=== PATIENT | male | born 1960 | race Hispanic/Latino ===

== ENCOUNTER → 2016-07-25 21:11 | Emergency (ER) | payer MEDICAID ==
[2016-07-25 21:11] VITALS: BMI 32.5
== END | disposition left against medical advice (07) ==
LOC: C.ER 21:11
DX: Z04.8 Encounter for examination and observation for other specified reasons (principal); Z02.9 Encounter for administrative examinations, unspecified

== ENCOUNTER 2016-07-26 15:28 | Inpatient (IN) | payer MEDICAID ==
[2016-07-26 15:48] VITALS: BMI 28.7
[2016-07-26 17:28] LABS: BASO % 0.9 % (0.0-2.0); EOS % 0.5 % (0.0-4.0); HEMATOCRIT 43.7 % (35.0-51.0); LYMPH # 1.5 K/uL (1.0-4.3); LYMPH % 27.9 % (20.0-40.0); MEAN CELL VOLUME 95.6 fL (80.0-94.0); MEAN CORPUSCULAR HGB CONC 33.4 g/dL (33.0-37.0); MONO # 0.9 K/uL (0.0-0.8); MONO % 15.7 % (0.0-10.0); NRBC % 0.1 % (0.0-2.0); WHITE BLOOD COUNT 5.5 K/uL (4.8-10.8)
[2016-07-26 17:37] LABS: CHLORIDE 90 mmol/L (98-107); POTASSIUM 3.3 mmol/L (3.6-5.2); SODIUM 142 mmol/L (132-148)
[2016-07-26 17:39] LABS: BILIRUBIN,TOTAL 1.4 mg/dL (0.2-1.3); GFR AFRICAN-AMERICAN > 60
[2016-07-26 17:40] LABS: ALB/GLOB RATIO 1.3 (1.0-2.1); ALKALINE PHOSPHATASE 149 U/L (38-126); ALT/SGPT 105 U/L (21-72); AST/SGOT 231 U/L (17-59); BLOOD UREA NITROGEN 12 mg/dL (9-20); CALCIUM 8.2 mg/dl (8.6-10.4); CARBON DIOXIDE 30 mmol/L (22-30); GLUCOSE,RANDOM 93 mg/dL (75-110); TOTAL PROTEIN 7.9 g/dL (6.3-8.3)
[2016-07-26 18:00] LABS: ALCOHOL SERUM 356 mg/dl (0-10)
--- NOTE | 2016-07-26 18:03 | C.PDOC ---
History Of Present Illness 56 y/o male presents to the ED requesting alcohol detox. Pt admits to drinking 2 pints per day sometimes more. Pt currently intoxicated requesting help. Denies nausea, vomiting, diarrhea, fever, chills or any other complaints. Time Seen by Provider: 07/26/16 16:20 Chief Complaint (Nursing): Substance Abuse History Per: Patient History/Exam Limitations: no limitations Current Symptoms Are (Timing): Still Present Suicide/Self Injury Attempted (Context): None Modifying Factor(s): Alcohol Severity: Mild Involuntary Hold By: None Recent travel outside of the [place]: No Past Medical History Reviewed: Historical Data, Nursing Documentation, Vital Signs Vital Signs: Last Vital Signs Temp 98.5 F 07/26/16 15:48 Pulse 83 07/26/16 18:02 Resp 18 07/26/16 18:02 BP 118/89 07/26/16 15:48 Pulse Ox 95 07/26/16 18:31 - Medical History PMH: COPD, Diabetes, Fractures, HTN, Schizophrenia, Seizures - [facility] Procedures ALCOHOL DETOXIFICATION (02/24/13) INJECT/INFUSE ELECTROLYT (02/20/13) INJECT/INFUSE NEC (05/02/13) Family History: States: Unknown Family Hx - Social History Hx Tobacco Use: Yes Hx Alcohol Use: Yes Hx Substance Use: Yes - Immunization History Hx Tetanus Toxoid Vaccination: Yes Hx Influenza Vaccination: Yes Hx Pneumococcal Vaccination: No Review Of Systems Except As Marked, All Systems Reviewed And Found Negative. Constitutional: Negative for: Fever, Chills Cardiovascular: Negative for: Chest Pain Respiratory: Negative for: Shortness of Breath Gastrointestinal: Negative for: Nausea, Vomiting, Diarrhea Physical Exam - Physical Exam Appears: Non-toxic, No Acute Distress, Other (intoxicated) Skin: Warm, Dry, No Rash Head: Atraumatic, Normacephalic Neck: Normal ROM, Supple Chest: Symmetrical Cardiovascular: Rhythm Regular, No Murmur Respiratory: Normal Breath Sounds, No Rales, No Rhonchi, No Wheezing Gastrointestinal/Abdominal: Normal Exam, Soft, No Tenderness Extremity: Normal ROM Extremity: Bilateral: Atraumatic Neurological/Psych: Oriented x3 ED Course And Treatment - Laboratory Results Result Diagrams: 07/26/16 17:15 07/26/16 17:15 O2 Sat by Pulse Oximetry: 95 (room air) Pulse Ox Interpretation: Normal Medical Decision Making Medical Decision Making: Plan: labs, UA, CRISIS evaluation Disposition - Disposition Disposition Time: 18:48 Condition: GUARDED - Clinical Impression Clinical Impression: Alcohol abuse - Scribe Statement The provider has reviewed the documentation as recorded by the Scribe Sven Steven Provider Attestation: All medical record entries made by the Scribe were at my direction and personally dictated by me. I have reviewed the chart and agree that the record accurately reflects my personal performance of the history, physical exam, medical decision making, and the department course for this patient. I have also personally directed, reviewed, and agree with the discharge instructions and disposition. Physician Patient Turnover Patient Signed Over To: Nisha Katz Handoff Comments: pending crisis and dispo
[2016-07-26 18:24] LABS: URINE BILIRUBIN NEGATIVE (NEGATIVE); URINE BLOOD NEGATIVE (NEGATIVE); URINE COLOR Yellow (YELLOW); URINE GLUCOSE (UA) NORMAL (Normal); URINE KETONE TRACE mg/dL (NEGATIVE); URINE LEUKOCYTE ESTERASE NEG Leu/uL (Negative); URINE PROTEIN NEGATIVE (NEGATIVE); URINE UROBILINOGEN NORMAL mg/dL (0.2-1.0)
--- NOTE | 2016-07-27 07:09 | CT ---
EXAM: CT Head Without Intravenous Contrast CLINICAL HISTORY: 56 years old, male; Pain; Headache and other: Bump at the back of the head; Additional info: Trauma to head resulting in visible hematoma TECHNIQUE: Axial computed tomography images of the head/brain without intravenous contrast. This CT exam was performed using one or more of the following dose reduction techniques: automated exposure control, adjustment of the mA and/or kV according to patient size, and/or use of iterative reconstruction technique. EXAM DATE/TIME: 07/27/2016 5:38 AM COMPARISON: No relevant prior studies available. FINDINGS: Brain: Small right parieto-occipital and frontal subdural hematomas, maximum thickness about 5 mm. Additional right parafalcine component, maximal thickness 4.5 mm. Partial right hemispheric sulcal effacement. No midline shift. No sign of herniation. Mild cerebellar and cerebral atrophy. Ventricles: Unremarkable. No ventriculomegaly. Bones/joints: Unremarkable. No acute fracture. Soft tissues: Right parietal convexity scalp hematoma of approximately 1.2 x 2.3 cm. Sinuses: Unremarkable as visualized. No acute sinusitis. Mastoid air cells: Unremarkable as visualized. No mastoid effusion. IMPRESSION: Small right parieto-occipital, frontal and parafalcine subdural hematomas.
--- NOTE | 2016-07-27 08:01 | PCM.PSYCH ---
Initial Psychiatric Evaluation - Initial Psychiatric Evaluation Type of Admission: Voluntary Legal Status: Capacity Chief Complaint (in patient's own words): I came in to get help History of Present Illness and Precipitating Events: Patient is a 56 years old CM, who lives alone, and currently unemployed, came to the ED for detox from alcohol. Patient reports a long history of schizophrenia paranoid type continuous, alcohol abuse and opioid abuse. Currently, he reports of abusing more than 2 pints of vodka on a daily basis. Yesterday he abused almost 2 pints of vodka and started developing withdrawal symptoms, so he came to the hospital to get help in detox. He reports withdrawal symptoms including anxiety, headaches, sweating, shakes and cramps. He also reports irritable mood and anxiety, but denies any depressive or manic symptoms. He denies auditory or visual hallucinations or any delusions. He also denies any suicidal ideation or homicidal ideation. He reports of abusing heroin in the past, last abuse more than 4 years ago. Past psychiatric history Patient reports history of multiple inpatient psychiatric hospitalizations for psychosis, [place] [facility]. He also reports follow up with an unknown psychiatrist, last one was last month. Patient reports history of auditory and visual hallucinations in the past. Addendum: Pt was found to have a bump on his head on physical examination. Medicine was consulted and on CT Scan subdural hematoma was diagnosed. Pt will be transferred to the medical floor for the appropriate treatment. Current Medications: Active Medications Generic Name Dose Route Start Last Admin Trade Name Freq PRN Reason Stop Dose Admin Multivitamins/Vitamin C 10 ml/ 1,011.2 mls @ 75 mls/hr 07/27/16 07:47 Thiamine HCl 100 mg/ Folic IV 07/27/16 21:15 Acid 1 mg/ Sodium Chloride .[id number] ONE Lorazepam 2 mg 07/27/16 08:00 Ativan PO 08/01/16 07:59 Q4 RAHEEM Taper Lorazepam 1 mg 07/27/16 07:47 Ativan IVP Q4H PRN Seizure activity Past Psychiatric History - Past Psychiatric History Previous Treatment History: Inpatient Pertinent Medical Hx (Current Medical&Sleep Prob, Allergies): Allergies Allergy/AdvReac Type Severity Reaction Status Date / Time No Known Allergies Allergy Verified 07/26/16 15:47 Methadone 30 mg PO DAILY 04/25/14 Review of Systems - Review of Systems All systems: reviewed and no additional remarkable complaints except - Psychiatric Psychiatric: Anxiety, Irritability Mental Status Examination - Personal Presentation Personal Presentation: Looks stated age - Affect Affect: Constricted - Motor Activity Motor Activity: Calm - Reliability in Providing Information Reliability in Providing Information: Good - Speech Speech: Organized - Mood Mood: Anxious - Formal Thought Process Formal Thought Process: No Impairment - Obsessions/Compulsions Obsessions: No Compulsions: No - Cognitive Functions Orientation: Person, Place, Situation, Time Sensorium: Alert Attention/Concentration: Attentive Abstract Thinking: [place] Estimate of Intelligence: Below average Judgement: Imparied, as evidence by: Poor judgement, Intact, as evidence by: Insight regarding need for hospitalization - Risk Risk: Withdrawal, Diminished functioning - Strength & Assets Inventory Strength & Assets Inventory: Cooperative DSM 5 DX - DSM 5 DSM 5 Diagnosis: Alcohol use disorder severe Alcohol withdrawal uncomplicated Schizophrenia paranoid type continuous - Recommended/Plan of Treatment Treatment Recommendations and Plan of Treatment: Alcohol use disorder severe CBT Psychoeducation Supportive therapy, individual therapy Use LA for abstinence Alcohol withdrawal uncomplicated CBT Psychoeducation Supportive therapy, individual therapy Ativan when necessary Ativan taper Folic acid/thiamine/multivitamin Schizophrenia paranoid type continuous CBT Psychoeducation Supportive therapy, individual therapy Haldol 5 mg by mouth twice a day Trazodone 50 mg PO Q HS - Smoking Cessation Smoking Cessation Initiated: No
[2016-07-27] MEDS ORDERED: Albuterol-Ipratrop 3 mg / 0.5 (3 ml) UD INH PRN (08:29)
[2016-07-27] MEDS ORDERED: Multivitamin (MVI) 10 ML, Thiamine 100 MG, Folic Acid 1 MG in Sodium Chloride 0.9% 1,00... IV ONE (08:30)
--- NOTE | 2016-07-27 08:39 | CP.PCM.CON ---
<Ruth Boston - Last Filed: 07/27/16 08:30> History of Present Illness - History of Present Illness History of Present Illness: CC: headache HPI: Patient is a 56 year old male with PMHx of COPD, alcohol abuse and heroin abuse in the detox unit for alcohol withdrawal. Patient was found to have inflammation and hematoma on the back of his head. Head CT was ordered which showed small right parieto-occipital, frontal and parafalcine subdural hematomas. Patient does not remember falling but says he must have fallen yesterday while drunk. However, patient says he drinks every day and does not remember most of his days. Patient reports diffuse headache. Patient also reports vomiting over night but says he feels better now. Patient denies vision changes, decreased strength, slurred speech, hearing problems, SOB, chest pain, fever, chills, abdominal pain, diarrhea, dysuria. Patient drinks 2 pints of vodka daily for the past "few years." Patient could not quantify how long he has been drinking for. Patient says he quit heroin 1.5 years ago. He now takes methadone 30mg PO daily. Patient also reports quitting smoking cigarettes 1.5 years ago. Patient is continually asking for a sandwich and soda. PMD: [facility] PMHx: mary daily PSHx: right hip surgery x 2 for fractures Social Hx: quit smoking 1.5 years ago before which he smoked 1.5ppd for 40 years ; quit [place] and off heroin use 1.5 years ago; drinks 2 pints of vodka daily for a few years Family Hx: no history of CA, AL, strokes, bleeding issues Review of Systems - Constitutional Constitutional: Headache. absent: Chills, Fever - EENT Eyes: absent: Blurred Vision Ears: absent: Dizziness Nose/Mouth/Throat: absent: Sore Throat - Cardiovascular Cardiovascular: absent: Chest Pain - Respiratory Respiratory: absent: Cough, Dyspnea - Gastrointestinal Gastrointestinal: Vomiting. absent: Abdominal Pain, Constipation, Diarrhea, Nausea - Genitourinary Genitourinary: absent: Dysuria - Musculoskeletal Musculoskeletal: absent: Back Pain - Integumentary Integumentary: absent: Rash - Neurological Neurological: Headaches, Memory Loss. absent: Dizziness, Sensory Deficit, Weakness - Psychiatric Psychiatric: absent: Anxiety - Hematologic/Lymphatic Hematologic: absent: Easy Bleeding, Easy Bruising Past Patient History - Infectious Disease Hx of Infectious Diseases: None - Tetanus Immunizations Tetanus Immunization: Unknown - Past Medical History & Family History Past Medical History?: Yes Past Family History: Reviewed and not pertinent Pertinent Family History: no history of CA, AL, strokes, bleeding issues - Past Social History Smoking Status: Former Smoker Alcohol: > 2 Drinks/Day Drugs: Prescription medications - CARDIAC Hx Cardiac Disorders: No Hx Hypertension: Yes - PULMONARY Hx Tuberculosis: No - NEUROLOGICAL HX Cerebrovascular Accident: No Hx Seizures: Yes - HEENT Hx HEENT Problems: No - RENAL Hx Chronic Kidney Disease: No - ENDOCRINE/METABOLIC Hx Endocrine Disorders: No - HEMATOLOGICAL/ONCOLOGICAL Hx Cancer: No Hx Human Immunodeficiency Virus (HIV): No - INTEGUMENTARY Hx Dermatological Problems: No - MUSCULOSKELETAL/RHEUMATOLOGICAL Hx Falls: Yes Hx Fractures: Yes - GASTROINTESTINAL Hx Gastrointestinal Disorders: No - GENITOURINARY/GYNECOLOGICAL Hx Sexually Transmitted Disorders: No - PSYCHIATRIC Hx Schizophrenia: Yes Hx Substance Use: Yes - SURGICAL HISTORY Hx Surgeries: Yes Hx Orthopedic Surgery: Yes - ANESTHESIA Hx Anesthesia: Yes Hx Anesthesia Reactions: No Meds Allergies/Adverse Reactions: Allergies Allergy/AdvReac Type Severity Reaction Status Date / Time No Known Allergies Allergy Verified 07/26/16 15:47 - Medications Medications: Current Medications Albuterol/Ipratropium (Duoneb 3 Mg/0.5 Mg (3 Ml) Ud) 3 ml INH RQ2 PRN PRN Reason: Shortness of Breath Chlordiazepoxide (Librium) 25 mg PO BID RAHEEM Clonidine HCl (Catapres) 0.1 mg PO Q4H PRN PRN Reason: Symptoms of alcohol withdrawl Folic Acid (Folic Acid) 1 mg PO DAILY RAHEEM Multivitamins/Vitamin C 10 ml/Thiamine HCl 100 mg/ Folic Acid 1 mg/ Sodium Chloride 1,011.2 mls @ 75 mls/hr IV .[id number] ONE Stop: 07/27/16 21:58 Levetiracetam 500 mg/ Dextrose 105 mls @ 420 mls/hr IVPB Q12H RAHEEM Lorazepam (Ativan) 1 mg IVP Q4H PRN PRN Reason: Seizure activity Lorazepam (Ativan) 2 mg PO Q4 RAHEEM PRN Reason: Taper Stop: 08/01/16 07:59 Methadone HCl (Methadone) 30 mg PO DAILY RAHEEM Multivitamins (Hexavitamin) 1 tab PO DAILY RAHEEM Thiamine HCl (Vitamin B1 Tab) 100 mg PO DAILY RAHEEM Trazodone HCl (Desyrel) 50 mg PO HS PRN PRN Reason: Insomnia Physical Exam - Constitutional Appears: Non-toxic, No Acute Distress - Head Exam Additional comments: hematoma on occipital area, abrasion on right temporal area - Eye Exam Eye Exam: EOMI, PERRL. absent: Scleral icterus - ENT Exam ENT Exam: Mucous Membranes Moist - Respiratory Exam Respiratory Exam: Clear to Auscultation Bilateral, NORMAL BREATHING PATTERN. absent: Rales, Rhonchi, Wheezes - Cardiovascular Exam Cardiovascular Exam: REGULAR RHYTHM, +S1, +S2. absent: Gallop, Rubs, Systolic Murmur - GI/Abdominal Exam GI & Abdominal Exam: Normal Bowel Sounds, Soft. absent: Distended, Firm, Tenderness - Extremities Exam Extremities exam: Negative for: pedal edema - Neurological Exam Neurological exam: Alert, CN II-XII Intact, Oriented x3 Additional comments: 5/5 muscle strength b/l sensation intact - Psychiatric Exam Psychiatric exam: Flat Affect, Normal Mood - Skin Skin Exam: Normal Color, Warm Results - Vital Signs Recent Vital Signs: Last Vital Signs Temp 97.4 F L 07/27/16 04:38 Pulse 93 H 07/27/16 04:38 Resp 20 07/27/16 04:38 BP 134/87 07/27/16 04:38 Pulse Ox 95 07/27/16 04:38 - Labs Result Diagrams: 07/26/16 17:15 07/26/16 17:15 Assessment & Plan - Assessment and Plan (Free Text) Assessment: Subdural Hematomas Head CT 07/27/16 - small right parieto-occipital, frontal and parafalcine subdural hematomas (please see full report) Transfer to telemetry Neurology consult - Dr. Edgardo Gilmore - help appreciated Neurosurgery consult - Dr. Deleon - help appreciated No surgery at this time. Patient can eat. F/U Head CT in AM No anticoagulation No Keppra needed per Dr. Edgardo Gilmore BP control with clonidine 0.1mg PO Q8H PRN SBP>150 Nursing communication to page me if SBP>140 Neuro checks Q4 Alcohol withdrawal Librium 25mg PO BID Ativan 1mg IVP Q4H PRN seizure Ativan taper Trazodone 50mg PO HS Banana bag at 75cc/hr Seziure precautions Fall precautions Aspiration precautions Psych consult - Dr. Sameer Cardenas f/u recs History of heroin abuse Methone 30mg PO daily Psych consult - Dr. Sameer mei/u recs COPD Duonebs Q2H PRN Takes spiriva at home (lost inhaler though)-- ordered here Prophylaxis Protonix 40mg IVP daily SCDs No chemical anticoagulation secondary to brain bleed <Emeterio Stone H - Last Filed: 07/27/16 17:22> Meds - Medications Medications: Current Medications Acetaminophen (Tylenol 325mg Tab) 650 mg PO Q6 PRN PRN Reason: Headache Last Admin: 07/27/16 12:13 Dose: 650 mg Albuterol/Ipratropium (Duoneb 3 Mg/0.5 Mg (3 Ml) Ud) 3 ml INH RQ2 PRN PRN Reason: Shortness of Breath Clonidine HCl (Catapres) 0.1 mg PO Q8 PRN PRN Reason: SBP>150 Folic Acid (Folic Acid) 1 mg PO DAILY [facility] Multivitamins/Vitamin C 10 ml/Thiamine HCl 100 mg/ Folic Acid 1 mg/ Sodium Chloride 1,011.2 mls @ 75 mls/hr IV .[id number] ONE Stop: 07/27/16 21:58 Last Admin: 07/27/16 11:32 Dose: 75 mls/hr Lorazepam (Ativan) 1 mg IVP Q4H PRN PRN Reason: Seizure activity Lorazepam (Ativan) 2 mg PO Q4 RAHEEM PRN Reason: Taper Stop: 08/01/16 07:59 Last Admin: 07/27/16 15:44 Dose: 2 mg Methadone HCl (Methadone) 30 mg PO DAILY [facility] Last Admin: 07/27/16 14:55 Dose: Not Given Multivitamins (Hexavitamin) 1 tab PO DAILY [facility] Ondansetron HCl (Zofran Inj) 4 mg IVP Q6 PRN PRN Reason: Nausea/Vomiting Last Admin: 07/27/16 11:53 Dose: 4 mg Pantoprazole Sodium (Protonix Inj) 40 mg IVP DAILY [facility] Last Admin: 07/27/16 11:31 Dose: 40 mg Thiamine HCl (Vitamin B1 Tab) 100 mg PO DAILY [facility] Tiotropium [place] (Spiriva) 18 mcg INH RQ24 RAHEEM Trazodone HCl (Desyrel) 50 mg PO HS PRN PRN Reason: Insomnia Results - Vital Signs Recent Vital Signs: Last Vital Signs Temp 98.0 F 07/27/16 16:47 Pulse 102 H 07/27/16 16:47 Resp 20 07/27/16 16:47 BP 133/83 07/27/16 16:47 Pulse Ox 96 07/27/16 16:47 - Labs Result Diagrams: 07/26/16 17:15 07/27/16 11:08 Labs: Laboratory Results - last 24 hr 07/27/16 11:08 Sodium 137 Potassium 3.0 L Chloride 89 L Carbon Dioxide 28 Anion Gap 23 H BUN 12 Creatinine 0.7 L Est GFR ( Amer) > 60 Est GFR (Non-Af Amer) > 60 Random Glucose 81 Calcium 8.4 L Total Bilirubin 1.9 H AST 225 H ALT 105 H Alkaline Phosphatase 147 H Total Protein 7.4 Albumin 4.2 Globulin 3.2 Albumin/Globulin Ratio 1.3 Attending/Attestation - Attestation I have personally seen and examined this patient.: Yes I have fully participated in the care of the patient.: Yes I have reviewed all pertinent clinical information: Yes Notes (Text): 07/27/16 17:18 Medical Attending: Patient was seen and examined by me as well. We saw the patient early in the morning - we were notified by staff on 7D that the patient had a head CT overnight and that there is an area of bleeding - a subdural hematoma on the right parietal side with what seems like a counter injury as well. When we saw the patient - he appeared to be very very well. He asked for food and methadone - we had to emphasize to the patient the findings of the CT scan and that he needed further monitoring on the medical floors. He is an extensive alcohol user as well as methadone and we need to give medication to prevent withdrawl from causing excessive HTN which could worsen the subdural-hematoma thank you Emeterio Stone
--- NOTE | 2016-07-27 08:52 | CP.PCM.PN ---
Subjective - Date & Time of Evaluation Date of Evaluation: 07/27/16 Time of Evaluation: 08:51 - Subjective Subjective: saw pt with Dr Donaldson present Small R frontal SDH non-operative suggest obs x 24 hrs unlikly will need intervention Objective - Vital Signs/Intake and Output Vital Signs (last 24 hours): Temp Pulse Resp BP Pulse Ox 97.4 F L 93 H 20 134/87 95 07/27/16 04:38 07/27/16 04:38 07/27/16 04:38 07/27/16 04:38 07/27/16 04:38 - Medications Medications: Current Medications Albuterol/Ipratropium (Duoneb 3 Mg/0.5 Mg (3 Ml) Ud) 3 ml INH RQ2 PRN PRN Reason: Shortness of Breath Chlordiazepoxide (Librium) 25 mg PO BID RAHEEM Clonidine HCl (Catapres) 0.1 mg PO Q8 PRN PRN Reason: SBP>150 Folic Acid (Folic Acid) 1 mg PO DAILY RAHE[facility] Multivitamins/Vitamin C 10 ml/Thiamine HCl 100 mg/ Folic Acid 1 mg/ Sodium Chloride 1,011.2 mls @ 75 mls/hr IV .[id number] ONE Stop: 07/27/16 21:58 Lorazepam (Ativan) 1 mg IVP Q4H PRN PRN Reason: Seizure activity Lorazepam (Ativan) 2 mg PO Q4 RAHEEM PRN Reason: Taper Stop: 08/01/16 07:59 Methadone HCl (Methadone) 30 mg PO DAILY [facility] Last Admin: 07/27/16 08:37 Dose: 30 mg Multivitamins (Hexavitamin) 1 tab PO DAILY [facility] Ondansetron HCl (Zofran Inj) 4 mg IVP Q6 PRN PRN Reason: Nausea/Vomiting Pantoprazole Sodium (Protonix Inj) 40 mg IVP DAILY [facility] Thiamine HCl (Vitamin B1 Tab) 100 mg PO DAILY RAHEEM Tiotropium [place] (Spiriva) 18 mcg INH RQ24 RAHEEM Tiotropium [place] (Spiriva Inhalation Handihaler Device) 1 inhaler INH ONCE ONE Stop: 07/27/16 08:49 Trazodone HCl (Desyrel) 50 mg PO HS PRN PRN Reason: Insomnia
--- NOTE | 2016-07-27 09:21 | CON ---
DATE: 07/27/2016 REASON FOR CONSULTATION: Subdural hematoma. HISTORY OF PRESENT ILLNESS: The patient is a 56-year-old male who came to the Emergency Room request ing alcohol detoxification. The patient was noticed to have bump on his parietooccipital region and that is why CT scan of the head was done. It showed subdural hematoma, that is why neurology consult ation is called. The patient does not remember a fall or hitting his head. He has a mild headache. Denies to have any focal weakness in arms or legs. REVIEW OF SYSTEMS: Denies any chest pain, shortness of breath, abdominal pain, constipation, diarrhe a, dysuria, pyuria, cough, sputum production. No hallucinations or skin rash. Positive for tremulou sness in his hands. PAST MEDICAL HISTORY: None. MEDICATIONS AT HOME: Includes methadone. ALLERGIES: No known drug allergies. SOCIAL HISTORY: Denies smoking. Does drink alcohol. Denies use of any illicit drugs. FAMILY HISTORY: Noncontributory to the case. PHYSICAL EXAMINATION: GENERAL: The patient is a middle-aged male lying on the bed, in no acute distress. VITAL SIGNS: His blood pressure is 134/87, heart rate is 93 per minute, breathing at a rate of 16 pe r minute, temperature is 97.4 degrees Fahrenheit. HEENT: Normocephalic, atraumatic. NECK: Supple. There are no carotid bruits. LUNGS: Clear. CARDIOVASCULAR: S1, S2 audible. No murmurs. ABDOMEN: Soft, nontender. Bowel sounds present. NEUROLOGIC EXAMINATION: MENTAL STATUS: The patient is awake, alert, and oriented to time, place, person. Speech is fluent. Memory and cognition appears intact. CRANIAL NERVES: Pupils are 3 mm bilaterally reactive to light. Visual funez are full. Extraocular movements are intact. There is no facial asymmetry. Palate is upgoing bilaterally and tongue is mi dline. MOTOR: Tone is normal. Power is 5/5 bilaterally in all extremities. There is decreased movement in the right lower extremity secondary to his hip replacement. Still the power is 4/5. Reflexes +2 an d symmetrical. Plantars downgoing bilaterally. CEREBELLAR: [id number] shows no dysmetria. GAIT: Deferred at the moment. MISCELLANEOUS: Positive tremulousness in hands are noted. LABORATORY DATA: Labs reviewed, shows WBC of 5.5, hemoglobin 14.6, hematocrit 43.7 and platelets of 195. Sodium is 142, potassium 3.3, chloride 90, carbon dioxide content 30, BUN of 12, creatinine 0.7 , and glucose of 93. His urine toxicology is positive for methadone. He had a CT scan of the head d one which showed small right occipital, frontal and parafalcine subdural hematoma. IMPRESSION: 1. Small subdural hematoma. 2. Alcohol withdrawal. RECOMMENDATIONS: 1. The patient to have repeat CT scan of the head done tomorrow morning. 2. The patient to have frequent neuro checks. 3. The patient does not have any focal neurologic deficits. 4. The patient was also evaluated by neurosurgery and no surgical intervention to be done at present , to which I agree. 5. The patient to be on benzodiazepines for his alcohol withdrawal symptoms. 6. The patient to be continued on thiamine as well as multivitamin. 7. No further neurologic recommendations; however, if there is increase in the size of the subdural, consider recalling neurosurgery or if there is any other acute neurological issues, please call as n mario. Thank you for the opportunity to participate in the care of this patient. Johnathan Gilmore MD cc: [id number] TT: 07/27/2016 09:21:09 Confirmation # [id number] Dictation # [id number] taylor
[2016-07-27] MEDS ORDERED: Multiple Vitamins Tab PO SCH (10:00)
[2016-07-27] MEDS ORDERED: levETIRAcetam 500 MG in Sodium Chloride 0.9% 100 ML IVPB SCH (10:00)
[2016-07-27 11:34] LABS: CHLORIDE 89 mmol/L (98-107); SODIUM 137 mmol/L (132-148)
[2016-07-27 11:37] LABS: ALB/GLOB RATIO 1.3 (1.0-2.1); ALKALINE PHOSPHATASE 147 U/L (38-126); ALT/SGPT 105 U/L (21-72); AST/SGOT 225 U/L (17-59); BILIRUBIN,TOTAL 1.9 mg/dL (0.2-1.3); BLOOD UREA NITROGEN 12 mg/dL (9-20); CARBON DIOXIDE 28 mmol/L (22-30); GFR AFRICAN-AMERICAN > 60; GLUCOSE,RANDOM 81 mg/dL (75-110); TOTAL PROTEIN 7.4 g/dL (6.3-8.3)
[2016-07-27 11:38] LABS: CALCIUM 8.4 mg/dl (8.6-10.4)
[2016-07-27] MEDS ORDERED: Potassium Chloride 20 mEq ER Tab PO STA (14:37)
[2016-07-27] MEDS: Potassium Chloride 20 mEq ER Tab PO STA ×2 (14:47→14:56)
[2016-07-28] MEDS ORDERED: Tiotropium 18 mcg Cap For Inhalation INH SCH ×2 (08:00→17:00)
--- NOTE | 2016-07-28 08:34 | CP.PCM.PN ---
Subjective - Date & Time of Evaluation Date of Evaluation: 07/28/16 Time of Evaluation: 08:00 - Subjective Subjective: Patient was seen and examined by me. He had a repeat head CT this morning. He was not in any acute distress. He denied chest pain, denied shortness of breath, denied palpitations. He denied blurry vision, denied weakness, denied headache. Denied weakness. He has chronic right leg weakness for a long time he says On exam, EOMI, 2-12 intact, he still has the hematoma on parietal occipatl area , no bleeding. He has some fine tremors on exam, the blood pressure is in the 120 systolic range overnight and this morning. No tacycardic Objective - Vital Signs/Intake and Output Vital Signs (last 24 hours): Temp Pulse Resp BP Pulse Ox 97.8 F 71 20 128/81 95 07/28/16 07:00 07/28/16 07:00 07/28/16 07:00 07/28/16 07:00 07/28/16 07:00 Intake and Output: 07/28/16 07/28/16 06:59 18:59 Output Total 100 Balance -100 - Medications Medications: Current Medications Acetaminophen (Tylenol 325mg Tab) 650 mg PO Q6 PRN PRN Reason: Headache Last Admin: 07/27/16 23:22 Dose: 650 mg Albuterol/Ipratropium (Duoneb 3 Mg/0.5 Mg (3 Ml) Ud) 3 ml INH RQ2 PRN PRN Reason: Shortness of Breath Clonidine HCl (Catapres) 0.1 mg PO Q8 PRN PRN Reason: SBP>150 Folic Acid (Folic Acid) 1 mg PO DAILY [facility] Lorazepam (Ativan) 1 mg IVP Q4H PRN PRN Reason: Seizure activity Lorazepam (Ativan) 1 mg PO Q6 RAHEEM PRN Reason: Taper Stop: 08/01/16 07:59 Last Admin: 07/28/16 04:12 Dose: 2 mg Methadone HCl (Methadone) 30 mg PO DAILY [facility] Last Admin: 07/27/16 14:55 Dose: Not Given Multivitamins (Hexavitamin) 1 tab PO DAILY [facility] Ondansetron HCl (Zofran Inj) 4 mg IVP Q6 PRN PRN Reason: Nausea/Vomiting Last Admin: 07/27/16 11:53 Dose: 4 mg Pantoprazole Sodium (Protonix Inj) 40 mg IVP DAILY [facility] Last Admin: 07/27/16 11:31 Dose: 40 mg Thiamine HCl (Vitamin B1 Tab) 100 mg PO DAILY [facility] Tiotropium [place] (Spiriva) 18 mcg INH RQ24 [facility] Trazodone HCl (Desyrel) 50 mg PO HS PRN PRN Reason: Insomnia Last Admin: 07/28/16 00:44 Dose: 50 mg - Labs Labs: 07/27/16 11:08 - Constitutional Appears: No Acute Distress, Chronically Ill - Head Exam Head Exam: absent: ATRAUMATIC, NORMAL INSPECTION, NORMOCEPHALIC Additional comments: As mentioned before, he has hematoma parietal occipatal area. Not changed much from yesterday - Eye Exam Eye Exam: EOMI, Normal appearance, PERRL - ENT Exam ENT Exam: Mucous Membranes Moist - Respiratory Exam Respiratory Exam: Clear to Ausculation Bilateral, NORMAL BREATHING PATTERN - Cardiovascular Exam Cardiovascular Exam: REGULAR RHYTHM - GI/Abdominal Exam GI & Abdominal Exam: Distended, Soft, Normal Bowel Sounds. absent: Guarding, Rigid, Tenderness - Neurological Exam Neurological Exam: Alert, Awake, CN II-XII Intact, Oriented x3 Neuro motor strength exam: Left Upper Extremity: 5, Right Upper Extremity: 5, Left Lower Extremity: 5, Right Lower Extremity: 5 - Skin Skin Exam: Pallor, Pallor Assessment and Plan - Assessment and Plan (Free Text) Assessment: Subdural Hematomas 07/28: We are pending reapeat head CT results at this time. Blood pressure is controlled. Head CT 07/27/16 - small right parieto-occipital, frontal and parafalcine subdural hematomas (please see full report) Patient transffered to Transfer to telemetry Neurology consult - Dr. Edgardo Gilmore - help appreciated Neurosurgery consult - Dr. Deleon - help appreciated No surgery at this time. Patient can eat. F/U Head CT in AM No anticoagulation No Keppra needed per Dr. Edgardo Gilmore BP control with clonidine 0.1mg PO Q8H PRN SBP>150 Nursing communication to page me if SBP>140 Neuro checks Q4 Alcohol withdrawal 07/28: Minimal fine tremors, otherwise doing well. Probably can decrease librium tommorow and continue the ativan protocol. Librium 25mg PO BID Ativan 1mg IVP Q4H PRN seizure Ativan taper Trazodone 50mg PO HS Banana bag at 75cc/hr Seziure precautions Fall precautions Aspiration precautions Psych consult - Dr. Sameer Cardenas f/u recs History of heroin abuse Methone 30mg PO daily Psych consult - Dr. Sameer Cardenas f/u recs COPD Duonebs Q2H PRN Takes spiriva at home (lost inhaler though)-- ordered here Prophylaxis Protonix 40mg IVP daily SCDs No chemical anticoagulation secondary to brain bleed
[2016-07-28 08:44] LABS: HEMATOCRIT 40.6 % (35.0-51.0); MEAN CELL VOLUME 95.2 fL (80.0-94.0); MEAN CORPUSCULAR HEMOGLOBIN 32.4 pg (27.0-31.0); MEAN PLATELET VOLUME 8.5 fL (7.2-11.7); RED CELL DISTRIBUTION WIDTH 13.6 % (11.5-14.5); WHITE BLOOD COUNT 3.7 K/uL (4.8-10.8)
--- NOTE | 2016-07-28 09:57 | CT ---
PROCEDURE: CT HEAD WITHOUT CONTRAST. HISTORY: f/u subdural hematomas COMPARISON: July 27, 2016. TECHNIQUE: Axial computed tomography images were obtained through the head/brain without intravenous contrast. Radiation dose: Total exam DLP = 879.60 mGy-cm. This CT exam was performed using one or more of the following dose reduction techniques: Automated exposure control, adjustment of the mA and/or kV according to patient size, and/or use of iterative reconstruction technique. FINDINGS: HEMORRHAGE: 8 stable extra-axial fluid collections/subdural hematomas right frontal region, falcine midline component. Stable, modest effacement of cortical sulci in the right hemisphere. BRAIN: No evidence of acute cortical or cerebellar infarction. VENTRICLES: Unremarkable. No hydrocephalus. CALVARIUM: Unremarkable. PARANASAL SINUSES: Unremarkable as visualized. No significant inflammatory changes. MASTOID AIR CELLS: Unremarkable as visualized. No inflammatory changes. OTHER FINDINGS: Extracranial hematoma right posterior parietal region unchanged. IMPRESSION: Stable right parietal frontal and falcine subdural hematomas. There is a smaller occipital component unchanged. Stable is effacement of cortical sulci in the right hemisphere.
--- NOTE | 2016-07-28 11:18 | US ---
HISTORY: transaminitis and elevated bilirubin COMPARISON: None. TECHNIQUE: Sonographic evaluation of the abdomen. FINDINGS: LIVER: Measures 20.9 cm. Hepatopedal blood flow. Fatty infiltration manifest ultrasonographically as increased echogenicity of the liver parenchyma. No mass. No intrahepatic bile duct dilatation. GALLBLADDER: Unremarkable. No gallstones. COMMON BILE DUCT: Measures 6.2 mm. No stones. No dilatation. PANCREAS: Obscured by overlying bowel gas. Non diagnostic assessment of the pancreas RIGHT KIDNEY: Measures 5.7 x 12.3cm. Normal echogenicity. No calculus, mass, or hydronephrosis. LEFT KIDNEY: Measures 5.6 x 212.1cm. Normal echogenicity. No calculus, mass, or hydronephrosis. SPLEEN: Normal in size and contour. No mass. AORTA: Obscured by overlying bowel gas. IVC: Obscured by overlying bowel gas. OTHER FINDINGS: None. IMPRESSION: Hepatomegaly, hepatic steatosis. Otherwise unremarkable study. Limitations of the current examination: Nonvisualization of retroperitoneal structures including aorta, IVC and pancreas.
[2016-07-28] MEDS ORDERED: Potassium Chloride 20 mEq/15 ml LIQ UD PO ONE (12:00)
[2016-07-28 12:04] LABS: CHLORIDE 92 mmol/L (98-107)
[2016-07-28 12:05] LABS: POTASSIUM 3.2 mmol/L (3.6-5.2); SODIUM 136 mmol/L (132-148)
[2016-07-28 12:07] LABS: ALB/GLOB RATIO 1.2 (1.0-2.1); ALKALINE PHOSPHATASE 113 U/L (38-126); ALT/SGPT 66 U/L (21-72); AST/SGOT 103 U/L (17-59); BILIRUBIN,TOTAL 1.5 mg/dL (0.2-1.3); BLOOD UREA NITROGEN 12 mg/dL (9-20); CARBON DIOXIDE 30 mmol/L (22-30); GFR AFRICAN-AMERICAN > 60; GLUCOSE,RANDOM 130 mg/dL (75-110); TOTAL PROTEIN 6.7 g/dL (6.3-8.3)
[2016-07-28 12:08] LABS: CALCIUM 8.2 mg/dl (8.6-10.4)
[2016-07-28 13:04] LABS: MAGNESIUM 1.7 mg/dL (1.6-2.3)
[2016-07-28] MEDS ORDERED: Magnesium Sulfate 1 gm in D5W 1 GM/100 ML BAG IVPB ONE ×2 (13:51→17:00)
--- NOTE | 2016-07-28 15:49 | PCM.PYCHPN ---
Psychiatric Progress Note - Psychiatric Progress Note Patient seen today, length of contact: 15 min Patient Chief Complaint: I came in to get help Problems Identified/Issues Discussed: Patient seen and evaluated, chart reviewed and discussed with the nurse. The patient reports improvement in his/her mood but still reports withdrawal symptoms including shakes, anxiety, headaches and sweating. As per the nurse patient is improving but still reports of anxiety. Patient has something anxiety and denies any suicidal ideation or homicidal ideation. Patient is taking medications and denies any side effects. Supportive therapy and psychoeducation were given. Medication Change: Yes (Ativan taper) Medical Record Reviewed: Yes Mental Status Examination - Cognitive Function Orientation: Person, Place, Situation, Time Memory: Intact Attention: WNL Concentration: Poor Association: WNL Fund of Knowledge: Poor - Mood Mood: Anxious - Affect Affect: Constricted - Speech Speech: Soft - Formal Thought Process Formal Thought Process: No Impairment - Suicidal Ideation Suicidal Ideation: No - Homicidal Ideation Homicidal Ideation: No Goal/Treatment Plan - Goal/Treatment Plan Need for Continued Stay: Discharge may exacerbated symptoms, Severe functional impairment Progress Toward Problem(s) and Goals/Treatment Plan: Alcohol use disorder severe CBT Psychoeducation Supportive therapy, individual therapy Use [place] for abstinence Alcohol withdrawal uncomplicated CBT Psychoeducation Supportive therapy, individual therapy Ativan when necessary Ativan taper Folic acid/thiamine/multivitamin Schizophrenia paranoid type continuous CBT Psychoeducation Supportive therapy, individual therapy Haldol 5 mg by mouth twice a day Trazodone 50 mg PO Q HS - Smoking Cessation Smoking Cessation Initiated: No
[2016-07-28] MEDS ORDERED: Potassium Chloride 20 mEq ER Tab PO ONE (16:00)
[2016-07-28] MEDS: Tiotropium 18 mcg Cap For Inhalation INH SCH (17:52)
[2016-07-29 07:34] LABS: CHLORIDE 95 mmol/L (98-107); SODIUM 136 mmol/L (132-148)
[2016-07-29 07:36] LABS: ALB/GLOB RATIO 1.3 (1.0-2.1); ALKALINE PHOSPHATASE 112 U/L (38-126); AST/SGOT 109 U/L (17-59); BILIRUBIN,TOTAL 1.2 mg/dL (0.2-1.3); BLOOD UREA NITROGEN 11 mg/dL (9-20); CARBON DIOXIDE 30 mmol/L (22-30); GFR AFRICAN-AMERICAN > 60; GLUCOSE,RANDOM 104 mg/dL (75-110); TOTAL PROTEIN 6.9 g/dL (6.3-8.3)
[2016-07-29 07:37] LABS: ALT/SGPT 70 U/L (21-72); CALCIUM 8.8 mg/dl (8.6-10.4)
[2016-07-29] MEDS: Tiotropium 18 mcg Cap For Inhalation INH SCH (08:08)
[2016-07-29 08:19] LABS: BASO # 0.1 K/uL (0.0-0.2); BASO % 1.2 % (0.0-2.0); EOS # 0.1 K/uL (0.0-0.7); EOS % 1.6 % (0.0-4.0); LYMPH # 1.2 K/uL (1.0-4.3); LYMPH % 25.9 % (20.0-40.0); MEAN CELL VOLUME 95.9 fL (80.0-94.0); MEAN CORPUSCULAR HEMOGLOBIN 32.4 pg (27.0-31.0); MEAN CORPUSCULAR HGB CONC 33.7 g/dL (33.0-37.0); MONO # 0.5 K/uL (0.0-0.8); MONO % 11.2 % (0.0-10.0); NRBC % 0.1 % (0.0-2.0); RED CELL DISTRIBUTION WIDTH 13.5 % (11.5-14.5); WHITE BLOOD COUNT 4.5 K/uL (4.8-10.8)
[2016-07-29] MEDS ORDERED: Azithromycin 500 MG in Sodium Chloride 0.9% 250 ML IVPB SCH (11:00)
[2016-07-29] MEDS: guaiFENesin 600 mg ER Tab PO SCH ×2 (11:33→22:15)
[2016-07-29] MEDS: Piperacill/Tazo 3.375gm in Dex 3.375 GM/50 ML BAG IVPB SCH ×3 (13:49→22:16)
--- NOTE | 2016-07-29 16:48 | RAD ---
HISTORY: COPD COMPARISON: No prior. TECHNIQUE: Chest PA and lateral FINDINGS: LUNGS: No active pulmonary disease. PLEURA: No significant pleural effusion identified. No pneumothorax apparent. CARDIOVASCULAR: Normal. OSSEOUS STRUCTURES: No significant abnormalities. VISUALIZED UPPER ABDOMEN: Normal. OTHER FINDINGS: None. IMPRESSION: No active disease.
--- NOTE | 2016-07-29 17:47 | CP.PCM.PN ---
<Brennan Tobar - Last Filed: 07/29/16 17:43> Subjective - Date & Time of Evaluation Date of Evaluation: 07/29/16 Time of Evaluation: 08:45 - Subjective Subjective: Dr. Tobar PGY 1 Hospitalist Note Patient seen and evaluated at bedside. He was sitting up and eating breakfast. He reports he had a headache over night and some mild nausea but denies any fever, chills, vision changes, numbness, or tingling. He is concerned about his methadone as he has been taking it for years. He also notes he drinks a lot of vodka. He denies any shakes or withdrawal symptoms at this time. He notes a non- productive cough. Objective - Vital Signs/Intake and Output Vital Signs (last 24 hours): Temp Pulse Resp BP Pulse Ox 97.8 F 69 20 162/98 H 95 07/29/16 15:45 07/29/16 15:45 07/29/16 15:45 07/29/16 15:45 07/29/16 07:40 Intake and Output: 07/29/16 07/29/16 06:59 18:59 Intake Total 500 Output Total 700 Balance -200 - Medications Medications: Current Medications Acetaminophen (Tylenol 325mg Tab) 650 mg PO Q6 PRN PRN Reason: Headache Last Admin: 07/29/16 09:12 Dose: 650 mg Albuterol/Ipratropium (Duoneb 3 Mg/0.5 Mg (3 Ml) Ud) 3 ml INH RQ2 PRN PRN Reason: Shortness of Breath Benzonatate (Tessalon Perles) 100 mg PO TID [facility] Last Admin: 07/29/16 15:09 Dose: 100 mg Benztropine Mesylate (Cogentin) 1 mg PO BID [facility] Last Admin: 07/29/16 09:13 Dose: 1 mg Clonidine HCl (Catapres) 0.1 mg PO Q8 PRN PRN Reason: SBP>150 Folic Acid (Folic Acid) 1 mg PO DAILY [facility] Guaifenesin (Mucinex [place]) 600 mg PO Q12 [facility] Last Admin: 07/29/16 11:33 Dose: 600 mg Haloperidol (Haldol) 5 mg PO BID [facility] Last Admin: 07/29/16 09:13 Dose: 5 mg Azithromycin 500 mg/ Sodium (Chloride) 250 mls @ 166.667 mls/hr IVPB Q24H [facility] Last Admin: 07/29/16 11:34 Dose: 166.667 mls/hr Piperacillin Sod/Tazobactam Sod (Zosyn 3.375 Gm Iv Premix) 3.375 gm in 50 mls @ 100 mls/hr IVPB Q6H [facility] Last Admin: 07/29/16 13:49 Dose: 100 mls/hr Lorazepam (Ativan) 1 mg IVP Q4H PRN PRN Reason: Seizure activity Last Admin: 07/29/16 13:21 Dose: 1 mg Lorazepam (Ativan) 1 mg PO Q6 [facility] PRN Reason: Taper Stop: 08/01/16 07:59 Last Admin: 07/29/16 11:33 Dose: 1 mg Methadone HCl (Methadone) 30 mg PO DAILY [facility] Last Admin: 07/28/16 10:50 Dose: 30 mg Multivitamins (Hexavitamin) 1 tab PO DAILY [facility] Ondansetron HCl (Zofran Inj) 4 mg IVP Q6 PRN PRN Reason: Nausea/Vomiting Last Admin: 07/29/16 11:34 Dose: 4 mg Pantoprazole Sodium (Protonix Inj) 40 mg IVP DAILY [facility] Last Admin: 07/29/16 09:12 Dose: 40 mg Thiamine HCl (Vitamin B1 Tab) 100 mg PO DAILY [facility] Tiotropium [place] (Spiriva) 18 mcg INH RQD [facility] Last Admin: 07/29/16 08:08 Dose: 18 mcg Trazodone HCl (Desyrel) 50 mg PO HS PRN PRN Reason: Insomnia Last Admin: 07/29/16 00:02 Dose: 50 mg - Labs Labs: 07/29/16 08:07 07/29/16 07:12 - Constitutional Appears: Non-toxic, No Acute Distress - Head Exam Head Exam: absent: ATRAUMATIC (hematoma right posterior of head), NORMAL INSPECTION - Eye Exam Eye Exam: EOMI, Normal appearance, PERRL Pupil Exam: NORMAL ACCOMODATION, PERRL - ENT Exam ENT Exam: Mucous Membranes Moist - Neck Exam Neck Exam: Normal Inspection - Respiratory Exam Respiratory Exam: Clear to Ausculation Bilateral, NORMAL BREATHING PATTERN. absent: Rales, Rhonchi, Wheezes - Cardiovascular Exam Cardiovascular Exam: REGULAR RHYTHM, +S1, +S2. absent: Gallop, Rubs, Murmur - GI/Abdominal Exam GI & Abdominal Exam: Soft, Normal Bowel Sounds. absent: Tenderness - Extremities Exam Extremities Exam: Normal Capillary Refill, Normal Inspection. absent: Pedal Edema, Tenderness - Back Exam Back Exam: NORMAL INSPECTION. absent: rash noted, tenderness - Neurological Exam Neurological Exam: Alert, Awake, CN II-XII Intact, Oriented x3 Neuro motor strength exam: Left Upper Extremity: 5, Right Upper Extremity: 5, Left Lower Extremity: 5, Right Lower Extremity: 5 Additional comments: mild asterixis - Psychiatric Exam Psychiatric exam: Normal Affect, Normal Mood - Skin Skin Exam: Dry, Intact, Normal Color, Warm Assessment and Plan - Assessment and Plan (Free Text) Assessment: Subdural Hematomas 07/29: Stable at this time Blood pressure is controlled. Head CT 07/27/16 - small right parieto-occipital, frontal and parafalcine subdural hematomas (please see full report) Head CT 07/29/16 showed 8 stable subdural hemorrhages. Platelets stable at 150. On telemetry Neurology consult - Dr. Edgardo Gilmore - help appreciated Neurosurgery consult - Dr. Deleon - help appreciated No surgery at this time. Patient can eat. No anticoagulation No Keppra needed per Dr. Edgardo Gilmore BP control with clonidine 0.1mg PO Q8H PRN SBP>150 Nursing communication to page if SBP>140 Neuro checks Q4 Alcohol withdrawal 07/29: Minimal fine tremor. Continue the ativan protocol. D/C Librium Ativan 1mg IVP Q4 PRN seizure Ativan taper Trazodone 50mg PO HS Banana bag at 75cc/hr Seziure precautions Fall precautions Aspiration precautions Psych consult - Dr. Estrella - f/u recs History of heroin abuse Methone 20 mg today, will taper as per psychiatry Psych consult - Dr. Sameer Cardenas f/u recs COPD Chest x-ray this AM showed no active disease Duonebs Q2H PRN Takes spiriva at home (lost inhaler though)-- ordered here Started on IV Zosyn and Azitrhomycin Tessolon perls, Prophylaxis Protonix 40mg IVP daily SCDs Miralax No chemical anticoagulation secondary to brain bleed Assessment and plan discussed with attending physician. <Mabel Perea V - Last Filed: 07/30/16 09:20> Objective - Vital Signs/Intake and Output Vital Signs (last 24 hours): Temp Pulse Resp BP Pulse Ox 98.5 F 56 L 20 151/88 H 93 L 07/30/16 00:15 07/30/16 03:30 07/30/16 00:15 07/30/16 00:15 07/30/16 00:15 Intake and Output: 07/30/16 07/30/16 06:59 18:59 Intake Total 1000 Balance 1000 - Medications Medications: Current Medications Acetaminophen (Tylenol 325mg Tab) 650 mg PO Q6 PRN PRN Reason: Headache Last Admin: 07/29/16 19:24 Dose: 650 mg Albuterol/Ipratropium (Duoneb 3 Mg/0.5 Mg (3 Ml) Ud) 3 ml INH RQ2 PRN PRN Reason: Shortness of Breath Benzonatate (Tessalon Perles) 100 mg PO TID [facility] Last Admin: 07/29/16 18:42 Dose: 100 mg Benztropine Mesylate (Cogentin) 1 mg PO BID [facility] Last Admin: 07/29/16 18:41 Dose: 1 mg Clonidine HCl (Catapres) 0.1 mg PO Q8 PRN PRN Reason: SBP>150 Folic Acid (Folic Acid) 1 mg PO DAILY [facility] Guaifenesin (Mucinex [place]) 600 mg PO Q12 [facility] Last Admin: 07/29/16 22:15 Dose: 600 mg Haloperidol (Haldol) 5 mg PO BID [facility] Last Admin: 07/29/16 18:42 Dose: 5 mg Azithromycin 500 mg/ Sodium (Chloride) 250 mls @ 166.667 mls/hr IVPB Q24H [facility] Last Admin: 07/29/16 11:34 Dose: 166.667 mls/hr Piperacillin Sod/Tazobactam Sod (Zosyn 3.375 Gm Iv Premix) 3.375 gm in 50 mls @ 100 mls/hr IVPB Q6H [facility] Last Admin: 07/30/16 05:31 Dose: 100 mls/hr Lorazepam (Ativan) 1 mg IVP Q4H PRN PRN Reason: Seizure activity Last Admin: 07/29/16 13:21 Dose: 1 mg Lorazepam (Ativan) 1 mg PO Q8 [facility] PRN Reason: Taper Stop: 08/01/16 07:59 Last Admin: 07/30/16 05:31 Dose: 1 mg Methadone HCl (Methadone) 15 mg PO ONCE ONE Stop: 07/30/16 10:01 Multivitamins (Hexavitamin) 1 tab PO DAILY [facility] Ondansetron HCl (Zofran Inj) 4 mg IVP Q6 PRN PRN Reason: Nausea/Vomiting Last Admin: 07/29/16 11:34 Dose: 4 mg Pantoprazole Sodium (Protonix Inj) 40 mg IVP DAILY [facility] Last Admin: 07/29/16 09:12 Dose: 40 mg Quetiapine Fumarate (Seroquel) 100 mg PO HS [facility] Last Admin: 07/29/16 22:15 Dose: 100 mg Thiamine HCl (Vitamin B1 Tab) 100 mg PO DAILY [facility] Tiotropium [place] (Spiriva) 18 mcg INH RQD [facility] Last Admin: 07/29/16 08:08 Dose: 18 mcg Trazodone HCl (Desyrel) 100 mg PO HS PRN PRN Reason: Insomnia - Labs Labs: 07/30/16 07:13 07/30/16 07:13 Attending/Attestation - Attestation I have personally seen and examined this patient.: Yes I have fully participated in the care of the patient.: Yes I have reviewed all pertinent clinical information, including history, physical exam and plan: Yes Notes (Text): This is a late computer entry for 07/29/16. Patient seen, examined and case discussed with day-time resident. Patient seen during morning rounds about 10:00AM this morning. Patient seen on exam, has minimal tremors, reports cough, productive, non-bloody , 2 week duration. Patient reports mild headache, no focal neuro deficits. Patient ordered for chest xray, started on supportive care for cough, and empiric IV antibiotics to cover for pneumonia. Confirmed with patient's outpatient maintenance clinic regarding Methadone dose. Assessment/Plan 1) Subdural Hematoma * Head CT 07/27/16 - small right parieto-occipital, frontal and parafalcine subdural hematomas (please see full report) * Head CT 07/28/16: stable right parietal frontal and falcine subdural hematomas. Smaller occipital component unchanged. Stable is effacement of cortical sulci in right hemisphere * Neurology consult - Dr. Edgardo Gilmore - help appreciated * Neurosurgery consult - Dr. Deleon - help appreciated * Observation for 24 hours per neurosurgery, unlikely intervention * BP control with clonidine 0.1mg PO Q8H PRN SBP>150 * No anticoagulation 2) Alcohol withdrawal * Ativan 1 mg IV Q 4hour PRN seizure acitiy * Ativan taper (Day 3) 3) History of heroin abuse * Methadone taper * Metadone 20mg PO for today * Psych (Dr. Estrella) on board-->help appreciated * Discussed with Dr. Decker covering today 4) History of COPD * Duonebs Q2H PRN * Spiriva 18mcg Inhaled daily 5) Cough * Ordered for chest xray today * IV antibiotics to cover for pnuemonia * Tessalon pear[place] 100mg PO tid * Guaifensin 600mg PO Q 12hours 6) Transaminitis * secondary to alcohol use * Downtrending * Patient is on Ativan taper for withdrawal * Abdominal US (07/28/16): hepatomegaly, hepatic steatosis * Tylenol PRN monitor given elevated LFTs 7) Prophylaxis * Protonix 40mg IVP daily for GI ppx * SCDs * No chemical anticoagulation secondary to brain bleed * Change to inpatient given alcohol taper for alcohol withdrawal * Disposition: if patient is clinically unchanged, will transfer back to detox tomorrow
--- NOTE | 2016-07-29 20:22 | PCM.PYCHPN ---
Psychiatric Progress Note - Psychiatric Progress Note Patient seen today, length of contact: 16 min Patient Chief Complaint: The pt is seen, chart reviewed, case discussed with staff. The pt is compliant with medications and reports no side-effects. Symptoms are improving but needs more time to stabilize. He is not sure about coming up to detox when medically cleared. After care discussed, needs rehab; support and psychoeducation given. MD and CBT used briefly. Medication Change: Yes (Ativan taper) Medical Record Reviewed: Yes Mental Status Examination - Cognitive Function Orientation: Person, Place, Situation, Time Memory: Intact Attention: WNL Concentration: Poor Association: WNL Fund of Knowledge: Poor - Mood Mood: Anxious - Affect Affect: Constricted - Speech Speech: Soft - Formal Thought Process Formal Thought Process: No Impairment - Suicidal Ideation Suicidal Ideation: No - Homicidal Ideation Homicidal Ideation: No Goal/Treatment Plan - Goal/Treatment Plan Need for Continued Stay: Discharge may exacerbated symptoms, Severe functional impairment Progress Toward Problem(s) and Goals/Treatment Plan: Continue medications Support and psychoeducation daily Attend groups and activities daily After care planning Transfer to 7 Detox when medically stable
[2016-07-30] MEDS: Piperacill/Tazo 3.375gm in Dex 3.375 GM/50 ML BAG IVPB SCH (05:31)
[2016-07-30 07:25] LABS: HEMATOCRIT 43.5 % (35.0-51.0); MEAN CELL VOLUME 96.2 fL (80.0-94.0); MEAN CORPUSCULAR HEMOGLOBIN 32.3 pg (27.0-31.0); MEAN CORPUSCULAR HGB CONC 33.6 g/dL (33.0-37.0); MEAN PLATELET VOLUME 8.5 fL (7.2-11.7); RED CELL DISTRIBUTION WIDTH 13.8 % (11.5-14.5); WHITE BLOOD COUNT 5.7 K/uL (4.8-10.8)
[2016-07-30 08:47] LABS: CHLORIDE 94 mmol/L (98-107)
[2016-07-30 08:48] LABS: POTASSIUM 3.6 mmol/L (3.6-5.2); SODIUM 135 mmol/L (132-148)
[2016-07-30 08:50] LABS: CARBON DIOXIDE 29 mmol/L (22-30); GFR AFRICAN-AMERICAN > 60
[2016-07-30 08:51] LABS: ALB/GLOB RATIO 1.3 (1.0-2.1); ALKALINE PHOSPHATASE 101 U/L (38-126); ALT/SGPT 95 U/L (21-72); AST/SGOT 146 U/L (17-59); BILIRUBIN,TOTAL 1.2 mg/dL (0.2-1.3); BLOOD UREA NITROGEN 14 mg/dL (9-20); CALCIUM 8.9 mg/dl (8.6-10.4); GLUCOSE,RANDOM 109 mg/dL (75-110); PHOSPHOROUS 4.2 mg/dL (2.5-4.5); TOTAL PROTEIN 7.4 g/dL (6.3-8.3)
[2016-07-30 08:52] LABS: MAGNESIUM 1.9 mg/dL (1.6-2.3)
[2016-07-30] MEDS: guaiFENesin 600 mg ER Tab PO SCH ×2 (09:47→22:01)
--- NOTE | 2016-07-30 14:57 | CT ---
PROCEDURE: CT HEAD WITHOUT CONTRAST. HISTORY: reassess hemorrhage COMPARISON: 07/28/2016 and 07/27/2016 TECHNIQUE: Axial computed tomography images were obtained through the head/brain without intravenous contrast. Radiation dose: Total exam DLP = 1052.82 mGy-cm. This CT exam was performed using one or more of the following dose reduction techniques: Automated exposure control, adjustment of the mA and/or kV according to patient size, and/or use of iterative reconstruction technique. FINDINGS: HEMORRHAGE: Slight decrease in size of small right frontal subdural hemorrhage compared to prior examinations. Slight decrease in size of right parafalcine subdural hemorrhage. There is probable mild subdural hemorrhage over the tentorium cerebelli. Right parieto-occipital subdural hematoma previously reported is not evident on this examination. There is persistent mild sulcal effacement over the occipital parietal convexity. . There is no new intra or extra-axial hemorrhage identified. BRAIN: No intracranial mass. Mild diffuse atrophy consistent with age. Minimal periventricular white matter lucency consistent with chronic microvascular ischemic change. VENTRICLES: Unremarkable. No hydrocephalus. CALVARIUM: No calvarial fracture. PARANASAL SINUSES: Unremarkable as visualized. No significant inflammatory changes. MASTOID AIR CELLS: Unremarkable as visualized. No inflammatory changes. OTHER FINDINGS: Right parietal scalp hematoma. IMPRESSION: Slight decrease in size of right parafalcine and right frontal subdural hematomas. Small amount of subdural hemorrhage over tentorium cerebella I, unchanged from prior examinations. Mild right occipital parietal convexity sulcal effacement. Right parietal scalp hematoma. No new intra or extra-axial hemorrhage identified.
--- NOTE | 2016-07-30 15:38 | CP.PCM.PN ---
<Brennan Tobar - Last Filed: 07/30/16 15:34> Subjective - Date & Time of Evaluation Date of Evaluation: 07/30/16 Time of Evaluation: 07:15 - Subjective Subjective: Dr. Tobar PGy 1 Hospitalist Note Patient seen and evaluated at bedside. He reports some headache and would like his Methadone returned to 30mg daily because that is his maintanence dose. He denies any cough, chest pain, SOB, nausea, vomiting, diarrhea, or dysuria. He continues to have a mild tremor which he states he always has. Over night, no adverse events reported per nursing. Objective - Vital Signs/Intake and Output Vital Signs (last 24 hours): Temp Pulse Resp BP Pulse Ox 98.5 F 70 20 151/88 H 93 L 07/30/16 00:15 07/30/16 08:00 07/30/16 00:15 07/30/16 00:15 07/30/16 00:15 Intake and Output: 07/30/16 07/30/16 06:59 18:59 Intake Total 1000 Balance 1000 - Medications Medications: Current Medications Acetaminophen (Tylenol 325mg Tab) 650 mg PO Q6 PRN PRN Reason: Headache Last Admin: 07/29/16 19:24 Dose: 650 mg Albuterol/Ipratropium (Duoneb 3 Mg/0.5 Mg (3 Ml) Ud) 3 ml INH RQ2 PRN PRN Reason: Shortness of Breath Benzonatate (Tessalon Perles) 100 mg PO TID [facility] Last Admin: 07/30/16 13:38 Dose: 100 mg Benztropine Mesylate (Cogentin) 1 mg PO BID [facility] Last Admin: 07/30/16 09:47 Dose: 1 mg Clonidine HCl (Catapres) 0.1 mg PO Q8 PRN PRN Reason: SBP>150 Folic Acid (Folic Acid) 1 mg PO DAILY [facility] Guaifenesin (Mucinex La) 600 mg PO Q12 [facility] Last Admin: 07/30/16 09:47 Dose: 600 mg Haloperidol (Haldol) 5 mg PO BID [facility] Last Admin: 07/30/16 09:48 Dose: 5 mg Lorazepam (Ativan) 1 mg IVP Q4H PRN PRN Reason: Seizure activity Last Admin: 07/29/16 13:21 Dose: 1 mg Lorazepam (Ativan) 1 mg PO Q8 [facility] PRN Reason: Taper Stop: 08/01/16 07:59 Last Admin: 07/30/16 13:38 Dose: 1 mg Multivitamins (Hexavitamin) 1 tab PO DAILY [facility] Ondansetron HCl (Zofran Inj) 4 mg IVP Q6 PRN PRN Reason: Nausea/Vomiting Last Admin: 07/29/16 11:34 Dose: 4 mg Pantoprazole Sodium (Protonix Inj) 40 mg IVP DAILY [facility] Last Admin: 07/30/16 09:47 Dose: 40 mg Quetiapine Fumarate (Seroquel) 100 mg PO HS [facility] Last Admin: 07/29/16 22:15 Dose: 100 mg Thiamine HCl (Vitamin B1 Tab) 100 mg PO DAILY [facility] Tiotropium [place] (Spiriva) 18 mcg INH RQD [facility] Last Admin: 07/29/16 08:08 Dose: 18 mcg Trazodone HCl (Desyrel) 100 mg PO HS PRN PRN Reason: Insomnia - Labs Labs: 07/30/16 07:13 07/30/16 07:13 - Constitutional Appears: Non-toxic, No Acute Distress - Head Exam Head Exam: absent: ATRAUMATIC (hematoma on back of head) - Eye Exam Eye Exam: EOMI, Normal appearance, PERRL Pupil Exam: NORMAL ACCOMODATION, PERRL - ENT Exam ENT Exam: Mucous Membranes Moist. absent: Normal Oropharynx (poor dentition) - Neck Exam Neck Exam: Normal Inspection - Respiratory Exam Respiratory Exam: Clear to Ausculation Bilateral, NORMAL BREATHING PATTERN. absent: Rales, Rhonchi, Wheezes - Cardiovascular Exam Cardiovascular Exam: REGULAR RHYTHM, +S1, +S2. absent: Gallop, Rubs, Murmur - GI/Abdominal Exam GI & Abdominal Exam: Soft, Normal Bowel Sounds. absent: Distended, Tenderness - Extremities Exam Extremities Exam: Normal Capillary Refill. absent: Normal Inspection (mild tremor), Pedal Edema, Tenderness - Back Exam Back Exam: NORMAL INSPECTION. absent: rash noted, tenderness - Neurological Exam Neurological Exam: Alert, Awake, CN II-XII Intact, Oriented x3 - Psychiatric Exam Psychiatric exam: Normal Affect, Normal Mood - Skin Skin Exam: Dry, Intact, Normal Color, Warm Assessment and Plan - Assessment and Plan (Free Text) Plan: Subdural Hematomas 07/30: Repeat head CT ordered, headache controlled with tylenol Head CT 07/27/16 - small right parieto-occipital, frontal and parafalcine subdural hematomas (please see full report) Head CT 07/29/16 showed 8 stable subdural hemorrhages. Platelets stable at 150. On telemetry Neurology consult - Dr. Edgardo Gilmore - help appreciated Neurosurgery consult - Dr. Deleon - help appreciated No surgery at this time. Patient can eat. No anticoagulation No Keppra needed per Dr. Edgardo Gilmore BP control with clonidine 0.1mg PO Q8H PRN SBP>150 Nursing communication to page if SBP>140 Neuro checks Q4 Alcohol withdrawal 07/30:Continues to have mild tremor. Continue the ativan protocol. Librium DC'd yesterday Ativan 1mg IVP Q4 PRN seizure Ativan taper currently 1mg PO Q8H Trazodone 50mg PO HS Seziure precautions Fall precautions Aspiration precautions Psych consult - Dr. Sameer Cardenas f/u recs transfer to psych when available History of heroin abuse Methone 20 mg today, will taper as per psychiatry Psych consult - Dr. Sameer mei/dawna recs COPD Chest x-ray this AM showed no active disease Duonebs Q2H PRN Takes spiriva at home (lost inhaler though)-- ordered here afebrile without leukocytosis so DC abx Tessolon perls, Prophylaxis Protonix 40mg IVP daily SCDs Miralax No chemical anticoagulation secondary to brain bleed Assessment and plan discussed with attending physician. <Mabel Perea V - Last Filed: 07/30/16 18:50> Objective - Vital Signs/Intake and Output Vital Signs (last 24 hours): Temp Pulse Resp BP Pulse Ox 97.5 F L 67 20 136/89 96 07/30/16 15:44 07/30/16 15:44 07/30/16 15:44 07/30/16 15:44 07/30/16 15:44 Intake and Output: 07/30/16 07/30/16 06:59 18:59 Intake Total 1000 Balance 1000 - Medications Medications: Current Medications Acetaminophen (Tylenol 325mg Tab) 650 mg PO Q6 PRN PRN Reason: Headache Last Admin: 07/29/16 19:24 Dose: 650 mg Albuterol/Ipratropium (Duoneb 3 Mg/0.5 Mg (3 Ml) Ud) 3 ml INH RQ2 PRN PRN Reason: Shortness of Breath Benzonatate (Tessalon Perles) 100 mg PO TID [facility] Last Admin: 07/30/16 13:38 Dose: 100 mg Benztropine Mesylate (Cogentin) 1 mg PO BID [facility] Last Admin: 07/30/16 09:47 Dose: 1 mg Clonidine HCl (Catapres) 0.1 mg PO Q8 PRN PRN Reason: SBP>150 Folic Acid (Folic Acid) 1 mg PO DAILY [facility] Guaifenesin (Mucinex La) 600 mg PO Q12 [facility] Last Admin: 07/30/16 09:47 Dose: 600 mg Haloperidol (Haldol) 5 mg PO BID [facility] Last Admin: 07/30/16 09:48 Dose: 5 mg Lorazepam (Ativan) 1 mg IVP Q4H PRN PRN Reason: Seizure activity Last Admin: 07/29/16 13:21 Dose: 1 mg Lorazepam (Ativan) 1 mg PO Q8 [facility] PRN Reason: Taper Stop: 08/01/16 07:59 Last Admin: 07/30/16 13:38 Dose: 1 mg Multivitamins (Hexavitamin) 1 tab PO DAILY [facility] Ondansetron HCl (Zofran Inj) 4 mg IVP Q6 PRN PRN Reason: Nausea/Vomiting Last Admin: 07/29/16 11:34 Dose: 4 mg Pantoprazole Sodium (Protonix Inj) 40 mg IVP DAILY [facility] Last Admin: 07/30/16 09:47 Dose: 40 mg Quetiapine Fumarate (Seroquel) 100 mg PO HS [facility] Last Admin: 07/29/16 22:15 Dose: 100 mg Thiamine HCl (Vitamin B1 Tab) 100 mg PO DAILY [facility] Tiotropium [place] (Spiriva) 18 mcg INH RQD [facility] Last Admin: 07/29/16 08:08 Dose: 18 mcg Trazodone HCl (Desyrel) 100 mg PO HS PRN PRN Reason: Insomnia - Labs Labs: 07/30/16 07:13 07/30/16 07:13 Attending/Attestation - Attestation I have personally seen and examined this patient.: Yes I have fully participated in the care of the patient.: Yes I have reviewed all pertinent clinical information, including history, physical exam and plan: Yes Notes (Text): Patient seen, examined and case discussed with day-time resident. Patient seen during morning rounds. Patient seen on exam, reported mild headache, cough improved, and reports he is not getting his dose of Methadone 30mg PO his maintenance dose. Chest xray shows no active disease. Discontinue IV abx. Supportive care regarding cough. Ordered for CT head give complaint of mild headache but patient was also upset about not getting his Methadone. No acute changes from to CT Head 07/28/16 patient is on Ativan taper (Day 4) Patient stable to be transferred back to detox when bed is available. Discussed with psych, Dr Decker who is aware. Assessment/Plan 1) Subdural Hematoma * Head CT 07/27/16 - small right parieto-occipital, frontal and parafalcine subdural hematomas (please see full report) * Head CT 07/28/16- stable right parietal frontal and falcine subdural hematomas. Smaller occipital component unchanged. Stable is effacement of cortical sulci in right hemisphere * Head CT 07/29/16- slight decrease in size of right parafalcine and right frontal subdural hematomas. Small amount of subdural hemorrhage over tentorium cerebella, unchanged. Mild right occipital parietal convexity * Neurology consult - Dr. Edgardo Gilmore - help appreciated * Neurosurgery consult - Dr. Deleon - help appreciated * Observation for 24 hours per neurosurgery, unlikely intervention * BP control with clonidine 0.1mg PO Q8H PRN SBP>150 * No anticoagulation * No change from prior CT * Transfer patient back to detox to complete detox 2) Alcohol withdrawal * Ativan 1 mg IV Q 4hour PRN seizure acitiy * Ativan taper (Day 4) 3) History of heroin abuse * Methadone maintenace (not taper) * Metadone 30mg PO for today * Psych (Dr. Estrella) on board-->help appreciated * Discussed with Dr. Decker-->restart methadone maintenance dose 4) History of COPD * Duonebs Q2H PRN * Spiriva 18mcg Inhaled daily 5) Cough * Chest xray (07/29/16): no active disease * Tessalon pearles 100mg PO tid * Guaifensin 600mg PO Q 12hours * d/c antibiotics * likely bronchitis 6) Transaminitis * secondary to alcohol use * Downtrending * Patient is on Ativan taper for withdrawal * Abdominal US (07/28/16): hepatomegaly, hepatic steatosis * Tylenol PRN monitor given elevated LFTs 7) Prophylaxis * Protonix 40mg IVP daily for GI ppx * SCDs * No chemical anticoagulation secondary to brain bleed * Change to inpatient given alcohol taper for alcohol withdrawal * Disposition: transfer to patient to detox today when bed is available; discussed with psych.
[2016-07-30 20:30] VITALS: RESP 18
--- NOTE | 2016-07-30 22:17 | PCM.PYCHPN ---
Psychiatric Progress Note - Psychiatric Progress Note Patient seen today, length of contact: 17 min Patient Chief Complaint: The pt is seen, chart reviewed, case discussed with Dr. Perea. The pt is compliant with medications and reports no side-effects again. Symptoms are improving but needs more time to stabilize. Detox is continuing. He agreed to come up to detox. Support and psychoeducation given. [place] used Medication Change: Yes (Ativan taper) Medical Record Reviewed: Yes Mental Status Examination - Cognitive Function Orientation: Person, Place, Situation, Time Memory: Intact Attention: WNL Concentration: Poor Association: WNL Fund of Knowledge: Poor - Mood Mood: Anxious - Affect Affect: Constricted - Speech Speech: Soft - Formal Thought Process Formal Thought Process: No Impairment - Suicidal Ideation Suicidal Ideation: No - Homicidal Ideation Homicidal Ideation: No Goal/Treatment Plan - Goal/Treatment Plan Need for Continued Stay: Discharge may exacerbated symptoms, Severe functional impairment Progress Toward Problem(s) and Goals/Treatment Plan: Continue medications Support and psychoeducation daily Attend groups and activities daily After care planning by counselors. Estimated Date of D/C: 08/01/16
[2016-07-31] MEDS: Tiotropium 18 mcg Cap For Inhalation INH SCH ×2 (09:32→11:24)
--- NOTE | 2016-07-31 09:56 | PCM.PYCHPN ---
Psychiatric Progress Note - Psychiatric Progress Note Patient seen today, length of contact: 17 min Patient Chief Complaint: "Not so well" Problems Identified/Issues Discussed: The pt is seen, chart reviewed, case discussed. The pt is improving with medications and no breakthrough sxs reported or noted. No SEs from meds Support and psychoed given AR and CBt used After care discussed He is not happy to be here in detox, compared to medicine but ghoyt used to it and compliant. Medication Change: Yes (Ativan taper) Medical Record Reviewed: Yes Mental Status Examination - Cognitive Function Orientation: Person, Place, Situation, Time Memory: Intact Attention: WNL Concentration: Poor Association: WNL Fund of Knowledge: Poor - Mood Mood: Anxious - Affect Affect: Constricted - Speech Speech: Soft - Formal Thought Process Formal Thought Process: No Impairment - Suicidal Ideation Suicidal Ideation: No - Homicidal Ideation Homicidal Ideation: No Goal/Treatment Plan - Goal/Treatment Plan Need for Continued Stay: Discharge may exacerbated symptoms, Severe functional impairment Progress Toward Problem(s) and Goals/Treatment Plan: Continue medications Support and psychoeducation daily Attend groups and activities daily After care planning by counselors. Estimated Date of D/C: 08/01/16
[2016-07-31] MEDS: Pantoprazole 40 mg EC Tab PO SCH (10:33)
[2016-07-31] MEDS: Multiple Vitamins Tab PO SCH (10:34)
[2016-07-31] MEDS: guaiFENesin 600 mg ER Tab PO SCH ×2 (11:12→22:14)
[2016-07-31 11:51] LABS: HEMATOCRIT 47.8 % (35.0-51.0); MEAN CELL VOLUME 97.8 fL (80.0-94.0); MEAN CORPUSCULAR HEMOGLOBIN 32.1 pg (27.0-31.0); MEAN CORPUSCULAR HGB CONC 32.8 g/dL (33.0-37.0); RED CELL DISTRIBUTION WIDTH 13.7 % (11.5-14.5); WHITE BLOOD COUNT 6.8 K/uL (4.8-10.8)
[2016-07-31 12:19] LABS: CHLORIDE 94 mmol/L (98-107); POTASSIUM 3.8 mmol/L (3.6-5.2); SODIUM 135 mmol/L (132-148)
[2016-07-31 12:21] LABS: ALB/GLOB RATIO 1.4 (1.0-2.1); AST/SGOT 189 U/L (17-59); CARBON DIOXIDE 28 mmol/L (22-30); GFR AFRICAN-AMERICAN > 60; TOTAL PROTEIN 7.9 g/dL (6.3-8.3)
[2016-07-31 12:22] LABS: ALKALINE PHOSPHATASE 113 U/L (38-126); ALT/SGPT 153 U/L (21-72); BLOOD UREA NITROGEN 17 mg/dL (9-20); CALCIUM 8.9 mg/dl (8.6-10.4); GLUCOSE,RANDOM 103 mg/dL (75-110)
--- NOTE | 2016-07-31 13:20 | CP.PCM.PN ---
<Brennan Tobar - Last Filed: 07/31/16 18:36> Subjective - Date & Time of Evaluation Date of Evaluation: 07/31/16 Time of Evaluation: 07:00 - Subjective Subjective: Dr. Tobar PGY 1 Hospitalist Note Patient seen and evaluated at bedside in detox. He states he did not sleep well over night; however, his headache has been improving. He says his scalp is less tender to touch. He denies any nausea, vomiting, chest pain, SOB, diarrhea, constipation, or dysuria. No adverse events over night per nursing. Objective - Vital Signs/Intake and Output Vital Signs (last 24 hours): Temp Pulse Resp BP Pulse Ox 98.1 F 89 18 123/83 98 07/31/16 09:57 07/31/16 09:57 07/31/16 09:57 07/31/16 09:57 07/31/16 09:57 - Medications Medications: Current Medications Acetaminophen (Tylenol 325mg Tab) 650 mg PO Q6 PRN PRN Reason: Headache Last Admin: 07/29/16 19:24 Dose: 650 mg Albuterol/Ipratropium (Duoneb 3 Mg/0.5 Mg (3 Ml) Ud) 3 ml INH RQ2 PRN PRN Reason: Shortness of Breath Benzonatate (Tessalon Perles) 100 mg PO TID [facility] Last Admin: 07/31/16 10:35 Dose: 100 mg Benztropine Mesylate (Cogentin) 1 mg PO BID [facility] Last Admin: 07/31/16 10:33 Dose: 1 mg Clonidine HCl (Catapres) 0.1 mg PO Q8 PRN PRN Reason: SBP>150 Folic Acid (Folic Acid) 1 mg PO DAILY [facility] Guaifenesin (Mucinex La) 600 mg PO Q12 [facility] Last Admin: 07/31/16 11:12 Dose: 600 mg Haloperidol (Haldol) 5 mg PO BID [facility] Last Admin: 07/31/16 10:34 Dose: 5 mg Lorazepam (Ativan) 1 mg PO Q4H PRN PRN Reason: Symptoms of alcohol withdrawl Lorazepam (Ativan) 1 mg PO BID [facility] Methadone HCl (Methadone) 30 mg PO DAILY [facility] Last Admin: 07/31/16 10:35 Dose: 30 mg Multivitamins (Hexavitamin) 1 tab PO DAILY [facility] Last Admin: 07/31/16 10:34 Dose: 1 tab Pantoprazole Sodium (Protonix Ec Tab) 40 mg PO DAILY [facility] Last Admin: 07/31/16 10:33 Dose: 40 mg Quetiapine Fumarate (Seroquel) 100 mg PO HS [facility] Last Admin: 07/30/16 21:20 Dose: 100 mg Thiamine HCl (Vitamin B1 Tab) 100 mg PO DAILY [facility] Last Admin: 07/31/16 10:33 Dose: 100 mg Tiotropium Echo (Spiriva) 18 mcg INH RQD [facility] Last Admin: 07/31/16 11:24 Dose: Not Given Trazodone HCl (Desyrel) 100 mg PO HS PRN PRN Reason: Insomnia - Labs Labs: 07/31/16 11:43 07/31/16 11:43 - Head Exam Head Exam: absent: ATRAUMATIC (hematoma right posterior), NORMAL INSPECTION - Eye Exam Eye Exam: EOMI, Normal appearance, PERRL Pupil Exam: NORMAL ACCOMODATION, PERRL - ENT Exam ENT Exam: Mucous Membranes Moist. absent: Normal Oropharynx (poor dentition) - Neck Exam Neck Exam: Normal Inspection. absent: Tenderness - Respiratory Exam Respiratory Exam: Clear to Ausculation Bilateral, NORMAL BREATHING PATTERN. absent: Rales, Rhonchi, Wheezes - Cardiovascular Exam Cardiovascular Exam: REGULAR RHYTHM, +S1, +S2. absent: Gallop, Rubs, Murmur - GI/Abdominal Exam GI & Abdominal Exam: Soft, Normal Bowel Sounds. absent: Tenderness - Extremities Exam Extremities Exam: Normal Inspection. absent: Pedal Edema, Tenderness - Back Exam Back Exam: NORMAL INSPECTION. absent: rash noted, tenderness - Neurological Exam Neurological Exam: Alert, Awake, CN II-XII Intact, Oriented x3 - Psychiatric Exam Psychiatric exam: Normal Affect, Normal Mood - Skin Skin Exam: Dry, Intact, Normal Color, Warm Assessment and Plan - Assessment and Plan (Free Text) Plan: Assessment/Plan 1) Subdural Hematoma * Head CT 07/27/16 - small right parieto-occipital, frontal and parafalcine subdural hematomas (please see full report) * Head CT 07/28/16- stable right parietal frontal and falcine subdural hematomas. Smaller occipital component unchanged. Stable is effacement of cortical sulci in right hemisphere * Head CT 07/29/16- slight decrease in size of right parafalcine and right frontal subdural hematomas. Small amount of subdural hemorrhage over tentorium cerebella, unchanged. Mild right occipital parietal convexity * Neurology consult - Dr. Edgardo Gilmore - help appreciated * Neurosurgery consult - Dr. Deleon - help appreciated * Observation for 24 hours per neurosurgery, unlikely intervention * BP control with clonidine 0.1mg PO Q8H PRN SBP>150 * No anticoagulation * No change from prior CT 2) Alcohol withdrawal * Ativan 1 mg IV Q 4hour PRN seizure acitiy * Ativan taper (Day 5) 3) History of heroin abuse * Methadone maintenace (not taper) * Metadone 30mg PO for today * Psych (Dr. Estrella) on board-->help appreciated * Discussed with Dr. Decker-->restart methadone maintenance dose 4) History of COPD * Duonebs Q2H PRN * Spiriva 18mcg Inhaled daily 5) Cough * Chest xray (07/29/16): no active disease * Tessalon pearles 100mg PO tid * Guaifensin 600mg PO Q 12hours * d/c antibiotics * likely bronchitis 6) Transaminitis * secondary to alcohol use * Elevated today * Patient is on Ativan taper for withdrawal * Abdominal US (07/28/16): hepatomegaly, hepatic steatosis * DC tylenol 7) Prophylaxis * Protonix 40mg PO daily for GI ppx * patient ambulatory * No chemical anticoagulation secondary to brain bleed Assessment and plan discussed with attending physician. <Mabel Perea V - Last Filed: 08/01/16 09:04> Objective - Vital Signs/Intake and Output Vital Signs (last 24 hours): Temp Pulse Resp BP Pulse Ox 97 F L 90 18 136/83 96 08/01/16 05:53 08/01/16 05:53 08/01/16 05:53 08/01/16 05:53 08/01/16 05:53 - Medications Medications: Current Medications Albuterol/Ipratropium (Duoneb 3 Mg/0.5 Mg (3 Ml) Ud) 3 ml INH RQ2 PRN PRN Reason: Shortness of Breath Benzonatate (Tessalon Perles) 100 mg PO TID [facility] Last Admin: 07/31/16 18:47 Dose: 100 mg Benztropine Mesylate (Cogentin) 1 mg PO BID [facility] Last Admin: 07/31/16 18:47 Dose: 1 mg Clonidine HCl (Catapres) 0.1 mg PO Q8 PRN PRN Reason: SBP>150 Folic Acid (Folic Acid) 1 mg PO DAILY [facility] Guaifenesin (Mucinex La) 600 mg PO Q12 [facility] Last Admin: 07/31/16 22:14 Dose: 600 mg Haloperidol (Haldol) 5 mg PO BID [facility] Last Admin: 07/31/16 18:47 Dose: 5 mg Lorazepam (Ativan) 1 mg PO Q4H PRN PRN Reason: Symptoms of alcohol withdrawl Lorazepam (Ativan) 1 mg PO BID [facility] Last Admin: 07/31/16 18:47 Dose: 1 mg Methadone HCl (Methadone) 30 mg PO DAILY [facility] Last Admin: 07/31/16 10:35 Dose: 30 mg Multivitamins (Hexavitamin) 1 tab PO DAILY [facility] Last Admin: 07/31/16 10:34 Dose: 1 tab Pantoprazole Sodium (Protonix Ec Tab) 40 mg PO DAILY [facility] Last Admin: 07/31/16 10:33 Dose: 40 mg Quetiapine Fumarate (Seroquel) 100 mg PO HS [facility] Last Admin: 07/31/16 22:14 Dose: 100 mg Thiamine HCl (Vitamin B1 Tab) 100 mg PO DAILY [facility] Last Admin: 07/31/16 10:33 Dose: 100 mg Tiotropium Echo (Spiriva) 18 mcg INH RQD [facility] Last Admin: 07/31/16 11:24 Dose: Not Given Trazodone HCl (Desyrel) 100 mg PO HS PRN PRN Reason: Insomnia Last Admin: 07/31/16 22:14 Dose: 100 mg - Labs Labs: 07/31/16 11:43 07/31/16 11:43 Attending/Attestation - Attestation I have personally seen and examined this patient.: Yes I have fully participated in the care of the patient.: Yes I have reviewed all pertinent clinical information, including history, physical exam and plan: Yes Notes (Text): This is a late computer entry for 07/31/16 Patient seen, examined and case discussed with day-time resident. Patient seen rounds while in detox in the afternoon. Patient seen on exam, headache resolved, reports localized pain unchanged over the parietal area where his hematoma is located and cough has improved. Patient is undergoing Ativan taper and currently on his Methadone maintenance dosage. Per psych, patient is set to be discharged tomorrow. Patient educated at bedside-->patient is aware he should not use Aspirin or NSAIDs at this time. Patient is also aware that if he falls or if he continues to drink alcohol and cannot recall events if he falls is instructed to go the emergency room immediately. Patient reports his PMD is the [facility] and instructed to followup accordingly. Assessment/Plan 1) Subdural Hematoma * Head CT 07/27/16 - small right parieto-occipital, frontal and parafalcine subdural hematomas (please see full report) * Head CT 07/28/16- stable right parietal frontal and falcine subdural hematomas. Smaller occipital component unchanged. Stable is effacement of cortical sulci in right hemisphere * Head CT 07/29/16- slight decrease in size of right parafalcine and right frontal subdural hematomas. Small amount of subdural hemorrhage over tentorium cerebella, unchanged. Mild right occipital parietal convexity * Neurology consult - Dr. Edgardo Gilmore - help appreciated * Neurosurgery consult - Dr. Deleon - help appreciated * Observation for 24 hours per neurosurgery, unlikely intervention * BP control with clonidine 0.1mg PO Q8H PRN SBP>150 * No anticoagulation * No change from prior CT * Transfer patient back to detox to complete detox 2) Alcohol withdrawal * Ativan 1 mg IV Q 4hour PRN seizure acitiy * Ativan taper (Day 5) 3) History of heroin abuse * Methadone maintenance (not taper) * Metadone 30mg PO for today * Psych (Dr. Estrella) on board-->help appreciated * Discussed with Dr. Decker-->restart methadone maintenance dose 4) History of COPD * Duonebs Q2H PRN * Spiriva 18mcg Inhaled daily 5) Cough * Chest xray (07/29/16): no active disease * Tessalon pearles 100mg PO tid * Guaifensin 600mg PO Q 12hours * d/c antibiotics * likely bronchitis 6) Transaminitis * secondary to alcohol use * Patient is on Ativan taper for withdrawal * Abdominal US (07/28/16): hepatomegaly, hepatic steatosis * d/c Tylenol PRN monitor given elevated LFTs 7) Prophylaxis * Protonix 40mg IVP daily for GI ppx * SCDs * No chemical anticoagulation secondary to brain bleed * Change to inpatient given alcohol taper for alcohol withdrawal * Disposition:per detox for discharge, patient is medically stable at this time.
[2016-07-31 20:50] VITALS: O2SAT 96
[2016-08-01 05:55] VITALS: BP 136/83; PULSE 90; TEMP 97
--- NOTE | 2016-08-01 09:02 | PCM.PYCHDC ---
Mental Status Examination - Mental Status Examination Orientation: Person, Place, Situation, Time Memory: Intact Mood: Anxious Affect: Constricted Speech: Slurred Attention: Poor Concentration: Poor Association: WNL Fund of Knowledge: Poor Formal Thought Process: No Impairment Suicidal Ideation: No Current Homicidal Ideation?: No Discharge Summary - Discharge Note Reason for Hospitalization: Alcohol detox Laboratory Data: Abnormal Lab Results 07/31/16 07/31/16 11:43 11:43 WBC 6.8 RBC 4.89 Hgb 15.7 Hct 47.8 MCV 97.8 H MCH 32.1 H MCHC 32.8 L RDW 13.7 Plt Count 191 MPV 9.0 Sodium 135 Potassium 3.8 Chloride 94 L Carbon Dioxide 28 Anion Gap 17 BUN 17 Creatinine 0.8 Est GFR ( Amer) > 60 Est GFR (Non-Af Amer) > 60 Random Glucose 103 Calcium 8.9 Total Bilirubin 1.0 AST 189 H D ALT 153 H D Alkaline Phosphatase 113 Total Protein 7.9 Albumin 4.6 Globulin 3.3 Albumin/Globulin Ratio 1.4 Consultations:: List each consultation separately and include: 1. Reason for request. 2. Findings. 3. Follow-up Summary of Hospital Course include:: 1. Description of specific treatment plan utilized for patients during their course of treatmen. 2. Summarize the time- course for resolution of acute symptoms and/or regressed behaviors. 3. Describe issues identified and worked on during hospitalization. 4. Describe medication utilized. 5. Describe medical problems identified and treated. 6. Reassessment of suicide risk Summary of Hospital Course: The pt was admitted and started on treatment with psychotherapy, support, psychoeducation and medications. He is transferred to and back from medicine as he had cardiac issues. ID and CBT used on the floor but he was somewhat motivated. He was more interested in securing a housing or rehab as he was homeless. [facility] agreed to take him back despite his 30-day ban (from drinking) The pt attended groups and activities, as well as milieu therapy. All the risks and benefits of medications are discussed and the patient understood and agreed. After care discussed with the patient. He was referred to [facility] and back to [facility] where he already attends. His psych issues did not interfere. - Final Diagnosis (DSM 5) Condition upon Discharge: IMPROVED DSM 5: Alcohol withdrawal Alcohol use d/o - severe Opioid use d/o - severe, on maintenance tx Psychosis - unspecified Disposition: HOME/ ROUTINE Follow-up Treatment Plan: Continue below medications after discharge. Follow after care plan as discussed. [facility] See your PCP regularly Use relapse prevention skills Return to ER or call 911 if suicidal, homicidal or symptoms relapse. Stay away from stress, alcohol and drugs. Prescriptions/Medication Reconciliation: Benzonatate [Tessalon Perles] 100 mg PO TID #30 sgl Benztropine [Cogentin] 1 mg PO BID #60 tab Folic Acid 1 mg PO DAILY #30 tab Haloperidol [Haldol] 5 mg PO BID #60 tab Multivitamins [Hexavitamin] 1 tab PO DAILY #30 tab Pantoprazole [Protonix EC Tab] 40 mg PO DAILY #30 ect QUEtiapine [Seroquel] 100 mg PO HS #30 tab Thiamine [Vitamin B1 Tab] 100 mg PO DAILY #30 tab Tiotropium [Spiriva] 18 mcg INH RQD #1 cap traZODone [Desyrel] 100 mg PO HS PRN #30 tab PRN Reason: Insomnia
[2016-08-01] MEDS: Tiotropium 18 mcg Cap For Inhalation INH SCH ×2 (10:12→10:13)
[2016-08-01] MEDS: Pantoprazole 40 mg EC Tab PO SCH (10:14)
[2016-08-01] MEDS: Multiple Vitamins Tab PO SCH (10:14)
--- NOTE | 2016-08-01 15:00 | CP.PCM.PN ---
<Brennan Tobar - Last Filed: 08/01/16 14:57> Subjective - Date & Time of Evaluation Date of Evaluation: 08/01/16 Time of Evaluation: 07:00 - Subjective Subjective: Dr. Tobar PGY1 Hospitalist Note Patient seen and evaluated at bedside. He reports he slept better last night and that he does not have any headache today. He has been resting comfortably and tolerating his diet well. He denies any unsteadiness, vision changes, numbness, tingling, weakness, chest pain, SOB, fever, or chills. He says he will refrain from alcohol or drug use. No adverse events reported as per nursing. Objective - Vital Signs/Intake and Output Vital Signs (last 24 hours): Temp Pulse Resp BP Pulse Ox 97 F L 90 18 136/83 96 08/01/16 05:53 08/01/16 05:53 08/01/16 05:53 08/01/16 05:53 08/01/16 05:53 - Labs Labs: 07/31/16 11:43 07/31/16 11:43 - Constitutional Appears: Non-toxic, No Acute Distress - Head Exam Head Exam: NORMOCEPHALIC. absent: ATRAUMATIC (healing hematoma right posterior ) - Eye Exam Eye Exam: EOMI, Normal appearance Pupil Exam: NORMAL ACCOMODATION, PERRL - ENT Exam ENT Exam: Mucous Membranes Moist. absent: Normal Oropharynx (poor dentition) - Neck Exam Neck Exam: Normal Inspection - Respiratory Exam Respiratory Exam: Clear to Ausculation Bilateral, NORMAL BREATHING PATTERN. absent: Rales, Rhonchi, Wheezes - Cardiovascular Exam Cardiovascular Exam: REGULAR RHYTHM, +S1, +S2 - GI/Abdominal Exam GI & Abdominal Exam: Soft, Normal Bowel Sounds. absent: Tenderness - Extremities Exam Extremities Exam: Full ROM, Normal Capillary Refill, Normal Inspection. absent : Pedal Edema, Tenderness - Back Exam Back Exam: NORMAL INSPECTION. absent: rash noted, tenderness - Neurological Exam Neurological Exam: Alert, Awake, CN II-XII Intact, Oriented x3 - Psychiatric Exam Psychiatric exam: Normal Affect, Normal Mood - Skin Skin Exam: Dry, Intact, Normal Color, Warm Assessment and Plan - Assessment and Plan (Free Text) Plan: Assessment/Plan 1) Subdural Hematoma * Head CT 07/27/16 - small right parieto-occipital, frontal and parafalcine subdural hematomas (please see full report) * Head CT 07/28/16- stable right parietal frontal and falcine subdural hematomas. Smaller occipital component unchanged. Stable is effacement of cortical sulci in right hemisphere * Head CT 07/29/16- slight decrease in size of right parafalcine and right frontal subdural hematomas. Small amount of subdural hemorrhage over tentorium cerebella, unchanged. Mild right occipital parietal convexity * Neurology consult - Dr. Edgardo Gilmore - help appreciated * Neurosurgery consult - Dr. Deleon - help appreciated * Observation for 24 hours per neurosurgery, unlikely intervention * BP control with clonidine 0.1mg PO Q8H PRN SBP>150 * No anticoagulation * No change from prior CT 2) Alcohol withdrawal * Ativan 1 mg IV Q 4hour PRN seizure acitiy * Ativan taper (Day 6) Complete 3) History of heroin abuse * Methadone maintenace (not taper) * Metadone 30mg PO for today * Psych (Dr. Estrella) on board-->help appreciated * Discussed with Dr. Decker-->restart methadone maintenance dose 4) History of COPD * Duonebs Q2H PRN * Spiriva 18mcg Inhaled daily 5) Cough * Chest xray (07/29/16): no active disease * Tessalon pearles 100mg PO tid * Guaifensin 600mg PO Q 12hours * d/c antibiotics * likely bronchitis 6) Transaminitis * secondary to alcohol use * advised to get follow up labwork as outpatient * Patient is on Ativan taper for withdrawal * Abdominal US (07/28/16): hepatomegaly, hepatic steatosis * advised avoidance of tylenol and alcohol 7) Prophylaxis * Protonix 40mg PO daily for GI ppx * patient ambulatory * No chemical anticoagulation secondary to brain bleed Assessment and plan discussed with attending physician. <Mabel Perea V - Last Filed: 10/31/16 00:53> Objective - Vital Signs/Intake and Output Vital Signs (last 24 hours): Temp Pulse Resp BP Pulse Ox 97 F L 90 18 136/83 96 08/01/16 05:53 08/01/16 05:53 08/01/16 05:53 08/01/16 05:53 08/01/16 05:53 - Labs Labs: 07/31/16 11:43 07/31/16 11:43 Attending/Attestation - Attestation I have personally seen and examined this patient.: Yes I have fully participated in the care of the patient.: Yes I have reviewed all pertinent clinical information, including history, physical exam and plan: Yes
== END 2016-08-01 10:55 | disposition home or self-care (01) | DRG 750 ==
LOC: C.ER 15:28 → C.9OBSV 19:10 → OBSVTOIN 07-27 02:45 → C.7D 07-27 03:25 → C.6T 07-27 09:15 → C.7D 07-30 20:14
PROVIDERS: ADMIT Psychiatry & Neurology Psychiatry; ATTEND Psychiatry & Neurology Psychiatry
PROC: HZ2ZZZZ Detoxification Services for Substance Abuse Treatment (ICD-10-PCS; principal; 2016-07-27)
PROC: HZ81ZZZ Medication Management for Substance Abuse Treatment, Methadone Maintenance (ICD-10-PCS; 2016-07-27)
DX: F10.230 Alcohol dependence with withdrawal, uncomplicated (principal); S06.5X9A Traumatic subdural hemorrhage with loss of consciousness of unspecified duration, initial encounter; R56.9 Unspecified convulsions; F11.99 Opioid use, unspecified with unspecified opioid-induced disorder; F20.0 Paranoid schizophrenia; J44.9 Chronic obstructive pulmonary disease, unspecified; I10 Essential (primary) hypertension; Z87.891 Personal history of nicotine dependence; W19.XXXA Unspecified fall, initial encounter; R74.0 Nonspecific elevation of levels of transaminase and lactic acid dehydrogenase [LDH]; E11.9 Type 2 diabetes mellitus without complications

== ENCOUNTER 2016-09-17 23:17 | Inpatient (IN) | payer MEDICAID ==
[2016-09-17 23:17] VITALS: BMI 28.7
--- NOTE | 2016-09-17 23:45 | C.PDOC ---
History Of Present Illness Patient presents to the ED with complaints of feeling depressed and suicidal. Patient states he is homeless and lost his place in the retirement he frequents. Patient wanted to cut his wrists but did not do so. Patient notes his last drink was this morning and denies any physical complaints at this time. Time Seen by Provider: 09/17/16 23:45 Chief Complaint (Nursing): Psychiatric Evaluation History Per: Patient History/Exam Limitations: no limitations Onset/Duration Of Symptoms: Unknown Current Symptoms Are (Timing): Still Present Suicide/Self Injury Attempted (Context): None Severity: None Pain Scale Rating Of: 0 Associated Symptoms: Depression, Suicidal Thoughts, Suicidal Plan Involuntary Hold By: None Recent travel outside of the [place]: No Past Medical History Reviewed: Historical Data, Nursing Documentation, Vital Signs Vital Signs: Last Vital Signs Temp 98.1 F 09/17/16 23:19 Pulse 64 09/18/16 01:50 Resp 20 09/18/16 01:50 BP 148/92 H 09/18/16 01:50 Pulse Ox 97 09/18/16 01:50 - Medical History PMH: Anxiety, COPD, Depression, Diabetes, Fractures, HTN, Schizophrenia, Seizures - [facility] Procedures ALCOHOL DETOXIFICATION (02/24/13) DETOXIFICATION SERVICES FOR SUBSTANCE ABUSE TREATMENT (07/27/16) INJECT/INFUSE ELECTROLYT (02/20/13) INJECT/INFUSE NEC (05/02/13) MEDS MGMT FOR SUBSTANCE ABUSE TREATMENT, METHADONE MAINT (07/27/16) Family History: States: Unknown Family Hx - Social History Hx Tobacco Use: Yes Hx Alcohol Use: Yes (vodka) Hx Substance Use: No - Immunization History Hx Tetanus Toxoid Vaccination: No Hx Influenza Vaccination: No Hx Pneumococcal Vaccination: No Review Of Systems Constitutional: Negative for: Fever, Chills Eyes: Negative for: Vision Change Cardiovascular: Negative for: Chest Pain, Palpitations Respiratory: Negative for: Cough, Shortness of Breath Gastrointestinal: Negative for: Nausea, Vomiting, Abdominal Pain, Diarrhea Genitourinary: Negative for: Dysuria Musculoskeletal: Negative for: Back Pain Skin: Negative for: Rash Neurological: Negative for: Weakness, Altered Mental Status Psych: Positive for: Depression, Suicidal ideation Physical Exam - Physical Exam Appears: Non-toxic, No Acute Distress, Other (Patient is tremulous ) Skin: Warm, Dry Head: Normacephalic Eye(s): bilateral: Normal Inspection Oral Mucosa: Moist Neck: Supple Chest: Symmetrical, No Deformity Cardiovascular: Rhythm Regular Respiratory: No Rales, No Rhonchi, No Wheezing Gastrointestinal/Abdominal: Soft, No Tenderness, No Distention, No Guarding, No Rebound Extremity: Normal ROM, No Tenderness Extremity: Bilateral: Atraumatic Neurological/Psych: Oriented x3, Normal Speech, Normal Cognition Gait: Steady ED Course And Treatment - Laboratory Results Result Diagrams: 09/18/16 00:34 09/17/16 23:58 O2 Sat by Pulse Oximetry: 99 (room air ) Disposition Discussed With Dr.: Tyrel Decker Comment: accepted the pt on his service and took over the care at 4:45 AM Doctor Will See Patient In The: Hospital Counseled Patient/Family Regarding: Studies Performed, Diagnosis - Disposition Disposition: HOSPITALIZED Disposition Time: 23:45 Condition: FAIR - POA Present On Arrival: Poor Glycemic Control - Clinical Impression Clinical Impression: Alcohol abuse, Depression - Scribe Statement The provider has reviewed the documentation as recorded by the Scribmanolo Farzier All medical record entries made by the Kaiseribmanolo were at my direction and personally dictated by me. I have reviewed the chart and agree that the record accurately reflects my personal performance of the history, physical exam, medical decision making, and the department course for this patient. I have also personally directed, reviewed, and agree with the discharge instructions and disposition. Decision To Admit - Pt Status Changed To: Hospital Disposition Of: Inpatient - Admit Certification Admit to Inpatient:: After my assessment, the patient will require hospitalization for at least two midnights. This is because of the severity of symptoms shown, intensity of services needed, and/or the medical risk in this patient being treated as an outpatient. - InPatient: Physician Admission Certification: I certify that this patient requires 2 or more midnights of care for the following reason:: After my assessment, the patient will require hospitalization for at least two midnights. This is because of the severity of symptoms shown, intensity of services needed, and/or the medical risk in this patient being treated as an outpatient. - . Bed Request Type: Psychiatry Admitting Physician: Tyrel Decker Patient Diagnosis: Alcohol abuse, Depression
[2016-09-18 00:09] LABS: CHLORIDE 99 mmol/L (98-107)
[2016-09-18 00:10] LABS: POTASSIUM 3.2 mmol/L (3.6-5.2); SODIUM 138 mmol/L (132-148)
[2016-09-18 00:13] LABS: ALB/GLOB RATIO 1.2 (1.0-2.1); ALKALINE PHOSPHATASE 136 U/L (38-126); ALT/SGPT 108 U/L (21-72); AST/SGOT 165 U/L (17-59); BILIRUBIN,TOTAL 1.2 mg/dL (0.2-1.3); BLOOD UREA NITROGEN 8 mg/dL (9-20); CARBON DIOXIDE 21 mmol/L (22-30); GFR AFRICAN-AMERICAN > 60; GLUCOSE,RANDOM 120 mg/dL (75-110); TOTAL PROTEIN 7.5 g/dL (6.3-8.3)
[2016-09-18 00:14] LABS: ALCOHOL SERUM 25 mg/dl (0-10)
[2016-09-18 00:39] LABS: BASO # 0.1 K/uL (0.0-0.2); BASO % 1.1 % (0.0-2.0); EOS # 0.1 K/uL (0.0-0.7); EOS % 1.1 % (0.0-4.0); HEMATOCRIT 42.5 % (35.0-51.0); LYMPH # 1.6 K/uL (1.0-4.3); LYMPH % 23.6 % (20.0-40.0); MEAN CELL VOLUME 94.8 fL (80.0-94.0); MEAN CORPUSCULAR HEMOGLOBIN 31.9 pg (27.0-31.0); MEAN CORPUSCULAR HGB CONC 33.6 g/dL (33.0-37.0); MEAN PLATELET VOLUME 8.9 fL (7.2-11.7); MONO # 0.8 K/uL (0.0-0.8); MONO % 11.7 % (0.0-10.0); RED CELL DISTRIBUTION WIDTH 14.4 % (11.5-14.5); WHITE BLOOD COUNT 6.6 K/uL (4.8-10.8)
[2016-09-18] MEDS ORDERED: Aluminum Hydroxide/Magnesium Hydroxide Susp (30 mL) ONE (01:36)
[2016-09-18 04:53] LABS: RBC URINE < 1 /hpf (0-3); URINE BILIRUBIN NEGATIVE (NEGATIVE); URINE BLOOD NEGATIVE (NEGATIVE); URINE COLOR Yellow (YELLOW); URINE GLUCOSE (UA) NORMAL (Normal); URINE KETONE NEGATIVE (NEGATIVE); URINE LEUKOCYTE ESTERASE NEG Leu/uL (Negative); URINE PROTEIN NEGATIVE (NEGATIVE); WBC URINE < 1 /hpf (0-5)
[2016-09-18 05:03] VITALS: O2SAT 100
[2016-09-18] MEDS ORDERED: Albuterol HFA 90 mcg/actuation (8 g) IH PRN (08:48)
[2016-09-18] MEDS ORDERED: Albuterol HFA 90 mcg/actuation (8 g) INH PRN (08:56)
[2016-09-18] MEDS: Multiple Vitamins Tab PO SCH (09:56)
[2016-09-18] MEDS ORDERED: Potassium Chloride 20 mEq ER Tab PO ONE (10:00)
[2016-09-18] MEDS: Tiotropium 18 mcg Cap For Inhalation IH SCH (10:38)
--- NOTE | 2016-09-18 14:45 | PCM.PSYCH ---
Initial Psychiatric Evaluation - Initial Psychiatric Evaluation Type of Admission: Voluntary Legal Status: Capacity Chief Complaint (in patient's own words): I am hearing voices.' History of Present Illness and Precipitating Events: Pt is a 56 years old CM, who is currently homeless, came to the ED with depressed mood and suicidal ideation. Patient reports a long history of bipolar disorder. Pt had been living in [facility], but was evicted from same one month ago secondary to having a bottle of vodka in his possession. Pt was also terminated from [facility]. Soon after the discharge, he relapsed on drinking soon after the discharge and started drinking 1-2 pints on a daily basis. Yesterday he consumed more than 2 pints of vodka and started hearing voices, became depressed and developed suicidal ideation. Pt reports the following: "I lost my apartment;" I've been living under [place] [facility] for about a month;" Now, I can 't take it anymore;" Pt has had thoughts of suicide for the past "couple of days " with idx to "slit" his wrist; Pt stated: "It's hard living out in the street; " I don't want to live anymore.' Pt reports a prior hx of "slitting" his left wrist on two separate occasions. He reports depressed mood and feelings of hopelessness and helplessness. He reports auditory hallucinations, non command type, whispers and visual hallucination, seeing shadows. Patient also reports persecutory delusions that someone is following him. He also reports withdrawal symptoms including nausea, shakes, anxiety, heart burn and headaches. He denies any drugs or any substance abuse. Current Medications: Active Medications Generic Name Dose Route Start Last Admin Trade Name Freq PRN Reason Stop Dose Admin Albuterol 1 puff 09/18/16 08:56 Ventolin Hfa 90 Mcg/Actuation (8 G) INH RQ4 PRN SOB Benztropine Mesylate 1 mg 09/18/16 10:00 09/18/16 09:56 Cogentin PO 1 mg BID RAHEEM Administration Clonidine HCl 0.1 mg 09/18/16 08:59 Catapres PO Q4H PRN BP>150/100 or P>100 Folic Acid 1 mg 09/18/16 10:00 09/18/16 09:56 Folic Acid PO 1 mg DAILY RAHEEM Administration Gabapentin 100 mg 09/18/16 10:00 09/18/16 09:56 Neurontin PO 100 mg TID RAHEEM Administration Haloperidol 5 mg 09/18/16 10:00 09/18/16 09:56 Haldol PO 5 mg BID RAHEEM Administration Lorazepam 1 mg 09/18/16 08:54 Ativan PO Q4H PRN Symptoms of alcohol withdrawl Lorazepam 2 mg 09/18/16 09:00 09/18/16 09:55 Ativan PO 09/22/16 08:59 2 mg Q6H RAHEEM Administration Taper Multivitamins 1 tab 09/18/16 10:00 09/18/16 09:56 Hexavitamin PO 1 tab DAILY RAHEEM Administration Quetiapine Fumarate 100 mg 09/18/16 22:00 Seroquel PO HS RAHEEM Thiamine HCl 100 mg 09/18/16 10:00 09/18/16 09:56 Vitamin B1 Tab PO 100 mg DAILY RAHEEM Administration Tiotropium [place] 18 mcg 09/18/16 09:00 09/18/16 10:38 Spiriva IH 18 mcg RQD RAHEEM Administration Trazodone HCl 50 mg 09/18/16 08:49 Desyrel PO HS PRN Insomnia Past Psychiatric History - Past Psychiatric History Previous Treatment History: Inpatient Pertinent Medical Hx (Current Medical&Sleep Prob, Allergies): Allergies Allergy/AdvReac Type Severity Reaction Status Date / Time No Known Allergies Allergy Verified 09/17/16 23:23 Albuterol HFA [Ventolin HFA 90 mcg/actuation (8 g)] 0.09 mg IH Q4H PRN 09/04/16 LORazepam [Ativan] 2 mg PO BID PRN 09/04/16 QUEtiapine [SEROquel] 100 mg PO HS 09/04/16 Tiotropium [Spiriva] 18 mcg IH DAILY 09/04/16 Review of Systems - Review of Systems All systems: reviewed and no additional remarkable complaints except - Psychiatric Psychiatric: Anxiety, Auditory Hallucinations, Homicidal Ideation, Paranoia, Suicidal Ideation, Visual Hallucinations Mental Status Examination - Personal Presentation Personal Presentation: Looks stated age - Affect Affect: Constricted, Depressed - Motor Activity Motor Activity: Calm - Reliability in Providing Information Reliability in Providing Information: Poor, due to alteration in thoughts, Poor , due to altered mood - Speech Speech: Disorganized - Mood Mood: Depressed, Anxious - Formal Thought Process Formal Thought Process: Hallucinations, Delusions, Paranoia - Hallucinations/Delusions Hallucinations: Visual, Auditory Delusions: Persecution - Obsessions/Compulsions Obsessions: No Compulsions: No - Cognitive Functions Orientation: Person, Place, Situation, Time Sensorium: Alert Attention/Concentration: Attentive Abstract Thinking: [place] Estimate of Intelligence: Below average Judgement: Imparied, as evidence by: Poor judgement, Imparied, as evidence by: Lack of insight into illness - Risk Risk: Suicidal, Withdrawal, Diminished functioning - Limitations Limitations: Living alone DSM 5 DX - DSM 5 DSM 5 Diagnosis: Schizophrenia paranoid type continuous Alcohol use disorder severe Alcohol withdrawal uncomplicated - Recommended/Plan of Treatment Treatment Recommendations and Plan of Treatment: Schizophrenia paranoid type continuous CBT Psychoeducation Supportive therapy, group therapy, individual therapy Haldol 5 mg mouth twice a day Neurontin 300 mg by mouth 3 times a day Trazodone 50 mg by mouth daily at bedtime Seroquel 50 mg by mouth daily at bedtime Alcohol use disorder severe CBT Psychoeducation Supportive therapy, individual therapy Use [place] for abstinence Alcohol withdrawal uncomplicated CBT Psychoeducation Supportive therapy, individual therapy Ativan when necessary Ativan taper Start folic acid/thiamine/multivitamin - Smoking Cessation Smoking Cessation Initiated: No
[2016-09-19] MEDS: Multiple Vitamins Tab PO SCH (10:31)
[2016-09-19] MEDS: Tiotropium 18 mcg Cap For Inhalation IH SCH (10:32)
--- NOTE | 2016-09-19 18:40 | PCM.PYCHPN ---
Psychiatric Progress Note - Psychiatric Progress Note Patient seen today, length of contact: 15 min Patient Chief Complaint: I am hearing voices.' Problems Identified/Issues Discussed: Patient seen and evaluated, chart reviewed and discussed with the nurse. Patient remained disorganized and internally preoccupied. Patient remained isolated, confined and withdrawn. He still reports of hearing voices. Patient still appears paranoid and delusional. He reports depressed mood and feelings of hopelessness and helplessness. He reports withdrawal symptoms including cramps, sweating, headaches anxiety. He is taking medication and denies any side effects. Supportive therapy and psychoeducation were given.a Medication Change: Yes (Ativan taper) Medical Record Reviewed: Yes Mental Status Examination - Cognitive Function Orientation: Person, Place, Situation, Time Memory: Intact Attention: WNL Concentration: Poor Association: Loose Fund of Knowledge: Poor - Mood Mood: Depressed, Anxious - Affect Affect: Constricted, Depressed - Speech Speech: Soft - Formal Thought Process Formal Thought Process: Hallucinations, Delusions, Paranoia - Suicidal Ideation Suicidal Ideation: No - Homicidal Ideation Homicidal Ideation: No Goal/Treatment Plan - Goal/Treatment Plan Need for Continued Stay: Discharge may exacerbated symptoms, Severe functional impairment Progress Toward Problem(s) and Goals/Treatment Plan: Schizophrenia paranoid type continuous CBT Psychoeducation Supportive therapy, group therapy, individual therapy Haldol 5 mg mouth twice a day Neurontin 300 mg by mouth 3 times a day Trazodone 50 mg by mouth daily at bedtime Seroquel 100 mg by mouth daily at bedtime Alcohol use disorder severe CBT Psychoeducation Supportive therapy, individual therapy Use [place] for abstinence Alcohol withdrawal uncomplicated CBT Psychoeducation Supportive therapy, individual therapy Ativan when necessary Ativan taper Folic acid/thiamine/multivitamin - Smoking Cessation Smoking Cessation Initiated: No
[2016-09-20] MEDS: Multiple Vitamins Tab PO SCH (10:26)
--- NOTE | 2016-09-20 12:30 | PCM.PYCHPN ---
Psychiatric Progress Note - Psychiatric Progress Note Patient seen today, length of contact: 15 min Patient Chief Complaint: I am hearing voices.' Problems Identified/Issues Discussed: Patient seen and evaluated, chart reviewed and discussed with the nurse. Patient appeared more organized and less internally preoccupied than before. Patient remained isolated, confined and withdrawn. He still reports of hearing voices. Patient still appears paranoid and delusional. He reports depressed mood and reports withdrawal symptoms including cramps, sweating, headaches anxiety. He is taking medication and denies any side effects. Supportive therapy and psychoeducation were given.a Medication Change: Yes (Ativan taper) Medical Record Reviewed: Yes Mental Status Examination - Cognitive Function Orientation: Person, Place, Situation, Time Memory: Intact Attention: WNL Concentration: Poor Association: Loose Fund of Knowledge: Poor - Mood Mood: Depressed, Anxious - Affect Affect: Constricted, Depressed - Speech Speech: Soft - Formal Thought Process Formal Thought Process: Hallucinations, Delusions, Paranoia - Suicidal Ideation Suicidal Ideation: No - Homicidal Ideation Homicidal Ideation: No Goal/Treatment Plan - Goal/Treatment Plan Need for Continued Stay: Discharge may exacerbated symptoms, Severe functional impairment Progress Toward Problem(s) and Goals/Treatment Plan: Schizophrenia paranoid type continuous CBT Psychoeducation Supportive therapy, group therapy, individual therapy Haldol 5 mg mouth twice a day Neurontin 300 mg by mouth 3 times a day Trazodone 50 mg by mouth daily at bedtime Seroquel 100 mg by mouth daily at bedtime Alcohol use disorder severe CBT Psychoeducation Supportive therapy, individual therapy Use [place] for abstinence Alcohol withdrawal uncomplicated CBT Psychoeducation Supportive therapy, individual therapy Ativan when necessary Ativan taper Folic acid/thiamine/multivitamin
[2016-09-21] MEDS: Multiple Vitamins Tab PO SCH (09:39)
[2016-09-21] MEDS: Tiotropium 18 mcg Cap For Inhalation IH SCH (10:07)
[2016-09-22] MEDS: Multiple Vitamins Tab PO SCH (09:45)
[2016-09-22] MEDS: Tiotropium 18 mcg Cap For Inhalation IH SCH (09:49)
--- NOTE | 2016-09-22 12:46 | PCM.PYCHPN ---
Psychiatric Progress Note - Psychiatric Progress Note Patient seen today, length of contact: 15 min Patient Chief Complaint: I am hearing voices.' Problems Identified/Issues Discussed: Patient seen and evaluated, chart reviewed and discussed with the nurse. The patient reports improvement in his mood and withdrawal symptoms. . The pt is compliant with medications and reports no side-effects. Symptoms are improving but needs more time to stabilize. After care discussed, support and psychoeducation given. Medication Change: Yes (Ativan taper) Medical Record Reviewed: Yes Mental Status Examination - Cognitive Function Orientation: Person, Place, Situation, Time Memory: Intact Attention: WNL Concentration: WNL Association: WNL Fund of Knowledge: Poor - Mood Mood: Depressed, Anxious - Affect Affect: Constricted, Depressed - Speech Speech: Soft - Formal Thought Process Formal Thought Process: No Impairment - Suicidal Ideation Suicidal Ideation: No - Homicidal Ideation Homicidal Ideation: No Goal/Treatment Plan - Goal/Treatment Plan Need for Continued Stay: Discharge may exacerbated symptoms, Severe functional impairment Progress Toward Problem(s) and Goals/Treatment Plan: Schizophrenia paranoid type continuous CBT Psychoeducation Supportive therapy, group therapy, individual therapy Haldol 5 mg mouth twice a day Neurontin 300 mg by mouth 3 times a day Trazodone 50 mg by mouth daily at bedtime Seroquel 100 mg by mouth daily at bedtime Alcohol use disorder severe CBT Psychoeducation Supportive therapy, individual therapy Use [place] for abstinence Alcohol withdrawal uncomplicated CBT Psychoeducation Supportive therapy, individual therapy Ativan when necessary Ativan taper Folic acid/thiamine/multivitamin - Smoking Cessation Smoking Cessation Initiated: No
[2016-09-23 07:59] VITALS: BP 138/80; PULSE 87; RESP 19; TEMP 97.8
[2016-09-23] MEDS: Tiotropium 18 mcg Cap For Inhalation IH SCH (08:51)
[2016-09-23] MEDS: Multiple Vitamins Tab PO SCH (09:28)
--- NOTE | 2016-09-23 09:36 | PCM.PYCHDC ---
Mental Status Examination - Mental Status Examination Orientation: Person, Place, Situation, Time Memory: Intact Mood: Neutral Affect: Constricted Speech: Soft Attention: WNL Concentration: WNL Association: WNL Fund of Knowledge: WNL Formal Thought Process: No Impairment Description of patient's judgement and insight: good, fair Psychotic Thoughts and Behaviors: Denies any AVH Suicidal Ideation: No Current Homicidal Ideation?: No Discharge Summary - Discharge Note Reason for Hospitalization: Pt is a 56 years old CM, who is currently homeless, came to the ED with depressed mood and suicidal ideation. Patient reports a long history of bipolar disorder. Pt had been living in [facility], but was evicted from same one month ago secondary to having a bottle of vodka in his possession. Pt was also terminated from [facility]. Soon after the discharge, he relapsed on drinking soon after the discharge and started drinking 1-2 pints on a daily basis. Yesterday he consumed more than 2 pints of vodka and started hearing voices, became depressed and developed suicidal ideation. Pt reports the following: "I lost my apartment;" I've been living under [facility] for about a month;" Now, I can 't take it anymore;" Pt has had thoughts of suicide for the past "couple of days " with idx to "slit" his wrist; Pt stated: "It's hard living out in the street; " I don't want to live anymore.' Pt reports a prior hx of "slitting" his left wrist on two separate occasions. He reports depressed mood and feelings of hopelessness and helplessness. He reports auditory hallucinations, non command type, whispers and visual hallucination, seeing shadows. Patient also reports persecutory delusions that someone is following him. He also reports withdrawal symptoms including nausea, shakes, anxiety, heart burn and headaches. He denies any drugs or any substance abuse. Laboratory Data: Abnormal Lab Results 09/22/16 17:02 POC Glucose (mg/dL) 129 H Consultations:: List each consultation separately and include: 1. Reason for request. 2. Findings. 3. Follow-up Summary of Hospital Course include:: 1. Description of specific treatment plan utilized for patients during their course of treatmen. 2. Summarize the time- course for resolution of acute symptoms and/or regressed behaviors. 3. Describe issues identified and worked on during hospitalization. 4. Describe medication utilized. 5. Describe medical problems identified and treated. 6. Reassessment of suicide risk Summary of Hospital Course: During the course of his stay, patient (pt) started progressively improving and he no longer remained irritable, depressed, suicidal and paranoid. His mood and paranoia were improved and he started attending groups and meetings and started socializing. Patient denied any feelings of hopelessness, helplessness, and worthlessness, denied any problem with the sleep or appetite, denied suicidal ideation or homicidal ideation. Pt denied any auditory or visual hallucinations. Some changes were made in his current medications and patient was discharged on following medications. He tolerated these medications very well and denied any side effects. He was discharged with a plan to follow up with - Final Diagnosis (DSM 5) Condition upon Discharge: FAIR DSM 5: Schizophrenia paranoid type continuous Alcohol use disorder severe Alcohol withdrawal uncomplicated Disposition: HOME/ ROUTINE Follow-up Treatment Plan: Education: Pt was educated and counseled about the risks and benefits of taking and not taking medications. Pt was educated and counseled about the risks of drinking and abusing drugs. Pt was educated and counseled to go to the ER or call 911 if pt develop suicidal ideation or homicidal ideation, worsening of symptoms or severe side effects of the meds. Prescriptions/Medication Reconciliation: Benztropine [Cogentin] 1 mg PO HS #30 tab Gabapentin [Neurontin] 300 mg PO TID #90 cap Haloperidol [Haldol] 10 mg PO HS #30 tab QUEtiapine [Seroquel] 200 mg PO HS #30 tab - Smoking Cessation Smoking Cessation Medication prescribed: No - Antipsychotic Medications Pt discharged on 2 or more routine antipsychotic medications: No
--- NOTE | 2016-10-10 01:57 | PCM.PYCHPN ---
Psychiatric Progress Note - Psychiatric Progress Note Patient seen today, length of contact: 15 min Patient Chief Complaint: I am feeling better.' Problems Identified/Issues Discussed: Patient seen and evaluated, chart reviewed and discussed with the nurse. The patient reports improvement in his mood and reports somewhat improvement in his symptoms, but he remained isolated and continued to pace back and forth in the hallways. The pt is compliant with medications and reports no side-effects. Symptoms are improving but needs more time to stabilize. After care discussed, support and psychoeducation given. Medication Change: Yes (Ativan taper) Medical Record Reviewed: Yes Mental Status Examination - Cognitive Function Orientation: Person, Place, Situation, Time Memory: Intact Attention: WNL Concentration: Poor Association: Loose Fund of Knowledge: Poor - Mood Mood: Depressed, Anxious - Affect Affect: Constricted, Depressed - Speech Speech: Soft - Formal Thought Process Formal Thought Process: Hallucinations, Delusions, Paranoia - Suicidal Ideation Suicidal Ideation: No - Homicidal Ideation Homicidal Ideation: No Goal/Treatment Plan - Goal/Treatment Plan Need for Continued Stay: Discharge may exacerbated symptoms, Severe functional impairment Progress Toward Problem(s) and Goals/Treatment Plan: Schizophrenia paranoid type continuous CBT Psychoeducation Supportive therapy, group therapy, individual therapy Haldol 5 mg mouth twice a day Neurontin 300 mg by mouth 3 times a day Trazodone 50 mg by mouth daily at bedtime Seroquel 100 mg by mouth daily at bedtime Alcohol use disorder severe CBT Psychoeducation Supportive therapy, individual therapy Use [place] for abstinence Alcohol withdrawal uncomplicated CBT Psychoeducation Supportive therapy, individual therapy Ativan when necessary Ativan taper Folic acid/thiamine/multivitamin
== END 2016-09-23 14:03 | disposition home or self-care (01) | DRG 430 ==
LOC: C.ER 23:17 → C.5E 09-18 04:42
PROVIDERS: ADMIT Psychiatry & Neurology Psychiatry; ATTEND Psychiatry & Neurology Psychiatry
PROC: GZ3ZZZZ Medication Management (ICD-10-PCS; principal; 2016-09-18)
PROC: HZ89ZZZ Medication Management for Substance Abuse Treatment, Other Replacement Medication (ICD-10-PCS; 2016-09-18)
PROC: GZHZZZZ Group Psychotherapy (ICD-10-PCS; 2016-09-18)
PROC: HZ46ZZZ Group Counseling for Substance Abuse Treatment, Psychoeducation (ICD-10-PCS; 2016-09-18)
PROC: GZ56ZZZ Individual Psychotherapy, Supportive (ICD-10-PCS; 2016-09-18)
PROC: HZ59ZZZ Individual Psychotherapy for Substance Abuse Treatment, Supportive (ICD-10-PCS; 2016-09-18)
DX: F20.0 Paranoid schizophrenia (principal); R45.851 Suicidal ideations; F10.239 Alcohol dependence with withdrawal, unspecified; F31.9 Bipolar disorder, unspecified; Z59.0 Homelessness

== ENCOUNTER 2017-06-28 16:20 | Inpatient (IN) | payer MEDICAID ==
[2017-06-28 16:21] VITALS: BMI 28.7
[2017-06-28] MEDS ORDERED: Multivitamin (MVI) 10 ML, Thiamine 100 MG, Folic Acid 1 MG in Sodium Chloride 0.9% 1,00... IV ONE (17:05)
--- NOTE | 2017-06-28 17:08 | C.PDOC ---
History Of Present Illness <EmiJack Nell - Last Filed: 06/28/17 18:52> <Polo Alexander - Last Filed: 06/28/17 22:30> 57 y/o M c PMHx alcoholism, HTN, COPD (15 pack year smoking history)p/w chest pain x 6 days. Describes pain as L sided, sharp, worse with palpation or coughing, nonradiating, severe. Patient reports associated cough, productive of bloody sputum. Patient also reports 30 pound weight loss recently. He denies fever, chills, dyspnea, nausea, vomiting, diaphoresis, night sweats, leg swelling. Last alcoholic drink was today. (EmiJack Camejo) <Jack Middleton - Last Filed: 06/28/17 18:52> <Polo Alexander - Last Filed: 06/28/17 22:30> Time Seen by Provider: 06/28/17 16:43 Chief Complaint (Nursing): Chest Pain Past Medical History - Medical History PMH: Anxiety, COPD, Depression, Diabetes, Fractures, HTN, Schizophrenia, Seizures Family History: States: Unknown Family Hx - Social History Hx Tobacco Use: Yes Hx Alcohol Use: Yes Hx Substance Use: No - Immunization History Hx Tetanus Toxoid Vaccination: No Hx Influenza Vaccination: No Hx Pneumococcal Vaccination: No <EmiJack - Last Filed: 06/28/17 18:52> Vital Signs: Last Vital Signs Temp 97.3 F L 06/28/17 16:27 Pulse 90 06/28/17 19:27 Resp 22 06/28/17 16:51 BP 134/96 H 06/28/17 19:27 Pulse Ox 96 06/28/17 19:27 - [facility] Procedures ALCOHOL DETOXIFICATION (02/24/13) DETOXIFICATION SERVICES FOR SUBSTANCE ABUSE TREATMENT (07/27/16) GROUP HOUSEKEEPING [employer]PER[employer]OR [employer]OTEL FOR SUBSTANCE ABUSE TREATMENT, PSYCHOEDUCATION (09/18/16) GROUP PSYCHOTHERAPY (10/07/16) INDIV PSYCHOTHERAPY FOR SUBSTANCE ABUSE TREATMENT, SUPPORT (09/18/16) INDIVIDUAL PSYCHOTHERAPY, SUPPORTIVE (10/07/16) INJECT/INFUSE ELECTROLYT (02/20/13) INJECT/INFUSE NEC (05/02/13) MEDICATION MANAGEMENT (10/07/16) MEDS MGMT FOR SUBSTANCE ABUSE TREATMENT, METHADONE MAINT (07/27/16) MEDS MGMT FOR SUBSTANCE ABUSE TREATMENT, OTH REPL MED (09/18/16) Review Of Systems Except As Marked, All Systems Reviewed And Found Negative. Constitutional: Negative for: Fever Respiratory: Negative for: Shortness of Breath <EmiJack Camejo - Last Filed: 06/28/17 18:52> Physical Exam <EmiJack Camejo - Last Filed: 06/28/17 18:52> - Physical Exam Appears: No Acute Distress, Other (intoxicated ) Skin: Normal Color, Warm, Dry Head: Atraumatic, Normacephalic Eye(s): bilateral: Normal Inspection Oral Mucosa: Moist, Other (alcohol on breath ) Chest: Symmetrical, No Deformity, Tenderness (digitally reproducible to left chest wall ) Cardiovascular: Rhythm Regular, No Murmur Respiratory: Normal Breath Sounds, No Rales, No Rhonchi, No Wheezing Extremity: Normal ROM, Capillary Refill (less than 2 seconds ) Neurological/Psych: Oriented x3, Normal Speech, Normal Cognition <Polo Alexander - Last Filed: 06/28/17 22:30> - Physical Exam Additional Physical Exam Comments: Gen: NAD Head: NC/AT Eyes: PERRL ENT: MMM. +Tongue fasciculations Neck: No rigidity Chest: Reproducible L sided tenderness CV: Regular rate Lungs: CTA b/l Abd: Soft, NT Back: No midline tenderness Skin: No rash Extremities: No tenderness or swelling. +Tremor with hands extended Neuro: Alert, no focal deficit (Jack Middleton) ED Course And Treatment - Laboratory Results Result Diagrams: 06/28/17 17:22 06/28/17 17:22 O2 Sat by Pulse Oximetry: 96 <EmiJack Camejo - Last Filed: 06/28/17 18:52> - Laboratory Results Result Diagrams: 06/28/17 17:22 06/28/17 17:22 Lab Interpretation: Abnormal (d-dimer 737 H,) ECG: Interpreted By Oh ECG Rhythm: Sinus Tachycardia ECG Interpretation: Abnormal Rate From EC Pulse Ox Interpretation: Normal - Radiology CXR: Interpreted by Oh CXR Interpretation: Yes: No Acute Disease - CT Scan/US CT Chest Other Rad Studies (CT/US): Radiology Report Reviewed CTA Chest Other Rad Studies (CT/US): Read By Radiologist, Radiology Report Reviewed CT/US Interpretation: IMPRESSION: Question filling defect/possible pulmonary embolism involving segmental/subsegmental branch in. the right lower lobe, axial images 125, 126 versus artifact. Old rib fractures involving the right fifth through eighth ribs. Old rib fractures of the left fifth and sixth. ribs. Indeterminate age of the left anterior third and fourth rib fractures. Correlate clinically. Thank you for allowing us to participate in the care of your patient. Dictated and Authenticated by: Myranda Nation MD. 06/28/2017 9: 54 PM Eastern Time ([place] & [place]) Progress Note: ETOH rechecked as pt drinking pt of vodka in ED. lovenox ordered for +PE Reevaluation Time: 22:07 Reassessment Condition: Improved (resting comfortably) - Physician Consult Information Outcome Of Conversation: 2199: d/w Dr. Maday Partida, Medicine Hand [facility]- ok to admit. <Polo Alexander - Last Filed: 06/28/17 22:30> Medical Decision Making <Jack Middleton - Last Filed: 06/28/17 18:52> <Polo Alexander - Last Filed: 06/28/17 22:30> Medical Decision Making: Ativan and Banana bag for alcoholism with signs of mild withdrawal. CXR to exclude pneumonia. Chest pain appears to be muskuloskeletal in nature. EKG Sinus rhythm, 103 bpm, no ST/T wave changes. CXR shows no consolidation or infiltrate. Enzymes negative. Dimer positive. Pending CTA to rule out PE. Signed out to ED night team. (Jack Middleton) 1900: Patient was signed over to me at 1900. Labwork reviewed. Patient found to have elevated D-Dimer. CT results are pending. I performed a physical examination at bedside. Patient's digitally reproducible left-sided chest pain is consistent with costochondritis. Patient appears intoxicated, more so than blood alcohol level of 269 noted at 1600 labs. Patient found to carry two bottles of Vokda, one full and one empty, which he drank during his stay in the ER. Alcohol bottles were confiscated by security. Patient grew increasingly agitated and became argumentative with the ED staff. Patient demanded to leave the ED right away. I explained the risks and benefits of leaving to the patient. Patient verbalizes understanding and elects to leave the ED. The patient has been advised that he should return to the ED immediately if he changes his mind at any time, or if his condition begins to change or worsen in any way. 1929: pt decided to stay for his CTA 2199: CTA + PE, lovenox given. no s/s of withdrawal now, repeat ETOH level ordered. (Polo Alexander) Disposition <Jack Middleton - Last Filed: 06/28/17 18:52> Doctor Will See Patient In The: Hospital Counseled Patient/Family Regarding: Studies Performed, Diagnosis - Disposition Disposition Time: 22:11 <Polo Alexander - Last Filed: 06/28/17 22:30> - Disposition Disposition: HOSPITALIZED Condition: FAIR - Clinical Impression Clinical Impression: Alcohol intoxication, Alcohol abuse, Pulmonary embolism, Rib fractures
[2017-06-28 17:25] LABS: BASO # 0.1 K/uL (0.0-0.2); BASO % 1.9 % (0.0-2.0); EOS # 0.1 K/uL (0.0-0.7); EOS % 1.2 % (0.0-4.0); HEMOGLOBIN 14.5 g/dL (12.0-18.0); LYMPH # 1.2 K/uL (1.0-4.3); LYMPH % 23.1 % (20.0-40.0); MEAN CELL VOLUME 97.2 fL (80.0-94.0); MEAN CORPUSCULAR HEMOGLOBIN 32.9 pg (27.0-31.0); MEAN CORPUSCULAR HGB CONC 33.8 g/dL (33.0-37.0); MEAN PLATELET VOLUME 8.1 fL (7.2-11.7); MONO # 0.7 K/uL (0.0-0.8); MONO % 14.5 % (0.0-10.0); NEUT % 59.3 % (50.0-75.0); RBC 4.41 Mil/uL (4.40-5.90)
[2017-06-28] MEDS ORDERED: Sodium Chloride 0.9% 1,000 ML ONE (17:28)
[2017-06-28] MEDS ORDERED: Sodium Chloride 0.9% 1,000 ML IV ONE (17:30)
[2017-06-28 17:38] LABS: ALB/GLOB RATIO 1.1 (1.0-2.1); ALBUMIN 4.3 g/dL (3.5-5.0); ALT/SGPT 139 U/L (21-72); AST/SGOT 268 U/L (17-59); BLOOD UREA NITROGEN 11 mg/dL (9-20); CALCIUM 8.7 mg/dl (8.6-10.4); GFR AFRICAN-AMERICAN > 60; GFR NON-AFRICAN AMERICAN > 60
[2017-06-28 17:49] LABS: CK-MB 1.27 ng/mL (0.0-3.38)
[2017-06-28] MEDS ORDERED: Iodixanol 320 MG/ML 100 ML BOTTLE IV ONE (18:33)
[2017-06-28] MEDS ORDERED: Enoxaparin 40 mg Syringe SC STA (22:03)
[2017-06-28] MEDS ORDERED: Enoxaparin 80 mg Syringe ONE (22:10)
--- NOTE | 2017-06-29 02:52 | CT ---
EXAM: CT Angiography Chest With Intravenous Contrast CLINICAL HISTORY: 57 years old, male; Pain; Chest pain; Type not specified; Additional info: R/O pe hemotysis, cp, tachy TECHNIQUE: Axial computed tomographic angiography images of the chest with intravenous contrast using pulmonary embolism protocol. All CT scans at this facility use one or more dose reduction techniques, viz.: automated exposure control; ma/kV adjustment per patient size (including targeted exams where dose is matched to indication; i.e. head); or iterative reconstruction technique. MIP reconstructed images were created and reviewed. Coronal and sagittal reformatted images were created and reviewed. CONTRAST: 100 mL of [id number] administered intravenously. COMPARISON: No relevant prior studies available. FINDINGS: Pulmonary arteries: Question filling defect/possible pulmonary embolism involving segmental/subsegmental branch in the right lower lobe, axial images 125, 126 versus artifact. Aorta: No acute findings. No thoracic aortic aneurysm. Lungs: Atelectasis/hypoventilatory change. No mass. No consolidation. Pleural space: No significant effusion. No pneumothorax. Heart: No cardiomegaly. No significant pericardial effusion. No evidence of RV dysfunction. Bones/joints: Old rib fractures involving the right fifth through eighth ribs. Old rib fractures of the left fifth and sixth ribs. Indeterminate age of the left anterior third and fourth rib fractures. Lymph nodes: Shotty nodes. IMPRESSION: Question filling defect/possible pulmonary embolism involving segmental/subsegmental branch in the right lower lobe, axial images 125, 126 versus artifact. Old rib fractures involving the right fifth through eighth ribs. Old rib fractures of the left fifth and sixth ribs. Indeterminate age of the left anterior third and fourth rib fractures. Correlate clinically.
[2017-06-29 04:13] VITALS: RESP 20
--- NOTE | 2017-06-29 08:15 | RAD ---
Chest x-ray two views History: Cough. Chest pain. Comparison: None available. Findings: Nodularity at the left lung base laterally which may represent productive change possibly from rib deformities although additional etiologies not excluded. Correlation with chest CT may be helpful if clinically indicated. Biapical pleural thickening. Small nodular density at the right lung base laterally may represent confluence of shadows with ribs and vessels. Tortuous aorta. Mild calcification at the aortic knob. Degenerative changes in the spine and shoulders. Impression: Nodularity at the left lung base laterally which may represent productive change possibly from rib deformities although additional etiologies not excluded. Correlation with chest CT may be helpful if clinically indicated. Biapical pleural thickening. Small nodular density at the right lung base laterally may represent confluence of shadows with ribs and vessels. Tortuous aorta. Mild calcification at the aortic knob. Degenerative changes in the spine and shoulders.
[2017-06-29] MEDS ORDERED: Multivitamin (MVI) 10 ML, Folic Acid 1 MG in Sodium Chloride 0.9% 1,000 ML IV ONE ×2 (09:00→11:24)
[2017-06-29] MEDS ORDERED: Potassium Chloride 10 mEq ER Tab PO ONE (09:53)
[2017-06-29] MEDS ORDERED: Enoxaparin 30 mg Syringe SC SCH (10:00)
[2017-06-29] MEDS: Enoxaparin 80 mg Syringe SC SCH ×2 (10:48→22:51)
[2017-06-29] MEDS: Pantoprazole 40 mg EC Tab PO SCH (10:48)
--- NOTE | 2017-06-29 11:15 | CP.PCM.CON ---
History of Present Illness - History of Present Illness History of Present Illness: reason for consultation: pulmonary embolism 57-year-old male with history of EtOH abuse, last drink yesterday, COPD presented with left lateral chest pain for the past associated with cough. Pain is sharp and worse on coughing. CAT scan of the chest consistent with pulmonary embolism. Review of Systems - Review of Systems All systems: reviewed and no additional remarkable complaints except (chest pain and cough) Past Patient History - Infectious Disease Hx of Infectious Diseases: None - Tetanus Immunizations Tetanus Immunization: Unknown - Past Medical History & Family History Past Medical History?: Yes - Past Social History Smoking Status: Former Smoker - CARDIAC Hx Cardiac Disorders: Yes Hx Hypertension: Yes - PULMONARY Hx Respiratory Disorders: Yes Hx Chronic Obstructive Pulmonary Disease (COPD): Yes - NEUROLOGICAL Hx Neurological Disorder: Yes Hx Seizures: Yes - HEENT Hx HEENT Problems: No - RENAL Hx Chronic Kidney Disease: No - ENDOCRINE/METABOLIC Hx Endocrine Disorders: Yes Hx Diabetes Mellitus Type 2: Yes - HEMATOLOGICAL/ONCOLOGICAL Hx Blood Disorders: No Hx Cancer: No - INTEGUMENTARY Hx Dermatological Problems: No - MUSCULOSKELETAL/RHEUMATOLOGICAL Hx Musculoskeletal Disorders: Yes Hx Falls: Yes Hx Fractures: Yes - GASTROINTESTINAL Hx Gastrointestinal Disorders: No - GENITOURINARY/GYNECOLOGICAL Hx Genitourinary Disorders: No - PSYCHIATRIC Hx Psychophysiologic Disorder: Yes Hx Anxiety: Yes Hx Depression: Yes Hx Schizophrenia: Yes Hx Substance Use: Yes ("long time ago") - SURGICAL HISTORY Hx Surgeries: Yes Hx Orthopedic Surgery: Yes (HIP / BILATERAL) - ANESTHESIA Hx Anesthesia: Yes Hx Anesthesia Reactions: No Meds Allergies/Adverse Reactions: Allergies Allergy/AdvReac Type Severity Reaction Status Date / Time No Known Allergies Allergy Verified 06/28/17 16:27 - Medications Medications: Current Medications Aspirin (Aspirin) 325 mg PO DAILY [facility] Last Admin: 06/29/17 10:47 Dose: 325 mg Chlordiazepoxide (Librium) 25 mg PO BID PRN PRN Reason: alcohol withdrawal Enoxaparin Sodium (Lovenox) 80 mg SC Q12 [facility] Last Admin: 06/29/17 10:48 Dose: 80 mg Multivitamins/Vitamin C 10 ml/Folic Acid 1 mg/ Sodium Chloride 1,010.2 mls @ 60 mls/hr IV .[id number] ONE Stop: 06/30/17 01:50 Last Admin: 04/08/18 09:27 Dose: 60 mls/hr Pantoprazole Sodium (Protonix Ec Tab) 40 mg PO DAILY [facility] Last Admin: 06/29/17 10:48 Dose: 40 mg Thiamine HCl (Vitamin B1 Tab) 100 mg PO DAILY [facility] Last Admin: 06/29/17 10:47 Dose: 100 mg Physical Exam - Head Exam Head Exam: ATRAUMATIC, NORMOCEPHALIC - ENT Exam ENT Exam: Mucous Membranes Moist - Neck Exam Neck exam: Positive for: Normal Inspection - Respiratory Exam Respiratory Exam: Clear to Auscultation Bilateral - Cardiovascular Exam Cardiovascular Exam: Tachycardia, REGULAR RHYTHM - GI/Abdominal Exam GI & Abdominal Exam: Normal Bowel Sounds, Soft - Extremities Exam Extremities exam: Positive for: normal inspection Results - Vital Signs Recent Vital Signs: Last Vital Signs Temp 98.2 F 06/29/17 09:12 Pulse 88 06/29/17 09:12 Resp 20 06/29/17 09:12 BP 138/59 L 06/29/17 09:12 Pulse Ox 96 06/29/17 09:12 - Labs Result Diagrams: 06/28/17 17:22 06/28/17 17:22 Labs: Laboratory Results - last 24 hr 06/28/17 06/28/17 06/28/17 17:22 17:22 17:53 WBC 5.0 RBC 4.41 Hgb 14.5 Hct 42.9 MCV 97.2 H MCH 32.9 H MCHC 33.8 RDW 14.0 Plt Count 275 MPV 8.1 Neut % (Auto) 59.3 Lymph % (Auto) 23.1 [place] % (Auto) 14.5 H Eos % (Auto) 1.2 Baso % (Auto) 1.9 Neut # (Auto) 3.0 Lymph # (Auto) 1.2 [place] # (Auto) 0.7 Eos # (Auto) 0.1 Baso # (Auto) 0.1 D-Dimer, Quantitative 737 H Sodium 145 Potassium 3.1 L Chloride 99 Carbon Dioxide 27 Anion Gap 23 H BUN 11 Creatinine 0.6 L Est GFR ( Amer) > 60 Est GFR (Non-Af Amer) > 60 Random Glucose 124 H Calcium 8.7 Total Bilirubin 1.2 AST 268 H ALT 139 H D Alkaline Phosphatase 168 H Total Creatine Kinase 381 H CK-MB (Mass) 1.27 Troponin I < 0.0120 Total Protein 8.1 Albumin 4.3 Globulin 3.8 Albumin/Globulin Ratio 1.1 Alcohol, Quantitative 269 H 06/28/17 22:15 WBC RBC Hgb Hct MCV MCH MCHC RDW Plt Count MPV Neut % (Auto) Lymph % (Auto) [place] % (Auto) Eos % (Auto) Baso % (Auto) Neut # (Auto) Lymph # (Auto) [place] # (Auto) Eos # (Auto) Baso # (Auto) D-Dimer, Quantitative Sodium Potassium Chloride Carbon Dioxide Anion Gap BUN Creatinine Est GFR ( Amer) Est GFR (Non-Af Amer) Random Glucose Calcium Total Bilirubin AST ALT Alkaline Phosphatase Total Creatine Kinase CK-MB (Mass) Troponin I Total Protein Albumin Globulin Albumin/Globulin Ratio Alcohol, Quantitative 231 H Assessment & Plan (1) Pulmonary embolism Status: Acute Comment: cont lovenox. venous Doppler of lower ext. Follow-up ABG. Pain medication (2) Alcohol abuse Status: Acute Comment: ativan and librium. iv fluids. follow-up electrolyte. Monitor for DTs (3) Rib fractures Status: Acute
[2017-06-29 11:25] LABS: ALB/GLOB RATIO 1.1 (1.0-2.1); ALBUMIN 3.7 g/dL (3.5-5.0); ALT/SGPT 115 U/L (21-72); AST/SGOT 191 U/L (17-59); BLOOD UREA NITROGEN 8 mg/dL (9-20); CALCIUM 8.4 mg/dl (8.6-10.4); GFR AFRICAN-AMERICAN > 60; GFR NON-AFRICAN AMERICAN > 60
[2017-06-29 11:26] LABS: CK-MB 0.49 ng/mL (0.0-3.38)
[2017-06-29] MEDS: HYDROmorphone 0.5 mg/0.5 ml ISec IVP PRN ×2 (13:54→20:18)
[2017-06-29] MEDS: Magnesium Sulfate 1 gm in D5W 1 GM/100 ML BAG IVPB SCH ×2 (13:55→14:29)
[2017-06-29] MEDS: Potassium Chloride 10 mEq ER Tab PO SCH (14:30)
--- NOTE | 2017-06-29 15:33 | CP.PCM.HP ---
Past Patient History - Infectious Disease Hx of Infectious Diseases: None - Tetanus Immunizations Tetanus Immunization: Unknown - Past Medical History & Family History Past Medical History?: Yes - Past Social History Smoking Status: Former Smoker - CARDIAC Hx Cardiac Disorders: Yes Hx Hypertension: Yes - PULMONARY Hx Respiratory Disorders: Yes Hx Chronic Obstructive Pulmonary Disease (COPD): Yes - NEUROLOGICAL Hx Neurological Disorder: Yes Hx Seizures: Yes - HEENT Hx HEENT Problems: No - RENAL Hx Chronic Kidney Disease: No - ENDOCRINE/METABOLIC Hx Endocrine Disorders: Yes Hx Diabetes Mellitus Type 2: Yes - HEMATOLOGICAL/ONCOLOGICAL Hx Blood Disorders: No Hx Cancer: No - INTEGUMENTARY Hx Dermatological Problems: No - MUSCULOSKELETAL/RHEUMATOLOGICAL Hx Musculoskeletal Disorders: Yes Hx Falls: Yes Hx Fractures: Yes - GASTROINTESTINAL Hx Gastrointestinal Disorders: No - GENITOURINARY/GYNECOLOGICAL Hx Genitourinary Disorders: No - PSYCHIATRIC Hx Psychophysiologic Disorder: Yes Hx Anxiety: Yes Hx Depression: Yes Hx Schizophrenia: Yes Hx Substance Use: Yes ("long time ago") - SURGICAL HISTORY Hx Surgeries: Yes Hx Orthopedic Surgery: Yes (HIP / BILATERAL) - ANESTHESIA Hx Anesthesia: Yes Hx Anesthesia Reactions: No Meds Allergies/Adverse Reactions: Allergies Allergy/AdvReac Type Severity Reaction Status Date / Time No Known Allergies Allergy Verified 06/28/17 16:27 Physical Exam - Constitutional Appears: Well - Head Exam Head Exam: ATRAUMATIC, NORMAL INSPECTION, NORMOCEPHALIC - Eye Exam Eye Exam: EOMI, Normal appearance, PERRL Pupil Exam: NORMAL ACCOMODATION, PERRL - ENT Exam ENT Exam: Mucous Membranes Moist, Normal Exam - Neck Exam Neck exam: Positive for: Normal Inspection - Respiratory Exam Respiratory Exam: Decreased Breath Sounds - Cardiovascular Exam Cardiovascular Exam: REGULAR RHYTHM, +S1, +S2 - GI/Abdominal Exam GI & Abdominal Exam: Diminished Bowel Sounds, Soft - Rectal Exam Rectal Exam: Deferred Results - Vital Signs Recent Vital Signs: Last Vital Signs Temp 98.3 F 06/29/17 12:29 Pulse 103 H 06/29/17 13:54 Resp 20 06/29/17 12:29 BP 153/91 H 06/29/17 13:54 Pulse Ox 95 06/29/17 12:29 - Labs Result Diagrams: 06/28/17 17:22 06/29/17 10:55 Labs: Laboratory Results - last 24 hr 06/28/17 06/28/17 06/28/17 17:22 17:22 17:53 WBC 5.0 RBC 4.41 Hgb 14.5 Hct 42.9 MCV 97.2 H MCH 32.9 H MCHC 33.8 RDW 14.0 Plt Count 275 MPV 8.1 Neut % (Auto) 59.3 Lymph % (Auto) 23.1 [place] % (Auto) 14.5 H Eos % (Auto) 1.2 Baso % (Auto) 1.9 Neut # (Auto) 3.0 Lymph # (Auto) 1.2 [place] # (Auto) 0.7 Eos # (Auto) 0.1 Baso # (Auto) 0.1 D-Dimer, Quantitative 737 H Sodium 145 Potassium 3.1 L Chloride 99 Carbon Dioxide 27 Anion Gap 23 H BUN 11 Creatinine 0.6 L Est GFR ( Amer) > 60 Est GFR (Non-Af Amer) > 60 Random Glucose 124 H Calcium 8.7 Phosphorus Magnesium Total Bilirubin 1.2 AST 268 H ALT 139 H D Alkaline Phosphatase 168 H Total Creatine Kinase 381 H CK-MB (Mass) 1.27 Troponin I < 0.0120 Total Protein 8.1 Albumin 4.3 Globulin 3.8 Albumin/Globulin Ratio 1.1 Alcohol, Quantitative 269 H 06/28/17 06/29/17 22:15 10:55 WBC RBC Hgb Hct MCV MCH MCHC RDW Plt Count MPV Neut % (Auto) Lymph % (Auto) [place] % (Auto) Eos % (Auto) Baso % (Auto) Neut # (Auto) Lymph # (Auto) [place] # (Auto) Eos # (Auto) Baso # (Auto) D-Dimer, Quantitative Sodium 138 Potassium 3.4 L Chloride 99 Carbon Dioxide 28 Anion Gap 15 BUN 8 L Creatinine 0.7 L Est GFR ( Amer) > 60 Est GFR (Non-Af Amer) > 60 Random Glucose 122 H Calcium 8.4 L Phosphorus 2.9 Magnesium 1.3 L Total Bilirubin 1.7 H AST 191 H D ALT 115 H Alkaline Phosphatase 152 H Total Creatine Kinase 232 H CK-MB (Mass) 0.49 Troponin I < 0.0120 Total Protein 7.0 Albumin 3.7 Globulin 3.4 Albumin/Globulin Ratio 1.1 Alcohol, Quantitative 231 H
[2017-06-29] MEDS ORDERED: Dextrose 5%/0.9% NS 1,000 ML IV ONE (19:00)
[2017-06-29 20:17] LABS: BARBITURATES, UR NEGATIVE (NEGATIVE); PHENCYCLIDINE, UR NEGATIVE (NEGATIVE)
[2017-06-29 20:18] LABS: BENZODIAZEPINES, UR POSITIVE (NEGATIVE); OPIATES, UR POSITIVE (NEGATIVE)
[2017-06-29 21:13] LABS: CK-MB 0.31 ng/mL (0.0-3.38)
--- NOTE | 2017-06-30 00:50 | CON ---
DATE: REASON FOR CONSULTATION: Chest pain. HISTORY OF PRESENT ILLNESS: The patient is a 57-year-old male who presents because of chest pain and alcohol intoxication. The patient describes the chest pain as sharp, left-sided, and was tenderness to touch. The patient is unaware of any prior cardiac history. SOCIAL HISTORY: The patient is a smoker, who states he quit 2 years ago. He is a heavy EtOH abuser. He is on SSRI. PAST MEDICAL HISTORY: History of right rib fracture twice, last year in [place], which was attributed to a fall from bed. The patient denies seizure disorder. MEDICATIONS: Aspirin 325 mg once a day, Ativan 1 mg subcutaneously every 4 hours, Librium 25 mg once a day, Lovenox 60 mg subcutaneously twice a day, IV magnesium sulfate infusion, thiamine 100 mg p.o. once a day, Protonix 20 mg p.o. once a day. PHYSICAL EXAMINATION: GENERAL: The patient is a middle-aged male who does not appear to be in acute distress. VITAL SIGNS: Blood pressure 148/90, heart rate 102, temperature 98.3, respirations 20. HEENT: Normocephalic. CHEST: Clear. HEART: S1, S2 regular. EXTREMITIES: No edema. LABORATORY DATA: Alcohol level on admission was 269. SMA-7 today, sodium 138, potassium 3.4, chloride 99, CO2 28, glucose 122, BUN 8, creatinine 0.7. Liver enzymes are elevated. Two sets of troponins are negative. D-dimer is 737. CT angio of the chest revealed questionable filling defect, possible pulmonary embolism involving the segmental and subsegmental branch in the right lower lobe. Old rib fracture involving the right fifth through the eighth rib. Old rib fracture of the left fifth and sixth ribs. EKG revealed sinus tachycardia to be 103. ASSESSMENT: 1. Chest pain, myocardial infarction was ruled out. 2. Bilateral old rib fracture. 3. Questionable right lower lobe segmental and subsegmental pulmonary embolus. 4. Alcohol intoxication. 5. Hypomagnesemia and hypokalemia. RECOMMENDATIONS: Continue current aspirin, Librium therapy, subcutaneous Lovenox, IV magnesium sulfate replacement. K-Dur 40 mg orally was given today. Obtain an echocardiogram as well as venous Doppler of the lower extremities. Luan Naranjo MD [facility] # [id number]
[2017-06-30] MEDS: HYDROmorphone 0.5 mg/0.5 ml ISec IVP PRN ×5 (01:30→22:59)
[2017-06-30] MEDS ORDERED: DiphenhydrAMINE 50 mg/ml Inj IVP ONE (02:18)
[2017-06-30] MEDS: Potassium Chloride 10 mEq ER Tab PO SCH (08:02)
[2017-06-30] MEDS: Pantoprazole 40 mg EC Tab PO SCH (10:14)
[2017-06-30] MEDS: Enoxaparin 80 mg Syringe SC SCH (10:15)
[2017-06-30 11:43] LABS: BASO % 0.7 % (0.0-2.0); EOS # 0.2 K/uL (0.0-0.7); EOS % 5.7 % (0.0-4.0); HEMOGLOBIN 12.9 g/dL (12.0-18.0); LYMPH # 0.8 K/uL (1.0-4.3); LYMPH % 20.9 % (20.0-40.0); MEAN CELL VOLUME 98.7 fL (80.0-94.0); MEAN CORPUSCULAR HEMOGLOBIN 33.4 pg (27.0-31.0); MEAN CORPUSCULAR HGB CONC 33.8 g/dL (33.0-37.0); MONO # 0.4 K/uL (0.0-0.8); NEUT # 2.4 K/uL (1.8-7.0); NEUT % 62.7 % (50.0-75.0); RBC 3.87 Mil/uL (4.40-5.90); RED CELL DISTRIBUTION WIDTH 13.7 % (11.5-14.5); WHITE BLOOD COUNT 3.9 K/uL (4.8-10.8)
[2017-06-30 11:51] LABS: PROTHROMBIN TIME 11.8 SECONDS (9.7-12.2)
[2017-06-30 12:03] LABS: ALB/GLOB RATIO 1.1 (1.0-2.1); ALBUMIN 3.6 g/dL (3.5-5.0); ALT/SGPT 78 U/L (21-72); AST/SGOT 96 U/L (17-59); BLOOD UREA NITROGEN 9 mg/dL (9-20); CALCIUM 8.2 mg/dl (8.6-10.4); GFR AFRICAN-AMERICAN > 60; GFR NON-AFRICAN AMERICAN > 60
--- NOTE | 2017-06-30 12:26 | CP.PCM.PN ---
Subjective - Date & Time of Evaluation Date of Evaluation: 06/30/17 Time of Evaluation: 12:23 - Subjective Subjective: PGY2 progress note for Dr. Partida 57 year old male with past medical history of HTN, COPD, alcohol abuse, DM, seizure d/o, schizophrenia is admitted to hospital for CP. Patient states that CP has been ongoing for about 1 week located substernally. On admission, pt had elevated d dimer. Ct of chest revealed a PE in the RLL and multiple old rib fractures. patient states that he does have history of recurrent falls. patient also drinks daily about 2 pints/day with last drink on day of admission. Pt is seen and examined at bedside. Currently pt states that he is feeling anxious and has tremors. patient is also c/o continued chest pain located in center of chest. patient denies having any SOB, abd pain, N/V/D/C, F /C. Objective - Vital Signs/Intake and Output Vital Signs (last 24 hours): Temp Pulse Resp BP Pulse Ox 97.5 F L 76 20 143/84 95 06/30/17 08:03 06/30/17 10:00 06/30/17 08:03 06/30/17 10:00 06/30/17 08:03 Intake and Output: 06/30/17 06/30/17 06:59 18:59 Intake Total 1475 Output Total 2000 Balance -525 - Medications Medications: Current Medications Aspirin (Aspirin) 325 mg PO DAILY [facility] Last Admin: 06/30/17 10:14 Dose: 325 mg Chlordiazepoxide (Librium) 25 mg PO BID [facility] Enoxaparin Sodium (Lovenox) 80 mg SC Q12 [facility] Last Admin: 06/30/17 10:15 Dose: 80 mg Hydromorphone HCl (Dilaudid) 1 mg IVP Q4H PRN PRN Reason: Pain, severe (8-10) Last Admin: 06/30/17 10:15 Dose: 1 mg Dextrose/Sodium Chloride (Dextrose 5%/0.9% Ns 1000 Ml) 1,000 mls @ 100 mls/hr IV .Q10H [facility] Lorazepam (Ativan) 1 mg IVP Q4H PRN PRN Reason: Agitation Last Admin: 06/30/17 11:53 Dose: 1 mg Multivitamins/Vitamin C (Multi-Delyn Liquid) 5 ml PO DAILY [facility] Pantoprazole Sodium (Protonix Ec Tab) 40 mg PO DAILY [facility] Last Admin: 06/30/17 10:14 Dose: 40 mg Potassium Chloride (Klor-Con 10) 10 meq PO BRK [facility] Last Admin: 06/30/17 08:02 Dose: 10 meq Thiamine HCl (Vitamin B1 Tab) 100 mg PO DAILY [facility] Last Admin: 06/30/17 10:19 Dose: 100 mg - Labs Labs: 06/30/17 11:38 06/30/17 11:38 PT 11.8 SECONDS (9.7-12.2) 06/30/17 11:38 INR 1.0 06/30/17 11:38 APTT 33 SECONDS (21-34) 06/30/17 11:38 - Constitutional Appears: Non-toxic, No Acute Distress - Head Exam Head Exam: ATRAUMATIC - ENT Exam ENT Exam: Mucous Membranes Moist - Respiratory Exam Respiratory Exam: Chest Wall Tenderness, Clear to Ausculation Bilateral. absent : Rales, Rhonchi, Wheezes - Cardiovascular Exam Cardiovascular Exam: REGULAR RHYTHM, +S1, +S2. absent: Gallop, Rubs, Murmur - GI/Abdominal Exam GI & Abdominal Exam: Soft, Normal Bowel Sounds. absent: Distended, Firm, Guarding, Rigid, Tenderness, Organomegaly - Extremities Exam Extremities Exam: absent: Pedal Edema, Tenderness - Neurological Exam Neurological Exam: Alert, Awake, Oriented x3 Additional comments: Pt noted to have hand tremors - Psychiatric Exam Psychiatric exam: Normal Affect, Normal Mood - Skin Skin Exam: Dry, Intact, Normal Color, Warm Assessment and Plan - Assessment and Plan (Free Text) Assessment: 57 year old male with past medical history of HTN, COPD, alcohol abuse, Seizure d/o, schizophrenia is admitted for CP likely due to PE and rib fractures PE Ct of chest showed filling defect likely from PE in the RLL and multiple fractures Will transition from Lovenox to eliquis 5 mg PO BID today Will check LE US Pulm, Dr. Riggs is consulted Alcohol abuse Blood ETOH level on admission was 269 Pt is currently on Librium 25 mg po q8 bee and Ativan 1 mg IVP q4 prn Continue CIWA protocol Pt received banana bag on addmisison. Currently on PO multivitamin, folic acid and thiamine Chronic rib fractures Continue pain management with dilaudid 1 mg IVP q4 prn Transaminitis Likely due to ETOH abuse. Trending down Will check Hepatitis panel Will continue D5/NS at 100 cc Schizophrenia Pt is seen by Dr. Decker outpt. [facility], Dr. Decker is consulted. pending recs. will restart gabapentin 300 mg po bid Prophylaxis Lovenox d/lashaun today. will start eliquis Protonix Case will be discussed with attending, Dr. Partida. All managements and orders per Dr. Partida.
[2017-06-30] MEDS: Multiple Vitamins Oral Solution PO SCH (12:51)
[2017-06-30] MEDS: Dextrose 5%/0.9% NS 1,000 ML IV SCH ×2 (12:54→22:58)
--- NOTE | 2017-06-30 13:05 | VASCLAB ---
PROCEDURE: Lower Extremity Venous Duplex Exam. HISTORY: Leg swelling PRIORS: None. TECHNIQUE: Bilateral common femoral, femoral, popliteal and posterior tibial, peroneal and great saphenous veins were evaluated. Flow was assessed with color Doppler, compressibility, assessment of phasic flow and augmentation response. Report prepared by MARLEN Andrea, RVT FINDINGS: RIGHT: 1. Common Femoral Vein: 1.1. Compressibility - Fully compressible: Thrombus - None : Flow - Phasic: Augmentation -Normal: Reflux - None. 2. Femoral Vein: 2.1. Compressibility - Fully compressible: Thrombus - None : Flow - Phasic: Augmentation -Normal: Reflux - None. 3. Popliteal Vein: 3.1. Compressibility - Fully compressible: Thrombus - None : Flow - Phasic: Augmentation -Normal: Reflux - None. 4. Posterior Tibial Vein: 4.1. Compressibility - Fully compressible: Thrombus - None: Flow - Phasic: Augmentation -Normal: Reflux - None. 5. Peroneal Vein: 5.1. Compressibility - Fully compressible: Thrombus - None: Flow - Phasic: Augmentation -Normal: Reflux - None. 6. Great Saphenous Vein: 6.1. Compressibility - Fully compressible: Thrombus - None: Flow - Phasic: Augmentation - Normal: Reflux - None. LEFT: 1. Common Femoral Vein: 1.1. Compressibility - Fully compressible: Thrombus - None: Flow - Phasic: Augmentation -Normal: Reflux - None. 2. Femoral Vein: 2.1. Compressibility - Fully compressible: Thrombus - None: Flow - Phasic: Augmentation -Normal: Reflux - None. 3. Popliteal Vein: 3.1. Compressibility - Fully compressible: Thrombus - None : Flow - Phasic: Augmentation -Normal: Reflux - None. 4. Posterior Tibial Vein: 4.1. Compressibility - Fully compressible: Thrombus - None: Flow - Phasic: Augmentation -Normal: Reflux - None. 5. Peroneal Vein: 5.1. Compressibility - Fully compressible: Thrombus - None: Flow - Phasic: Augmentation -Normal: Reflux - None. 6. Great Saphenous Vein: 6.1. Compressibility - Fully compressible: Thrombus - None: Flow - Phasic: Augmentation - Normal: Reflux - None. OTHER FINDINGS: Right: None significant. Left: None significant. IMPRESSION: Right: No evidence of deep or superficial vein thrombosis of the right lower extremity. Normal valve function noted of the right side. Left: No evidence of deep or superficial vein thrombosis of the left lower extremity. Normal valve function noted of the left side.
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
--- NOTE | 2017-06-30 17:56 | CP.PCM.PN ---
Subjective - Date & Time of Evaluation Date of Evaluation: 06/30/17 Time of Evaluation: 09:00 - Subjective Subjective: Patient seen and examined at bedside. Afebrile. Patient still reports sharp left -sided chest pain. Patient complained of itching overnight and received benadryl. Patient again reports some itching this AM. Assessment and Plan: 1. Pulmonary embolism - CTA Chest 06/28: possible pulmonary embolism involving segmental/subsegmental branch in the RLL - D-dimer 06/28: 737 - Saturating 95% on RA - Doppler LE 06/29: official read pending - Echo 06/29: official read pending - F/U ABG - lovenox Objective - Vital Signs/Intake and Output Vital Signs (last 24 hours): Temp Pulse Resp BP Pulse Ox 97.9 F 70 20 148/94 H 96 06/30/17 15:55 06/30/17 15:55 06/30/17 15:55 06/30/17 15:55 06/30/17 15:55 Intake and Output: 06/30/17 06/30/17 06:59 18:59 Intake Total 1475 1060 Output Total 2000 Balance -525 1060 - Medications Medications: Current Medications Apixaban (Eliquis) 5 mg PO BID [facility] Last Admin: 06/30/17 17:30 Dose: 5 mg Aspirin (Aspirin) 325 mg PO DAILY [facility] Last Admin: 06/30/17 10:14 Dose: 325 mg Chlordiazepoxide (Librium) 25 mg PO Q8 [facility] Last Admin: 06/30/17 14:35 Dose: 25 mg Folic Acid (Folic Acid) 1 mg PO DAILY [facility] Last Admin: 06/30/17 12:51 Dose: 1 mg Gabapentin (Neurontin) 300 mg PO BID [facility] Last Admin: 06/30/17 17:30 Dose: 300 mg Hydromorphone HCl (Dilaudid) 1 mg IVP Q4H PRN PRN Reason: Pain, severe (8-10) Last Admin: 06/30/17 17:30 Dose: 1 mg Dextrose/Sodium Chloride (Dextrose 5%/0.9% Ns 1000 Ml) 1,000 mls @ 100 mls/hr IV .Q10H [facility] Last Admin: 06/30/17 12:54 Dose: 100 mls/hr Lorazepam (Ativan) 1 mg IVP Q4H PRN PRN Reason: Agitation Last Admin: 06/30/17 11:53 Dose: 1 mg Multivitamins/Vitamin C (Multi-Delyn Liquid) 5 ml PO DAILY [facility] Last Admin: 06/30/17 12:51 Dose: 5 ml Pantoprazole Sodium (Protonix Ec Tab) 40 mg PO DAILY [facility] Last Admin: 06/30/17 10:14 Dose: 40 mg Potassium Chloride (Klor-Con 10) 10 meq PO BRK [facility] Last Admin: 06/30/17 08:02 Dose: 10 meq Thiamine HCl (Vitamin B1 Tab) 100 mg PO DAILY [facility] Last Admin: 06/30/17 10:19 Dose: 100 mg - Labs Labs: 06/30/17 11:38 06/30/17 11:38 PT 11.8 SECONDS (9.7-12.2) 06/30/17 11:38 INR 1.0 06/30/17 11:38 APTT 33 SECONDS (21-34) 06/30/17 11:38 Assessment and Plan (1) Pulmonary embolism Status: Acute (2) Alcohol abuse Status: Acute (3) Rib fractures Status: Acute
--- NOTE | 2017-06-30 18:42 | CP.PCM.PN ---
Subjective - Date & Time of Evaluation Date of Evaluation: 06/30/17 Time of Evaluation: 13:00 - Subjective Subjective: clinically same Objective - Vital Signs/Intake and Output Vital Signs (last 24 hours): Temp Pulse Resp BP Pulse Ox 97.9 F 70 20 148/94 H 96 06/30/17 15:55 06/30/17 15:55 06/30/17 15:55 06/30/17 15:55 06/30/17 15:55 Intake and Output: 06/30/17 06/30/17 06:59 18:59 Intake Total 1475 1060 Output Total 1999 Balance -525 1060 - Medications Medications: Current Medications Apixaban (Eliquis) 5 mg PO BID [facility] Last Admin: 06/30/17 17:30 Dose: 5 mg Aspirin (Aspirin) 325 mg PO DAILY [facility] Last Admin: 06/30/17 10:14 Dose: 325 mg Chlordiazepoxide (Librium) 25 mg PO Q8 [facility] Last Admin: 06/30/17 14:35 Dose: 25 mg Folic Acid (Folic Acid) 1 mg PO DAILY [facility] Last Admin: 06/30/17 12:51 Dose: 1 mg Gabapentin (Neurontin) 300 mg PO BID [facility] Last Admin: 06/30/17 17:30 Dose: 300 mg Hydromorphone HCl (Dilaudid) 1 mg IVP Q4H PRN PRN Reason: Pain, severe (8-10) Last Admin: 06/30/17 17:30 Dose: 1 mg Dextrose/Sodium Chloride (Dextrose 5%/0.9% Ns 1000 Ml) 1,000 mls @ 100 mls/hr IV .Q10H [facility] Last Admin: 06/30/17 12:54 Dose: 100 mls/hr Lorazepam (Ativan) 1 mg IVP Q4H PRN PRN Reason: Agitation Last Admin: 06/30/17 11:53 Dose: 1 mg Multivitamins/Vitamin C (Multi-Delyn Liquid) 5 ml PO DAILY [facility] Last Admin: 06/30/17 12:51 Dose: 5 ml Pantoprazole Sodium (Protonix Ec Tab) 40 mg PO DAILY [facility] Last Admin: 06/30/17 10:14 Dose: 40 mg Potassium Chloride (Klor-Con 10) 10 meq PO BRK [facility] Last Admin: 06/30/17 08:02 Dose: 10 meq Thiamine HCl (Vitamin B1 Tab) 100 mg PO DAILY [facility] Last Admin: 06/30/17 10:19 Dose: 100 mg - Labs Labs: 06/30/17 11:38 06/30/17 11:38 PT 11.8 SECONDS (9.7-12.2) 06/30/17 11:38 INR 1.0 06/30/17 11:38 APTT 33 SECONDS (21-34) 06/30/17 11:38 - Constitutional Appears: Well - Head Exam Head Exam: ATRAUMATIC, NORMAL INSPECTION, NORMOCEPHALIC - Eye Exam Eye Exam: EOMI, Normal appearance, PERRL Pupil Exam: NORMAL ACCOMODATION, PERRL - ENT Exam ENT Exam: Mucous Membranes Moist, Normal Exam - Neck Exam Neck Exam: Full ROM, Normal Inspection. absent: Lymphadenopathy - Respiratory Exam Respiratory Exam: Decreased Breath Sounds - Cardiovascular Exam Cardiovascular Exam: REGULAR RHYTHM, +S1, +S2 - GI/Abdominal Exam GI & Abdominal Exam: Soft, Diminished Bowel Sounds - Rectal Exam Rectal Exam: Deferred
--- NOTE | 2017-06-30 21:36 | PN ---
DATE: SUBJECTIVE: The patient denies any chest pain at this time. PHYSICAL EXAMINATION: VITAL SIGNS: Blood pressure 148/94, heart rate 70, temperature 97.9, respirations 20. HEENT: Normocephalic. CHEST: Clear. HEART: Heart sounds are regular. EXTREMITIES: No edema. LABORATORIES: Today, SMA-7 is within normal limits, except for creatinine of 0.7. Liver enzymes are still elevated but have improved compared to yesterday and total bilirubin had normalized today at 1.3. Today's hemoglobin and hematocrit are within normal limits. White count 3.9, platelet count 203,000. Venous Doppler of the lower extremity, no evidence of deep or superficial thrombosis of either lower extremities. ASSESSMENT: 1. Status post alcohol intoxication. 2. Chest pain with questionable right lower lobe segmental and subsegmental pulmonary emboli. 3. Old bilateral rib fractures. 4. Improved hypokalemia. 5. Hypomagnesemia. RECOMMENDATIONS: Continue current aspirin, Librium, folic acid, thiamine, and Eliquis. I will follow up echocardiograph study performed today. Luan Naranjo MD
[2017-07-01] MEDS ORDERED: Dextrose 5%/0.9% NS 1,000 ML IV ONE (00:09)
[2017-07-01 07:55] LABS: BASO % 0.7 % (0.0-2.0); EOS # 0.2 K/uL (0.0-0.7); LYMPH # 0.9 K/uL (1.0-4.3); LYMPH % 18.1 % (20.0-40.0); MEAN CELL VOLUME 98.4 fL (80.0-94.0); MEAN CORPUSCULAR HEMOGLOBIN 33.6 pg (27.0-31.0); MEAN CORPUSCULAR HGB CONC 34.2 g/dL (33.0-37.0); MEAN PLATELET VOLUME 8.9 fL (7.2-11.7); MONO # 0.4 K/uL (0.0-0.8); MONO % 8.3 % (0.0-10.0); NEUT # 3.3 K/uL (1.8-7.0); NEUT % 67.9 % (50.0-75.0); RBC 3.87 Mil/uL (4.40-5.90); RED CELL DISTRIBUTION WIDTH 13.7 % (11.5-14.5); WHITE BLOOD COUNT 4.9 K/uL (4.8-10.8)
[2017-07-01] MEDS: HYDROmorphone 0.5 mg/0.5 ml ISec IVP PRN (07:55)
[2017-07-01] MEDS: Potassium Chloride 10 mEq ER Tab PO SCH (08:00)
[2017-07-01 08:04] LABS: ALB/GLOB RATIO 1.1 (1.0-2.1); ALBUMIN 3.5 g/dL (3.5-5.0); ALT/SGPT 72 U/L (21-72); AST/SGOT 89 U/L (17-59); BLOOD UREA NITROGEN 10 mg/dL (9-20); CALCIUM 8.5 mg/dl (8.6-10.4); GFR AFRICAN-AMERICAN > 60; GFR NON-AFRICAN AMERICAN > 60
[2017-07-01 08:08] LABS: INR 1.1; PROTHROMBIN TIME 12.5 SECONDS (9.7-12.2)
[2017-07-01] MEDS: Pantoprazole 40 mg EC Tab PO SCH (11:00)
[2017-07-01] MEDS: Multiple Vitamins Oral Solution PO SCH (11:00)
--- NOTE | 2017-07-01 16:15 | CP.PCM.PN ---
Subjective - Date & Time of Evaluation Date of Evaluation: 07/01/17 Time of Evaluation: 13:00 - Subjective Subjective: Patient seen and examined at bedside. Afebrile. Patient still reports sharp left -sided chest pain. Assessment and Plan: 1. Pulmonary embolism - CTA Chest 06/28: possible pulmonary embolism involving segmental/subsegmental branch in the RLL - D-dimer 06/28: 737 - Saturating 95% on RA - Doppler LE 06/29: official read pending - Echo 06/29: official read pending - F/U ABG - eliquus Objective - Vital Signs/Intake and Output Vital Signs (last 24 hours): Temp Pulse Resp BP Pulse Ox 97.8 F 68 20 147/90 97 07/01/17 08:33 07/01/17 08:33 07/01/17 08:33 07/01/17 08:33 07/01/17 08:33 Intake and Output: 07/01/17 07/01/17 06:59 18:59 Intake Total 1100 600 Output Total 1100 Balance 0 600 - Medications Medications: Current Medications Amlodipine Besylate (Norvasc) 10 mg PO DAILY [facility] Last Admin: 07/01/17 11:00 Dose: 10 mg Apixaban (Eliquis) 5 mg PO BID [facility] Last Admin: 07/01/17 11:00 Dose: 5 mg Aspirin (Aspirin) 325 mg PO DAILY [facility] Last Admin: 07/01/17 11:00 Dose: 325 mg Folic Acid (Folic Acid) 1 mg PO DAILY [facility] Last Admin: 07/01/17 11:00 Dose: 1 mg Gabapentin (Neurontin) 300 mg PO BID [facility] Last Admin: 07/01/17 11:00 Dose: 300 mg Hydromorphone HCl (Dilaudid) 1 mg IVP Q4H PRN PRN Reason: Pain, severe (8-10) Dextrose/Sodium Chloride (Dextrose 5%/0.9% Ns 1000 Ml) 1,000 mls @ 25 mls/hr IV .Q24H ONE Stop: 07/02/17 00:08 Last Admin: 07/01/17 00:20 Dose: 25 mls/hr Lorazepam (Ativan) 1 mg IVP Q4H PRN PRN Reason: Agitation Last Admin: 07/01/17 11:23 Dose: 1 mg Multivitamins/Vitamin C (Multi-Delyn Liquid) 5 ml PO DAILY [facility] Last Admin: 07/01/17 11:00 Dose: 5 ml Pantoprazole Sodium (Protonix Ec Tab) 40 mg PO DAILY [facility] Last Admin: 07/01/17 11:00 Dose: 40 mg Potassium Chloride (Klor-Con 10) 10 meq PO BRK [facility] Last Admin: 07/01/17 08:00 Dose: 10 meq Thiamine HCl (Vitamin B1 Tab) 100 mg PO DAILY [facility] Last Admin: 07/01/17 10:00 Dose: 100 mg - Labs Labs: 07/01/17 07:34 07/01/17 07:34 PT 12.5 SECONDS (9.7-12.2) H 07/01/17 07:34 INR 1.1 07/01/17 07:34 APTT 32 SECONDS (21-34) 07/01/17 07:34 Assessment and Plan (1) Pulmonary embolism Status: Acute (2) Alcohol abuse Status: Acute (3) Rib fractures Status: Acute
[2017-07-01] MEDS: HYDROmorphone 1 mg/ml ISec IVP PRN ×2 (17:12→21:32)
--- NOTE | 2017-07-01 18:03 | PN ---
DATE: SUBJECTIVE: The patient complains of sharp chest pain. PHYSICAL EXAMINATION VITAL SIGNS: Blood pressure 147/90, heart rate 68, temperature 97.8, respirations 20. HEENT: Normocephalic. CHEST: Clear. HEART: S1 and S2 regular. EXTREMITIES: No edema. LABORATORY DATA: SM-7 is within normal limits except for creatinine of 0.7. Today's hemoglobin. hematocrit, white count, and platelet count are within normal limits. ASSESSMENT: 1. Ethanol intoxication. 2. Questionable pulmonary embolism involving the segmental and subsegmental branches of the right lower lobe. 3. Bilateral rib fractures, old. RECOMMENDATIONS: Continue current aspirin, Eliquis, folic acid, K-Dur, Neurontin, Norvasc, and thiamine. Obtain bilateral rib series. Luan Naranjo MD
--- NOTE | 2017-07-01 18:18 | CP.PCM.PN ---
Subjective - Date & Time of Evaluation Date of Evaluation: 07/01/17 Time of Evaluation: 09:40 - Subjective Subjective: clinically same Objective - Vital Signs/Intake and Output Vital Signs (last 24 hours): Temp Pulse Resp BP Pulse Ox 98.8 F 79 20 120/82 96 07/01/17 14:00 07/01/17 14:00 07/01/17 14:00 07/01/17 14:00 07/01/17 14:00 Intake and Output: 07/01/17 07/01/17 06:59 18:59 Intake Total 1100 600 Output Total 1100 Balance 0 600 - Medications Medications: Current Medications Amlodipine Besylate (Norvasc) 10 mg PO DAILY [facility] Last Admin: 07/01/17 11:00 Dose: 10 mg Apixaban (Eliquis) 5 mg PO BID [facility] Last Admin: 07/01/17 17:13 Dose: 5 mg Aspirin (Aspirin) 325 mg PO DAILY [facility] Last Admin: 07/01/17 11:00 Dose: 325 mg Folic Acid (Folic Acid) 1 mg PO DAILY [facility] Last Admin: 07/01/17 11:00 Dose: 1 mg Gabapentin (Neurontin) 300 mg PO BID [facility] Last Admin: 07/01/17 17:13 Dose: 300 mg Hydromorphone HCl (Dilaudid) 1 mg IVP Q4H PRN PRN Reason: Pain, severe (8-10) Last Admin: 07/01/17 17:12 Dose: 1 mg Dextrose/Sodium Chloride (Dextrose 5%/0.9% Ns 1000 Ml) 1,000 mls @ 25 mls/hr IV .Q24H ONE Stop: 07/02/17 00:08 Last Admin: 07/01/17 00:20 Dose: 25 mls/hr Lorazepam (Ativan) 1 mg IVP Q4H PRN PRN Reason: Agitation Last Admin: 07/01/17 18:16 Dose: 1 mg Multivitamins/Vitamin C (Multi-Delyn Liquid) 5 ml PO DAILY [facility] Last Admin: 07/01/17 11:00 Dose: 5 ml Pantoprazole Sodium (Protonix Ec Tab) 40 mg PO DAILY [facility] Last Admin: 07/01/17 11:00 Dose: 40 mg Potassium Chloride (Klor-Con 10) 10 meq PO BRK [facility] Last Admin: 07/01/17 08:00 Dose: 10 meq Thiamine HCl (Vitamin B1 Tab) 100 mg PO DAILY [facility] Last Admin: 07/01/17 10:00 Dose: 100 mg - Labs Labs: 07/01/17 07:34 07/01/17 07:34 PT 12.5 SECONDS (9.7-12.2) H 07/01/17 07:34 INR 1.1 07/01/17 07:34 APTT 32 SECONDS (21-34) 07/01/17 07:34 - Constitutional Appears: Well - Head Exam Head Exam: ATRAUMATIC, NORMAL INSPECTION, NORMOCEPHALIC - Eye Exam Eye Exam: EOMI, Normal appearance, PERRL Pupil Exam: NORMAL ACCOMODATION, PERRL - ENT Exam ENT Exam: Mucous Membranes Moist, Normal Exam - Neck Exam Neck Exam: Full ROM, Normal Inspection. absent: Lymphadenopathy - Respiratory Exam Respiratory Exam: Decreased Breath Sounds - Cardiovascular Exam Cardiovascular Exam: REGULAR RHYTHM, +S1 - GI/Abdominal Exam GI & Abdominal Exam: Soft, Diminished Bowel Sounds - Rectal Exam Rectal Exam: Deferred
--- NOTE | 2017-07-01 19:57 | CARD ---
APPROVED REPORT EXAM: Two-dimensional and M-mode echocardiogram with Doppler and color Doppler. Other Information Quality : GoodRhythm : INDICATION Chest Pain RISK FACTORS Hypertension Diabetes 2D DIMENSIONS IVSd1.0 (0.7-1.1cm)LVDd4.0 (3.9-5.9cm) PWd0.9 (0.7-1.1cm)LVDs2.8 (2.5-4.0cm) FS (%) 30.6 %LVEF (%)58.7 (>50%) M-Mode DIMENSIONS Left Atrium (MM)3.09 (2.5-4.0cm)Aortic Root3.49 (2.2-3.7cm) Aortic Cusp Exc.2.39 (1.5-2.0cm) Mitral Valve MV E Rtccmjex48.4cm/sMV A Cuqryyxm73.5cm/sE/A ratio0.7 TDI E/Lateral E'0.0E/Medial E'0.0 Tricuspid Valve TR Peak Vqyvrkgm267yn/sTR Peak Gr.18mmHg LEFT VENTRICLE The left ventricle is normal size. There is normal left ventricular wall thickness. Left ventricle systolic function is normal. The Ejection Fraction is 55-60%. There is normal LV segmental wall motion. The left ventricular diastolic function is abnormal- Grade I-abnormal relaxation pattern. No left ventricle thrombus noted on this study. RIGHT VENTRICLE The right ventricle is normal size. The right ventricular systolic function is normal. ATRIA The left atrium size is normal. The right atrium size is normal. AORTIC VALVE The aortic valve is mildly sclerotic. The aortic valve is trileaflet. No aortic regurgitation is present. There is no aortic valvular stenosis. There is no aortic valvular vegetation. MITRAL VALVE Mitral annular calcification is mild. There is no evidence of mitral valve prolapse. There is no mitral valve stenosis. There is no mitral valve regurgitation noted. TRICUSPID VALVE The tricuspid valve is normal in structure. There is trace tricuspid regurgitation. Right ventricular systolic pressure is estimated at less than 30 mmHg. There is no pulmonary hypertension. There is no tricuspid valve prolapse or vegetation. There is no tricuspid valve stenosis. PULMONIC VALVE The pulmonic valve is not well visualized. There is no pulmonic valvular regurgitation. There is no pulmonic valvular stenosis. GREAT VESSELS The IVC is normal in size and collapses >50% with inspiration. PERICARDIAL EFFUSION There is no pericardial effusion. There is no pleural effusion. <Conclusion> The left ventricle is normal size. Left ventricle systolic function is normal. The Ejection Fraction is 55-60%. The left ventricular diastolic function is abnormal- Grade I-abnormal relaxation pattern. The right ventricle is normal size. The right ventricular systolic function is normal. The left atrium size is normal. The right atrium size is normal. There is trace tricuspid regurgitation.
[2017-07-02] MEDS: HYDROmorphone 1 mg/ml ISec IVP PRN ×4 (03:13→20:10)
[2017-07-02] MEDS: Potassium Chloride 10 mEq ER Tab PO SCH (07:30)
[2017-07-02 07:44] LABS: BASO % 0.7 % (0.0-2.0); EOS # 0.3 K/uL (0.0-0.7); EOS % 4.8 % (0.0-4.0); HEMOGLOBIN 13.6 g/dL (12.0-18.0); LYMPH % 18.3 % (20.0-40.0); MEAN CELL VOLUME 98.6 fL (80.0-94.0); MEAN CORPUSCULAR HEMOGLOBIN 33.9 pg (27.0-31.0); MEAN CORPUSCULAR HGB CONC 34.4 g/dL (33.0-37.0); MEAN PLATELET VOLUME 9.1 fL (7.2-11.7); MONO # 0.6 K/uL (0.0-0.8); MONO % 11.5 % (0.0-10.0); NEUT # 3.4 K/uL (1.8-7.0); NEUT % 64.7 % (50.0-75.0); RBC 4.02 Mil/uL (4.40-5.90); RED CELL DISTRIBUTION WIDTH 13.8 % (11.5-14.5); WHITE BLOOD COUNT 5.2 K/uL (4.8-10.8)
[2017-07-02 08:03] LABS: INR 1.1; PROTHROMBIN TIME 12.2 SECONDS (9.7-12.2)
[2017-07-02 08:08] LABS: ALB/GLOB RATIO 1.2 (1.0-2.1); ALBUMIN 3.8 g/dL (3.5-5.0); ALT/SGPT 70 U/L (21-72); AST/SGOT 86 U/L (17-59); BLOOD UREA NITROGEN 13 mg/dL (9-20); CALCIUM 8.8 mg/dl (8.6-10.4); GFR AFRICAN-AMERICAN > 60; GFR NON-AFRICAN AMERICAN > 60
--- NOTE | 2017-07-02 08:30 | RAD ---
PROCEDURE: Radiographs of the chest and bilateral ribs HISTORY: Fracture COMPARISON: Correlations made to CT angiography of the pulmonary arteries performed 06/28/2017. TECHNIQUE: Frontal radiograph of the chest and multiple oblique radiographs of the bilateral ribs were obtained. FINDINGS: RIGHT RIBS: Acute minimally displaced left anterior 3rd-4th rib fractures. Old left anterolateral 5th-6th rib fractures. LEFT RIBS: Old right lateral 5th-8th rib fractures. No acute fracture. LUNGS: Clear. PLEURA: No pneumothorax or pleural fluid. CARDIOVASCULAR: Normal sized heart. No pulmonary vascular congestion. OTHER FINDINGS: None. IMPRESSION: Acute minimally displaced left anterior 3rd-4th rib fractures. Old bilateral rib fractures as described above.
[2017-07-02] MEDS: Pantoprazole 40 mg EC Tab PO SCH (09:04)
[2017-07-02] MEDS: Multiple Vitamins Oral Solution PO SCH (09:25)
--- NOTE | 2017-07-02 10:12 | CP.PCM.PN ---
Subjective - Date & Time of Evaluation Date of Evaluation: 07/02/17 Time of Evaluation: 10:09 - Subjective Subjective: PGY2 progress note for Dr. Partida Pt seen and examined at bedside. Resting comfortably. Still stating that he is going through ETOH withdrawal although pt clinically looks much more comfortable. Pt still has slight hand tremors though. Denies having any CP, SOB, abd pain, N/V/D/C, F/C. Pt tolerating diet. 12 point ROS negative except for above mentioned. Objective - Vital Signs/Intake and Output Vital Signs (last 24 hours): Temp Pulse Resp BP Pulse Ox 97.7 F 70 20 148/91 H 96 07/02/17 08:48 07/02/17 08:48 07/02/17 08:48 07/02/17 08:48 07/02/17 08:48 Intake and Output: 07/02/17 07/02/17 06:59 18:59 Intake Total 600 Output Total 200 Balance 400 - Medications Medications: Current Medications Amlodipine Besylate (Norvasc) 10 mg PO DAILY [facility] Last Admin: 07/02/17 09:03 Dose: 10 mg Apixaban (Eliquis) 5 mg PO BID [facility] Last Admin: 07/02/17 09:03 Dose: 5 mg Aspirin (Aspirin) 325 mg PO DAILY [facility] Last Admin: 07/02/17 09:08 Dose: 325 mg Folic Acid (Folic Acid) 1 mg PO DAILY [facility] Last Admin: 07/02/17 09:03 Dose: 1 mg Gabapentin (Neurontin) 300 mg PO BID [facility] Last Admin: 07/02/17 09:03 Dose: 300 mg Hydromorphone HCl (Dilaudid) 1 mg IVP Q4H PRN PRN Reason: Pain, severe (8-10) Last Admin: 07/02/17 08:19 Dose: 1 mg Lorazepam (Ativan) 1 mg IVP Q4H PRN PRN Reason: Agitation Last Admin: 07/01/17 22:32 Dose: 1 mg Lorazepam (Ativan) 1 mg PO Q6 [facility] PRN Reason: Taper Stop: 07/05/17 22:44 Last Admin: 07/02/17 05:42 Dose: 1 mg Multivitamins/Vitamin C (Multi-Delyn Liquid) 5 ml PO DAILY [facility] Last Admin: 04/11/18 09:25 Dose: 5 ml Pantoprazole Sodium (Protonix Ec Tab) 40 mg PO DAILY [facility] Last Admin: 07/02/17 09:04 Dose: 40 mg Potassium Chloride (Klor-Con 10) 10 meq PO BRK [facility] Last Admin: 07/02/17 07:30 Dose: 10 meq Thiamine HCl (Vitamin B1 Tab) 100 mg PO DAILY [facility] Last Admin: 07/02/17 09:04 Dose: 100 mg - Labs Labs: 07/02/17 07:20 07/02/17 07:20 PT 12.2 SECONDS (9.7-12.2) 07/02/17 07:20 INR 1.1 07/02/17 07:20 APTT 29 SECONDS (21-34) 07/02/17 07:20 - Constitutional Appears: Non-toxic, No Acute Distress - Head Exam Head Exam: ATRAUMATIC - ENT Exam ENT Exam: Mucous Membranes Moist - Respiratory Exam Respiratory Exam: Clear to Ausculation Bilateral. absent: Accessory Muscle Use , Rales, Rhonchi, Wheezes, Respiratory Distress - Cardiovascular Exam Cardiovascular Exam: REGULAR RHYTHM, +S1, +S2. absent: Gallop, Rubs, Murmur - GI/Abdominal Exam GI & Abdominal Exam: Soft, Normal Bowel Sounds. absent: Distended, Firm, Guarding, Rigid, Tenderness, Organomegaly - Extremities Exam Extremities Exam: absent: Pedal Edema, Tenderness - Neurological Exam Neurological Exam: Alert, Awake, Oriented x3 Additional comments: slight hand tremors noted. No agitation noted. No diaphoresis noted - Psychiatric Exam Psychiatric exam: Normal Affect, Normal Mood - Skin Skin Exam: Dry, Intact, Normal Color, Warm Assessment and Plan - Assessment and Plan (Free Text) Assessment: 57 year old male with past medical history of HTN, COPD, alcohol abuse, Seizure d/o, schizophrenia is admitted for CP likely due to PE and rib fractures PE Ct of chest showed filling defect likely from PE in the RLL and multiple fractures Continue Eliquis 5 mg PO BID on day 3 today. Will switch to Eliquis 2.[address] Oneil Pressley is consulted Alcohol abuse Pt in Ativan q6 bee [facility] Continue [facility]WA protocol Continue PO multivitamin, folic acid and thiamine Rib fractures Rib series done yesterday showed acute and chronic rib fractures Continue pain management with dilaudid 1 mg IVP q4 prn Transaminitis Likely due to ETOH abuse. Trending down Will check Hepatitis panel Continue D5/NS at 15 cc Schizophrenia Pt is seen by Dr. Decker outpt. [facility], Dr. Estrella is consulted. Continue gabapentin 300 mg po bid HTN Continue Norvasc 10 mg po qd Prophylaxis continue eliquis Protonix Dispo: Psych once medically cleared and once accepted by psychiatrist Case will be discussed with attending, Dr. Partida. All managements and orders per Dr. Partida.
--- NOTE | 2017-07-02 16:02 | CP.PCM.PN ---
Subjective - Date & Time of Evaluation Date of Evaluation: 07/02/17 Time of Evaluation: 12:00 - Subjective Subjective: Patient seen and examined at bedside. Afebrile. Patient denies any chest pain, shortness of breath or cough. Reads on bilateral lower extremity dopplers suggest no evidence of deep or superficial vein thromboses. Assessment and Plan: 1. Pulmonary embolism - CTA Chest 06/28: possible pulmonary embolism involving segmental/subsegmental branch in the RLL - D-dimer 06/28: 737 - Saturating 95% on RA - Doppler LE 06/29: No evidence of deep or superficial vein thrombosis of the right or left lower extremities - Echo 06/29: EF 55-60%, Normal right ventricle size and systolic function, normal right atrium size, trace tricuspid regurgitation - F/U ABG - off lovenox, on eliquus 5mg PO BID Objective - Vital Signs/Intake and Output Vital Signs (last 24 hours): Temp Pulse Resp BP Pulse Ox 97.7 F 70 20 148/91 H 96 07/02/17 08:48 07/02/17 08:48 07/02/17 08:48 07/02/17 08:48 07/02/17 08:48 Intake and Output: 07/02/17 07/02/17 06:59 18:59 Intake Total 600 300 Output Total 200 Balance 400 300 - Medications Medications: Current Medications Amlodipine Besylate (Norvasc) 10 mg PO DAILY [facility] Last Admin: 07/02/17 09:03 Dose: 10 mg Apixaban (Eliquis) 5 mg PO BID [facility] Last Admin: 07/02/17 09:03 Dose: 5 mg Aspirin (Aspirin) 325 mg PO DAILY [facility] Last Admin: 07/02/17 09:08 Dose: 325 mg Folic Acid (Folic Acid) 1 mg PO DAILY [facility] Last Admin: 07/02/17 09:03 Dose: 1 mg Gabapentin (Neurontin) 300 mg PO BID [facility] Last Admin: 07/02/17 09:03 Dose: 300 mg Hydromorphone HCl (Dilaudid) 1 mg IVP Q4H PRN PRN Reason: Pain, severe (8-10) Last Admin: 07/02/17 08:19 Dose: 1 mg Lorazepam (Ativan) 1 mg IVP Q4H PRN PRN Reason: Agitation Last Admin: 07/01/17 22:32 Dose: 1 mg Lorazepam (Ativan) 1 mg PO Q6 [facility] PRN Reason: Taper Stop: 07/05/17 22:44 Last Admin: 07/02/17 11:58 Dose: 1 mg Multivitamins/Vitamin C (Multi-Delyn Liquid) 5 ml PO DAILY [facility] Last Admin: 07/02/17 09:25 Dose: 5 ml Pantoprazole Sodium (Protonix Ec Tab) 40 mg PO DAILY [facility] Last Admin: 07/02/17 09:04 Dose: 40 mg Potassium Chloride (Klor-Con 10) 10 meq PO BRK [facility] Last Admin: 07/02/17 07:30 Dose: 10 meq Thiamine HCl (Vitamin B1 Tab) 100 mg PO DAILY [facility] Last Admin: 07/02/17 09:04 Dose: 100 mg - Labs Labs: 07/02/17 07:20 07/02/17 07:20 PT 12.2 SECONDS (9.7-12.2) 07/02/17 07:20 INR 1.1 07/02/17 07:20 APTT 29 SECONDS (21-34) 07/02/17 07:20 Assessment and Plan (1) Pulmonary embolism Status: Acute (2) Alcohol abuse Status: Acute (3) Rib fractures Status: Acute
--- NOTE | 2017-07-02 16:26 | PN ---
DATE: SUBJECTIVE: The patient is still experiencing left sided chest pain. PHYSICAL EXAMINATION: VITAL SIGNS: Blood pressure 148/91, heart rate 70, temperature 97.7, respirations 20. HEENT: Normocephalic. CHEST: Clear. HEART: S1 and S2 regular. EXTREMITIES: No edema. LABORATORY DATA: Hemoglobin and hematocrit 15.6 and 39.6, white count and platelet count are within normal limits. Today's SM-7 is within normal limits except for chloride of 97. Bilateral rib series revealed acute minimally displaced left anterior third and fourth rib fracture, old bilateral fractures. ASSESSMENT: 1. Status post alcohol intoxication. 2. New left third and fourth anterior rib fracture with minimal displacement. 3. Questionable right lower lobe pulmonary embolism. RECOMMENDATIONS: Continue current aspirin, Ativan, IV Dilaudid p.r.n., Eliquis 5 mg twice a day, Norvasc 10 mg once a day, thiamine 100 mg once a day. Luan Naranjo MD
--- NOTE | 2017-07-02 18:38 | CP.PCM.PN ---
Subjective - Date & Time of Evaluation Date of Evaluation: 07/02/17 Time of Evaluation: 08:20 - Subjective Subjective: clinically same Objective - Vital Signs/Intake and Output Vital Signs (last 24 hours): Temp Pulse Resp BP Pulse Ox 97.4 F L 79 20 123/76 96 07/02/17 15:05 07/02/17 16:28 07/02/17 15:05 07/02/17 15:05 07/02/17 15:05 Intake and Output: 07/02/17 07/02/17 06:59 18:59 Intake Total 600 300 Output Total 200 Balance 400 300 - Medications Medications: Current Medications Amlodipine Besylate (Norvasc) 10 mg PO DAILY [facility] Last Admin: 07/02/17 09:03 Dose: 10 mg Apixaban (Eliquis) 5 mg PO BID [facility] Last Admin: 07/02/17 17:46 Dose: 5 mg Aspirin (Aspirin) 325 mg PO DAILY [facility] Last Admin: 07/02/17 09:08 Dose: 325 mg Folic Acid (Folic Acid) 1 mg PO DAILY [facility] Last Admin: 07/02/17 09:03 Dose: 1 mg Gabapentin (Neurontin) 300 mg PO BID [facility] Last Admin: 07/02/17 17:46 Dose: 300 mg Hydromorphone HCl (Dilaudid) 1 mg IVP Q4H PRN PRN Reason: Pain, severe (8-10) Last Admin: 07/02/17 16:02 Dose: 1 mg Lorazepam (Ativan) 1 mg IVP Q4H PRN PRN Reason: Agitation Last Admin: 07/01/17 22:32 Dose: 1 mg Lorazepam (Ativan) 1 mg PO Q6 [facility] PRN Reason: Taper Stop: 07/05/17 22:44 Last Admin: 07/02/17 17:45 Dose: 1 mg Multivitamins/Vitamin C (Multi-Delyn Liquid) 5 ml PO DAILY [facility] Last Admin: 07/02/17 09:25 Dose: 5 ml Pantoprazole Sodium (Protonix Ec Tab) 40 mg PO DAILY [facility] Last Admin: 07/02/17 09:04 Dose: 40 mg Potassium Chloride (Klor-Con 10) 10 meq PO BRK [facility] Last Admin: 07/02/17 07:30 Dose: 10 meq Thiamine HCl (Vitamin B1 Tab) 100 mg PO DAILY [facility] Last Admin: 07/02/17 09:04 Dose: 100 mg - Labs Labs: 07/02/17 07:20 07/02/17 07:20 PT 12.2 SECONDS (9.7-12.2) 07/02/17 07:20 INR 1.1 07/02/17 07:20 APTT 29 SECONDS (21-34) 07/02/17 07:20 - Constitutional Appears: Well - Head Exam Head Exam: ATRAUMATIC, NORMAL INSPECTION, NORMOCEPHALIC - Eye Exam Eye Exam: EOMI, Normal appearance, PERRL Pupil Exam: NORMAL ACCOMODATION, PERRL - ENT Exam ENT Exam: Mucous Membranes Moist, Normal Exam - Neck Exam Neck Exam: Full ROM, Normal Inspection. absent: Lymphadenopathy - Respiratory Exam Respiratory Exam: Decreased Breath Sounds - Cardiovascular Exam Cardiovascular Exam: REGULAR RHYTHM, +S1, +S2 - GI/Abdominal Exam GI & Abdominal Exam: Soft, Diminished Bowel Sounds - Rectal Exam Rectal Exam: Deferred
--- NOTE | 2017-07-02 23:03 | PCM.PYCHPN ---
Psychiatric Progress Note - Psychiatric Progress Note Patient Chief Complaint: Consult for Alcohol Use Disorder, Depression, and Anxiety Mental Status Examination - Cognitive Function Orientation: Person, Place, Situation - Mood Mood: Depressed - Affect Affect: Flat - Formal Thought Process Formal Thought Process: Hallucinations Goal/Treatment Plan - Goal/Treatment Plan Progress Toward Problem(s) and Goals/Treatment Plan: Continue Ativan taper As needed medications All risks, benefits and alternatives of the meds discussed, and the pt agreed and understood. Patient open to psychiatric inpatient when medically cleared. Supportive therapy and psychoeducation [place] for abstinence CBT for relapse prevention Encourage MAT Refer to rehab or IOP, and self-help groups
[2017-07-03] MEDS: HYDROmorphone 1 mg/ml ISec IVP PRN ×3 (00:10→10:18)
[2017-07-03] MEDS: Potassium Chloride 10 mEq ER Tab PO SCH (07:35)
[2017-07-03 08:03] LABS: BASO % 0.9 % (0.0-2.0); EOS # 0.2 K/uL (0.0-0.7); EOS % 4.4 % (0.0-4.0); HEMOGLOBIN 13.9 g/dL (12.0-18.0); LYMPH # 0.9 K/uL (1.0-4.3); LYMPH % 16.5 % (20.0-40.0); MEAN CELL VOLUME 98.8 fL (80.0-94.0); MEAN CORPUSCULAR HEMOGLOBIN 33.5 pg (27.0-31.0); MONO # 0.8 K/uL (0.0-0.8); MONO % 14.2 % (0.0-10.0); NEUT # 3.5 K/uL (1.8-7.0); RBC 4.16 Mil/uL (4.40-5.90); RED CELL DISTRIBUTION WIDTH 13.8 % (11.5-14.5); WHITE BLOOD COUNT 5.5 K/uL (4.8-10.8)
[2017-07-03 08:06] LABS: INR 1.1; PROTHROMBIN TIME 12.8 SECONDS (9.7-12.2)
[2017-07-03 08:22] LABS: ALB/GLOB RATIO 1.2 (1.0-2.1); ALBUMIN 3.9 g/dL (3.5-5.0); ALT/SGPT 78 U/L (21-72); AST/SGOT 91 U/L (17-59); BLOOD UREA NITROGEN 17 mg/dL (9-20); CALCIUM 8.7 mg/dl (8.6-10.4); GFR AFRICAN-AMERICAN > 60; GFR NON-AFRICAN AMERICAN > 60
[2017-07-03] MEDS: Pantoprazole 40 mg EC Tab PO SCH (09:51)
[2017-07-03] MEDS: Multiple Vitamins Oral Solution PO SCH (09:51)
[2017-07-03 10:45] LABS: HEPATITIS B SURFACE AG Negative (NEGATIVE)
[2017-07-03 10:50] LABS: HEPATITIS B CORE AB NEGATIVE (NEGATIVE)
[2017-07-03 11:02] LABS: HEPATITIS C ANTIBODY NEGATIVE (NEGATIVE)
[2017-07-03 11:35] LABS: HEPATITIS A IGM NEGATIVE (NEGATIVE)
--- NOTE | 2017-07-03 12:33 | CP.PCM.PN ---
Subjective - Date & Time of Evaluation Date of Evaluation: 07/03/17 Time of Evaluation: 10:20 - Subjective Subjective: Patient seen and examined at bedside. No acute events overnight. Afebrile. Patient denies any chest pain, shortness of breath or cough. Clear from a pulmonary standpoint. Assessment and Plan: 1. Pulmonary embolism - CTA Chest 06/28: possible pulmonary embolism involving segmental/subsegmental branch in the RLL - D-dimer 06/28: 737 - Saturating 95% on RA - Doppler LE 06/29: No evidence of deep or superficial vein thrombosis of the right or left lower extremities - Echo 06/29: EF 55-60%, Normal right ventricle size and systolic function, normal right atrium size, trace tricuspid regurgitation - F/U ABG - off lovenox, on eliquus 5mg PO BID Objective - Vital Signs/Intake and Output Vital Signs (last 24 hours): Temp Pulse Resp BP Pulse Ox 98.0 F 79 20 115/61 94 L 07/03/17 08:30 07/03/17 08:42 07/03/17 08:30 07/03/17 08:30 07/03/17 08:30 - Medications Medications: Current Medications Amlodipine Besylate (Norvasc) 10 mg PO DAILY [facility] Last Admin: 07/03/17 09:51 Dose: 10 mg Apixaban (Eliquis) 5 mg PO BID [facility] Last Admin: 07/03/17 09:51 Dose: 5 mg Aspirin (Aspirin) 325 mg PO DAILY [facility] Last Admin: 07/03/17 09:51 Dose: 325 mg Folic Acid (Folic Acid) 1 mg PO DAILY [facility] Last Admin: 07/03/17 09:51 Dose: 1 mg Gabapentin (Neurontin) 300 mg PO BID [facility] Last Admin: 07/03/17 09:51 Dose: 300 mg Lorazepam (Ativan) 1 mg IVP Q4H PRN PRN Reason: Agitation Last Admin: 07/01/17 22:32 Dose: 1 mg Lorazepam (Ativan) 1 mg PO Q6 [facility] PRN Reason: Taper Stop: 07/05/17 22:44 Last Admin: 07/03/17 06:15 Dose: 1 mg Morphine Sulfate (Morphine) 2 mg IVP Q4 PRN PRN Reason: Pain, severe (8-10) Multivitamins/Vitamin C (Multi-Delyn Liquid) 5 ml PO DAILY [facility] Last Admin: 07/03/17 09:51 Dose: 5 ml Pantoprazole Sodium (Protonix Ec Tab) 40 mg PO DAILY [facility] Last Admin: 07/03/17 09:51 Dose: 40 mg Potassium Chloride (Klor-Con 10) 10 meq PO BRK [facility] Last Admin: 07/03/17 07:35 Dose: 10 meq Thiamine HCl (Vitamin B1 Tab) 100 mg PO DAILY [facility] Last Admin: 07/03/17 09:51 Dose: 100 mg - Labs Labs: 07/03/17 07:46 07/03/17 07:46 PT 12.8 SECONDS (9.7-12.2) H 07/03/17 07:46 INR 1.1 07/03/17 07:46 APTT 32 SECONDS (21-34) 07/03/17 07:46 Assessment and Plan (1) Pulmonary embolism Status: Acute (2) Alcohol abuse Status: Acute (3) Rib fractures Status: Acute
--- NOTE | 2017-07-03 12:52 | CP.PCM.PN ---
Subjective - Date & Time of Evaluation Date of Evaluation: 07/03/17 Time of Evaluation: 09:15 - Subjective Subjective: Medicine progress note for Dr. Partida's service Patient seen and examined. Patient states breathing has improved but he has pain in his ribs with inspiration. Patient denies dyspnea and states he is able to ambulate. Objective - Vital Signs/Intake and Output Vital Signs (last 24 hours): Temp Pulse Resp BP Pulse Ox 98.0 F 79 20 115/61 94 L 07/03/17 08:30 07/03/17 08:42 07/03/17 08:30 07/03/17 08:30 07/03/17 08:30 - Medications Medications: Current Medications Amlodipine Besylate (Norvasc) 10 mg PO DAILY [facility] Last Admin: 07/03/17 09:51 Dose: 10 mg Apixaban (Eliquis) 5 mg PO BID [facility] Last Admin: 07/03/17 09:51 Dose: 5 mg Aspirin (Aspirin) 325 mg PO DAILY [facility] Last Admin: 07/03/17 09:51 Dose: 325 mg Folic Acid (Folic Acid) 1 mg PO DAILY [facility] Last Admin: 07/03/17 09:51 Dose: 1 mg Gabapentin (Neurontin) 300 mg PO BID [facility] Last Admin: 07/03/17 09:51 Dose: 300 mg Lorazepam (Ativan) 1 mg IVP Q4H PRN PRN Reason: Agitation Last Admin: 07/01/17 22:32 Dose: 1 mg Lorazepam (Ativan) 1 mg PO Q6 [facility] PRN Reason: Taper Stop: 07/05/17 22:44 Last Admin: 07/03/17 06:15 Dose: 1 mg Morphine Sulfate (Morphine) 2 mg IVP Q4 PRN PRN Reason: Pain, severe (8-10) Multivitamins/Vitamin C (Multi-Delyn Liquid) 5 ml PO DAILY [facility] Last Admin: 07/03/17 09:51 Dose: 5 ml Pantoprazole Sodium (Protonix Ec Tab) 40 mg PO DAILY [facility] Last Admin: 07/03/17 09:51 Dose: 40 mg Potassium Chloride (Klor-Con 10) 10 meq PO BRK [facility] Last Admin: 07/03/17 07:35 Dose: 10 meq Thiamine HCl (Vitamin B1 Tab) 100 mg PO DAILY [facility] Last Admin: 07/03/17 09:51 Dose: 100 mg - Labs Labs: 07/03/17 07:46 07/03/17 07:46 PT 12.8 SECONDS (9.7-12.2) H 07/03/17 07:46 INR 1.1 07/03/17 07:46 APTT 32 SECONDS (21-34) 07/03/17 07:46 - Constitutional Appears: No Acute Distress - Head Exam Head Exam: ATRAUMATIC, NORMOCEPHALIC - Eye Exam Eye Exam: EOMI - ENT Exam ENT Exam: Mucous Membranes Moist - Respiratory Exam Respiratory Exam: Clear to Ausculation Bilateral - Cardiovascular Exam Cardiovascular Exam: +S1, +S2 - GI/Abdominal Exam GI & Abdominal Exam: Soft, Normal Bowel Sounds - Extremities Exam Extremities Exam: Normal Inspection - Neurological Exam Neurological Exam: Alert, Awake Additional comments: mild tremors in hands - Psychiatric Exam Psychiatric exam: Normal Affect. absent: Agitated - Skin Skin Exam: Warm Assessment and Plan - Assessment and Plan (Free Text) Assessment: 57 year old male with past medical history of HTN, COPD, alcohol abuse, Seizure d/o, schizophrenia is admitted for CP likely due to PE and rib fractures PE Ct of chest showed filling defect likely from PE in the RLL and multiple fractures Continue Eliquis 5 mg PO BID on day 4 Pulm, Dr. Riggs is consulted-help appreciated CTA Chest 06/28: possible pulmonary embolism involving segmental/subsegmental branch in the RLL Alcohol abuse Pt in Ativan q6 bee and ativan prn per [facility] recs Continue CIWA protocol Continue PO multivitamin, folic acid and thiamine Dr. Estrella consulted, help appreciated Rib fractures Rib series done 07/01 showed acute and chronic rib fractures Continue pain management with morphine 2mg IVP q4 prn Transaminitis Likely due to ETOH abuse. Trending down Hepatitis panel negative Continue D5/NS at 15 cc Schizophrenia Pt is seen by Dr. Decker outpt. [facility], Dr. Estrella is consulted. Continue gabapentin 300 mg po bid HTN Continue Norvasc 10 mg po qd Prophylaxis continue eliquis Protonix Dispo: Psych once medically cleared and once accepted by psychiatrist Case will be discussed with attending, Dr. Partida. All managements and orders per Dr. Partida.
--- NOTE | 2017-07-03 13:51 | PN ---
DATE: SUBJECTIVE: The patient is still experiencing sharp left-sided chest pain. PHYSICAL EXAMINATION: VITAL SIGNS: Blood pressure 115/61, heart rate 91, temperature 98, respirations 20. HEENT: Normocephalic. CHEST: Minimal rhonchi. HEART: S1 and S2, regular. EXTREMITIES: No edema. LABORATORY DATA: Today's SMA-7 is within normal limits. Alkaline phosphatase is slightly increased to 130. AST and ALT are 91 and 78 respectively. Today's hemoglobin and hematocrit, white count, and platelet count are within normal limits. ASSESSMENT: 1. Questionable right lower lobe pulmonary embolism. 2. Acute minimally displaced left anterior third and fourth rib fracture. 3. Status post alcohol intoxication. RECOMMENDATIONS: Continue current aspirin, Ativan, Eliquis, folic acid, Klor-Con, multivitamin, and thiamine. The plan is to transfer the patient to psych unit. Luan Naranjo MD
[2017-07-03] MEDS: Morphine 4 MG/ML VIAL IVP PRN ×3 (14:24→21:58)
--- NOTE | 2017-07-03 16:48 | CP.PCM.PN ---
Subjective - Date & Time of Evaluation Date of Evaluation: 07/03/17 Time of Evaluation: 09:00 - Subjective Subjective: clinically same Objective - Vital Signs/Intake and Output Vital Signs (last 24 hours): Temp Pulse Resp BP Pulse Ox 97.8 F 70 20 126/54 L 96 07/03/17 15:00 07/03/17 16:00 07/03/17 15:00 07/03/17 15:00 07/03/17 15:00 Intake and Output: 07/03/17 07/03/17 06:59 18:59 Intake Total 280 Balance 280 - Medications Medications: Current Medications Amlodipine Besylate (Norvasc) 10 mg PO DAILY [facility] Last Admin: 07/03/17 09:51 Dose: 10 mg Apixaban (Eliquis) 5 mg PO BID [facility] Last Admin: 07/03/17 09:51 Dose: 5 mg Aspirin (Aspirin) 325 mg PO DAILY [facility] Last Admin: 07/03/17 09:51 Dose: 325 mg Folic Acid (Folic Acid) 1 mg PO DAILY [facility] Last Admin: 07/03/17 09:51 Dose: 1 mg Gabapentin (Neurontin) 300 mg PO BID [facility] Last Admin: 07/03/17 09:51 Dose: 300 mg Lorazepam (Ativan) 1 mg IVP Q4H PRN PRN Reason: Agitation Last Admin: 07/01/17 22:32 Dose: 1 mg Lorazepam (Ativan) 1 mg PO Q6 [facility] PRN Reason: Taper Stop: 07/05/17 22:44 Last Admin: 07/03/17 13:00 Dose: 1 mg Morphine Sulfate (Morphine) 2 mg IVP Q4 PRN PRN Reason: Pain, severe (8-10) Last Admin: 07/03/17 14:24 Dose: 2 mg Multivitamins/Vitamin C (Multi-Delyn Liquid) 5 ml PO DAILY [facility] Last Admin: 07/03/17 09:51 Dose: 5 ml Pantoprazole Sodium (Protonix Ec Tab) 40 mg PO DAILY [facility] Last Admin: 07/03/17 09:51 Dose: 40 mg Potassium Chloride (Klor-Con 10) 10 meq PO BRK [facility] Last Admin: 07/03/17 07:35 Dose: 10 meq Thiamine HCl (Vitamin B1 Tab) 100 mg PO DAILY [facility] Last Admin: 07/03/17 09:51 Dose: 100 mg - Labs Labs: 07/03/17 07:46 07/03/17 07:46 PT 12.8 SECONDS (9.7-12.2) H 07/03/17 07:46 INR 1.1 07/03/17 07:46 APTT 32 SECONDS (21-34) 07/03/17 07:46 - Constitutional Appears: Well - Head Exam Head Exam: ATRAUMATIC, NORMAL INSPECTION, NORMOCEPHALIC - Eye Exam Eye Exam: EOMI, Normal appearance, PERRL Pupil Exam: NORMAL ACCOMODATION, PERRL - ENT Exam ENT Exam: Mucous Membranes Moist, Normal Exam - Neck Exam Neck Exam: Full ROM, Normal Inspection. absent: Lymphadenopathy - Respiratory Exam Respiratory Exam: Decreased Breath Sounds - Cardiovascular Exam Cardiovascular Exam: REGULAR RHYTHM, +S1, +S2 - GI/Abdominal Exam GI & Abdominal Exam: Soft, Diminished Bowel Sounds - Rectal Exam Rectal Exam: Deferred
[2017-07-04] MEDS: Morphine 4 MG/ML VIAL IVP PRN ×5 (02:03→22:24)
[2017-07-04 07:21] LABS: BASO # 0.1 K/uL (0.0-0.2); BASO % 1.2 % (0.0-2.0); EOS # 0.2 K/uL (0.0-0.7); EOS % 3.8 % (0.0-4.0); HEMOGLOBIN 14.5 g/dL (12.0-18.0); LYMPH # 1.1 K/uL (1.0-4.3); LYMPH % 17.7 % (20.0-40.0); MEAN CELL VOLUME 98.9 fL (80.0-94.0); MEAN CORPUSCULAR HEMOGLOBIN 34.2 pg (27.0-31.0); MEAN CORPUSCULAR HGB CONC 34.6 g/dL (33.0-37.0); MEAN PLATELET VOLUME 9.5 fL (7.2-11.7); MONO # 0.9 K/uL (0.0-0.8); MONO % 14.7 % (0.0-10.0); NEUT # 3.9 K/uL (1.8-7.0); NEUT % 62.6 % (50.0-75.0); NRBC % 0.1 % (0.0-2.0); RBC 4.24 Mil/uL (4.40-5.90); WHITE BLOOD COUNT 6.3 K/uL (4.8-10.8)
[2017-07-04] MEDS: Potassium Chloride 10 mEq ER Tab PO SCH (07:40)
[2017-07-04 08:06] LABS: ALB/GLOB RATIO 1.2 (1.0-2.1); ALBUMIN 3.9 g/dL (3.5-5.0); ALT/SGPT 72 U/L (21-72); AST/SGOT 78 U/L (17-59); BLOOD UREA NITROGEN 17 mg/dL (9-20); CALCIUM 8.7 mg/dl (8.6-10.4); GFR AFRICAN-AMERICAN > 60; GFR NON-AFRICAN AMERICAN > 60
[2017-07-04] MEDS: Pantoprazole 40 mg EC Tab PO SCH (08:59)
[2017-07-04] MEDS: Multiple Vitamins Oral Solution PO SCH (08:59)
--- NOTE | 2017-07-04 13:18 | CP.PCM.PN ---
Subjective - Date & Time of Evaluation Date of Evaluation: 07/04/17 Time of Evaluation: 13:15 - Subjective Subjective: PGY2 progress note for Dr. Partida Pt seen and examined at bedside. No acute events overnight. Pt is eating lunch quite comfortably. Pt denies having any SOB, abd pain, N/V/D/C, tremors, agitation. Pt does c/o chest pain with deep inspiration. Objective - Vital Signs/Intake and Output Vital Signs (last 24 hours): Temp Pulse Resp BP Pulse Ox 98.0 F 86 20 132/76 95 07/04/17 08:25 07/04/17 08:25 07/04/17 08:25 07/04/17 08:25 07/04/17 08:25 - Medications Medications: Current Medications Amlodipine Besylate (Norvasc) 10 mg PO DAILY [facility] Last Admin: 07/04/17 08:59 Dose: 10 mg Apixaban (Eliquis) 5 mg PO BID [facility] Last Admin: 07/04/17 08:59 Dose: 5 mg Aspirin (Aspirin) 325 mg PO DAILY [facility] Last Admin: 07/04/17 09:04 Dose: 325 mg Folic Acid (Folic Acid) 1 mg PO DAILY [facility] Last Admin: 07/04/17 08:59 Dose: 1 mg Gabapentin (Neurontin) 300 mg PO BID [facility] Last Admin: 07/04/17 08:59 Dose: 300 mg Lorazepam (Ativan) 1 mg IVP Q4H PRN PRN Reason: Agitation Last Admin: 07/01/17 22:32 Dose: 1 mg Lorazepam (Ativan) 1 mg PO Q4 [facility] PRN Reason: Taper Stop: 07/05/17 22:44 Last Admin: 07/04/17 08:20 Dose: 1 mg Morphine Sulfate (Morphine) 2 mg IVP Q4 PRN PRN Reason: Pain, severe (8-10) Last Admin: 07/04/17 10:35 Dose: 2 mg Multivitamins/Vitamin C (Multi-Delyn Liquid) 5 ml PO DAILY [facility] Last Admin: 07/04/17 08:59 Dose: 5 ml Pantoprazole Sodium (Protonix Ec Tab) 40 mg PO DAILY [facility] Last Admin: 07/04/17 08:59 Dose: 40 mg Potassium Chloride (Klor-Con 10) 10 meq PO BRK [facility] Last Admin: 07/04/17 07:40 Dose: 10 meq Thiamine HCl (Vitamin B1 Tab) 100 mg PO DAILY [facility] Last Admin: 07/04/17 08:59 Dose: 100 mg - Labs Labs: 07/04/17 07:06 07/04/17 07:06 PT 12.8 SECONDS (9.7-12.2) H 07/03/17 07:46 INR 1.1 07/03/17 07:46 APTT 32 SECONDS (21-34) 07/03/17 07:46 - Constitutional Appears: Non-toxic, No Acute Distress - Head Exam Head Exam: ATRAUMATIC - ENT Exam ENT Exam: Mucous Membranes Moist - Respiratory Exam Respiratory Exam: Clear to Ausculation Bilateral. absent: Accessory Muscle Use , Rales, Rhonchi, Wheezes, Respiratory Distress - Cardiovascular Exam Cardiovascular Exam: REGULAR RHYTHM, +S1, +S2. absent: Gallop, Rubs, Murmur - GI/Abdominal Exam GI & Abdominal Exam: Soft, Normal Bowel Sounds. absent: Distended, Firm, Guarding, Rigid, Tenderness, Organomegaly - Extremities Exam Extremities Exam: absent: Pedal Edema, Tenderness - Neurological Exam Neurological Exam: Alert, Awake, Oriented x3 Additional comments: no tremors or agitation noted - Psychiatric Exam Psychiatric exam: Normal Affect, Normal Mood - Skin Skin Exam: Dry, Intact, Normal Color, Warm Assessment and Plan - Assessment and Plan (Free Text) Assessment: 57 year old male with past medical history of HTN, COPD, alcohol abuse, Seizure d/o, schizophrenia is admitted for CP likely due to PE and rib fractures PE Ct of chest showed filling defect likely from PE in the RLL and multiple fractures Continue Eliquis 5 mg PO BID on day 4 Pulm, Dr. Riggs is consulted-help appreciated CTA Chest 06/28: possible pulmonary embolism involving segmental/subsegmental branch in the RLL Alcohol abuse Pt on Ativan bee taper and ativan prn per [facility] recs Continue CIWA protocol Continue PO multivitamin, folic acid and thiamine Dr. Estrella consulted, help appreciated Rib fractures Rib series done 07/01 showed acute and chronic rib fractures Continue pain management with morphine 2mg IVP q4 prn Transaminitis Likely due to ETOH abuse. Trending down Hepatitis panel negative Continue D5/NS at 15 cc Schizophrenia Pt is seen by Dr. Decker outpt. [facility], Dr. Estrella is consulted. Continue gabapentin 300 mg po bid HTN Continue Norvasc 10 mg po qd Prophylaxis continue eliquis Protonix Dispo: Psych once medically cleared and once accepted by psychiatrist Case will be discussed with attending, Dr. Partida. All managements and orders per Dr. Partida.
--- NOTE | 2017-07-04 16:12 | CP.PCM.PN ---
Subjective - Date & Time of Evaluation Date of Evaluation: 07/04/17 Time of Evaluation: 09:40 - Subjective Subjective: clinically same Objective - Vital Signs/Intake and Output Vital Signs (last 24 hours): Temp Pulse Resp BP Pulse Ox 98.0 F 86 20 132/76 95 07/04/17 08:25 07/04/17 12:00 07/04/17 08:25 07/04/17 08:25 07/04/17 08:25 Intake and Output: 07/04/17 07/04/17 06:59 18:59 Intake Total 560 Balance 560 - Medications Medications: Current Medications Amlodipine Besylate (Norvasc) 10 mg PO DAILY [facility] Last Admin: 07/04/17 08:59 Dose: 10 mg Apixaban (Eliquis) 5 mg PO BID [facility] Last Admin: 07/04/17 08:59 Dose: 5 mg Aspirin (Aspirin) 325 mg PO DAILY [facility] Last Admin: 07/04/17 09:04 Dose: 325 mg Folic Acid (Folic Acid) 1 mg PO DAILY [facility] Last Admin: 07/04/17 08:59 Dose: 1 mg Gabapentin (Neurontin) 300 mg PO BID [facility] Last Admin: 07/04/17 08:59 Dose: 300 mg Lorazepam (Ativan) 1 mg IVP Q4H PRN PRN Reason: Agitation Last Admin: 07/01/17 22:32 Dose: 1 mg Lorazepam (Ativan) 1 mg PO Q4 [facility] PRN Reason: Taper Stop: 07/05/17 22:44 Last Admin: 07/04/17 13:00 Dose: 1 mg Morphine Sulfate (Morphine) 2 mg IVP Q4 PRN PRN Reason: Pain, severe (8-10) Last Admin: 07/04/17 10:35 Dose: 2 mg Multivitamins/Vitamin C (Multi-Delyn Liquid) 5 ml PO DAILY [facility] Last Admin: 07/04/17 08:59 Dose: 5 ml Pantoprazole Sodium (Protonix Ec Tab) 40 mg PO DAILY [facility] Last Admin: 07/04/17 08:59 Dose: 40 mg Potassium Chloride (Klor-Con 10) 10 meq PO BRK [facility] Last Admin: 07/04/17 07:40 Dose: 10 meq Thiamine HCl (Vitamin B1 Tab) 100 mg PO DAILY [facility] Last Admin: 07/04/17 08:59 Dose: 100 mg - Labs Labs: 07/04/17 07:06 07/04/17 07:06 PT 12.8 SECONDS (9.7-12.2) H 07/03/17 07:46 INR 1.1 07/03/17 07:46 APTT 32 SECONDS (21-34) 07/03/17 07:46 - Constitutional Appears: Well - Head Exam Head Exam: ATRAUMATIC, NORMAL INSPECTION, NORMOCEPHALIC - Eye Exam Eye Exam: EOMI, Normal appearance, PERRL Pupil Exam: NORMAL ACCOMODATION, PERRL - ENT Exam ENT Exam: Mucous Membranes Moist, Normal Exam - Neck Exam Neck Exam: Full ROM, Normal Inspection. absent: Lymphadenopathy - Respiratory Exam Respiratory Exam: Decreased Breath Sounds - Cardiovascular Exam Cardiovascular Exam: REGULAR RHYTHM, +S1, +S2 - GI/Abdominal Exam GI & Abdominal Exam: Soft, Diminished Bowel Sounds - Rectal Exam Rectal Exam: Deferred
--- NOTE | 2017-07-05 00:16 | PN ---
DATE: SUBJECTIVE: The patient is still experiencing sharp left-sided chest discomfort. PHYSICAL EXAMINATION: VITAL SIGNS: Blood pressure 129/77, heart rate 87, temperature 97.9, and respirations 20. HEENT: Normocephalic. CHEST: Bilateral rhonchi. HEART: S1 and S2, regular. EXTREMITIES: No edema. LABORATORY DATA: Today's SMA-7 is entirely within normal limits. Today's hemoglobin and hematocrit, white count and platelet count are within normal limits. ASSESSMENT: 1. Acute mildly displaced left-sided fracture. 2. Status post ethanol intoxication. 3. Questionable right lower lobe pulmonary embolus. RECOMMENDATIONS: Continue current aspirin, Eliquis, folic acid, gabapentin, Norvasc, oral Protonix, and oral thiamine. Luan Naranjo MD
[2017-07-05] MEDS: Morphine 4 MG/ML VIAL IVP PRN ×6 (03:05→23:58)
[2017-07-05] MEDS: Potassium Chloride 10 mEq ER Tab PO SCH (08:13)
[2017-07-05] MEDS: Pantoprazole 40 mg EC Tab PO SCH (10:37)
[2017-07-05] MEDS: Multiple Vitamins Oral Solution PO SCH (10:38)
--- NOTE | 2017-07-05 12:25 | CP.PCM.PN ---
Subjective - Date & Time of Evaluation Date of Evaluation: 07/05/17 Time of Evaluation: 09:20 - Subjective Subjective: clinically same Objective - Vital Signs/Intake and Output Vital Signs (last 24 hours): Temp Pulse Resp BP Pulse Ox 97.2 F L 73 20 125/82 96 07/05/17 07:35 07/05/17 07:35 07/05/17 07:35 07/05/17 07:35 07/05/17 07:35 - Medications Medications: Current Medications Amlodipine Besylate (Norvasc) 10 mg PO DAILY [facility] Last Admin: 07/05/17 10:37 Dose: 10 mg Apixaban (Eliquis) 5 mg PO BID [facility] Last Admin: 07/05/17 10:37 Dose: 5 mg Aspirin (Aspirin) 325 mg PO DAILY [facility] Last Admin: 07/05/17 10:37 Dose: 325 mg Folic Acid (Folic Acid) 1 mg PO DAILY [facility] Last Admin: 07/05/17 10:37 Dose: 1 mg Gabapentin (Neurontin) 300 mg PO BID [facility] Last Admin: 07/05/17 10:37 Dose: 300 mg Lorazepam (Ativan) 1 mg IVP Q4H PRN PRN Reason: Agitation Last Admin: 07/01/17 22:32 Dose: 1 mg Lorazepam (Ativan) 1 mg PO Q8 [facility] PRN Reason: Taper Stop: 07/05/17 22:44 Last Admin: 07/05/17 06:25 Dose: 1 mg Morphine Sulfate (Morphine) 2 mg IVP Q4 PRN PRN Reason: Pain, severe (8-10) Last Admin: 07/05/17 11:04 Dose: 2 mg Multivitamins/Vitamin C (Multi-Delyn Liquid) 5 ml PO DAILY [facility] Last Admin: 07/05/17 10:38 Dose: 5 ml Pantoprazole Sodium (Protonix Ec Tab) 40 mg PO DAILY [facility] Last Admin: 07/05/17 10:37 Dose: 40 mg Potassium Chloride (Klor-Con 10) 10 meq PO BRK [facility] Last Admin: 07/05/17 08:13 Dose: 10 meq Thiamine HCl (Vitamin B1 Tab) 100 mg PO DAILY [facility] Last Admin: 07/05/17 10:38 Dose: 100 mg - Labs Labs: 07/04/17 07:06 07/04/17 07:06 PT 12.8 SECONDS (9.7-12.2) H 07/03/17 07:46 INR 1.1 07/03/17 07:46 APTT 32 SECONDS (21-34) 07/03/17 07:46 - Constitutional Appears: Well - Head Exam Head Exam: ATRAUMATIC, NORMAL INSPECTION, NORMOCEPHALIC - Eye Exam Eye Exam: EOMI, Normal appearance, PERRL Pupil Exam: NORMAL ACCOMODATION, PERRL - ENT Exam ENT Exam: Mucous Membranes Moist, Normal Exam - Neck Exam Neck Exam: Full ROM, Normal Inspection. absent: Lymphadenopathy - Respiratory Exam Respiratory Exam: Decreased Breath Sounds - Cardiovascular Exam Cardiovascular Exam: REGULAR RHYTHM, +S1, +S2 - GI/Abdominal Exam GI & Abdominal Exam: Soft, Diminished Bowel Sounds - Rectal Exam Rectal Exam: Deferred
--- NOTE | 2017-07-05 22:25 | PN ---
DATE: SUBJECTIVE: The patient is complaining of sharp left-sided chest pain. PHYSICAL EXAMINATION: VITAL SIGNS: Blood pressure 119/77, heart rate 76, temperature 98.2, respirations 20. HEENT: Normocephalic. CHEST: Clear. HEART: Heart sounds are regular. EXTREMITIES: No edema. ASSESSMENT: 1. Acute mildly displaced left rib fracture. 2. Status post alcohol intoxication. 3. Depression. 4. Questionable right lower lobe pulmonary embolism. RECOMMENDATIONS: Continue current Eliquis, folic acid, Klor-Con, gabapentin, Norvasc, and thiamine. Luan Naranjo MD
[2017-07-06] MEDS: Morphine 4 MG/ML VIAL IVP PRN ×5 (04:14→21:07)
[2017-07-06] MEDS: Potassium Chloride 10 mEq ER Tab PO SCH (07:37)
[2017-07-06] MEDS: Pantoprazole 40 mg EC Tab PO SCH (09:10)
[2017-07-06] MEDS: Multiple Vitamins Oral Solution PO SCH (09:16)
--- NOTE | 2017-07-06 16:33 | CP.PCM.PN ---
Subjective - Date & Time of Evaluation Date of Evaluation: 07/06/17 Time of Evaluation: 09:00 - Subjective Subjective: clinically same Objective - Vital Signs/Intake and Output Vital Signs (last 24 hours): Temp Pulse Resp BP Pulse Ox 97.3 F L 69 20 120/79 97 07/06/17 08:00 07/06/17 13:15 07/06/17 08:00 07/06/17 08:00 07/06/17 08:00 Intake and Output: 07/06/17 07/06/17 06:59 18:59 Intake Total 500 Balance 500 - Medications Medications: Current Medications Amlodipine Besylate (Norvasc) 10 mg PO DAILY [facility] Last Admin: 07/06/17 09:10 Dose: 10 mg Apixaban (Eliquis) 5 mg PO BID [facility] Last Admin: 07/06/17 09:17 Dose: 5 mg Aspirin (Aspirin) 325 mg PO DAILY [facility] Last Admin: 07/06/17 09:10 Dose: 325 mg Folic Acid (Folic Acid) 1 mg PO DAILY [facility] Last Admin: 07/06/17 09:10 Dose: 1 mg Gabapentin (Neurontin) 300 mg PO BID [facility] Last Admin: 07/06/17 09:18 Dose: 300 mg Morphine Sulfate (Morphine) 2 mg IVP Q4 PRN PRN Reason: Pain, severe (8-10) Last Admin: 07/06/17 12:25 Dose: 2 mg Multivitamins/Vitamin C (Multi-Delyn Liquid) 5 ml PO DAILY [facility] Last Admin: 07/06/17 09:16 Dose: 5 ml Pantoprazole Sodium (Protonix Ec Tab) 40 mg PO DAILY [facility] Last Admin: 07/06/17 09:10 Dose: 40 mg Potassium Chloride (Klor-Con 10) 10 meq PO BRK [facility] Last Admin: 07/06/17 07:37 Dose: 10 meq Thiamine HCl (Vitamin B1 Tab) 100 mg PO DAILY [facility] Last Admin: 07/06/17 09:10 Dose: 100 mg - Labs Labs: 07/04/17 07:06 07/04/17 07:06 PT 12.8 SECONDS (9.7-12.2) H 07/03/17 07:46 INR 1.1 07/03/17 07:46 APTT 32 SECONDS (21-34) 07/03/17 07:46 - Constitutional Appears: Well - Head Exam Head Exam: ATRAUMATIC, NORMAL INSPECTION, NORMOCEPHALIC - Eye Exam Eye Exam: EOMI, Normal appearance, PERRL Pupil Exam: NORMAL ACCOMODATION, PERRL - ENT Exam ENT Exam: Mucous Membranes Moist, Normal Exam - Neck Exam Neck Exam: Full ROM, Normal Inspection. absent: Lymphadenopathy - Respiratory Exam Respiratory Exam: Decreased Breath Sounds - Cardiovascular Exam Cardiovascular Exam: REGULAR RHYTHM, +S1, +S2 - GI/Abdominal Exam GI & Abdominal Exam: Soft, Diminished Bowel Sounds - Rectal Exam Rectal Exam: Deferred
--- NOTE | 2017-07-06 22:02 | CARD ---
APPROVED REPORT EKG Measurement Heart [id number] <Conclusion> Sinus tachycardia Otherwise normal ECG
--- NOTE | 2017-07-06 22:15 | PN ---
DATE: SUBJECTIVE: The patient denies shortness of breath. He is still experiencing chest discomfort. PHYSICAL EXAMINATION: VITAL SIGNS: Blood pressure 120/79, heart rate 74, temperature 97.3, respirations 20. HEENT: Normocephalic. CHEST: Clear. HEART: S1, S2 are regular. EXTREMITIES: No edema. ASSESSMENT: 1. Status post alcohol intoxication. 2. Right lower lobe subsegmental pulmonary embolism. 3. Acute minimally displaced left rib fracture. RECOMMENDATIONS: Continue current aspirin, Eliquis, p.r.n., morphine sulfate, Neurontin, Norvasc, and thiamine. Luan Naranjo MD
[2017-07-07] MEDS: Morphine 4 MG/ML VIAL IVP PRN ×2 (01:19→07:15)
[2017-07-07] MEDS: Potassium Chloride 10 mEq ER Tab PO SCH (08:23)
[2017-07-07] MEDS: Multiple Vitamins Oral Solution PO SCH (09:00)
[2017-07-07] MEDS: Pantoprazole 40 mg EC Tab PO SCH (09:00)
[2017-07-07 11:15] LABS: HEMOGLOBIN 14.1 g/dL (12.0-18.0); MEAN CELL VOLUME 98.6 fL (80.0-94.0); MEAN CORPUSCULAR HEMOGLOBIN 33.2 pg (27.0-31.0); MEAN CORPUSCULAR HGB CONC 33.7 g/dL (33.0-37.0); MEAN PLATELET VOLUME 9.7 fL (7.2-11.7); RBC 4.24 Mil/uL (4.40-5.90); RED CELL DISTRIBUTION WIDTH 13.7 % (11.5-14.5)
[2017-07-07 11:27] LABS: ALB/GLOB RATIO 1.1 (1.0-2.1); ALBUMIN 3.9 g/dL (3.5-5.0); ALT/SGPT 59 U/L (21-72); AST/SGOT 64 U/L (17-59); BLOOD UREA NITROGEN 17 mg/dL (9-20); CALCIUM 8.7 mg/dl (8.6-10.4); GFR AFRICAN-AMERICAN > 60; GFR NON-AFRICAN AMERICAN > 60
[2017-07-07] MEDS ORDERED: Morphine 4 MG/ML VIAL IVP PRN (12:04)
[2017-07-07 13:26] VITALS: BP 121/83; PULSE 74; TEMP 98.8; O2SAT 96
--- NOTE | 2017-07-07 13:46 | CP.PCM.PN ---
Subjective - Date & Time of Evaluation Date of Evaluation: 07/07/17 Time of Evaluation: 13:39 - Subjective Subjective: PGY2 progress note for Dr. Partida Pt seen and examined at bedside. Resting comfortably. Still complaining of chest pain due to the rib fractures. Denies having any SOB, abd pain, N/V/D/c, F/c. Denies having any tremors or hallucinations. Objective - Vital Signs/Intake and Output Vital Signs (last 24 hours): Temp Pulse Resp BP Pulse Ox 98.8 F 74 20 121/83 96 07/07/17 13:25 07/07/17 13:25 07/07/17 13:25 07/07/17 13:25 07/07/17 13:25 Intake and Output: 07/07/17 07/07/17 06:59 18:59 Intake Total 400 Balance 400 - Medications Medications: Current Medications Amlodipine Besylate (Norvasc) 10 mg PO DAILY [facility] Last Admin: 07/07/17 09:01 Dose: 10 mg Apixaban (Eliquis) 5 mg PO BID [facility] Last Admin: 07/07/17 09:01 Dose: 5 mg Aspirin (Aspirin) 325 mg PO DAILY [facility] Last Admin: 07/07/17 09:00 Dose: 325 mg Folic Acid (Folic Acid) 1 mg PO DAILY [facility] Last Admin: 07/07/17 09:00 Dose: 1 mg Gabapentin (Neurontin) 300 mg PO BID [facility] Last Admin: 07/07/17 09:01 Dose: 300 mg Morphine Sulfate (Morphine) 2 mg IVP Q4 PRN PRN Reason: Pain, Mild (1-3) Last Admin: 07/07/17 12:12 Dose: 2 mg Multivitamins/Vitamin C (Multi-Delyn Liquid) 5 ml PO DAILY [facility] Last Admin: 07/07/17 09:00 Dose: 5 ml Pantoprazole Sodium (Protonix Ec Tab) 40 mg PO DAILY [facility] Last Admin: 07/07/17 09:00 Dose: 40 mg Potassium Chloride (Klor-Con 10) 10 meq PO BRK [facility] Last Admin: 07/07/17 08:23 Dose: 10 meq Thiamine HCl (Vitamin B1 Tab) 100 mg PO DAILY [facility] Last Admin: 07/07/17 09:00 Dose: 100 mg - Labs Labs: 07/07/17 11:05 07/07/17 11:05 PT 12.8 SECONDS (9.7-12.2) H 07/03/17 07:46 INR 1.1 07/03/17 07:46 APTT 32 SECONDS (21-34) 07/03/17 07:46 - Constitutional Appears: Non-toxic, No Acute Distress - Head Exam Head Exam: ATRAUMATIC - ENT Exam ENT Exam: Mucous Membranes Moist - Respiratory Exam Respiratory Exam: Clear to Ausculation Bilateral. absent: Accessory Muscle Use , Rales, Rhonchi, Wheezes, Respiratory Distress - Cardiovascular Exam Cardiovascular Exam: REGULAR RHYTHM, +S1, +S2. absent: Gallop, Rubs, Murmur - GI/Abdominal Exam GI & Abdominal Exam: Soft, Normal Bowel Sounds, Organomegaly. absent: Distended , Firm, Guarding, Rigid, Tenderness - Extremities Exam Extremities Exam: absent: Pedal Edema, Tenderness - Neurological Exam Neurological Exam: Alert, Awake, Oriented x3 - Psychiatric Exam Psychiatric exam: Normal Affect, Normal Mood - Skin Skin Exam: Dry, Intact, Normal Color, Warm Assessment and Plan - Assessment and Plan (Free Text) Assessment: 57 year old male with past medical history of HTN, COPD, alcohol abuse, Seizure d/o, schizophrenia is admitted for CP likely due to PE and rib fractures PE Ct of chest showed filling defect likely from PE in the RLL and multiple fractures Continue Eliquis 5 mg PO BID on day 4 Pulm, Dr. Riggs is consulted-help appreciated CTA Chest 06/28: possible pulmonary embolism involving segmental/subsegmental branch in the RLL Alcohol abuse Continue PO multivitamin, folic acid and thiamine Dr. Estrella consulted, help appreciated Rib fractures Rib series done 07/01 showed acute and chronic rib fractures Continue pain management with morphine 2mg IVP q4 prn Transaminitis Likely due to ETOH abuse. Trending down Hepatitis panel negative Continue D5/NS at 15 cc Schizophrenia Pt is seen by Dr. Decker outpt. [facility], Dr. Estrella is consulted. Continue gabapentin 300 mg po bid Pt refused inpt treatment HTN Continue Norvasc 10 mg po qd Prophylaxis continue eliquis Protonix Dispo: Patient is not interested in going to in-pt psych for schizophrenia treatment Case will be discussed with attending, Dr. Partida. All managements and orders per Dr. Partida. Patient is stable for discharge per Dr. Partida. Patient is given list of homeless shelters prior to discharge. Patient is asked to follow up with PMD upon discharge Patient is also asked to follow up with national expansion recruiter upon discharge. Patient is discharged on the following new medications: Eliquis 5 mg po BID #60 tabs, Norvasc 10 mg po qd #30, Aspirin 325 mg po qd #30, Folic acid 1 mg po qd # 30, Gabapentin 300 mh mg po BID, Multivitamin #30 tabs, Thiamine 100 mg po qd.
--- NOTE | 2017-07-07 18:25 | PN ---
DATE: SUBJECTIVE: No reported shortness of breath. The patient is still experiencing sharp chest discomfort. PHYSICAL EXAMINATION: VITAL SIGNS: Blood pressure 121/83, heart rate 74, temperature 98.8, respirations 20. HEENT: NC/AT Chest : clear Heart S1S2 regular Ext. No edema LABORATORY DATA: Today's SMA-7 is within normal limits except for glucose of 143. Today's hemoglobin, hematocrit, white count, and platelet counts are within normal limits. ASSESSMENT: 1. Right lower lobe subsegmental pulmonary embolism. 2. Acute myocardial infarction, minimal yesterday. 3. Left hip fracture. 4. Status post alcohol intoxication. 5. Depression. RECOMMENDATIONS: Continue current aspirin,, Klor-Con, Neurontin, and thiamine. Discontinue telemetry. Luan Naranjo MD MTDD
== END 2017-07-07 15:36 | disposition home or self-care (01) | DRG 744 ==
LOC: C.ER 16:20 → C.9E 22:04 → C.6T 22:49 → C.3T 07-07 11:50
PROVIDERS: ADMIT Internal Medicine Nephrology; ATTEND Internal Medicine Nephrology
PROC: HZ2ZZZZ Detoxification Services for Substance Abuse Treatment (ICD-10-PCS; principal; 2017-06-28)
DX: F10.230 Alcohol dependence with withdrawal, uncomplicated (principal); I26.99 Other pulmonary embolism without acute cor pulmonale; F11.90 Opioid use, unspecified, uncomplicated; J44.9 Chronic obstructive pulmonary disease, unspecified; E87.6 Hypokalemia; F20.9 Schizophrenia, unspecified; F10.220 Alcohol dependence with intoxication, uncomplicated; S22.32XA Fracture of one rib, left side, initial encounter for closed fracture; I10 Essential (primary) hypertension; Y90.8 Blood alcohol level of 240 mg/100 ml or more; E83.42 Hypomagnesemia; E11.9 Type 2 diabetes mellitus without complications; F32.9 Major depressive disorder, single episode, unspecified; G40.909 Epilepsy, unspecified, not intractable, without status epilepticus; L29.9 Pruritus, unspecified; Z59.0 Homelessness; R29.6 Repeated falls; W06.XXXA Fall from bed, initial encounter

== ENCOUNTER 2017-07-26 16:41 | Emergency (ER) | payer MEDICAID ==
[2017-07-26 16:41] VITALS: BMI 28.7
[2017-07-26 17:05] VITALS: TEMP 98.1; O2SAT 99
[2017-07-26] MEDS ORDERED: Oxycodone/Acetaminophen 5/325 mg Tab PO STA ×2 (17:07→18:47)
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
[2017-07-26 17:28] LABS: BASO # 0.1 K/uL (0.0-0.2); BASO % 1.8 % (0.0-2.0); EOS % 0.8 % (0.0-4.0); HEMOGLOBIN 15.5 g/dL (12.0-18.0); LYMPH # 1.2 K/uL (1.0-4.3); MEAN CELL VOLUME 95.2 fL (80.0-94.0); MEAN CORPUSCULAR HEMOGLOBIN 32.8 pg (27.0-31.0); MEAN CORPUSCULAR HGB CONC 34.5 g/dL (33.0-37.0); MONO # 0.7 K/uL (0.0-0.8); MONO % 14.3 % (0.0-10.0); NEUT % 60.1 % (50.0-75.0); RBC 4.73 Mil/uL (4.40-5.90); RED CELL DISTRIBUTION WIDTH 14.5 % (11.5-14.5); WHITE BLOOD COUNT 5.1 K/uL (4.8-10.8)
[2017-07-26] MEDS ORDERED: Oxycodone/Acetaminophen 5/325 mg Tab ONE ×2 (17:29→18:57)
[2017-07-26 17:39] LABS: INR 1.1; PROTHROMBIN TIME 11.8 SECONDS (9.7-12.2)
[2017-07-26 17:41] LABS: ALB/GLOB RATIO 1.2 (1.0-2.1); ALBUMIN 4.7 g/dL (3.5-5.0); ALT/SGPT 69 U/L (21-72); AST/SGOT 193 U/L (17-59); BLOOD UREA NITROGEN 17 mg/dL (9-20); CALCIUM 8.3 mg/dl (8.6-10.4); GFR AFRICAN-AMERICAN > 60; GFR NON-AFRICAN AMERICAN > 60
[2017-07-26 18:23] VITALS: BP 126/86; PULSE 101; RESP 18
--- NOTE | 2017-07-27 09:25 | RAD ---
PROCEDURE: CHEST RADIOGRAPH, 1 VIEW HISTORY: chest injury COMPARISON: Comparison made with CTA chest dated 06/28/2017 FINDINGS: LUNGS: Mild bibasilar atelectasis PLEURA: No pneumothorax or pleural fluid seen. CARDIOVASCULAR: Normal. OSSEOUS STRUCTURES: Previously described old left rib fractures are of poorly seen on this exam. Please refer to dedicated CTA chest and corresponding report 06/28/2017 for additional details VISUALIZED UPPER ABDOMEN: Normal. OTHER FINDINGS: None. IMPRESSION: Mild bibasilar atelectasis. . Previously noted left-sided rib fracture deformities poorly seen compared to CTA chest 06/28/2017. Please refer to that examination and corresponding report for additional details
--- NOTE | 2017-07-28 12:26 | CARD ---
APPROVED REPORT EKG Measurement Heart [id number] <Conclusion> Normal sinus rhythm with sinus arrhythmia Normal ECG
== END 2017-07-26 19:04 | disposition home or self-care (01) ==
LOC: C.ER 16:41
DX: S22.31XA Fracture of one rib, right side, initial encounter for closed fracture (principal); S00.83XA Contusion of other part of head, initial encounter; S00.03XA Contusion of scalp, initial encounter; S10.93XA Contusion of unspecified part of neck, initial encounter; Y04.0XXA Assault by unarmed brawl or fight, initial encounter; F10.239 Alcohol dependence with withdrawal, unspecified; Y90.9 Presence of alcohol in blood, level not specified; Z86.711 Personal history of pulmonary embolism
CPT/HCPCS: 71045; 80053; 85025; 85610; 85730; 93005; 96374; 99283; J2060

== ENCOUNTER 2017-07-29 20:09 | Emergency (ER) | payer MEDICAID ==
[2017-07-29 20:10] VITALS: BMI 28.7
[2017-07-29 20:22] VITALS: TEMP 98.3
--- NOTE | 2017-07-30 02:09 | C.PDOC ---
History Of Present Illness 57 year old male presents to the emergency department under the influence of alcohol. Patient is requesting a place to sleep for tonight, stating that he is homeless. Time Seen by Provider: 07/30/17 02:06 Chief Complaint (Nursing): Substance Abuse History Per: Patient History/Exam Limitations: intoxication Onset/Duration Of Symptoms: Hrs Current Symptoms Are (Timing): Still Present Modifying Factor(s): Alcohol Past Medical History Reviewed: Historical Data, Nursing Documentation, Vital Signs Vital Signs: Last Vital Signs Temp 98.3 F 07/29/17 20:15 Pulse 98 H 07/29/17 20:15 Resp 18 07/29/17 20:15 BP 135/98 H 07/29/17 20:15 Pulse Ox 96 07/30/17 02:09 - Medical History PMH: Anxiety, COPD, Depression, Diabetes, Fractures, HTN, Pulmonary Embolism, Schizophrenia, Seizures Denies: Chronic Kidney Disease Surgical History: No Surg Hx - [facility] Procedures ALCOHOL DETOXIFICATION (02/24/13) DETOXIFICATION SERVICES FOR SUBSTANCE ABUSE TREATMENT (06/28/17) GROUP STAMPER BLOCKER FOR SUBSTANCE ABUSE TREATMENT, PSYCHOEDUCATION (09/18/16) GROUP PSYCHOTHERAPY (10/07/16) INDIV PSYCHOTHERAPY FOR SUBSTANCE ABUSE TREATMENT, SUPPORT (09/18/16) INDIVIDUAL PSYCHOTHERAPY, SUPPORTIVE (10/07/16) INJECT/INFUSE ELECTROLYT (02/20/13) INJECT/INFUSE NEC (05/02/13) MEDICATION MANAGEMENT (10/07/16) MEDS MGMT FOR SUBSTANCE ABUSE TREATMENT, METHADONE MAINT (07/27/16) MEDS MGMT FOR SUBSTANCE ABUSE TREATMENT, OTH REPL MED (09/18/16) Family History: States: Unknown Family Hx - Social History Hx Tobacco Use: Yes Hx Alcohol Use: Yes Hx Substance Use: Yes ("long time ago") - Immunization History Hx Tetanus Toxoid Vaccination: No Hx Influenza Vaccination: No Hx Pneumococcal Vaccination: No Review Of Systems Review Of Systems: ROS cannot be obtained secondary to pt's inabilty to answer questions. Physical Exam - Physical Exam Appears: Non-toxic, No Acute Distress Oral Mucosa: Other (smell of EtOH on breath) Cardiovascular: Rhythm Regular Respiratory: Normal Breath Sounds Gastrointestinal/Abdominal: Normal Exam, Soft, No Tenderness ED Course And Treatment O2 Sat by Pulse Oximetry: 96 (RA) Pulse Ox Interpretation: Normal Disposition Counseled Patient/Family Regarding: Diagnosis - Disposition Referrals: Non [facility] Provider, [Primary Care Provider] - Disposition: HOME/ ROUTINE Disposition Time: 02:00 Condition: STABLE Instructions: Alcohol Abuse and Alcoholism (DC) Forms: [facility] ([place]) - POA Present On Arrival: None - Clinical Impression Clinical Impression: Alcohol abuse - Scribe Statement The provider has reviewed the documentation as recorded by the Scribe (Levy Garcia) Provider Attestation: All medical record entries made by the Scribe were at my direction and personally dictated by me. I have reviewed the chart and agree that the record accurately reflects my personal performance of the history, physical exam, medical decision making, and the department course for this patient. I have also personally directed, reviewed, and agree with the discharge instructions and disposition.
[2017-07-30 03:00] VITALS: BP 130/80; PULSE 80; RESP 14
[2017-07-30 03:02] VITALS: O2SAT 96
== END 2017-07-30 03:00 | disposition home or self-care (01) ==
LOC: C.ER 20:09 → SUPCPDRO 20:09 → C.ER 07-30 03:00
DX: F10.10 Alcohol abuse, uncomplicated (principal); Y90.9 Presence of alcohol in blood, level not specified

== ENCOUNTER 2018-01-17 01:13 | Emergency (ER) | payer MEDICAID ==
[2018-01-17 01:14] VITALS: BMI 28.7
[2018-01-17 01:34] VITALS: TEMP 99.1
--- NOTE | 2018-01-17 02:16 | C.PDOC ---
History Of Present Illness 57 year old male presents to the emergency department via EMS. EMS reports that they were called by [facility] Police, who found the patient loitering in [facility] with unsteady gait and alcohol on breath. Patient is only seeking a place to stay for the night. He has no complaints at this time. Time Seen by Provider: 01/17/18 01:38 Chief Complaint (Nursing): Substance Abuse History Per: EMS History/Exam Limitations: no limitations Onset/Duration Of Symptoms: Hrs Current Symptoms Are (Timing): Still Present Suicide/Self Injury Attempted (Context): None Modifying Factor(s): Alcohol Associated Symptoms: denies: Suicidal Thoughts, Suicidal Plan Past Medical History Reviewed: Historical Data, Nursing Documentation, Vital Signs Vital Signs: Last Vital Signs Temp 99.1 F 01/17/18 01:31 Pulse 90 01/17/18 01:31 Resp 14 01/17/18 01:31 BP 135/83 01/17/18 01:31 Pulse Ox 96 01/17/18 01:31 - Medical History PMH: Anxiety, COPD, Depression, Diabetes, Fractures, HTN, Pulmonary Embolism, Schizophrenia, Seizures Denies: Chronic Kidney Disease Surgical History: No Surg Hx - [facility] Procedures ALCOHOL DETOXIFICATION (02/24/13) DETOXIFICATION SERVICES FOR SUBSTANCE ABUSE TREATMENT (06/28/17) GROUP MEDICAL RECORDS ASSISTANT FOR SUBSTANCE ABUSE TREATMENT, PSYCHOEDUCATION (09/18/16) GROUP PSYCHOTHERAPY (10/07/16) INDIV PSYCHOTHERAPY FOR SUBSTANCE ABUSE TREATMENT, SUPPORT (09/18/16) INDIVIDUAL PSYCHOTHERAPY, SUPPORTIVE (10/07/16) INJECT/INFUSE ELECTROLYT (02/20/13) INJECT/INFUSE NEC (05/02/13) MEDICATION MANAGEMENT (10/07/16) MEDS MGMT FOR SUBSTANCE ABUSE TREATMENT, METHADONE MAINT (07/27/16) MEDS MGMT FOR SUBSTANCE ABUSE TREATMENT, OTH REPL MED (09/18/16) Family History: States: Unknown Family Hx - Social History Hx Tobacco Use: Yes Hx Alcohol Use: Yes Hx Substance Use: Yes ("long time ago") - Immunization History Hx Tetanus Toxoid Vaccination: No Hx Influenza Vaccination: No Hx Pneumococcal Vaccination: No Review Of Systems Review Of Systems: ROS cannot be obtained secondary to pt's inabilty to answer questions. Physical Exam - Physical Exam Additional Physical Exam Comments: Constitutional: No acute distress. Head: Normocephalic. Atraumatic. Eyes: PERRL. ENT: Moist mucous membranes. Neck: Supple. Cardiovascular: Regular rate. Radial pulse 2+ bilaterally. Chest: No tenderness. Respiratory: Clear to auscultation bilaterally. GI: Soft. Nontender. Nondistended. Back: No CVA tenderness. Musculoskeletal: No tenderness or swelling of extremities. Skin: No rash. Neurologic: Alert, no focal deficit. ED Course And Treatment O2 Sat by Pulse Oximetry: 96 (RA) Pulse Ox Interpretation: Normal Medical Decision Making Medical Decision Making: Plan: Observe for sobriety. Disposition - Disposition Disposition: HOME/ ROUTINE Disposition Time: 02:15 Condition: STABLE Instructions: Alcohol Abuse and Alcoholism (DC) Forms: [employer] (Khmer) - Clinical Impression Clinical Impression: Alcohol intoxication - Scribe Statement The provider has reviewed the documentation as recorded by the Scribe (Levy Garcia) Provider Attestation: All medical record entries made by the Scribe were at my direction and personally dictated by me. I have reviewed the chart and agree that the record accurately reflects my personal performance of the history, physical exam, medical decision making, and the department course for this patient. I have also personally directed, reviewed, and agree with the discharge instructions and disposition.
[2018-01-17 05:31] VITALS: BP 130/87; PULSE 92; RESP 16; O2SAT 100
== END 2018-01-17 06:02 | disposition home or self-care (01) ==
LOC: C.ER 01:13
DX: F10.129 Alcohol abuse with intoxication, unspecified (principal); Y90.9 Presence of alcohol in blood, level not specified

== ENCOUNTER 2018-01-21 19:34 | Emergency (ER) | payer MEDICAID ==
[2018-01-21 19:34] VITALS: BMI 28.7
[2018-01-21 19:43] VITALS: TEMP 98
--- NOTE | 2018-01-21 20:01 | C.PDOC ---
History Of Present Illness 57 year old male is brought to the ED by EMS for alcohol intoxication. Patient admits to drinking alcohol today. Patient denies SI/HI, hallucinations, trauma, injury, fall, CP, SOB. Time Seen by Provider: 01/21/18 20:00 Chief Complaint (Nursing): Substance Abuse History Per: Patient, EMS History/Exam Limitations: intoxication Onset/Duration Of Symptoms: Hrs Current Symptoms Are (Timing): Still Present Suicide/Self Injury Attempted (Context): None Modifying Factor(s): Alcohol Associated Symptoms: denies: Depression, Suicidal Thoughts, Suicidal Plan Recent travel outside of the [place]: No Additional History Per: Patient, EMS Past Medical History Reviewed: Historical Data, Nursing Documentation, Vital Signs Vital Signs: Last Vital Signs Temp 98 F 01/21/18 19:39 Pulse 87 01/21/18 19:39 Resp 18 01/21/18 19:39 BP 150/100 H 01/21/18 19:39 Pulse Ox 98 01/21/18 19:39 - Medical History PMH: Anxiety, COPD, Depression, Diabetes, Fractures, HTN, Pulmonary Embolism, Schizophrenia, Seizures Denies: Chronic Kidney Disease Surgical History: No Surg Hx - [facility] Procedures ALCOHOL DETOXIFICATION (02/24/13) DETOXIFICATION SERVICES FOR SUBSTANCE ABUSE TREATMENT (06/28/17) GROUP NIGHT WAREHOUSE SELECTOR FOR SUBSTANCE ABUSE TREATMENT, PSYCHOEDUCATION (09/18/16) GROUP PSYCHOTHERAPY (10/07/16) INDIV PSYCHOTHERAPY FOR SUBSTANCE ABUSE TREATMENT, SUPPORT (09/18/16) INDIVIDUAL PSYCHOTHERAPY, SUPPORTIVE (10/07/16) INJECT/INFUSE ELECTROLYT (02/20/13) INJECT/INFUSE NEC (05/02/13) MEDICATION MANAGEMENT (10/07/16) MEDS MGMT FOR SUBSTANCE ABUSE TREATMENT, METHADONE MAINT (07/27/16) MEDS MGMT FOR SUBSTANCE ABUSE TREATMENT, OTH REPL MED (09/18/16) Family History: States: Unknown Family Hx - Social History Hx Tobacco Use: Yes Hx Alcohol Use: Yes Hx Substance Use: Yes ("long time ago") - Immunization History Hx Tetanus Toxoid Vaccination: No Hx Influenza Vaccination: No Hx Pneumococcal Vaccination: No Review Of Systems Constitutional: Negative for: Fever, Chills Cardiovascular: Negative for: Chest Pain Respiratory: Negative for: Shortness of Breath Gastrointestinal: Negative for: Nausea, Vomiting, Abdominal Pain Skin: Negative for: Rash Psych: Negative for: Depression, Suicidal ideation Physical Exam - Physical Exam Appears: Non-toxic, No Acute Distress Skin: Warm, Dry Head: Normacephalic Eye(s): bilateral: Normal Inspection Neck: Supple Chest: Symmetrical Cardiovascular: Rhythm Regular Respiratory: No Rales, No Rhonchi, No Wheezing Gastrointestinal/Abdominal: Soft, No Tenderness, No Guarding, No Rebound Extremity: Bilateral: Atraumatic, Normal Color And Temperature, Normal ROM Neurological/Psych: Oriented x3, Normal Speech Gait: Steady ED Course And Treatment - Laboratory Results Result Diagrams: 01/21/18 20:14 01/21/18 20:14 O2 Sat by Pulse Oximetry: 98 (ON RA) Pulse Ox Interpretation: Normal Progress Note: pt clinically sober Reevaluation Time: 05:45 Reassessment Condition: Improved Disposition Counseled Patient/Family Regarding: Studies Performed, Diagnosis, Need For Followup - Disposition Referrals: [facility] [Outside] Disposition: HOME/ ROUTINE Disposition Time: 20:01 Condition: FAIR Instructions: Alcohol Abuse and Alcoholism (DC) Forms: [employer] (Zimbabwean) - Clinical Impression Clinical Impression: Alcohol intoxication, Alcohol abuse - Scribe Statement The provider has reviewed the documentation as recorded by the Scribe Kenny Berrios All medical record entries made by the Scribe were at my direction and personally dictated by me. I have reviewed the chart and agree that the record accurately reflects my personal performance of the history, physical exam, medical decision making, and the department course for this patient. I have also personally directed, reviewed, and agree with the discharge instructions and disposition.
[2018-01-21] MEDS ORDERED: Sodium Chloride 0.9% 1,000 ML IV ONE (20:06)
[2018-01-21 20:23] LABS: BASO # 0.1 K/uL (0.0-0.2); BASO % 1.4 % (0.0-2.0); EOS # 0.1 K/uL (0.0-0.7); EOS % 1.1 % (0.0-4.0); HEMOGLOBIN 15.3 g/dL (12.0-18.0); LYMPH # 1.4 K/uL (1.0-4.3); LYMPH % 23.3 % (20.0-40.0); MEAN CELL VOLUME 94.9 fL (80.0-94.0); MEAN CORPUSCULAR HGB CONC 33.7 g/dL (33.0-37.0); MEAN PLATELET VOLUME 7.8 fL (7.2-11.7); MONO # 0.9 K/uL (0.0-0.8); MONO % 14.8 % (0.0-10.0); NEUT # 3.5 K/uL (1.8-7.0); NEUT % 59.4 % (50.0-75.0); NRBC % 0.4 % (0.0-2.0); RBC 4.78 Mil/uL (4.40-5.90); RED CELL DISTRIBUTION WIDTH 15.7 % (11.5-14.5)
[2018-01-21 20:35] LABS: SQUAMOUS EPITHIAL < 1 /hpf (0-5); URINE BACTERIA OCC (<OCC); URINE BILIRUBIN 2+ (NEGATIVE); URINE BLOOD NEGATIVE (NEGATIVE); URINE CLARITY Clear (Clear); URINE COLOR Amber (YELLOW); URINE GLUCOSE (UA) NORMAL (Normal); URINE HYALINE CAST >20 /lpf (0-2); URINE LEUKOCYTE ESTERASE NEG Leu/uL (Negative); URINE PROTEIN 2+ mg/dL (NEGATIVE)
[2018-01-21 20:40] LABS: BARBITURATES, UR NEGATIVE (NEGATIVE); BENZODIAZEPINES, UR NEGATIVE (NEGATIVE); OPIATES, UR NEGATIVE (NEGATIVE); PHENCYCLIDINE, UR NEGATIVE (NEGATIVE)
[2018-01-21 20:49] LABS: ALB/GLOB RATIO 1.2 (1.0-2.1); ALBUMIN 5.1 g/dL (3.5-5.0); ALT/SGPT 67 U/L (21-72); AST/SGOT 264 U/L (17-59); BLOOD UREA NITROGEN 14 mg/dL (9-20); GFR NON-AFRICAN AMERICAN > 60
[2018-01-22 05:46] VITALS: O2SAT 98
[2018-01-22 05:59] VITALS: BP 126/79; PULSE 91; RESP 20
== END 2018-01-22 06:21 | disposition home or self-care (01) ==
LOC: C.ER 19:34
DX: F10.129 Alcohol abuse with intoxication, unspecified (principal); Y90.8 Blood alcohol level of 240 mg/100 ml or more
CPT/HCPCS: 80053; 80320; 80324; 80345; 80346; 80349; 80353; 80358; 80361; 81001; 82948; 83735; 83992; 84100; 85025; 96360; 99285; J7030

== ENCOUNTER 2018-01-25 00:05 | Emergency (ER) | payer MEDICAID ==
[2018-01-25 00:06] VITALS: BMI 28.7
--- NOTE | 2018-01-25 00:09 | C.PDOC ---
History Of Present Illness 57 y/o male MAXA after being found intoxicated in public. Patient has no evidence of trauma and denies SI/HI. Patient still has badge from last visit on 01/21/18. Time Seen by Provider: 01/25/18 00:08 Chief Complaint (Nursing): Substance Abuse History Per: EMS History/Exam Limitations: no limitations Onset/Duration Of Symptoms: Hrs Current Symptoms Are (Timing): Still Present Suicide/Self Injury Attempted (Context): None Modifying Factor(s): Alcohol Severity: None Pain Scale Rating Of: 0 Associated Symptoms: denies: Suicidal Thoughts Involuntary Hold By: None Recent travel outside of the [place]: No Additional History Per: Patient Past Medical History Reviewed: Historical Data, Nursing Documentation, Vital Signs - Medical History PMH: Anxiety, COPD, Depression, Diabetes, Fractures, HTN, Pulmonary Embolism, Schizophrenia, Seizures Denies: Chronic Kidney Disease - [facility] Procedures ALCOHOL DETOXIFICATION (02/24/13) DETOXIFICATION SERVICES FOR SUBSTANCE ABUSE TREATMENT (06/28/17) GROUP CHAIR UPHOLSTERER FOR SUBSTANCE ABUSE TREATMENT, PSYCHOEDUCATION (09/18/16) GROUP PSYCHOTHERAPY (10/07/16) INDIV PSYCHOTHERAPY FOR SUBSTANCE ABUSE TREATMENT, SUPPORT (09/18/16) INDIVIDUAL PSYCHOTHERAPY, SUPPORTIVE (10/07/16) INJECT/INFUSE ELECTROLYT (02/20/13) INJECT/INFUSE NEC (05/02/13) MEDICATION MANAGEMENT (10/07/16) MEDS MGMT FOR SUBSTANCE ABUSE TREATMENT, METHADONE MAINT (07/27/16) MEDS MGMT FOR SUBSTANCE ABUSE TREATMENT, OTH REPL MED (09/18/16) Family History: States: No Known Family Hx - Social History Hx Tobacco Use: Yes Hx Alcohol Use: Yes Hx Substance Use: Yes ("long time ago") - Immunization History Hx Tetanus Toxoid Vaccination: No Hx Influenza Vaccination: No Hx Pneumococcal Vaccination: No Review Of Systems Constitutional: Negative for: Fever, Chills Cardiovascular: Negative for: Chest Pain Respiratory: Negative for: Shortness of Breath Gastrointestinal: Negative for: Nausea, Vomiting Neurological: Negative for: Weakness, Numbness Psych: Negative for: Suicidal ideation, Other (Homicidal ideation) Physical Exam - Physical Exam Appears: Non-toxic, No Acute Distress, Other (Alcohol on breath) Skin: Warm, Dry Head: Normacephalic Eye(s): bilateral: Normal Inspection Oral Mucosa: Moist Neck: Supple Neurological/Psych: Oriented x3, Normal Speech Gait: Steady ED Course And Treatment O2 Sat by Pulse Oximetry: 100 (RA) Pulse Ox Interpretation: Normal Reevaluation Time: 05:42 Reassessment Condition: Improved Disposition Counseled Patient/Family Regarding: Studies Performed, Diagnosis, Need For Followup - Disposition Referrals: [facility] [Outside] Disposition: HOME/ ROUTINE Disposition Time: 00:09 Condition: FAIR Instructions: Alcohol Abuse and Alcoholism (DC) Forms: Must See [place] (Andorran) - Clinical Impression Clinical Impression: Alcohol abuse, Alcohol intoxication - Scribe Statement The provider has reviewed the documentation as recorded by the Lan Espinoaz Provider Attestation: All medical record entries made by the Lan were at my direction and personally dictated by me. I have reviewed the chart and agree that the record accurately reflects my personal performance of the history, physical exam, medical decision making, and the department course for this patient. I have also personally directed, reviewed, and agree with the discharge instructions and disposition.
[2018-01-25 00:10] VITALS: RESP 20
[2018-01-25 02:28] VITALS: BP 142/78; PULSE 74; TEMP 98.2
[2018-01-25 05:43] VITALS: O2SAT 100
== END 2018-01-25 06:26 | disposition home or self-care (01) ==
LOC: C.ER 00:05
DX: F10.129 Alcohol abuse with intoxication, unspecified (principal); Y90.9 Presence of alcohol in blood, level not specified

== ENCOUNTER 2018-01-26 19:33 | Emergency (ER) | payer MEDICAID ==
[2018-01-26 19:33] VITALS: BMI 28.7
[2018-01-26 19:47] VITALS: PULSE 76
--- NOTE | 2018-01-26 19:55 | C.PDOC ---
History Of Present Illness Patient brought in via EMS after being found lying on the street intoxicated. Denies any physical complaints at this time. Time Seen by Provider: 01/26/18 19:50 Chief Complaint (Nursing): Substance Abuse History Per: Patient, EMS History/Exam Limitations: no limitations Onset/Duration Of Symptoms: Hrs Current Symptoms Are (Timing): Still Present Suicide/Self Injury Attempted (Context): None Modifying Factor(s): Alcohol Severity: None Pain Scale Rating Of: 0 Associated Symptoms: denies: Depression, Suicidal Thoughts Involuntary Hold By: None Recent travel outside of the [place]: No Past Medical History Reviewed: Historical Data, Nursing Documentation, Vital Signs Vital Signs: Last Vital Signs Temp 97.9 F 01/26/18 19:45 Pulse 76 01/26/18 19:45 Resp 16 01/26/18 19:45 BP 133/93 H 01/26/18 19:45 Pulse Ox 96 01/26/18 19:45 - Medical History PMH: Anxiety, COPD, Depression, Diabetes, Fractures, HTN, Pulmonary Embolism, Schizophrenia, Seizures Denies: Chronic Kidney Disease - [facility] ALCOHOL DETOXIFICATION (02/24/13) DETOXIFICATION SERVICES FOR SUBSTANCE ABUSE TREATMENT (06/28/17) GROUP SENIOR TECHNICAL MANAGER FOR SUBSTANCE ABUSE TREATMENT, PSYCHOEDUCATION (09/18/16) GROUP PSYCHOTHERAPY (10/07/16) INDIV PSYCHOTHERAPY FOR SUBSTANCE ABUSE TREATMENT, SUPPORT (09/18/16) INDIVIDUAL PSYCHOTHERAPY, SUPPORTIVE (10/07/16) INJECT/INFUSE ELECTROLYT (02/20/13) INJECT/INFUSE NEC (05/02/13) MEDICATION MANAGEMENT (10/07/16) MEDS MGMT FOR SUBSTANCE ABUSE TREATMENT, METHADONE MAINT (07/27/16) MEDS MGMT FOR SUBSTANCE ABUSE TREATMENT, OTH REPL MED (09/18/16) Family History: States: No Known Family Hx - Social History Hx Tobacco Use: Yes Hx Alcohol Use: Yes Hx Substance Use: Yes ("long time ago") - Immunization History Hx Tetanus Toxoid Vaccination: No Hx Influenza Vaccination: No Hx Pneumococcal Vaccination: No Review Of Systems Constitutional: Negative for: Fever, Chills Cardiovascular: Negative for: Chest Pain, Palpitations Respiratory: Negative for: Cough, Shortness of Breath Gastrointestinal: Negative for: Nausea, Vomiting Neurological: Negative for: Weakness, Numbness Physical Exam - Physical Exam Appears: Non-toxic, Other (ETOH on breath, no sign of injury) Skin: Warm, Dry Head: Normacephalic Oral Mucosa: Moist Chest: Symmetrical, No Tenderness Cardiovascular: Rhythm Regular Respiratory: No Rales, No Rhonchi, No Wheezing Gastrointestinal/Abdominal: Soft, No Tenderness Neurological/Psych: Oriented x3 ED Course And Treatment O2 Sat by Pulse Oximetry: 96 (Room air) Pulse Ox Interpretation: Normal Reevaluation Time: 05:04 Reassessment Condition: Improved Disposition Counseled Patient/Family Regarding: Studies Performed, Diagnosis, Need For Followup - Disposition Referrals: [facility] [Outside] Disposition: HOME/ ROUTINE Disposition Time: 19:54 Condition: FAIR Instructions: Alcohol Abuse and Alcoholism (DC) Forms: [employer] (Moldovan) - Clinical Impression Clinical Impression: Alcohol abuse, Alcohol intoxication - Scribe Statement The provider has reviewed the documentation as recorded by the Scribe Lucien Duncan All medical record entries made by the Scribe were at my direction and personally dictated by me. I have reviewed the chart and agree that the record accurately reflects my personal performance of the history, physical exam, medical decision making, and the department course for this patient. I have also personally directed, reviewed, and agree with the discharge instructions and disposition.
[2018-01-27 02:11] VITALS: BP 132/90; RESP 20; TEMP 98
[2018-01-27 05:04] VITALS: O2SAT 96
== END 2018-01-27 06:35 | disposition home or self-care (01) ==
LOC: C.ER 19:33
DX: F10.129 Alcohol abuse with intoxication, unspecified (principal)

== ENCOUNTER 2018-02-16 16:28 | Inpatient (IN) | payer MEDICAID ==
[2018-02-16 16:28] VITALS: BMI 28.7
--- NOTE | 2018-02-16 17:16 | C.PDOC ---
History Of Present Illness 57 years old homeless male brought in to ED by EMS for public intoxication. Patient states PMHx of schizophrenia and reports suicidal ideation with no plan. Denies HI, or physical complaints. Patient requests seeing a post tensioning ironworker helper "to help him with his schizophrenia." Patient admits to drinking daily including today. Time Seen by Provider: 02/16/18 16:40 Chief Complaint (Nursing): Psychiatric Evaluation History Per: Patient History/Exam Limitations: no limitations Onset/Duration Of Symptoms: Hrs Current Symptoms Are (Timing): Still Present Suicide/Self Injury Attempted (Context): None Modifying Factor(s): Alcohol Associated Symptoms: Suicidal Thoughts. denies: Suicidal Plan Involuntary Hold By: None Recent travel outside of the [place]: No Past Medical History Reviewed: Historical Data, Nursing Documentation, Vital Signs - Medical History PMH: Anxiety, COPD, Depression, Diabetes, Fractures, HTN, Pulmonary Embolism, Schizophrenia, Seizures - [facility] Procedures ALCOHOL DETOXIFICATION (02/24/13) DETOXIFICATION SERVICES FOR SUBSTANCE ABUSE TREATMENT (06/28/17) GROUP MILK SAMPLER FOR SUBSTANCE ABUSE TREATMENT, PSYCHOEDUCATION (09/18/16) GROUP PSYCHOTHERAPY (10/07/16) INDIV PSYCHOTHERAPY FOR SUBSTANCE ABUSE TREATMENT, SUPPORT (09/18/16) INDIVIDUAL PSYCHOTHERAPY, SUPPORTIVE (10/07/16) INJECT/INFUSE ELECTROLYT (02/20/13) INJECT/INFUSE NEC (05/02/13) MEDICATION MANAGEMENT (10/07/16) MEDS MGMT FOR SUBSTANCE ABUSE TREATMENT, METHADONE MAINT (07/27/16) MEDS MGMT FOR SUBSTANCE ABUSE TREATMENT, OTH REPL MED (09/18/16) Family History: States: Unknown Family Hx - Social History Hx Tobacco Use: Yes Hx Alcohol Use: Yes Hx Substance Use: Yes ("long time ago") - Immunization History Hx Tetanus Toxoid Vaccination: No Hx Influenza Vaccination: No Hx Pneumococcal Vaccination: No Review Of Systems Constitutional: Negative for: Fever, Chills Gastrointestinal: Negative for: Nausea, Vomiting, Abdominal Pain, Diarrhea Skin: Negative for: Rash Neurological: Negative for: Weakness, Numbness Psych: Positive for: Suicidal ideation Physical Exam - Physical Exam Appears: Non-toxic, No Acute Distress, Unkempt, Other (Poor hygiene) Skin: Normal Color, Warm, Dry, No Rash Head: Atraumatic, Normacephalic Eye(s): bilateral: Normal Inspection, PERRL, EOMI Oral Mucosa: Moist Neck: Normal ROM, Supple Chest: Symmetrical, No Tenderness Cardiovascular: Rhythm Regular, No Murmur Respiratory: Normal Breath Sounds, No Accessory Muscle Use, No Rales, No Rhonchi, No Wheezing Gastrointestinal/Abdominal: Bowel Sounds, Soft, No Tenderness, No Mass, No Distention, No Guarding Extremity: Normal ROM Extremity: Bilateral: Atraumatic, Normal Color And Temperature, Normal ROM Pulses: Left Radial: Normal, Right Radial: Normal Neurological/Psych: Oriented x3, Other (Slow clear speech. ) Gait: Steady ED Course And Treatment - Laboratory Results Result Diagrams: 02/16/18 17:23 02/16/18 17:23 Medical Decision Making Medical Decision Making: Plan: * Blood work * Urinalysis * Crisis Notified 00:23 - hardboard factory worker evaluated patient, accepts patient to psych 5 east. Patient had k of 3.42 that will be replaced with 40 meq of K-Dur Disposition Counseled Patient/Family Regarding: Studies Performed, Diagnosis - Disposition Disposition: HOSPITALIZED Disposition Time: 00:17 Condition: STABLE Forms: [employer] [facility] ([place] Island[place]) - Clinical Impression Clinical Impression: Schizophrenia, Alcohol abuse, Alcohol intoxication, Major depression - Scribe Statement The provider has reviewed the documentation as recorded by the Scribmanolo Alejandre All medical record entries made by the Scribe were at my direction and personally dictated by me. I have reviewed the chart and agree that the record accurately reflects my personal performance of the history, physical exam, medical decision making, and the department course for this patient. I have also personally directed, reviewed, and agree with the discharge instructions and disposition.
[2018-02-16 17:26] LABS: BASO # 0.1 K/uL (0.0-0.2); BASO % 1.4 % (0.0-2.0); EOS # 0.1 K/uL (0.0-0.7); HEMOGLOBIN 13.5 g/dL (12.0-18.0); LYMPH # 1.1 K/uL (1.0-4.3); LYMPH % 18.2 % (20.0-40.0); MEAN CELL VOLUME 96.1 fL (80.0-94.0); MEAN CORPUSCULAR HEMOGLOBIN 32.3 pg (27.0-31.0); MEAN CORPUSCULAR HGB CONC 33.6 g/dL (33.0-37.0); MEAN PLATELET VOLUME 8.3 fL (7.2-11.7); MONO # 0.7 K/uL (0.0-0.8); MONO % 11.2 % (0.0-10.0); NEUT # 4.2 K/uL (1.8-7.0); NEUT % 67.2 % (50.0-75.0); RBC 4.18 Mil/uL (4.40-5.90); RED CELL DISTRIBUTION WIDTH 15.3 % (11.5-14.5); WHITE BLOOD COUNT 6.2 K/uL (4.8-10.8)
[2018-02-16 17:36] LABS: URINE BILIRUBIN NEGATIVE (NEGATIVE); URINE BLOOD NEGATIVE (NEGATIVE); URINE CLARITY Clear (Clear); URINE COLOR Amber (YELLOW); URINE GLUCOSE (UA) NORMAL (Normal); URINE HYALINE CAST 0-2 /lpf (0-2); URINE LEUKOCYTE ESTERASE NEG Leu/uL (Negative); URINE PROTEIN 1+ mg/dL (NEGATIVE)
[2018-02-16 17:41] LABS: ALB/GLOB RATIO 1.2 (1.0-2.1); ALBUMIN 4.3 g/dL (3.5-5.0); ALT/SGPT 46 U/L (21-72); AST/SGOT 163 U/L (17-59); BLOOD UREA NITROGEN 10 mg/dL (9-20); CALCIUM 8.4 mg/dl (8.6-10.4); GFR NON-AFRICAN AMERICAN > 60
[2018-02-16 17:42] LABS: BARBITURATES, UR NEGATIVE (NEGATIVE); OPIATES, UR NEGATIVE (NEGATIVE); PHENCYCLIDINE, UR NEGATIVE (NEGATIVE)
[2018-02-16 17:45] LABS: BENZODIAZEPINES, UR POSITIVE (NEGATIVE)
[2018-02-16] MEDS ORDERED: Potassium Chloride 20 mEq ER Tab PO STA (19:52)
[2018-02-16] MEDS ORDERED: Potassium Chloride 20 mEq ER Tab PO ONE (20:24)
--- NOTE | 2018-02-17 01:52 | PCM.BM ---
<Sari Fallon - Last Filed: 02/17/18 01:50> Treatment Plan Problems - Problems identified on initial assessmt Zchizophrenia Date Initiated: 02/17/18 Time Initiated: 01:50 Assessment reference: NA Status: Active Substance Abuse Date Initiated: 02/17/18 Time Initiated: 01:51 Assessment reference: NA Status: Active Treatment assets and liabiliti Patient Assests: cooperative, resourceful, ADL independent, negotiates basic needs, cognitively intact Patient Liabilities: financial problems (Homeless), poor support system (Pt. i shomeless ), substance abuse (abuse ETOH), medical problems (Pt. has hx. of pancreatatis, hypertension, diabettes), legal issue (pt. has many tickets and hx of fci time) - Milieu Protocol Maintain good personal hygiene: daily Encourage regular showers, daily Remind patient to perform daily oral care, daily Assist patient to perform ADL's Maintain personal safety: every shift Educate patient to report safety concerns to staff, every shift Monitor environment for contraband/sharps Medication safety: Monitor for expected outcome, potential side effects: every shift, Assess barriers to learning: every shift, Assess readiness for medication education: every shift <Pablo Shipley - Last Filed: 02/18/18 01:23> - Diagnosis (1) Schizoaffective disorder, depressive type Status: Acute Interventions: 02/18/18 01:23 * Assess/adjust medications daily and /or as needed * See patient on an individual basis 7x/week to assess status of hallucinations * Discuss risks, benefits, side effects and alternatives of medications (2) Alcohol use disorder, severe, dependence Status: Acute Interventions: 02/18/18 01:23 * Assess 7x/week regarding severity of withdrawal * Educate regarding risks, benefits, side effects and alternatives of medicati ons * Use Motivational Interviewing for abstinence * Use CBT for relapse prevention * Medication management for withdrawal symptoms * Encourage medication assisted treatment (3) Opioid use disorder, mild, in early remission, abuse Status: Acute Interventions: 02/18/18 01:23 * Assess 7x/week regarding severity of withdrawal * Educate regarding risks, benefits, side effects and alternatives of medications * Use Motivational Interviewing for abstinence * Use CBT for relapse prevention * Medication management for withdrawal symptoms * Encourage medication assisted treatment <Kareen Gandara - Last Filed: 02/18/18 13:37> Family Contact Family involvement: Famliy/SO not involved - Goals for Treatment Patient goals for treatment: "I want to go home." Discharge/Continuing Care - Education Needs Education Needs: Patient Medication, Patient Coping Skills, Patient Placement options, Patient Community resources - Discharge Discharge Criteria: Tolerates medication w/o severe side effects, No longer exhibiting s/s of withdrawal, Reduction of target symptoms Discharge to:: Detention - Treatment Team Participation Discussed with Family/SO: No Was Patient/Family/SO present at Treatment Team Meeting: No
[2018-02-17] MEDS: Multiple Vitamins Tab PO SCH (15:35)
--- NOTE | 2018-02-17 23:30 | PCM.PSYCH ---
Initial Psychiatric Evaluation - Initial Psychiatric Evaluation Type of Admission: Voluntary Legal Status: Capacity Chief Complaint (in patient's own words): I did help for my alcohol use. History of Present Illness and Precipitating Events: Patient is a 57 years old, single, unemployed, on disability, male with history of schizoaffective disorder depressive type, alcohol use disorder, opioid use disorder in early remission was admitted due to worsening symptoms of psychosis, depression and withdrawing from alcohol. Patient reported was noncompliant with treatment, had auditory and visual hallucinations at times, continue to drink alcohol. History of multiple inpatient psychiatric admissions. Alcohol: Started drinking alcohol at 30 years of age, increased gradually, currently was drinking 3 pints of vodka daily. Last used yesterday. History of 1 previous detox and no rehab. Patient also has history of seizure due to alcohol withdrawal. Denies use of any other drugs including cocaine, cannabis and heroin. He was smoking cigarettes in the past. Patient was born in [place] and has high school graduation. He is not working and is on disability. Never and has no children. He is homeless full as 1 month, was living with a friend who kicked him out of his room a month ago. His height is 5 feet 10 inches and weight is 190 pounds. Current Medications: Active Medications Generic Name Dose Route Start Last Admin Trade Name Freq PRN Reason Stop Dose Admin Folic Acid 1 mg 02/17/18 15:15 02/17/18 15:35 Folic Acid PO 1 mg DAILY RAHEEM Administration Ibuprofen 600 mg 02/17/18 15:11 02/17/18 19:22 Motrin Tab PO 600 mg Q6 PRN Administration Pain, moderate (4-7) Influenza Virus Vaccine 60 mcg 02/20/18 10:00 Fluzone Quad [id number] IM 02/20/18 10:01 .ONCE ONE Lorazepam 2 mg 02/17/18 15:15 02/17/18 19:21 Ativan PO 02/22/18 15:14 2 mg Q4 RAHEEM Administration Taper Lorazepam 1 mg 02/17/18 15:07 02/17/18 21:19 Ativan PO 1 mg Q4H PRN Administration Symptoms of alcohol withdrawl Multivitamins 1 tab 02/17/18 15:15 02/17/18 15:35 Hexavitamin PO 1 tab DAILY RAHEEM Administration Pneumococcal Polyvalent Vaccine 0.5 ml 02/20/18 10:00 Pneumovax 23 Vaccine IM 02/20/18 10:01 .ONCE ONE Thiamine HCl 100 mg 02/17/18 15:15 02/17/18 15:35 Vitamin B1 Tab PO 100 mg DAILY RAHEEM Administration Trazodone HCl 100 mg 02/17/18 01:20 02/17/18 21:20 Desyrel PO 100 mg HS PRN Administration Agitation Past Psychiatric History - Past Psychiatric History Previous Treatment History: Intensive Outpatient [facility]: [facility] History of Abuse: None reported History of ETOH/Drug Use: See HPI History of Family Illness: Reported his father was alcoholic. Pertinent Medical Hx (Current Medical&Sleep Prob, Allergies): Allergies Allergy/AdvReac Type Severity Reaction Status Date / Time No Known Allergies Allergy Verified 02/16/18 16:33 SEROquel 02/16/18 COPD Alcohol withdrawal seizures Review of Systems - Psychiatric Psychiatric: As Per HPI, Depression, Paranoia Mental Status Examination - Personal Presentation Personal Presentation: Looks stated age - Affect Affect: Depressed - Motor Activity Motor Activity: Calm - Reliability in Providing Information Reliability in Providing Information: Fair - Speech Speech: Organized - Mood Mood: Depressed - Formal Thought Process Formal Thought Process: No Impairment - Hallucinations/Delusions Hallucinations: Other (None reported) Delusions: Other - Obsessions/Compulsions Obsessions: None Compulsions: None - Cognitive Functions Orientation: Person, Place, Situation, Time Sensorium: Alert Attention/Concentration: Attentive Abstract Thinking: Kittrell Estimate of Intelligence: Average Judgement: Intact, as evidence by: Insight regarding need for hospitalization Memory: Recent intact, as evidence by: Ability to recall events of the day, Remote intact, as evidenced by: Ability to recall historical events - Risk Risk: Withdrawal, Diminished functioning - Strength & Assets Inventory Strength & Assets Inventory: Cooperative - Limitations Limitations: Other (Homeless) DSM 5 DX - DSM 5 DSM 5 Diagnosis: Schizoaffective disorder depressive type. Alcohol use disorder severe. Opioid use disorder in early remission - Recommended/Plan of Treatment Treatment Recommendations and Plan of Treatment: Patient education. Supportive therapy. CBT for relapse prevention. NC for abstinence. We will continue Ativan taper for alcohol withdrawal symptoms. We will start other as needed medication. We will start Seroquel 200 mg at bedtime. Projected ELOS: 8-10 days - Smoking Cessation Smoking Cessation Initiated: No Reason for not providing: Patient does not smoke cigarettes.
[2018-02-18] MEDS: Multiple Vitamins Tab PO SCH (10:33)
--- NOTE | 2018-02-18 14:17 | PCM.PYCHPN ---
Psychiatric Progress Note - Psychiatric Progress Note Patient seen today, length of contact: 15 minutes Patient Chief Complaint: I'm feeling little better. Swelling in my legs is also less. Problems Identified/Issues Discussed: Patient seen, chart reviewed, case discussed with the staff. Issues related to illness and treatment were discussed with the patient and staff. Reported compliant with treatment with no adverse affects. Tolerating treatment very well. Staff reported that during the night patient was little confused, wants to go out. Patient reported feeling little better with the treatment, has less shaking, less sweating. Swelling in his legs is also less. Patient was more coherent. Ammonia level this morning was little out of limit. Patient was calm and cooperative. Awake, alert and oriented 3. We will observe to rule out delirium. Aftercare discussed with the patient. At the time of evaluation, patient had no delusions, no auditory or visual hallucinations, no suicidal ideations or homicidal ideations. Medical Problems: Pancreatitis COPD Alcohol withdrawal seizures Diagnostic Results: Reviewed DSM 5 Symptoms Update: Some improvement with treatment Medication Change: No Medical Record Reviewed: Yes Mental Status Examination - Cognitive Function Orientation: Person, Place, Situation, Time Memory: Intact Attention: WNL Concentration: WNL Association: [facility] Fund of Knowledge: [facility] Decription of patient's judgement and insights: Fair - Mood Mood: Depressed - Affect Affect: Depressed - Speech Speech: Appropriate - Formal Thought Process Formal Thought Process: No Impairment Psychotic Thoughts and Behaviors: None - Suicidal Ideation Suicidal Ideation: No - Homicidal Ideation Homicidal Ideation: No Goal/Treatment Plan - Goal/Treatment Plan Need for Continued Stay: Remain at risks for inpatient hospitalization, Discharge may exacerbated symptoms, Severe functional impairment Progress Toward Problem(s) and Goals/Treatment Plan: Patient education. Supportive therapy. CBT for relapse prevention. NH for abstinence. Continue treatment as before. Estimated Date of D/C: 02/27/18 - Smoking Cessation Smoking Cessation Initiated: No Reason for not providing: Patient doesn't smoke cigarettes.
[2018-02-19] MEDS: Tramadol 25 mg PO PRN (00:22)
[2018-02-19 09:41] LABS: ALB/GLOB RATIO 1.2 (1.0-2.1); ALBUMIN 4.5 g/dL (3.5-5.0); ALT/SGPT 40 U/L (21-72); AST/SGOT 93 U/L (17-59); BLOOD UREA NITROGEN 12 mg/dL (9-20); CALCIUM 9.1 mg/dl (8.6-10.4); GFR NON-AFRICAN AMERICAN > 60
[2018-02-19] MEDS: Multiple Vitamins Tab PO SCH (10:00)
--- NOTE | 2018-02-19 23:23 | PCM.PYCHPN ---
Psychiatric Progress Note - Psychiatric Progress Note Patient seen today, length of contact: 15 minutes Patient Chief Complaint: I'm feeling little better. Problems Identified/Issues Discussed: Patient seen, chart reviewed, case discussed with the staff. Issues related to illness and treatment were discussed with the patient and staff. Reported compliant with treatment with no adverse affects. Tolerating treatment very well. Patient reported feeling better with the treatment. Patient was more coherent. Mood reported as okay. Affect appropriate. Patient was calm and cooperative. Awake, alert and oriented 3. Aftercare discussed with the patient. At the time of evaluation, patient had no delusions, no auditory or visual hallucinations, no suicidal ideations or homicidal ideations. Medical Problems: Pancreatitis COPD Alcohol withdrawal seizures Diagnostic Results: Reviewed DSM 5 Symptoms Update: Improving with treatment. Medication Change: No Medical Record Reviewed: Yes Mental Status Examination - Cognitive Function Orientation: Person, Place, Situation, Time Memory: Intact Attention: WNL Concentration: WNL Association: WNL Fund of Knowledge: [facility]N Decription of patient's judgement and insights: Fair - Mood Mood: Depressed (Less than before) - Affect Affect: Depressed - Speech Speech: Appropriate - Formal Thought Process Formal Thought Process: No Impairment Psychotic Thoughts and Behaviors: None - Suicidal Ideation Suicidal Ideation: No - Homicidal Ideation Homicidal Ideation: No Goal/Treatment Plan - Goal/Treatment Plan Need for Continued Stay: Remain at risks for inpatient hospitalization, Discharge may exacerbated symptoms, Severe functional impairment Progress Toward Problem(s) and Goals/Treatment Plan: Patient education. Supportive therapy. CBT for relapse prevention. [place] for abstinence. Continue treatment as before. Estimated Date of D/C: 02/27/18 - Smoking Cessation Smoking Cessation Initiated: No
[2018-02-20] MEDS: Tramadol 25 mg PO PRN (00:30)
[2018-02-20] MEDS ORDERED: Influenza Vaccine 60 MCG/0.5 ML SYR (3 yr & up) IM ONE (10:00)
[2018-02-20] MEDS ORDERED: Pneumococcal 23-Valent Vaccine IM ONE (10:00)
[2018-02-20] MEDS: Multiple Vitamins Tab PO SCH ×2 (10:01→12:31)
[2018-02-21] MEDS: Multiple Vitamins Tab PO SCH (09:16)
--- NOTE | 2018-02-21 20:12 | PCM.PYCHPN ---
Psychiatric Progress Note - Psychiatric Progress Note Patient seen today, length of contact: 15 minutes Patient Chief Complaint: I'm feeling better. Problems Identified/Issues Discussed: Patient seen, chart reviewed, case discussed with the staff. Issues related to illness and treatment were discussed with the patient and staff. Reported compliant with treatment with no adverse affects. Tolerating treatment very well. Patient reported feeling better with the treatment. Patient was more coherent. Mood reported as okay. Affect appropriate. Patient was calm and cooperative. Awake, alert and oriented 3. Aftercare discussed with the patient. At the time of evaluation, patient had no delusions, no auditory or visual hallucinations, no suicidal ideations or homicidal ideations. Medical Problems: Pancreatitis COPD Alcohol withdrawal seizures Diagnostic Results: Reviewed DSM 5 Symptoms Update: Some improvement with treatment . Medication Change: No Medical Record Reviewed: Yes Mental Status Examination - Cognitive Function Orientation: Person, Place, Situation, Time Memory: Intact Attention: WNL Concentration: WNL Association: WN Fund of Knowledge: [facility] Decription of patient's judgement and insights: Fair - Mood Mood: Depressed (Much less than before) - Affect Affect: Depressed - Speech Speech: Appropriate - Formal Thought Process Formal Thought Process: No Impairment Psychotic Thoughts and Behaviors: None - Suicidal Ideation Suicidal Ideation: No - Homicidal Ideation Homicidal Ideation: No Goal/Treatment Plan - Goal/Treatment Plan Need for Continued Stay: Remain at risks for inpatient hospitalization, Discharge may exacerbated symptoms, Severe functional impairment Progress Toward Problem(s) and Goals/Treatment Plan: Patient education. Supportive therapy. CBT for relapse prevention. DC for abstinence. Continue treatment as before. Estimated Date of D/C: 02/27/18 - Smoking Cessation Smoking Cessation Initiated: No
[2018-02-22 06:25] VITALS: O2SAT 97
[2018-02-22] MEDS: Multiple Vitamins Tab PO SCH (09:39)
--- NOTE | 2018-02-22 15:52 | PCM.PYCHPN ---
Psychiatric Progress Note - Psychiatric Progress Note Patient seen today, length of contact: 15 minutes Patient Chief Complaint: I'm feeling much better. Problems Identified/Issues Discussed: Patient seen, chart reviewed, case discussed with the staff. Issues related to illness and treatment were discussed with the patient and staff. Reported compliant with treatment with no adverse affects. Tolerating treatment very well. Patient reported feeling much better, has few withdrawal symptoms including body aches and anxiety. Swelling in his legs and feet is almost subsided. Patient was more coherent. Mood reported as okay. Affect appropriate. Patient was calm and cooperative. Awake, alert and oriented 3. Aftercare discussed with the patient. At the time of evaluation, patient had no delusions, no auditory or visual hallucinations, no suicidal ideations or homicidal ideations. Medical Problems: Pancreatitis COPD Alcohol withdrawal seizures Diagnostic Results: Reviewed DSM 5 Symptoms Update: Improving with treatment. Medication Change: No Medical Record Reviewed: Yes Mental Status Examination - Cognitive Function Orientation: Person, Place, Situation, Time Memory: Intact Attention: WNL Concentration: WNL Association: WN Fund of Knowledge: [facility] Decription of patient's judgement and insights: Fair - Mood Mood: Depressed (Much less than before) - Affect Affect: Other (Appropriate) - Speech Speech: Appropriate - Formal Thought Process Formal Thought Process: No Impairment Psychotic Thoughts and Behaviors: None - Suicidal Ideation Suicidal Ideation: No - Homicidal Ideation Homicidal Ideation: No Goal/Treatment Plan - Goal/Treatment Plan Need for Continued Stay: Remain at risks for inpatient hospitalization, Discharge may exacerbated symptoms, Severe functional impairment Progress Toward Problem(s) and Goals/Treatment Plan: Patient education. Supportive therapy. CBT for relapse prevention. PA for abstinence. Continue treatment as before. Estimated Date of D/C: 02/23/18 - Smoking Cessation Smoking Cessation Initiated: No
[2018-02-22] MEDS: Tramadol 25 mg PO PRN (21:15)
[2018-02-23 09:38] VITALS: BP 100/75; PULSE 99; RESP 20; TEMP 98
[2018-02-23] MEDS: Multiple Vitamins Tab PO SCH (10:09)
--- NOTE | 2018-02-23 11:04 | PCM.PYCHDC ---
Mental Status Examination - Mental Status Examination Orientation: Person, Place, Situation, Time Memory: Intact Mood: Neutral Affect: Constricted Speech: Soft Attention: WNL Concentration: WNL Association: WNL Fund of Knowledge: WNL Formal Thought Process: No Impairment Description of patient's judgement and insight: good, fair Psychotic Thoughts and Behaviors: denies any AVH Suicidal Ideation: No Current Homicidal Ideation?: No Discharge Summary - Discharge Note Reason for Hospitalization: Patient is a 57 years old, single, unemployed, on disability, male with history of schizoaffective disorder depressive type, alcohol use disorder, opioid use disorder in early remission was admitted due to worsening symptoms of psychosis, depression and withdrawing from alcohol. Patient reported was noncompliant with treatment, had auditory and visual hallucinations at times, continue to drink alcohol. History of multiple inpatient psychiatric admissions. Alcohol: Started drinking alcohol at 30 years of age, increased gradually, currently was drinking 3 pints of vodka daily. Last used yesterday. History of 1 previous detox and no rehab. Patient also has history of seizure due to alcohol withdrawal. Denies use of any other drugs including cocaine, cannabis and heroin. He was smoking cigarettes in the past. Patient was born in [place] and has high school graduation. He is not working and is on disability. Never and has no children. He is homeless full as 1 month, was living with a friend who kicked him out of his room a month ago. His height is 5 feet 10 inches and weight is 190 pounds. Consultations:: List each consultation separately and include: 1. Reason for request. 2. Findings. 3. Follow-up Summary of Hospital Course include:: 1. Description of specific treatment plan utilized for patients during their course of treatmen. 2. Summarize the time- course for resolution of acute symptoms and/or regressed behaviors. 3. Describe issues identified and worked on during hospitalization. 4. Describe medication utilized. 5. Describe medical problems identified and treated. 6. Reassessment of suicide risk - Final Diagnosis (DSM 5) Condition upon Discharge: STABLE DSM 5: Schizoaffective disorder depressive type. Alcohol use disorder severe. Opioid use disorder in early remission Disposition: HOME/ ROUTINE Prescriptions/Medication Reconciliation: QUEtiapine [SEROquel] 200 mg PO HS #30 tab traZODone [Desyrel] 100 mg PO HS PRN #30 tab PRN Reason: Agitation
== END 2018-02-23 11:30 | disposition home or self-care (01) | DRG 744 ==
LOC: C.ER 16:28 → C.5E 02-17 00:29
PROVIDERS: ADMIT Psychiatry & Neurology Psychiatry; ATTEND Psychiatry & Neurology Psychiatry
PROC: HZ2ZZZZ Detoxification Services for Substance Abuse Treatment (ICD-10-PCS; principal; 2018-02-17)
PROC: HZ52ZZZ Individual Psychotherapy for Substance Abuse Treatment, Cognitive-Behavioral (ICD-10-PCS; 2018-02-17)
PROC: HZ56ZZZ Individual Psychotherapy for Substance Abuse Treatment, Psychoeducation (ICD-10-PCS; 2018-02-17)
PROC: HZ42ZZZ Group Counseling for Substance Abuse Treatment, Cognitive-Behavioral (ICD-10-PCS; 2018-02-17)
PROC: HZ46ZZZ Group Counseling for Substance Abuse Treatment, Psychoeducation (ICD-10-PCS; 2018-02-17)
PROC: GZHZZZZ Group Psychotherapy (ICD-10-PCS; 2018-02-17)
PROC: GZ58ZZZ Individual Psychotherapy, Cognitive-Behavioral (ICD-10-PCS; 2018-02-17)
PROC: GZ56ZZZ Individual Psychotherapy, Supportive (ICD-10-PCS; 2018-02-17)
PROC: HZ59ZZZ Individual Psychotherapy for Substance Abuse Treatment, Supportive (ICD-10-PCS; 2018-02-17)
DX: F10.220 Alcohol dependence with intoxication, uncomplicated (principal); F25.1 Schizoaffective disorder, depressive type; F11.11 Opioid abuse, in remission; K85.90 Acute pancreatitis without necrosis or infection, unspecified; J44.9 Chronic obstructive pulmonary disease, unspecified; F10.230 Alcohol dependence with withdrawal, uncomplicated; G40.89 Other seizures; Y90.8 Blood alcohol level of 240 mg/100 ml or more; F41.9 Anxiety disorder, unspecified; I10 Essential (primary) hypertension; R45.851 Suicidal ideations; Z59.0 Homelessness; Z86.711 Personal history of pulmonary embolism; Z91.19 Patient's noncompliance with other medical treatment and regimen; Z87.891 Personal history of nicotine dependence; E11.9 Type 2 diabetes mellitus without complications

== ENCOUNTER 2018-02-25 22:13 | Emergency (ER) | payer MEDICAID ==
[2018-02-25 22:13] VITALS: BMI 28.7
[2018-02-26 00:44] LABS: ALB/GLOB RATIO 1.2 (1.0-2.1); ALT/SGPT 87 U/L (21-72); AST/SGOT 154 U/L (17-59); BLOOD UREA NITROGEN 18 mg/dL (9-20); CALCIUM 8.3 mg/dl (8.6-10.4); GFR NON-AFRICAN AMERICAN > 60
--- NOTE | 2018-02-26 02:28 | C.PDOC ---
History Of Present Illness 58 year old male presents to the ED for evaluation and requesting alcohol detox. Patient reports he is drinking more recently and needs help. Patient denies SI/HI, hallucinations, injury, fall, trauma, CP, SOB, abdominal pain. Time Seen by Provider: 02/25/18 22:53 Chief Complaint (Nursing): Medical Clearance History Per: Patient History/Exam Limitations: no limitations Onset/Duration Of Symptoms: Days Current Symptoms Are (Timing): Still Present Recent travel outside of the [place]: No Additional History Per: Patient Past Medical History Reviewed: Historical Data, Nursing Documentation, Vital Signs Vital Signs: Last Vital Signs Temp 98 F 02/25/18 22:26 Pulse 94 H 02/25/18 22:26 Resp 20 02/25/18 22:26 BP 111/75 02/25/18 22:26 Pulse Ox 98 02/25/18 22:26 - Medical History PMH: Anxiety, COPD, Depression, Diabetes, Fractures (HIP), HTN, Pulmonary Embolism, Schizophrenia (Patient states a history of schizophrenia), Seizures (ETOH related) Denies: Hepatitis, HIV, Chronic Kidney Disease, Sexually Transmitted Disease Surgical History: No Surg Hx - [facility] Procedures ALCOHOL DETOXIFICATION (02/24/13) DETOXIFICATION SERVICES FOR SUBSTANCE ABUSE TREATMENT (02/17/18) GROUP MOBILE SOLUTIONS ARCHITECT FOR SUBSTANCE ABUSE TREATMENT, PSYCHOEDUCATION (02/17/18) GROUP MOBILE SOLUTIONS ARCHITECT FOR SUBSTANCE ABUSE, COGNITIVE BEHAVIORAL (02/17/18) GROUP PSYCHOTHERAPY (02/17/18) INDIV PSYCHOTHERAPY FOR SUBSTANCE ABUSE TREATMENT, SUPPORT (02/17/18) INDIV PSYCHOTHERAPY FOR SUBSTANCE ABUSE, COGNITIV BEHAVIORAL (02/17/18) INDIV PSYCHOTHERAPY FOR SUBSTANCE ABUSE, PSYCHOEDUCATION (02/17/18) INDIVIDUAL PSYCHOTHERAPY, COGNITIVE-BEHAVIORAL (02/17/18) INDIVIDUAL PSYCHOTHERAPY, SUPPORTIVE (02/17/18) INJECT/INFUSE ELECTROLYT (02/20/13) INJECT/INFUSE NEC (05/02/13) MEDICATION MANAGEMENT (10/07/16) MEDS MGMT FOR SUBSTANCE ABUSE TREATMENT, METHADONE MAINT (07/27/16) MEDS MGMT FOR SUBSTANCE ABUSE TREATMENT, OTH REPL MED (09/18/16) Family History: States: Unknown Family Hx - Social History Hx Tobacco Use: Yes Hx Alcohol Use: Yes Hx Substance Use: Yes - Immunization History Hx Tetanus Toxoid Vaccination: No Hx Influenza Vaccination: No Hx Pneumococcal Vaccination: No Review Of Systems Constitutional: Negative for: Fever, Chills Cardiovascular: Negative for: Chest Pain Respiratory: Negative for: Shortness of Breath Gastrointestinal: Negative for: Nausea, Vomiting, Abdominal Pain Skin: Negative for: Rash Neurological: Negative for: Weakness, Numbness Psych: Negative for: Depression, Suicidal ideation Physical Exam - Physical Exam Appears: Non-toxic, No Acute Distress, Other (intoxicated) Skin: Normal Color, Warm, Dry Head: Atraumatic, Normacephalic Eye(s): bilateral: Normal Inspection Neck: Normal ROM, Supple Chest: Symmetrical Cardiovascular: Rhythm Regular Respiratory: Normal Breath Sounds, No Rales, No Rhonchi, No Wheezing Gastrointestinal/Abdominal: Soft, No Tenderness, No Guarding, No Rebound Extremity: Normal ROM, No Tenderness, No Swelling Neurological/Psych: Oriented x3, Normal Speech, Normal Cognition Gait: Steady ED Course And Treatment - Laboratory Results Result Diagrams: 02/25/18 23:59 O2 Sat by Pulse Oximetry: 98 (ON RA) Pulse Ox Interpretation: Normal Progress Note: Plan: - labs. - UA. - Crisis eval. Patient was seen by crisis counselor. Patient was recently discharged 3 day ago from psych facilty. Case discussed with Dr. Ha who states that pt does not meet admission criteria at this time, recommeds patient will be given resources for outpatient follow up. Labs reviewed patient had elevated alcohol level will observe until clinically sober. 6AM--Patient is seen ambulating in the ED with steady gait, NAD, sober and stable for D/C. Disposition Counseled Patient/Family Regarding: Diagnosis, Need For Followup, Rx Given - Disposition Referrals: [facility] [Outside] [facility] [Outside] [facility] [Outside] Disposition: HOME/ ROUTINE Disposition Time: 06:20 Condition: STABLE Additional Instructions: Please follow up in clinic Return to ER if worse Forms: [employer] 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 - Scribe Statement The provider has reviewed the documentation as recorded by the Scribe Kenny Berrios All medical record entries made by the Scribe were at my direction and personally dictated by me. I have reviewed the chart and agree that the record accurately reflects my personal performance of the history, physical exam, medical decision making, and the department course for this patient. I have also personally directed, reviewed, and agree with the discharge instructions and disposition.
[2018-02-26 06:24] VITALS: O2SAT 98
[2018-02-26 06:29] VITALS: BP 122/72; PULSE 82; RESP 20; TEMP 97.7
== END 2018-02-26 06:20 | disposition home or self-care (01) ==
LOC: C.ER 22:13
DX: F10.10 Alcohol abuse, uncomplicated (principal); Y90.9 Presence of alcohol in blood, level not specified

== ENCOUNTER 2018-05-18 16:57 | Emergency (ER) | payer MEDICAID ==
--- NOTE | 2018-05-18 18:14 | C.PDOC ---
History Of Present Illness Patient is a 58 year old male who is biba to the ED for public intoxication. Patient has had many prior evaluations at different hospitals for the same symptoms and is well known to EMS. Patient denies any SI, HI, hallucinations, or medical complaints at the present moment. <Polo Alexander - Last Filed: 05/19/18 02:30> History Per: Patient, EMS History/Exam Limitations: intoxication Onset/Duration Of Symptoms: Hrs Current Symptoms Are (Timing): Still Present Suicide/Self Injury Attempted (Context): None Modifying Factor(s): Alcohol Associated Symptoms: denies: Suicidal Thoughts, Suicidal Plan, Other (homicidal ideaiton, hallucinations ) Involuntary Hold By: None Recent travel outside of the [place]: No Additional History Per: Patient, EMS <Polo Alexander - Last Filed: 05/19/18 02:30> <Tina Abad - Last Filed: 05/19/18 05:26> Time Seen by Provider: 05/18/18 17:08 Chief Complaint (Nursing): Substance Abuse Past Medical History Reviewed: Historical Data, Nursing Documentation, Vital Signs Vital Signs: Last Vital Signs Temp 98.1 F 05/18/18 17:05 Pulse Resp 84 05/18/18 17:05 BP 124/87 05/18/18 17:05 Pulse Ox 16 05/18/18 17:05 - Medical History PMH: No Chronic Diseases Surgical History: No Surg Hx Family History: States: No Known Family Hx - Social History Hx Alcohol Use: Yes Hx Substance Use: No - Immunization History Hx Tetanus Toxoid Vaccination: No Hx Influenza Vaccination: No Hx Pneumococcal Vaccination: No <Polo Alexander - Last Filed: 05/19/18 02:30> Vital Signs: Last Vital Signs Temp 98.4 F 05/19/18 02:19 Pulse 92 H 05/19/18 02:19 Resp 20 05/19/18 02:19 BP 140/78 05/19/18 02:19 Pulse Ox 96 05/19/18 02:30 <Tina Abad - Last Filed: 05/19/18 05:26> Review Of Systems Psych: Negative for: Suicidal ideation, Other (homicidal ideations, hallucinations ) <Polo Alexander - Last Filed: 05/19/18 02:30> Physical Exam - Physical Exam Appears: Non-toxic, No Acute Distress, Other (alcohol on breath, stuporous, filthy, foul-smelling ) Skin: Normal Color, Warm, Dry Head: Atraumatic, Normacephalic Oral Mucosa: Moist Neck: Normal ROM, Supple Cardiovascular: Rhythm Regular Respiratory: Normal Breath Sounds <Polo Alexander - Last Filed: 05/19/18 02:30> ED Course And Treatment O2 Sat by Pulse Oximetry: 96 (Room air) Pulse Ox Interpretation: Normal Reevaluation Time: 01:00 Reassessment Condition: Improved <Polo Alexander - Last Filed: 05/19/18 02:30> Pulse Ox Interpretation: Normal Reevaluation Time: 05:26 Reassessment Condition: Improved <Tina Abad - Last Filed: 05/19/18 05:26> Disposition - Disposition Disposition Time: 01:00 <Polo Alexander - Last Filed: 05/19/18 02:30> Counseled Patient/Family Regarding: Studies Performed, Diagnosis, Need For Followup <Tina Abad - Last Filed: 05/19/18 05:26> - Disposition Referrals: [facility] [Outside] Disposition: HOME/ ROUTINE Condition: FAIR Instructions: Alcohol Abuse and Alcoholism (DC) Forms: [employer] (Citizen Of [place]) - Clinical Impression Clinical Impression: Alcohol abuse - Scribe Statement The provider has reviewed the documentation as recorded by the Kaiseribe Cheryle Small All medical record entries made by the Scribe were at my direction and personally dictated by me. I have reviewed the chart and agree that the record accurately reflects my personal performance of the history, physical exam, medical decision making, and the department course for this patient. I have also personally directed, reviewed, and agree with the discharge instructions and disposition. <Polo Alexanedr - Last Filed: 05/19/18 02:30> Physician Patient Turnover Patient Signed Over To: Tina Abad Handoff Comments: dispo in AM when sober <Polo Alexander Last Filed: 05/19/18 02:30>
[2018-05-18 22:17] VITALS: RESP 20
[2018-05-19 02:20] VITALS: O2SAT 96
[2018-05-19 05:43] VITALS: BP 128/78; PULSE 90; TEMP 98.2
== END 2018-05-19 05:43 | disposition home or self-care (01) ==
LOC: C.ER 16:57 → MERGE 16:57 → C.ER 05-19 05:43
DX: F10.10 Alcohol abuse, uncomplicated (principal); Y90.9 Presence of alcohol in blood, level not specified

== ENCOUNTER 2018-05-20 00:01 | Emergency (ER) | payer MEDICAID ==
[2018-05-20 00:02] VITALS: BMI 28.7
[2018-05-20 00:32] VITALS: RESP 18
--- NOTE | 2018-05-20 00:38 | C.PDOC ---
History Of Present Illness Patient brought in by EMS after being found intoxicated in public. Patient states he is homeless and is requesting a place to spend the night. Denies any physical complaints at this time. Time Seen by Provider: 05/20/18 00:37 Chief Complaint (Nursing): Substance Abuse History Per: Patient, EMS History/Exam Limitations: no limitations Onset/Duration Of Symptoms: Hrs Current Symptoms Are (Timing): Still Present Suicide/Self Injury Attempted (Context): None Modifying Factor(s): Alcohol Severity: None Pain Scale Rating Of: 0 Associated Symptoms: denies: Depression, Suicidal Thoughts Involuntary Hold By: None Recent travel outside of the [place]: No Past Medical History Reviewed: Historical Data, Nursing Documentation, Vital Signs Vital Signs: Last Vital Signs Temp 97.9 F 05/20/18 00:05 Pulse 85 05/20/18 00:05 Resp 18 05/20/18 00:05 BP 131/75 05/20/18 00:05 Pulse Ox 98 05/20/18 00:05 - Medical History PMH: Anxiety, COPD, Depression, Diabetes, Fractures (R HIP x2), HTN, Pulmonary Embolism, Schizophrenia (Patient states a history of schizophrenia), Seizures (ETOH related) Denies: Hepatitis, HIV, Chronic Kidney Disease, Sexually Transmitted Disease - [facility] Procedures ALCOHOL DETOXIFICATION (02/24/13) DETOXIFICATION SERVICES FOR SUBSTANCE ABUSE TREATMENT (02/17/18) GROUP RESOLUTE PROFESSIONAL FOR SUBSTANCE ABUSE TREATMENT, PSYCHOEDUCATION (02/17/18) GROUP RESOLUTE PROFESSIONAL FOR SUBSTANCE ABUSE, COGNITIVE BEHAVIORAL (02/17/18) GROUP PSYCHOTHERAPY (02/17/18) INDIV PSYCHOTHERAPY FOR SUBSTANCE ABUSE TREATMENT, SUPPORT (02/17/18) INDIV PSYCHOTHERAPY FOR SUBSTANCE ABUSE, COGNITIV BEHAVIORAL (02/17/18) INDIV PSYCHOTHERAPY FOR SUBSTANCE ABUSE, PSYCHOEDUCATION (02/17/18) INDIVIDUAL PSYCHOTHERAPY, COGNITIVE-BEHAVIORAL (02/17/18) INDIVIDUAL PSYCHOTHERAPY, SUPPORTIVE (02/17/18) INJECT/INFUSE ELECTROLYT (02/20/13) INJECT/INFUSE NEC (05/02/13) MEDICATION MANAGEMENT (10/07/16) MEDS MGMT FOR SUBSTANCE ABUSE TREATMENT, METHADONE MAINT (07/27/16) MEDS MGMT FOR SUBSTANCE ABUSE TREATMENT, OTH REPL MED (09/18/16) Family History: States: No Known Family Hx - Social History Hx Tobacco Use: Yes Hx Alcohol Use: Yes Hx Substance Use: Yes - Immunization History Hx Tetanus Toxoid Vaccination: No Hx Influenza Vaccination: No Hx Pneumococcal Vaccination: No Review Of Systems Constitutional: Negative for: Fever, Chills Cardiovascular: Negative for: Chest Pain, Palpitations Respiratory: Negative for: Cough, Shortness of Breath Gastrointestinal: Negative for: Nausea, Vomiting Neurological: Negative for: Weakness, Numbness Physical Exam - Physical Exam Appears: Non-toxic, Other (ETOH on breath, no sign of injury) Skin: Warm, Dry Head: Normacephalic Oral Mucosa: Moist Chest: Symmetrical, No Tenderness Cardiovascular: Rhythm Regular Respiratory: No Rales, No Rhonchi, No Wheezing Gastrointestinal/Abdominal: Soft, No Tenderness Neurological/Psych: Oriented x3 ED Course And Treatment O2 Sat by Pulse Oximetry: 98 Pulse Ox Interpretation: Normal Reevaluation Time: 05:39 Reassessment Condition: Improved Disposition Counseled Patient/Family Regarding: Studies Performed, Diagnosis - Disposition Referrals: [facility] [Outside] Disposition: HOME/ ROUTINE Disposition Time: 00:37 Condition: FAIR Instructions: Alcohol Abuse and Alcoholism (DC) Forms: [employer] (Gabonese) - Clinical Impression Clinical Impression: Alcohol abuse, Alcohol intoxication - Scribe Statement The provider has reviewed the documentation as recorded by the Scribe Lucien Duncan All medical record entries made by the Scribe were at my direction and personally dictated by me. I have reviewed the chart and agree that the record accurately reflects my personal performance of the history, physical exam, medical decision making, and the department course for this patient. I have also personally directed, reviewed, and agree with the discharge instructions and disposition.
[2018-05-20 05:29] VITALS: BP 111/72; PULSE 82; TEMP 97.9
[2018-05-20 05:39] VITALS: O2SAT 98
== END 2018-05-20 05:45 | disposition home or self-care (01) ==
LOC: C.ER 00:01 → SUPCPDRO 00:01 → C.ER 05:45
DX: F10.129 Alcohol abuse with intoxication, unspecified (principal); E11.9 Type 2 diabetes mellitus without complications

== ENCOUNTER 2018-05-20 20:03 | Emergency (ER) | payer MEDICAID ==
[2018-05-20 20:10] VITALS: O2SAT 100
--- NOTE | 2018-05-20 20:35 | C.PDOC ---
History Of Present Illness 58y/o male brought in by ambulance for public intoxication. Patient states he is homeless and does not like shelters. Patient admits to drinking today. He denies any SI, HI, or hallucinations. Chief Complaint (Nursing): Substance Abuse History Per: Patient History/Exam Limitations: no limitations Onset/Duration Of Symptoms: Hrs Current Symptoms Are (Timing): Still Present Suicide/Self Injury Attempted (Context): None Modifying Factor(s): Alcohol Associated Symptoms: denies: Suicidal Thoughts, Suicidal Plan Past Medical History Reviewed: Historical Data, Nursing Documentation, Vital Signs Vital Signs: Last Vital Signs Temp 98.4 F 05/20/18 20:09 Pulse 68 05/20/18 20:09 Resp 14 05/20/18 20:09 BP 136/70 05/20/18 20:09 Pulse Ox 100 05/20/18 20:09 - Medical History PMH: Schizophrenia Surgical History: No Surg Hx Family History: States: No Known Family Hx - Social History Hx Alcohol Use: Yes Hx Substance Use: No - Immunization History Hx Tetanus Toxoid Vaccination: No Hx Influenza Vaccination: No Hx Pneumococcal Vaccination: No Review Of Systems Except As Marked, All Systems Reviewed And Found Negative. Constitutional: Negative for: Fever, Chills Cardiovascular: Negative for: Chest Pain Respiratory: Negative for: Shortness of Breath Gastrointestinal: Negative for: Vomiting, Abdominal Pain, Diarrhea Psych: Negative for: Suicidal ideation Physical Exam - Physical Exam Appears: Non-toxic, No Acute Distress Skin: Warm, Dry Head: Normacephalic Eye(s): bilateral: Normal Inspection Nose: Normal Oral Mucosa: Other (alcohol smell on breath) Neck: Supple Cardiovascular: Rhythm Regular Respiratory: Normal Breath Sounds, No Rales, No Rhonchi, No Wheezing Gastrointestinal/Abdominal: Soft, No Tenderness Pulses: Left Dorsalis Pedis: Normal, Right Dorsalis Pedis: Normal Neurological/Psych: Oriented x3, Normal Speech Gait: Steady ED Course And Treatment O2 Sat by Pulse Oximetry: 100 (RA) Pulse Ox Interpretation: Normal Medical Decision Making Medical Decision Making: Plan - Observation until clinically sober Disposition Counseled Patient/Family Regarding: Diagnosis - Disposition Referrals: [facility] [Outside] Disposition Time: 06:20 Condition: STABLE Instructions: Alcohol Abuse and Alcoholism (DC) Forms: [employer] (Luxembourgish) - POA Present On Arrival: None - Clinical Impression Clinical Impression: Alcohol abuse - Scribe Statement The provider has reviewed the documentation as recorded by the Scribe Kandi Wong All medical record entries made by the Kaiseribmanolo were at my direction and personally dictated by me. I have reviewed the chart and agree that the record accurately reflects my personal performance of the history, physical exam, medical decision making, and the department course for this patient. I have also personally directed, reviewed, and agree with the discharge instructions and disposition.
[2018-05-21 01:15] VITALS: RESP 16
[2018-05-21 06:04] VITALS: BP 134/74; PULSE 64; TEMP 98.3
== END 2018-05-21 06:22 | disposition home or self-care (01) ==
LOC: C.ER 20:03 → MERGE 20:03 → C.ER 05-21 06:22
DX: F10.10 Alcohol abuse, uncomplicated (principal); Z59.0 Homelessness

== ENCOUNTER 2018-05-21 18:04 | Emergency (ER) | payer MEDICAID ==
[2018-05-21 18:04] VITALS: BMI 28.7
--- NOTE | 2018-05-21 20:07 | C.PDOC ---
History Of Present Illness 58 year old male brought by ambulance to ED for public intoxication. Patient was intoxicated at a [employer]. Patient reports drinking two pints of vodka . Patient is requesting detox. Patient has no physical complaints. <Polo Alexander - Last Filed: 05/22/18 00:41> History Per: Patient, EMS History/Exam Limitations: intoxication Onset/Duration Of Symptoms: Hrs Current Symptoms Are (Timing): Still Present Suicide/Self Injury Attempted (Context): None Modifying Factor(s): Alcohol Associated Symptoms: denies: Suicidal Thoughts, Suicidal Plan <Polo Alexander - Last Filed: 05/22/18 00:41> <Tina Abad - Last Filed: 05/22/18 05:36> Time Seen by Provider: 05/21/18 19:31 Chief Complaint (Nursing): Substance Abuse Past Medical History Reviewed: Historical Data, Nursing Documentation, Vital Signs Vital Signs: Last Vital Signs Temp 97.4 F L 05/21/18 18:09 Pulse 75 05/21/18 18:09 Resp 18 05/21/18 18:09 BP 126/84 05/21/18 18:09 Pulse Ox 96 05/21/18 18:09 - Medical History PMH: Anxiety, COPD, Depression, Diabetes, Fractures (R HIP x2), HTN, Pulmonary Embolism, Schizophrenia, Seizures (ETOH related) Denies: Hepatitis, HIV, Chronic Kidney Disease, Sexually Transmitted Disease Surgical History: No Surg Hx - [facility] Procedures ALCOHOL DETOXIFICATION (02/24/13) DETOXIFICATION SERVICES FOR SUBSTANCE ABUSE TREATMENT (02/17/18) GROUP DIKE SUPERVISOR FOR SUBSTANCE ABUSE TREATMENT, PSYCHOEDUCATION (02/17/18) GROUP DIKE SUPERVISOR FOR SUBSTANCE ABUSE, COGNITIVE BEHAVIORAL (02/17/18) GROUP PSYCHOTHERAPY (02/17/18) INDIV PSYCHOTHERAPY FOR SUBSTANCE ABUSE TREATMENT, SUPPORT (02/17/18) INDIV PSYCHOTHERAPY FOR SUBSTANCE ABUSE, COGNITIV BEHAVIORAL (02/17/18) INDIV PSYCHOTHERAPY FOR SUBSTANCE ABUSE, PSYCHOEDUCATION (02/17/18) INDIVIDUAL PSYCHOTHERAPY, COGNITIVE-BEHAVIORAL (02/17/18) INDIVIDUAL PSYCHOTHERAPY, SUPPORTIVE (02/17/18) INJECT/INFUSE ELECTROLYT (02/20/13) INJECT/INFUSE NEC (05/02/13) MEDICATION MANAGEMENT (10/07/16) MEDS MGMT FOR SUBSTANCE ABUSE TREATMENT, METHADONE MAINT (07/27/16) MEDS MGMT FOR SUBSTANCE ABUSE TREATMENT, OTH REPL MED (09/18/16) Family History: States: Unknown Family Hx - Social History Hx Tobacco Use: Yes Hx Alcohol Use: Yes Hx Substance Use: No - Immunization History Hx Tetanus Toxoid Vaccination: No Hx Influenza Vaccination: No Hx Pneumococcal Vaccination: No <Polo Alexander - Last Filed: 05/22/18 00:41> Vital Signs: Last Vital Signs Temp 98.2 F 05/21/18 21:25 Pulse 84 05/22/18 01:00 Resp 16 05/22/18 01:00 BP 118/78 05/22/18 01:00 Pulse Ox 96 05/22/18 01:00 - [facility] Procedures ALCOHOL DETOXIFICATION (02/24/13) DETOXIFICATION SERVICES FOR SUBSTANCE ABUSE TREATMENT (02/17/18) GROUP DIKE SUPERVISOR FOR SUBSTANCE ABUSE TREATMENT, PSYCHOEDUCATION (02/17/18) GROUP DIKE SUPERVISOR FOR SUBSTANCE ABUSE, COGNITIVE BEHAVIORAL (02/17/18) GROUP PSYCHOTHERAPY (02/17/18) INDIV PSYCHOTHERAPY FOR SUBSTANCE ABUSE TREATMENT, SUPPORT (02/17/18) INDIV PSYCHOTHERAPY FOR SUBSTANCE ABUSE, COGNITIV BEHAVIORAL (02/17/18) INDIV PSYCHOTHERAPY FOR SUBSTANCE ABUSE, PSYCHOEDUCATION (02/17/18) INDIVIDUAL PSYCHOTHERAPY, COGNITIVE-BEHAVIORAL (02/17/18) INDIVIDUAL PSYCHOTHERAPY, SUPPORTIVE (02/17/18) INJECT/INFUSE ELECTROLYT (02/20/13) INJECT/INFUSE NEC (05/02/13) MEDICATION MANAGEMENT (10/07/16) MEDS MGMT FOR SUBSTANCE ABUSE TREATMENT, METHADONE MAINT (07/27/16) MEDS MGMT FOR SUBSTANCE ABUSE TREATMENT, OTH REPL MED (09/18/16) <Tina Abad - Last Filed: 05/22/18 05:36> Review Of Systems Constitutional: Negative for: Fever, Chills, Weakness Cardiovascular: Negative for: Chest Pain Respiratory: Negative for: Cough, Shortness of Breath Gastrointestinal: Negative for: Nausea, Vomiting, Abdominal Pain Skin: Negative for: Rash Neurological: Negative for: Weakness, Numbness, Dizziness <Polo Alexander - Last Filed: 05/22/18 00:41> Physical Exam - Physical Exam Appears: No Acute Distress, Unkempt (foul smelling), Other (Alcohol on breath, stuporous) Skin: Normal Color, Warm, Dry Head: Atraumatic, Normacephalic Neck: Normal ROM, Supple Chest: Symmetrical, No Deformity Cardiovascular: Rhythm Regular, No Murmur Respiratory: No Accessory Muscle Use Gastrointestinal/Abdominal: Soft, No Tenderness Extremity: Bilateral: Atraumatic, Normal Color And Temperature Neurological/Psych: Oriented x3 <Polo Alexander - Last Filed: 05/22/18 00:41> ED Course And Treatment O2 Sat by Pulse Oximetry: 96 (RA) Progress Note: Glucose POC ordered for patient. Reassessment Condition: Improved (stable) <Polo Alexander - Last Filed: 05/22/18 00:41> Pulse Ox Interpretation: Normal Reevaluation Time: 05:36 <Tina Abad - Last Filed: 05/22/18 05:36> Medical Decision Making Medical Decision Makin: signed over to overnight MD pending sobriety in AM <Polo Alexander - Last Filed: 05/22/18 00:41> Disposition - Disposition Disposition Time: 01:00 <Polo Alexander - Last Filed: 05/22/18 00:41> Counseled Patient/Family Regarding: Studies Performed, Diagnosis, Need For Followup <Tina Abad - Last Filed: 05/22/18 05:36> - Disposition Referrals: [facility] [Outside] Condition: GOOD Instructions: Alcohol Abuse and Alcoholism (DC) Forms: [facility] (Bahraini) - Clinical Impression Clinical Impression: Alcohol abuse - Scribe Statement The provider has reviewed the documentation as recorded by the Scribe (Gabriella Marcos) All medical record entries made by the Scribe were at my direction and personally dictated by me. I have reviewed the chart and agree that the record accurately reflects my personal performance of the history, physical exam, medical decision making, and the department course for this patient. I have also personally directed, reviewed, and agree with the discharge instructions and disposition. <Polo Alexander - Last Filed: 05/22/18 00:41> Physician Patient Turnover Patient Signed Over To: Tina Abad Handoff Comments: pending sobriety in AM <Polo Alexander - Last Filed: 05/22/18 00:41>
[2018-05-21 21:26] VITALS: TEMP 98.2
[2018-05-22 05:53] VITALS: BP 108/78; PULSE 82; RESP 14; O2SAT 97
== END 2018-05-22 05:57 | disposition home or self-care (01) ==
LOC: C.ER 18:04
DX: F10.10 Alcohol abuse, uncomplicated (principal); Y90.9 Presence of alcohol in blood, level not specified

== ENCOUNTER 2018-05-23 12:00 | Emergency (ER) | payer MEDICAID ==
[2018-05-23 12:00] VITALS: BMI 28.7
--- NOTE | 2018-05-23 12:28 | C.PDOC ---
History Of Present Illness 58 year old male presents to the ED via EMS found intoxicated outside of [place] [facility]. Per EMS the pt was unable to ambulate. Offers no other medical complaints. Time Seen by Provider: 05/23/18 12:13 Chief Complaint (Nursing): Substance Abuse History Per: EMS History/Exam Limitations: intoxication Modifying Factor(s): Alcohol Recent travel outside of the [place]: No Past Medical History Reviewed: Historical Data, Nursing Documentation, Vital Signs Vital Signs: Last Vital Signs Temp 98.5 F 05/23/18 12:16 Pulse 88 05/23/18 12:09 Resp 16 05/23/18 12:16 BP 136/92 H 05/23/18 12:16 Pulse Ox 86 L 05/23/18 12:16 - Medical History PMH: Anxiety, COPD, Depression, Diabetes, Fractures (R HIP x2), HTN, Pulmonary Embolism, Schizophrenia, Seizures (ETOH related) Denies: Hepatitis, HIV, Chronic Kidney Disease, Sexually Transmitted Disease - [facility] Procedures ALCOHOL DETOXIFICATION (02/24/13) DETOXIFICATION SERVICES FOR SUBSTANCE ABUSE TREATMENT (02/17/18) GROUP RED MUD THICKENER OPERATOR FOR SUBSTANCE ABUSE TREATMENT, PSYCHOEDUCATION (02/17/18) GROUP RED MUD THICKENER OPERATOR FOR SUBSTANCE ABUSE, COGNITIVE BEHAVIORAL (02/17/18) GROUP PSYCHOTHERAPY (02/17/18) INDIV PSYCHOTHERAPY FOR SUBSTANCE ABUSE TREATMENT, SUPPORT (02/17/18) INDIV PSYCHOTHERAPY FOR SUBSTANCE ABUSE, COGNITIV BEHAVIORAL (02/17/18) INDIV PSYCHOTHERAPY FOR SUBSTANCE ABUSE, PSYCHOEDUCATION (02/17/18) INDIVIDUAL PSYCHOTHERAPY, COGNITIVE-BEHAVIORAL (02/17/18) INDIVIDUAL PSYCHOTHERAPY, SUPPORTIVE (02/17/18) INJECT/INFUSE ELECTROLYT (02/20/13) INJECT/INFUSE NEC (05/02/13) MEDICATION MANAGEMENT (10/07/16) MEDS MGMT FOR SUBSTANCE ABUSE TREATMENT, METHADONE MAINT (07/27/16) MEDS MGMT FOR SUBSTANCE ABUSE TREATMENT, OTH REPL MED (09/18/16) Family History: States: Unknown Family Hx - Social History Hx Tobacco Use: Yes Hx Alcohol Use: Yes Hx Substance Use: No - Immunization History Hx Tetanus Toxoid Vaccination: No Hx Influenza Vaccination: No Hx Pneumococcal Vaccination: No Review Of Systems Except As Marked, All Systems Reviewed And Found Negative. Constitutional: Positive for: Other (ETOH intoxication.) Physical Exam - Physical Exam Appears: Non-toxic, No Acute Distress, Other (alcohol on breath. malodorous.) Skin: Warm, Dry Head: Atraumatic, Normacephalic Eye(s): bilateral: Normal Inspection Oral Mucosa: Moist Neck: Normal ROM, Supple Chest: Symmetrical, No Deformity Cardiovascular: Rhythm Regular, No Murmur Respiratory: Normal Breath Sounds, No Rales, No Rhonchi, No Wheezing Gastrointestinal/Abdominal: Normal Exam, Soft, No Tenderness Back: Normal Inspection, No CVA Tenderness Extremity: Normal ROM, No Swelling Extremity: Bilateral: Atraumatic, Normal Color And Temperature, Normal ROM Neurological/Psych: Oriented x3, Normal Speech (pt is answering questions. ) Gait: Steady ED Course And Treatment O2 Sat by Pulse Oximetry: 86 Medical Decision Making Medical Decision Making: Initial plan: -Glucose Progress/Update: Pt given Librium as the patient reports that he feels tremors On re-exam, the patient reports improvement of symptoms. Lungs are CTA, heart is RRR, abdomen is soft, non-tender and tolerating Po well. Normal speech and ambulatory in the ED with steady gait. Disposition - Disposition Disposition: HOME/ ROUTINE Disposition Time: 16:30 Condition: GOOD Instructions: Alcohol Use - When Is Drinking a Problem? Forms: [employer] [facility] (Danish) - Clinical Impression Clinical Impression: Alcohol intoxication - PA / CRISIS INTERVENTION COUNSELOR / Resident Statement MD/DO has reviewed & agrees with the documentation as recorded. - Scribe Statement The provider has reviewed the documentation as recorded by the Scribe (Almaz Mayfield) All medical record entries made by the Scribe were at my direction and personally dictated by me. I have reviewed the chart and agree that the record accurately reflects my personal performance of the history, physical exam, medical decision making, and the department course for this patient. I have also personally directed, reviewed, and agree with the discharge instructions and dis position.
[2018-05-23 14:18] VITALS: PULSE 90
[2018-05-23 16:51] VITALS: BP 109/84; RESP 18; TEMP 98.1
[2018-05-23 18:59] VITALS: O2SAT 86
== END 2018-05-23 17:44 | disposition home or self-care (01) ==
LOC: C.ER 12:00
DX: F10.129 Alcohol abuse with intoxication, unspecified (principal); Y90.9 Presence of alcohol in blood, level not specified

== ENCOUNTER 2018-05-24 15:48 | Emergency (ER) | payer MEDICAID ==
[2018-05-24 16:00] VITALS: BMI 29.8
--- NOTE | 2018-05-24 16:21 | C.PDOC ---
History Of Present Illness 58 year old male presents to ED intoxicated and looking for a place to stay. Patient has no physical complaints, no suicidal ideation,and no homicidal ideation. <Otto Nair - Last Filed: 05/27/18 21:36> <Tina Abad - Last Filed: 05/25/18 05:40> History Per: Patient History/Exam Limitations: intoxication Onset/Duration Of Symptoms: Hrs Current Symptoms Are (Timing): Still Present Suicide/Self Injury Attempted (Context): None Modifying Factor(s): Alcohol Severity: None Associated Symptoms: denies: Suicidal Thoughts, Suicidal Plan Recent travel outside of the [place]: No Additional History Per: Patient <Otto Nair - Last Filed: 05/27/18 21:36> Time Seen by Provider: 05/24/18 15:59 Chief Complaint (Nursing): Substance Abuse Past Medical History Vital Signs: Last Vital Signs Temp 98.2 F 05/25/18 04:53 Pulse 92 H 05/25/18 04:53 Resp 20 05/25/18 04:53 BP 149/87 05/25/18 04:53 Pulse Ox 97 05/25/18 04:53 - [facility] Procedures ALCOHOL DETOXIFICATION (02/24/13) DETOXIFICATION SERVICES FOR SUBSTANCE ABUSE TREATMENT (02/17/18) GROUP RESEARCH STATISTICIAN FOR SUBSTANCE ABUSE TREATMENT, PSYCHOEDUCATION (02/17/18) GROUP RESEARCH STATISTICIAN FOR SUBSTANCE ABUSE, COGNITIVE BEHAVIORAL (02/17/18) GROUP PSYCHOTHERAPY (02/17/18) INDIV PSYCHOTHERAPY FOR SUBSTANCE ABUSE TREATMENT, SUPPORT (02/17/18) INDIV PSYCHOTHERAPY FOR SUBSTANCE ABUSE, COGNITIV BEHAVIORAL (02/17/18) INDIV PSYCHOTHERAPY FOR SUBSTANCE ABUSE, PSYCHOEDUCATION (02/17/18) INDIVIDUAL PSYCHOTHERAPY, COGNITIVE-BEHAVIORAL (02/17/18) INDIVIDUAL PSYCHOTHERAPY, SUPPORTIVE (02/17/18) INJECT/INFUSE ELECTROLYT (02/20/13) INJECT/INFUSE NEC (05/02/13) MEDICATION MANAGEMENT (10/07/16) MEDS MGMT FOR SUBSTANCE ABUSE TREATMENT, METHADONE MAINT (07/27/16) MEDS MGMT FOR SUBSTANCE ABUSE TREATMENT, OTH REPL MED (09/18/16) <Tina Abad - Last Filed: 05/25/18 05:40> Reviewed: Historical Data, Nursing Documentation, Vital Signs Vital Signs: Last Vital Signs Temp 98.8 F 05/24/18 16:11 Pulse 92 H 05/24/18 16:11 Resp 18 05/24/18 16:11 BP 157/106 H 05/24/18 16:11 Pulse Ox 98 05/24/18 16:11 - Medical History PMH: Anxiety, COPD, Depression, Diabetes, Fractures (R HIP x2), HTN, Pulmonary Embolism, Schizophrenia, Seizures (ETOH related) Denies: Hepatitis, HIV, Chronic Kidney Disease, Sexually Transmitted Disease Surgical History: No Surg Hx - [facility] Procedures ALCOHOL DETOXIFICATION (02/24/13) DETOXIFICATION SERVICES FOR SUBSTANCE ABUSE TREATMENT (02/17/18) GROUP RESEARCH STATISTICIAN FOR SUBSTANCE ABUSE TREATMENT, PSYCHOEDUCATION (02/17/18) GROUP RESEARCH STATISTICIAN FOR SUBSTANCE ABUSE, COGNITIVE BEHAVIORAL (02/17/18) GROUP PSYCHOTHERAPY (02/17/18) INDIV PSYCHOTHERAPY FOR SUBSTANCE ABUSE TREATMENT, SUPPORT (02/17/18) INDIV PSYCHOTHERAPY FOR SUBSTANCE ABUSE, COGNITIV BEHAVIORAL (02/17/18) INDIV PSYCHOTHERAPY FOR SUBSTANCE ABUSE, PSYCHOEDUCATION (02/17/18) INDIVIDUAL PSYCHOTHERAPY, COGNITIVE-BEHAVIORAL (02/17/18) INDIVIDUAL PSYCHOTHERAPY, SUPPORTIVE (02/17/18) INJECT/INFUSE ELECTROLYT (02/20/13) INJECT/INFUSE NEC (05/02/13) MEDICATION MANAGEMENT (10/07/16) MEDS MGMT FOR SUBSTANCE ABUSE TREATMENT, METHADONE MAINT (07/27/16) MEDS MGMT FOR SUBSTANCE ABUSE TREATMENT, OTH REPL MED (09/18/16) Family History: States: Unknown Family Hx - Social History Hx Tobacco Use: Yes Hx Alcohol Use: Yes Hx Substance Use: No - Immunization History Hx Tetanus Toxoid Vaccination: No Hx Influenza Vaccination: No Hx Pneumococcal Vaccination: No <Otto Nair - Last Filed: 05/27/18 21:36> Review Of Systems Constitutional: Negative for: Fever, Chills, Weakness Cardiovascular: Negative for: Chest Pain Respiratory: Negative for: Cough, Shortness of Breath Gastrointestinal: Negative for: Nausea, Vomiting, Abdominal Pain Genitourinary: Negative for: Dysuria, Frequency Neurological: Negative for: Weakness, Numbness, Dizziness <Otto Nair - Last Filed: 05/27/18 21:36> Physical Exam - Physical Exam Appears: Well, No Acute Distress Skin: Normal Color, Warm, Dry Head: Atraumatic, Normacephalic Neck: Normal ROM, Supple Chest: Symmetrical, No Deformity Respiratory: No Accessory Muscle Use Neurological/Psych: Other (awake and alert) <Otto Nair - Last Filed: 05/27/18 21:36> ED Course And Treatment Pulse Ox Interpretation: Normal Reevaluation Time: 05:40 Reassessment Condition: Improved <Tina Abad - Last Filed: 05/25/18 05:40> O2 Sat by Pulse Oximetry: 98 (in RA) <Otto Nair - Last Filed: 05/27/18 21:36> Medical Decision Making Medical Decision Making: Impression: 58 year old male presents to ED intoxicated Plan: Glucose POC pt reassesed numerous time in er, sleeping in nad case endorsed to night time nanny pending reassessment final dispo during ed course pt reports "heart burn". pepcid given no abd ttp. no epigastric ttp. pt observed sleepign innad. <Otto Nair - Last Filed: 05/27/18 21:36> Disposition Counseled Patient/Family Regarding: Studies Performed, Diagnosis, Need For Followup - Disposition Disposition Time: 01:00 <Tina Abad - Last Filed: 05/25/18 05:40> <HakanOtto patricio - Last Filed: 05/27/18 21:36> - Disposition Disposition: HOME/ ROUTINE Condition: FAIR Instructions: Alcohol Abuse and Alcoholism (DC) Forms: [facility] (Saudi Arabian) - Clinical Impression Clinical Impression: Alcohol intoxication - Scribe Statement The provider has reviewed the documentation as recorded by the Scribe (Gabriella Marcos) All medical record entries made by the Scribe were at my direction and personally dictated by me. I have reviewed the chart and agree that the record accurately reflects my personal performance of the history, physical exam, medical decision making, and the department course for this patient. I have also personally directed, reviewed, and agree with the discharge instructions and disposition. <Otto Nair - Last Filed: 05/27/18 21:36>
[2018-05-24 23:31] VITALS: RESP 20
[2018-05-25 03:11] VITALS: TEMP 98.2
[2018-05-25 04:54] VITALS: BP 149/87; PULSE 92
[2018-05-27 21:37] VITALS: O2SAT 98
== END 2018-05-25 06:06 | disposition home or self-care (01) ==
LOC: C.ER 15:48
DX: F10.129 Alcohol abuse with intoxication, unspecified (principal); E11.9 Type 2 diabetes mellitus without complications; I10 Essential (primary) hypertension; J44.9 Chronic obstructive pulmonary disease, unspecified; F20.9 Schizophrenia, unspecified; Z86.711 Personal history of pulmonary embolism; Z72.0 Tobacco use

== ENCOUNTER 2018-06-01 21:04 | Emergency (ER) | payer MEDICAID ==
[2018-06-01 21:05] VITALS: BMI 29.8
--- NOTE | 2018-06-01 21:51 | C.PDOC ---
History Of Present Illness 58 year old male presents with vomiting and abdominal pain, "I feel so sick", since yesterday. Patient has a Hx of homelessness and ETOH abuse with multiple ER visits for malingering and ETOH abuse, last drink was yesterday. Denies other complaints at this time. GABRIELE SAMANO RECENT ER VISITS FOR INTOX. NEW ONSET FEVER, TACHYCARDIA. <Mely Tadeo - Last Filed: 06/02/18 00:51> History Per: Patient History/Exam Limitations: no limitations Onset/Duration Of Symptoms: Days Current Symptoms Are (Timing): Still Present Recent travel outside of the [place]: No <Mely Tadeo - Last Filed: 06/02/18 00:51> <Tina Abad - Last Filed: 06/02/18 04:06> Time Seen by Provider: 06/01/18 21:49 Chief Complaint (Nursing): Abdominal Pain Past Medical History Reviewed: Historical Data, Nursing Documentation, Vital Signs Vital Signs: Last Vital Signs Temp 100.8 F H 06/01/18 21:42 Pulse 112 H 06/01/18 21:42 Resp 24 06/01/18 21:42 BP 116/65 06/01/18 21:42 Pulse Ox 94 L 06/01/18 21:42 - Medical History PMH: Anxiety, COPD, Depression, Diabetes, Fractures (R HIP x2), HTN, Pulmonary E mbolism, Schizophrenia, Seizures (ETOH related) Denies: Hepatitis, HIV, Chronic Kidney Disease, Sexually Transmitted Disease - [facility] Procedures ALCOHOL DETOXIFICATION (02/24/13) DETOXIFICATION SERVICES FOR SUBSTANCE ABUSE TREATMENT (02/17/18) GROUP WIRE HARNESS ASSEMBLER FOR SUBSTANCE ABUSE TREATMENT, PSYCHOEDUCATION (02/17/18) GROUP WIRE HARNESS ASSEMBLER FOR SUBSTANCE ABUSE, COGNITIVE BEHAVIORAL (02/17/18) GROUP PSYCHOTHERAPY (02/17/18) INDIV PSYCHOTHERAPY FOR SUBSTANCE ABUSE TREATMENT, SUPPORT (02/17/18) INDIV PSYCHOTHERAPY FOR SUBSTANCE ABUSE, COGNITIV BEHAVIORAL (02/17/18) INDIV PSYCHOTHERAPY FOR SUBSTANCE ABUSE, PSYCHOEDUCATION (02/17/18) INDIVIDUAL PSYCHOTHERAPY, COGNITIVE-BEHAVIORAL (02/17/18) INDIVIDUAL PSYCHOTHERAPY, SUPPORTIVE (02/17/18) INJECT/INFUSE ELECTROLYT (02/20/13) INJECT/INFUSE NEC (05/02/13) MEDICATION MANAGEMENT (10/07/16) MEDS MGMT FOR SUBSTANCE ABUSE TREATMENT, METHADONE MAINT (07/27/16) MEDS MGMT FOR SUBSTANCE ABUSE TREATMENT, OTH REPL MED (09/18/16) Family History: States: Unknown Family Hx - Social History Hx Tobacco Use: Yes Hx Alcohol Use: Yes Hx Substance Use: Yes - Immunization History Hx Tetanus Toxoid Vaccination: No Hx Influenza Vaccination: No Hx Pneumococcal Vaccination: No <Mely Tadeo - Last Filed: 06/02/18 00:51> Vital Signs: Last Vital Signs Temp 100.4 F H 06/02/18 01:59 Pulse 98 H 06/02/18 01:59 Resp 16 06/02/18 01:59 BP 111/68 06/02/18 01:59 Pulse Ox 94 L 06/02/18 01:59 - [facility] Procedures ALCOHOL DETOXIFICATION (02/24/13) DETOXIFICATION SERVICES FOR SUBSTANCE ABUSE TREATMENT (02/17/18) GROUP WIRE HARNESS ASSEMBLER FOR SUBSTANCE ABUSE TREATMENT, PSYCHOEDUCATION (02/17/18) GROUP WIRE HARNESS ASSEMBLER FOR SUBSTANCE ABUSE, COGNITIVE BEHAVIORAL (02/17/18) GROUP PSYCHOTHERAPY (02/17/18) INDIV PSYCHOTHERAPY FOR SUBSTANCE ABUSE TREATMENT, SUPPORT (02/17/18) INDIV PSYCHOTHERAPY FOR SUBSTANCE ABUSE, COGNITIV BEHAVIORAL (02/17/18) INDIV PSYCHOTHERAPY FOR SUBSTANCE ABUSE, PSYCHOEDUCATION (02/17/18) INDIVIDUAL PSYCHOTHERAPY, COGNITIVE-BEHAVIORAL (02/17/18) INDIVIDUAL PSYCHOTHERAPY, SUPPORTIVE (02/17/18) INJECT/INFUSE ELECTROLYT (02/20/13) INJECT/INFUSE NEC (05/02/13) MEDICATION MANAGEMENT (10/07/16) MEDS MGMT FOR SUBSTANCE ABUSE TREATMENT, METHADONE MAINT (07/27/16) MEDS MGMT FOR SUBSTANCE ABUSE TREATMENT, OTH REPL MED (09/18/16) <Tina Abad - Last Filed: 06/02/18 04:06> Review Of Systems Except As Marked, All Systems Reviewed And Found Negative. Cardiovascular: Negative for: Chest Pain Respiratory: Negative for: Shortness of Breath Gastrointestinal: Positive for: Vomiting, Abdominal Pain <Mely Tadeo - Last Filed: 06/02/18 00:51> Physical Exam - Physical Exam Appears: Non-toxic, Other (Mild intoxication, awake, cooperative, appropriate) Skin: Normal Color, Warm, Dry Head: Atraumatic, Normacephalic Eye(s): bilateral: Normal Inspection Oral Mucosa: Moist Neck: Normal, Supple Chest: Symmetrical, No Tenderness Cardiovascular: Rhythm Regular Respiratory: Normal Breath Sounds, No Rales, No Rhonchi, No Wheezing Gastrointestinal/Abdominal: Soft, No Tenderness Back: No CVA Tenderness Neurological/Psych: Oriented x3, Normal Speech <Mely Tadeo - Last Filed: 06/02/18 00:51> ED Course And Treatment - Laboratory Results Result Diagrams: 06/01/18 23:02 06/01/18 23:02 ECG: Interpreted By Wa ECG Rhythm: Sinus Tachycardia ECG Interpretation: Abnormal Rate From EC O2 Sat by Pulse Oximetry: 94 Pulse Ox Interpretation: Abnormal - Radiology CXR: Interpreted by Wa CXR Interpretation: Yes: No Acute Disease <Mely Tadeo - Last Filed: 06/02/18 00:51> - Laboratory Results Result Diagrams: 06/01/18 23:02 06/01/18 23:02 Lab Results: pO2 52 mm/Hg (30-55) 06/02/18 01:11 VBG pH 7.44 (7.32-7.43) H 06/02/18 01:11 VBG pCO2 33 mmHg (40-60) L 06/02/18 01:11 VBG HCO3 23.8 mmol/L 06/02/18 01:11 VBG Total CO2 23.4 mmol/L (22-28) 06/02/18 01:11 VBG O2 Sat (Calc) 90.6 % (40-65) H 06/02/18 01:11 VBG Base Excess -1.1 mmol/L (0.0-2.0) L 06/02/18 01:11 VBG Potassium 3.1 mmol/L (3.6-5.2) L 06/02/18 01:11 Sodium 139.0 mmol/l (132-148) 06/02/18 01:11 Chloride 107.0 mmol/L (98-107) 06/02/18 01:11 Glucose 113 mg/dl (75-110) H 06/02/18 01:11 Lactate 2.1 mmol/L (0.7-2.1) 06/02/18 01:11 Total Bilirubin 2.1 mg/dL (0.2-1.3) H 06/01/18 23:02 AST 140 U/L (17-59) H 06/01/18 23:02 ALT 33 U/L (21-72) 06/01/18 23:02 Alkaline Phosphatase 176 U/L (38-126) H D 06/01/18 23:02 Total Protein 8.4 g/dL (6.3-8.3) H 06/01/18 23:02 Albumin 4.5 g/dL (3.5-5.0) 06/01/18 23:02 Globulin 3.9 gm/dL (2.2-3.9) 06/01/18 23:02 Albumin/Globulin Ratio 1.2 (1.0-2.1) 06/01/18 23:02 Lipase < 10 U/L (23-300) L 06/01/18 23:02 Urine Color Osiris (YELLOW) 06/01/18 23:55 Urine Clarity Hazy (Clear) 06/01/18 23:55 Urine pH 5.0 (5.0-8.0) 06/01/18 23:55 Ur Specific [place] 1.027 (1.003-1.030) 06/01/18 23:55 Urine Protein 1+ mg/dL (NEGATIVE) H 06/01/18 23:55 Urine Glucose (UA) Normal mg/dL (Normal) 06/01/18 23:55 Urine Ketones Negative mg/dL (NEGATIVE) 06/01/18 23:55 Urine Blood Negative (NEGATIVE) 06/01/18 23:55 Urine Nitrate Negative (NEGATIVE) 06/01/18 23:55 Urine Bilirubin 1+ (NEGATIVE) H 06/01/18 23:55 Urine Urobilinogen 4.0 mg/dL (0.2-1.0) 06/01/18 23:55 Ur Leukocyte Esterase Neg Jaciel/uL (Negative) 06/01/18 23:55 Urine WBC (Auto) 1 /hpf (0-5) 06/01/18 23:55 Urine RBC (Auto) 1 /hpf (0-3) 06/01/18 23:55 Ur Squamous Epith Cells < 1 /hpf (0-5) 06/01/18 23:55 <Tina Abad - Last Filed: 06/02/18 04:06> Progress - Data Reviewed Data Reviewed: Lab, Diagnostic imaging, EKG, Old records <Mely Tadeo - Last Filed: 06/02/18 00:51> Medical Decision Making Medical Decision Making: MULT RECENT ER VISITS FOR INTOX. NEW ONSET FEVER, TACHYCARDIA. Plan: * EKG * Blood work * CXR * Urinalysis * Flu swab * IV fluids * Tylenol <Mely Tadeo - Last Filed: 06/02/18 00:51> Disposition Counseled Patient/Family Regarding: Diagnosis - Disposition Disposition Time: 01:00 <Mely Tadeo - Last Filed: 06/02/18 00:51> Counseled Patient/Family Regarding: Studies Performed, Diagnosis, Need For Followup <Tina Abad - Last Filed: 06/02/18 04:06> - Disposition Referrals: [facility] [Outside] Disposition: HOME/ ROUTINE Condition: FAIR Instructions: Alcohol Use - When Is Drinking a Problem?, Acute Abdomen (Belly Pain), Adult (DC) Forms: [facility] (Thai) - Clinical Impression Clinical Impression: Abdominal pain, Alcohol abuse - Scribe Statement The provider has reviewed the documentation as recorded by the Scribmanolo Duncan All medical record entries made by the Scribe were at my direction and personally dictated by me. I have reviewed the chart and agree that the record accurately reflects my personal performance of the history, physical exam, medical decision making, and the department course for this patient. I have also personally directed, reviewed, and agree with the discharge instructions and disposition. <Mely Tadeo - Last Filed: 06/02/18 00:51> Physician Patient Turnover Patient Signed Over To: Tina Abad Handoff Comments: FU CT, DISPO <Mely Tadeo - Last Filed: 06/02/18 00:51>
[2018-06-01] MEDS: Sodium Chloride 0.9% 1,000 ML IV SCH (22:00)
[2018-06-01 23:11] LABS: BASO # 0.1 K/uL (0.0-0.2); EOS % 0.7 % (0.0-4.0); HEMOGLOBIN 13.7 g/dL (12.0-18.0); LYMPH # 0.2 K/uL (1.0-4.3); LYMPH % 3.5 % (20.0-40.0); MEAN CELL VOLUME 100.5 fL (80.0-94.0); MEAN CORPUSCULAR HEMOGLOBIN 32.9 pg (27.0-31.0); MEAN CORPUSCULAR HGB CONC 32.7 g/dL (33.0-37.0); MEAN PLATELET VOLUME 9.6 fL (7.2-11.7); MONO # 0.6 K/uL (0.0-0.8); MONO % 9.8 % (0.0-10.0); PLATELET COUNT 190 K/uL (130-400); RBC 4.17 Mil/uL (4.40-5.90); RED CELL DISTRIBUTION WIDTH 15.7 % (11.5-14.5); WHITE BLOOD COUNT 5.9 K/uL (4.8-10.8)
[2018-06-01 23:19] LABS: BLOOD UREA NITROGEN 7 mg/dL (9-20); CALCIUM 8.3 mg/dl (8.6-10.4); GFR NON-AFRICAN AMERICAN > 60
[2018-06-01 23:21] LABS: ALB/GLOB RATIO 1.2 (1.0-2.1); ALBUMIN 4.5 g/dL (3.5-5.0); ALT/SGPT 33 U/L (21-72); AST/SGOT 140 U/L (17-59); LIPASE < 10 U/L (23-300)
[2018-06-01] MEDS ORDERED: Iodixanol 320 MG/ML 100 ML BOTTLE IV ONE (23:35)
[2018-06-01 23:53] LABS: PLATELET ESTIMATE NORMAL (NORMAL)
[2018-06-01 23:54] LABS: ANISOCYTOSIS SLIGHT; BANDS 4 % (0-2); EOSINOPHIL 1 % (0-4); HYPERSEGMENTATION PRESENT; LARGE PLATELETS PRESENT; LYMPHOCYTE 4 % (20-40); MICROCYTOSIS SLIGHT; MONOCYTE 9 % (0-10); NEUTROPHIL 82 % (50-75); POIKILOCYTOSIS SLIGHT; POLYCHROMIC SLIGHT; SMUDGE CELLS PRESENT; TEARDROP CELLS SLIGHT; TOTAL CELLS COUNTED 100
[2018-06-02 00:27] LABS: SQUAMOUS EPITHIAL < 1 /hpf (0-5); URINE BILIRUBIN 1+ (NEGATIVE); URINE BLOOD NEGATIVE (NEGATIVE); URINE CLARITY Hazy (Clear); URINE COLOR Amber (YELLOW); URINE GLUCOSE (UA) NORMAL (Normal); URINE LEUKOCYTE ESTERASE NEG Leu/uL (Negative); URINE PROTEIN 1+ mg/dL (NEGATIVE)
[2018-06-02 00:28] LABS: BARBITURATES, UR NEGATIVE (NEGATIVE); OPIATES, UR NEGATIVE (NEGATIVE); PHENCYCLIDINE, UR NEGATIVE (NEGATIVE)
[2018-06-02 00:32] LABS: BENZODIAZEPINES, UR POSITIVE (NEGATIVE)
[2018-06-02 01:16] LABS: VENOUS BLOOD GAS BASE EXCESS -1.1 mmol/L (0.0-2.0); VENOUS BLOOD GAS PCO2 33 mmHg (40-60); VENOUS BLOOD GAS PO2 52 mm/Hg (30-55); VENOUS BLOOD PH 7.44 (7.32-7.43)
[2018-06-02 01:59] VITALS: RESP 16
[2018-06-02] MEDS ORDERED: metroNIDAZOLE IV 500 mg/100 ml 500 MG/100 ML BAG IVPB SCH (02:45)
[2018-06-02] MEDS ORDERED: metroNIDAZOLE IV 500 mg/100 ml 500 MG/100 ML BAG ONE (02:56)
[2018-06-02] MEDS: Sodium Chloride 0.9% 1,000 ML IV SCH (03:00)
[2018-06-02] MEDS ORDERED: Acetaminophen 650mg/20.3ml solution UD PO STA (05:00)
[2018-06-02] MEDS ORDERED: Acetaminophen 650mg/20.3ml solution UD ONE (05:05)
[2018-06-02 06:26] VITALS: BP 114/67; PULSE 97; TEMP 99.7; O2SAT 95
--- NOTE | 2018-06-02 12:40 | CARD ---
APPROVED REPORT Date of service: 06/01/2018 EKG Measurement Heart [id number] <Conclusion> Sinus tachycardia Otherwise normal ECG
--- NOTE | 2018-06-02 12:50 | CT ---
Date of service: 06/02/2018 PROCEDURE: CT Abdomen and Pelvis with contrast HISTORY: abd pain etoh abuse COMPARISON: None available TECHNIQUE: Contrast dose: 100 mL Visipaque 320 IV Radiation dose: Total exam DLP = 1017.35 mGy-cm. This CT exam was performed using one or more of the following dose reduction techniques: Automated exposure control, adjustment of the mA and/or kV according to patient size, and/or use of iterative reconstruction technique. FINDINGS: LOWER THORAX: Bibasilar atelectasis. No visible pleural effusion or pneumothorax. Partially imaged mild cardiomegaly. LIVER: Hepatomegaly. Hypoattenuation of the liver compatible with hepatic steatosis. Nodular hepatic contour. GALLBLADDER AND BILE DUCTS: Gallbladder distension. No calcified gallstones evident. PANCREAS: Fatty atrophy. Mild peripancreatic inflammatory stranding. SPLEEN: Unremarkable. ADRENALS: Unremarkable. KIDNEYS AND URETERS: The kidneys enhance symmetrically. No hydronephrosis or obstructing calculus identified. VASCULATURE: No aortic aneurysm. Scattered atherosclerotic calcifications of the aorta. BOWEL: Stomach is nondistended. Lack of oral contrast limits evaluation for bowel pathology. Bowel loops appear within normal limits of caliber without evidence of obstruction. Diverticulosis without CT evidence of acute diverticulitis. APPENDIX: The appendix is not identified. No secondary signs of acute appendicitis. PERITONEUM: No significant free fluid. No definite free air. LYMPH NODES: Mesenteric/retroperitoneal/peripancreatic adenopathy with pancreatic lymph nodes measuring up to 1.4 cm. BLADDER: Mildly thick-walled urinary bladder. REPRODUCTIVE: Unremarkable. BONES: Postsurgical fixation of the right pelvis/acetabulum. Intramedullary ale and screw fixation of the right femur. OTHER FINDINGS: None. IMPRESSION: Hepatomegaly. Hypoattenuation of the liver compatible with hepatic steatosis. Nodular hepatic contour; correlate clinically for cirrhosis. Nonspecific gallbladder distension. Suggest further evaluation with right upper quadrant ultrasound if indicated. Pancreatic atrophy. Mild peripancreatic inflammatory stranding. Peripancreatic lymph nodes measuring up to approximately 1.4 cm. Recommend further evaluation with amylase and lipase. Nonspecific mesenteric and retroperitoneal nodes also evident. The urinary bladder appears mildly thick-walled. Recommend correlation with urinalysis. Diverticulosis without CT evidence of acute diverticulitis. Additional incidental findings as above. Preliminary impression was provided by [employer].
--- NOTE | 2018-06-02 14:29 | RAD ---
Date of service: 06/01/2018 PROCEDURE: CHEST RADIOGRAPH, 1 VIEW HISTORY: abd pain COMPARISON: 07/26/2017 FINDINGS: LUNGS: Clear. Lung volumes borderline shallow. PLEURA: No pneumothorax or pleural fluid seen. CARDIOVASCULAR: There is presence of aortic atherosclerotic calcification on x-ray. Heart size within normal limits. Bronchovascular markings likely top normal. OSSEOUS STRUCTURES: Limited evaluation apparently history of prior CT mentioned left rib fractures not clearly seen on chest x-rays well in the past. No gross rib fractures appreciated on this exam Left acromioclavicular joint arthrosis. Thoracic spondylosis per VISUALIZED UPPER ABDOMEN: Normal. OTHER FINDINGS: None. IMPRESSION: No interval acute cardiopulmonary pathology noted. Other findings as above.
== END 2018-06-02 06:41 | disposition home or self-care (01) ==
LOC: C.ER 21:04
DX: R10.9 Unspecified abdominal pain (principal); F10.10 Alcohol abuse, uncomplicated; Y90.7 Blood alcohol level of 200-239 mg/100 ml; I10 Essential (primary) hypertension; E11.9 Type 2 diabetes mellitus without complications; J44.9 Chronic obstructive pulmonary disease, unspecified; Z86.711 Personal history of pulmonary embolism
CPT/HCPCS: 71045; 74177; 80053; 80320; 80324; 80345; 80346; 80349; 80353; 80358; 80361; 81001; 82803; 82948; 83605; 83690; 83992; 85025; 87804; 93005; 96365; 96375; 99285; J1885; J7030; Q9967

== ENCOUNTER 2018-06-04 00:24 | Emergency (ER) | payer MEDICAID ==
[2018-06-04 00:25] VITALS: BMI 29.8
[2018-06-04 00:55] VITALS: RESP 20
--- NOTE | 2018-06-04 03:15 | C.PDOC ---
History Of Present Illness 58 year old male found in journal square stating he is not feeling well, admits to drinking today. Hx of recent hip fracture. Denies other complaints. Chief Complaint (Nursing): Substance Abuse History Per: Patient History/Exam Limitations: no limitations Onset/Duration Of Symptoms: Hrs Current Symptoms Are (Timing): Still Present Suicide/Self Injury Attempted (Context): None Modifying Factor(s): Alcohol Involuntary Hold By: None Recent travel outside of the [place]: No Past Medical History Reviewed: Historical Data, Nursing Documentation, Vital Signs Vital Signs: Last Vital Signs Temp 98.4 F 06/04/18 00:37 Pulse 89 06/04/18 00:37 Resp 20 06/04/18 00:37 BP 113/71 06/04/18 00:37 Pulse Ox 97 06/04/18 00:37 - Medical History PMH: Anxiety, COPD, Depression, Diabetes, Fractures (R HIP x2), HTN, Pulmonary Embolism, Schizophrenia, Seizures (ETOH related) Denies: Hepatitis, HIV, Chronic Kidney Disease, Sexually Transmitted Disease - [facility] Procedures ALCOHOL DETOXIFICATION (02/24/13) DETOXIFICATION SERVICES FOR SUBSTANCE ABUSE TREATMENT (02/17/18) GROUP RAILWAY SIGNAL ELECTRICIAN FOR SUBSTANCE ABUSE TREATMENT, PSYCHOEDUCATION (02/17/18) GROUP RAILWAY SIGNAL ELECTRICIAN FOR SUBSTANCE ABUSE, COGNITIVE BEHAVIORAL (02/17/18) GROUP PSYCHOTHERAPY (02/17/18) INDIV PSYCHOTHERAPY FOR SUBSTANCE ABUSE TREATMENT, SUPPORT (02/17/18) INDIV PSYCHOTHERAPY FOR SUBSTANCE ABUSE, COGNITIV BEHAVIORAL (02/17/18) INDIV PSYCHOTHERAPY FOR SUBSTANCE ABUSE, PSYCHOEDUCATION (02/17/18) INDIVIDUAL PSYCHOTHERAPY, COGNITIVE-BEHAVIORAL (02/17/18) INDIVIDUAL PSYCHOTHERAPY, SUPPORTIVE (02/17/18) INJECT/INFUSE ELECTROLYT (02/20/13) INJECT/INFUSE NEC (05/02/13) MEDICATION MANAGEMENT (10/07/16) MEDS MGMT FOR SUBSTANCE ABUSE TREATMENT, METHADONE MAINT (07/27/16) MEDS MGMT FOR SUBSTANCE ABUSE TREATMENT, OTH REPL MED (09/18/16) Family History: States: Unknown Family Hx - Social History Hx Tobacco Use: Yes Hx Alcohol Use: Yes Hx Substance Use: Yes - Immunization History Hx Tetanus Toxoid Vaccination: No Hx Influenza Vaccination: No Hx Pneumococcal Vaccination: No Review Of Systems Constitutional: Negative for: Fever, Chills Cardiovascular: Negative for: Chest Pain, Palpitations Respiratory: Negative for: Cough, Shortness of Breath Gastrointestinal: Negative for: Nausea, Vomiting Neurological: Negative for: Weakness, Numbness Physical Exam - Physical Exam Appears: Non-toxic, Other (AOB, arousable) Skin: Normal Color, Warm, Dry Head: Atraumatic, Normacephalic Eye(s): bilateral: Normal Inspection Oral Mucosa: Moist Neck: Normal, Supple Chest: Symmetrical, No Tenderness Cardiovascular: Rhythm Regular Respiratory: Normal Breath Sounds, No Rales, No Rhonchi, No Wheezing Gastrointestinal/Abdominal: Soft, No Tenderness Neurological/Psych: Oriented x3, Normal Speech ED Course And Treatment O2 Sat by Pulse Oximetry: 97 (Room air) Pulse Ox Interpretation: Normal Disposition Counseled Patient/Family Regarding: Diagnosis - Disposition Referrals: [facility] [Outside] Disposition Time: 05:47 Condition: STABLE Instructions: Alcohol Abuse and Alcoholism (DC) Forms: [facility] (Saudi Arabian) - POA Present On Arrival: None - Clinical Impression Clinical Impression: Alcohol abuse - Scribe Statement The provider has reviewed the documentation as recorded by the Scribe Lucien Duncan All medical record entries made by the Scribe were at my direction and personally dictated by me. I have reviewed the chart and agree that the record accurately reflects my personal performance of the history, physical exam, medical decision making, and the department course for this patient. I have also personally directed, reviewed, and agree with the discharge instructions and disposition.
[2018-06-04 05:07] VITALS: BP 110/70; PULSE 86; TEMP 98.6
[2018-06-04 05:48] VITALS: O2SAT 97
== END 2018-06-04 06:01 | disposition home or self-care (01) ==
LOC: C.ER 00:24
DX: F10.10 Alcohol abuse, uncomplicated (principal); E11.9 Type 2 diabetes mellitus without complications; I10 Essential (primary) hypertension; J44.9 Chronic obstructive pulmonary disease, unspecified; F20.9 Schizophrenia, unspecified; Z72.0 Tobacco use

== ENCOUNTER 2018-06-05 17:33 | Emergency (ER) | payer MEDICAID ==
[2018-06-05 17:33] VITALS: BMI 29.8
--- NOTE | 2018-06-05 20:25 | C.PDOC ---
History Of Present Illness 58 year old male is brought to the ED by EMS for evaluation of alcohol intoxication. Patient is well known to the ED, admits to drinking alcohol. Patient denies SI/HI, hallucinations, injury, fall, trauma. Time Seen by Provider: 06/05/18 17:47 Chief Complaint (Nursing): Substance Abuse History Per: Patient, EMS History/Exam Limitations: intoxication Onset/Duration Of Symptoms: Hrs Current Symptoms Are (Timing): Still Present Suicide/Self Injury Attempted (Context): None Modifying Factor(s): Alcohol Associated Symptoms: denies: Depression, Suicidal Thoughts, Suicidal Plan Recent travel outside of the [place]: No Additional History Per: Patient, EMS Past Medical History Reviewed: Historical Data, Nursing Documentation, Vital Signs Vital Signs: Last Vital Signs Temp 98.1 F 06/05/18 20:02 Pulse 86 06/05/18 20:02 Resp 16 06/05/18 20:02 BP 113/71 06/05/18 20:02 Pulse Ox 96 06/05/18 20:02 - Medical History PMH: Anxiety, COPD, Depression, Diabetes, Fractures (R HIP x2), HTN, Pulmonary Embolism, Schizophrenia, Seizures (ETOH related) Denies: Hepatitis, HIV, Chronic Kidney Disease, Sexually Transmitted Disease Surgical History: No Surg Hx - [facility] Procedures ALCOHOL DETOXIFICATION (02/24/13) DETOXIFICATION SERVICES FOR SUBSTANCE ABUSE TREATMENT (02/17/18) GROUP LEAD REFINERY SUPERVISOR FOR SUBSTANCE ABUSE TREATMENT, PSYCHOEDUCATION (02/17/18) GROUP LEAD REFINERY SUPERVISOR FOR SUBSTANCE ABUSE, COGNITIVE BEHAVIORAL (02/17/18) GROUP PSYCHOTHERAPY (02/17/18) INDIV PSYCHOTHERAPY FOR SUBSTANCE ABUSE TREATMENT, SUPPORT (02/17/18) INDIV PSYCHOTHERAPY FOR SUBSTANCE ABUSE, COGNITIV BEHAVIORAL (02/17/18) INDIV PSYCHOTHERAPY FOR SUBSTANCE ABUSE, PSYCHOEDUCATION (02/17/18) INDIVIDUAL PSYCHOTHERAPY, COGNITIVE-BEHAVIORAL (02/17/18) INDIVIDUAL PSYCHOTHERAPY, SUPPORTIVE (02/17/18) INJECT/INFUSE ELECTROLYT (02/20/13) INJECT/INFUSE NEC (05/02/13) MEDICATION MANAGEMENT (10/07/16) MEDS MGMT FOR SUBSTANCE ABUSE TREATMENT, METHADONE MAINT (07/27/16) MEDS MGMT FOR SUBSTANCE ABUSE TREATMENT, OTH REPL MED (09/18/16) Family History: States: Unknown Family Hx - Social History Hx Tobacco Use: Yes Hx Alcohol Use: Yes Hx Substance Use: No - Immunization History Hx Tetanus Toxoid Vaccination: No Hx Influenza Vaccination: No Hx Pneumococcal Vaccination: No Review Of Systems Constitutional: Negative for: Fever, Chills Cardiovascular: Negative for: Chest Pain, Palpitations Respiratory: Negative for: Shortness of Breath Gastrointestinal: Negative for: Nausea, Vomiting, Abdominal Pain Skin: Negative for: Rash Neurological: Negative for: Weakness, Numbness Psych: Positive for: Other (Intoxication ). Negative for: Depression, Suicidal ideation Physical Exam - Physical Exam Appears: Non-toxic, No Acute Distress, Other (Alcohol on breath) Skin: Normal Color, Warm, Dry Head: Atraumatic, Normacephalic Eye(s): bilateral: Normal Inspection Neck: Normal ROM, Supple Chest: Symmetrical Cardiovascular: Rhythm Regular Respiratory: Normal Breath Sounds, No Rales, No Rhonchi, No Wheezing Gastrointestinal/Abdominal: Soft, No Tenderness, No Guarding, No Rebound Extremity: Normal ROM, No Tenderness Neurological/Psych: Oriented x3, Normal Speech, Normal Cognition Gait: Steady ED Course And Treatment O2 Sat by Pulse Oximetry: 96 (ON RA) Pulse Ox Interpretation: Normal Medical Decision Making Medical Decision Making: Assessment: Alcohol intoxication Plan: * Observe until clinically sober Disposition - Disposition Disposition Time: 01:00 Condition: STABLE Forms: [facility] (Andorran) - Clinical Impression Clinical Impression: Alcohol intoxication - Scribe Statement The provider has reviewed the documentation as recorded by the Scribe Kenny Berrios All medical record entries made by the Scribe were at my direction and personally dictated by me. I have reviewed the chart and agree that the record accurately reflects my personal performance of the history, physical exam, medical decision making, and the department course for this patient. I have also personally directed, reviewed, and agree with the discharge instructions and disposition. Physician Patient Turnover Patient Signed Over To: Tina Abad Handoff Comments: pending sobriety, reevaluation and disposition
[2018-06-06 05:53] VITALS: BP 129/83; PULSE 84; RESP 18; TEMP 98.4; O2SAT 96
== END 2018-06-06 05:53 | disposition home or self-care (01) ==
LOC: C.ER 17:33
DX: F10.129 Alcohol abuse with intoxication, unspecified (principal); Y90.9 Presence of alcohol in blood, level not specified

== ENCOUNTER 2018-06-07 19:42 | Emergency (ER) | payer MEDICAID ==
[2018-06-07 19:42] VITALS: BMI 29.8
--- NOTE | 2018-06-07 20:34 | C.PDOC ---
History Of Present Illness The patient is brought to the ED by ambulance for evaluation of acute alcohol intoxication for an unknown duration. Patient admits to drinking earlier today, and offers no physical complaints at this time. Time Seen by Provider: 06/07/18 20:34 Chief Complaint (Nursing): Medical Clearance History Per: Patient History/Exam Limitations: no limitations Onset/Duration Of Symptoms: Hrs Current Symptoms Are (Timing): Still Present Severity: None Pain Scale Rating Of: 0 Recent travel outside of the [place]: No Additional History Per: Patient Past Medical History Reviewed: Historical Data, Nursing Documentation, Vital Signs Vital Signs: Last Vital Signs Temp 98.7 F 06/07/18 19:52 Pulse 68 06/07/18 19:52 Resp 20 06/07/18 19:52 BP 156/79 H 06/07/18 19:52 Pulse Ox 99 06/07/18 19:52 - Medical History PMH: Anxiety, COPD, Depression, Diabetes, Fractures (R HIP x2), HTN, Pulmonary Embolism, Schizophrenia, Seizures (ETOH related) Denies: Hepatitis, HIV, Chronic Kidney Disease, Sexually Transmitted Disease Surgical History: No Surg Hx - [facility] Procedures ALCOHOL DETOXIFICATION (02/24/13) DETOXIFICATION SERVICES FOR SUBSTANCE ABUSE TREATMENT (02/17/18) GROUP HOISTING ENGINEER FOR SUBSTANCE ABUSE TREATMENT, PSYCHOEDUCATION (02/17/18) GROUP HOISTING ENGINEER FOR SUBSTANCE ABUSE, COGNITIVE BEHAVIORAL (02/17/18) GROUP PSYCHOTHERAPY (02/17/18) INDIV PSYCHOTHERAPY FOR SUBSTANCE ABUSE TREATMENT, SUPPORT (02/17/18) INDIV PSYCHOTHERAPY FOR SUBSTANCE ABUSE, COGNITIV BEHAVIORAL (02/17/18) INDIV PSYCHOTHERAPY FOR SUBSTANCE ABUSE, PSYCHOEDUCATION (02/17/18) INDIVIDUAL PSYCHOTHERAPY, COGNITIVE-BEHAVIORAL (02/17/18) INDIVIDUAL PSYCHOTHERAPY, SUPPORTIVE (02/17/18) INJECT/INFUSE ELECTROLYT (02/20/13) INJECT/INFUSE NEC (05/02/13) MEDICATION MANAGEMENT (10/07/16) MEDS MGMT FOR SUBSTANCE ABUSE TREATMENT, METHADONE MAINT (07/27/16) MEDS MGMT FOR SUBSTANCE ABUSE TREATMENT, OTH REPL MED (09/18/16) Family History: States: Unknown Family Hx - Social History Hx Tobacco Use: Yes Hx Alcohol Use: Yes Hx Substance Use: No - Immunization History Hx Tetanus Toxoid Vaccination: No Hx Influenza Vaccination: No Hx Pneumococcal Vaccination: No Review Of Systems Constitutional: Negative for: Fever, Chills Cardiovascular: Negative for: Chest Pain, Palpitations Respiratory: Negative for: Cough, Shortness of Breath Gastrointestinal: Negative for: Nausea, Vomiting Musculoskeletal: Negative for: Back Pain Skin: Negative for: Rash, Lesions, Jaundice, Bruising Neurological: Negative for: Weakness, Numbness Psych: Positive for: Other (alcohol intoxication ) Physical Exam - Physical Exam Appears: Non-toxic, No Acute Distress Skin: Warm, Dry, Other (no visible signs of trauma/injuries ) Head: Normacephalic Oral Mucosa: Moist, Other (alcohol on breath ) Neck: Supple Chest: Symmetrical, No Deformity Cardiovascular: Rhythm Regular Respiratory: No Accessory Muscle Use Extremity: Normal ROM Neurological/Psych: Other (arousable to touch and verbal stimuli ) ED Course And Treatment O2 Sat by Pulse Oximetry: 99 (on RA ) Pulse Ox Interpretation: Normal Reevaluation Time: 05:31 Reassessment Condition: Improved Disposition Counseled Patient/Family Regarding: Studies Performed, Diagnosis, Need For Followup - Disposition Referrals: [facility] [Outside] Disposition: HOME/ ROUTINE Disposition Time: 20:34 Condition: FAIR Instructions: Alcohol Abuse and Alcoholism (DC) Forms: [facility] (Yemeni) - Clinical Impression Clinical Impression: Alcohol abuse, Alcohol intoxication - Scribe Statement The provider has reviewed the documentation as recorded by the Scribe (Claire Partida) Provider Attestation: All medical record entries made by the Scribe were at my direction and personally dictated by me. I have reviewed the chart and agree that the record accurately reflects my personal performance of the history, physical exam, medical decision making, and the department course for this patient. I have also personally directed, reviewed, and agree with the discharge instructions and disposition.
[2018-06-08 00:48] VITALS: RESP 16; TEMP 98.1
[2018-06-08 05:32] VITALS: O2SAT 99
[2018-06-08 05:33] VITALS: BP 122/74; PULSE 76
== END 2018-06-08 05:37 | disposition home or self-care (01) ==
LOC: C.ER 19:42
DX: F10.129 Alcohol abuse with intoxication, unspecified (principal); Y90.9 Presence of alcohol in blood, level not specified

== ENCOUNTER 2018-06-08 16:49 | Emergency (ER) | payer MEDICAID ==
[2018-06-08 16:50] VITALS: BMI 29.8
[2018-06-08 16:59] VITALS: RESP 16
--- NOTE | 2018-06-08 19:25 | C.PDOC ---
History Of Present Illness 58 year old male presents to the emergency department via ambulance for public intoxication. Patient has recently been staying in the ED night for the same presentation, and is well known throughout the ED. Patient's last stay in the ED was overnight last night. Time Seen by Provider: 06/08/18 17:27 Chief Complaint (Nursing): Substance Abuse History Per: Patient History/Exam Limitations: no limitations Onset/Duration Of Symptoms: Hrs Current Symptoms Are (Timing): Still Present Suicide/Self Injury Attempted (Context): None Modifying Factor(s): Alcohol Associated Symptoms: denies: Suicidal Thoughts, Suicidal Plan Past Medical History Reviewed: Historical Data, Nursing Documentation, Vital Signs Vital Signs: Last Vital Signs Temp 97.8 F 06/08/18 16:53 Pulse 84 06/08/18 16:53 Resp 16 06/08/18 16:53 BP 100/69 06/08/18 16:53 Pulse Ox 95 06/08/18 16:53 - Medical History PMH: Anxiety, COPD, Depression, Diabetes, Fractures (R HIP x2), HTN, Pulmonary Embolism, Schizophrenia, Seizures (ETOH related) Denies: Hepatitis, HIV, Chronic Kidney Disease, Sexually Transmitted Disease Surgical History: No Surg Hx - [facility] Procedures ALCOHOL DETOXIFICATION (02/24/13) DETOXIFICATION SERVICES FOR SUBSTANCE ABUSE TREATMENT (02/17/18) GROUP TUBE OPERATOR FOR SUBSTANCE ABUSE TREATMENT, PSYCHOEDUCATION (02/17/18) GROUP TUBE OPERATOR FOR SUBSTANCE ABUSE, COGNITIVE BEHAVIORAL (02/17/18) GROUP PSYCHOTHERAPY (02/17/18) INDIV PSYCHOTHERAPY FOR SUBSTANCE ABUSE TREATMENT, SUPPORT (02/17/18) INDIV PSYCHOTHERAPY FOR SUBSTANCE ABUSE, COGNITIV BEHAVIORAL (02/17/18) INDIV PSYCHOTHERAPY FOR SUBSTANCE ABUSE, PSYCHOEDUCATION (02/17/18) INDIVIDUAL PSYCHOTHERAPY, COGNITIVE-BEHAVIORAL (02/17/18) INDIVIDUAL PSYCHOTHERAPY, SUPPORTIVE (02/17/18) INJECT/INFUSE ELECTROLYT (02/20/13) INJECT/INFUSE NEC (05/02/13) MEDICATION MANAGEMENT (10/07/16) MEDS MGMT FOR SUBSTANCE ABUSE TREATMENT, METHADONE MAINT (07/27/16) MEDS MGMT FOR SUBSTANCE ABUSE TREATMENT, OTH REPL MED (09/18/16) Family History: States: No Known Family Hx - Social History Hx Tobacco Use: Yes Hx Alcohol Use: Yes Hx Substance Use: No - Immunization History Hx Tetanus Toxoid Vaccination: No Hx Influenza Vaccination: No Hx Pneumococcal Vaccination: No Review Of Systems Except As Marked, All Systems Reviewed And Found Negative. Constitutional: Negative for: Fever, Chills Respiratory: Negative for: Cough, Shortness of Breath Gastrointestinal: Negative for: Nausea, Vomiting, Abdominal Pain, Diarrhea Neurological: Positive for: Other (intoxication) Physical Exam - Physical Exam Appears: Non-toxic, No Acute Distress, Other (stuperous) Skin: Normal Color, Warm, Dry Head: Atraumatic, Normacephalic Eye(s): bilateral: Normal Inspection, PERRL, EOMI Nose: Normal Oral Mucosa: Moist, Other (alcohol on breath) Neck: Normal, Supple Chest: Symmetrical, No Tenderness Cardiovascular: Rhythm Regular, No Murmur Respiratory: Normal Breath Sounds, No Rales, No Rhonchi, No Wheezing Gastrointestinal/Abdominal: Soft, No Tenderness, No Guarding, No Rebound Neurological/Psych: Oriented x3 ED Course And Treatment O2 Sat by Pulse Oximetry: 95 (RA) Pulse Ox Interpretation: Normal Reevaluation Time: 20:58 Reassessment Condition: Improved Medical Decision Making Medical Decision Making: Plan; Glucose POC 2100: clinically sober ok for d/c stable gait Disposition Doctor Will See Patient In The: Office Counseled Patient/Family Regarding: Studies Performed, Diagnosis - Disposition Disposition: HOME/ ROUTINE Disposition Time: 20:58 Condition: GOOD Forms: [facility] (Khmer) - Clinical Impression Clinical Impression: Alcohol abuse - Scribe Statement The provider has reviewed the documentation as recorded by the Scribe (Levy Garcia) Provider Attestation: All medical record entries made by the Scribe were at my direction and personally dictated by me. I have reviewed the chart and agree that the record accurately reflects my personal performance of the history, physical exam, medical decision making, and the department course for this patient. I have also personally directed, reviewed, and agree with the discharge instructions and disposition.
[2018-06-08 21:09] VITALS: BP 129/80; PULSE 89; TEMP 98.2; O2SAT 94
== END 2018-06-08 21:09 | disposition home or self-care (01) ==
LOC: C.ER 16:49
DX: F10.10 Alcohol abuse, uncomplicated (principal); E11.9 Type 2 diabetes mellitus without complications; I10 Essential (primary) hypertension; J44.9 Chronic obstructive pulmonary disease, unspecified; F20.9 Schizophrenia, unspecified; Z86.711 Personal history of pulmonary embolism; Z72.0 Tobacco use

== ENCOUNTER 2018-06-10 17:05 | Emergency (ER) | payer MEDICAID ==
[2018-06-10 17:05] VITALS: BMI 29.8
--- NOTE | 2018-06-10 17:42 | C.PDOC ---
History Of Present Illness Patient is a 58 year old male, heydi, who presents to the ED for public intoxication at [facility] today. Patient denies any SI/HI, hallucinations, CP, SOB, or other medical complaints at the present moment. Time Seen by Provider: 06/10/18 17:13 Chief Complaint (Nursing): Substance Abuse History Per: Patient, EMS History/Exam Limitations: intoxication Onset/Duration Of Symptoms: Hrs Suicide/Self Injury Attempted (Context): None Associated Symptoms: denies: Suicidal Thoughts, Suicidal Plan Recent travel outside of the [place]: No Additional History Per: Patient, EMS Past Medical History Reviewed: Historical Data, Nursing Documentation, Vital Signs Vital Signs: Last Vital Signs Temp 98.5 F 06/10/18 17:17 Pulse 91 H 06/10/18 17:17 Resp 18 06/10/18 17:17 BP 115/66 06/10/18 17:17 Pulse Ox 93 L 06/10/18 17:17 - Medical History PMH: Anxiety, COPD, Depression, Diabetes, Fractures (R HIP x2), HTN, Pulmonary Embolism, Schizophrenia, Seizures (ETOH related) Denies: Hepatitis, HIV, Chronic Kidney Disease, Sexually Transmitted Disease Surgical History: No Surg Hx - [facility] Procedures ALCOHOL DETOXIFICATION (02/24/13) DETOXIFICATION SERVICES FOR SUBSTANCE ABUSE TREATMENT (02/17/18) GROUP ACCESS REGISTRAR FOR SUBSTANCE ABUSE TREATMENT, PSYCHOEDUCATION (02/17/18) GROUP ACCESS REGISTRAR FOR SUBSTANCE ABUSE, COGNITIVE BEHAVIORAL (02/17/18) GROUP PSYCHOTHERAPY (02/17/18) INDIV PSYCHOTHERAPY FOR SUBSTANCE ABUSE TREATMENT, SUPPORT (02/17/18) INDIV PSYCHOTHERAPY FOR SUBSTANCE ABUSE, COGNITIV BEHAVIORAL (02/17/18) INDIV PSYCHOTHERAPY FOR SUBSTANCE ABUSE, PSYCHOEDUCATION (02/17/18) INDIVIDUAL PSYCHOTHERAPY, COGNITIVE-BEHAVIORAL (02/17/18) INDIVIDUAL PSYCHOTHERAPY, SUPPORTIVE (02/17/18) INJECT/INFUSE ELECTROLYT (02/20/13) INJECT/INFUSE NEC (05/02/13) MEDICATION MANAGEMENT (10/07/16) MEDS MGMT FOR SUBSTANCE ABUSE TREATMENT, METHADONE MAINT (07/27/16) MEDS MGMT FOR SUBSTANCE ABUSE TREATMENT, OTH REPL MED (09/18/16) Family History: States: No Known Family Hx - Social History Hx Tobacco Use: Yes Hx Alcohol Use: Yes Hx Substance Use: No - Immunization History Hx Tetanus Toxoid Vaccination: No Hx Influenza Vaccination: No Hx Pneumococcal Vaccination: No Review Of Systems Cardiovascular: Negative for: Chest Pain Respiratory: Negative for: Shortness of Breath Psych: Negative for: Suicidal ideation, Other (homicidal ideation or hallucinations ) Physical Exam - Physical Exam Appears: Non-toxic, No Acute Distress, Other (no sign of injury ) Skin: Normal Color, Warm, Dry Head: Atraumatic, Normacephalic Oral Mucosa: Moist Teeth: Edentulous Neck: Normal ROM, Supple Chest: Symmetrical, No Deformity Cardiovascular: Rhythm Regular, No Murmur Respiratory: Normal Breath Sounds, No Rales, No Rhonchi, No Wheezing Extremity: Normal ROM Neurological/Psych: Other (alert awake and responsive ) ED Course And Treatment O2 Sat by Pulse Oximetry: 93 (on RA) Pulse Ox Interpretation: Normal Reevaluation Time: 00:49 Reassessment Condition: Improved (Patient sleeping quietly in ED. No obvious distress.) Medical Decision Making Medical Decision Making: Plan: Glucose Disposition - Disposition Disposition Time: 00:50 Condition: STABLE Forms: [facility] (Romanian) - Clinical Impression Clinical Impression: Alcohol intoxication - Scribe Statement The provider has reviewed the documentation as recorded by the Scribmanolo Small All medical record entries made by the Scribe were at my direction and personally dictated by me. I have reviewed the chart and agree that the record accurately reflects my personal performance of the history, physical exam, medical decision making, and the department course for this patient. I have also personally directed, reviewed, and agree with the discharge instructions and disposition. Physician Patient Turnover Patient Signed Over To: Nisha Katz Handoff Comments: pending sobriety
[2018-06-11 02:23] VITALS: RESP 16; O2SAT 96
[2018-06-11 04:59] VITALS: BP 112/69; PULSE 98; TEMP 98.6
== END 2018-06-11 06:09 | disposition home or self-care (01) ==
LOC: C.ER 17:05
DX: F10.129 Alcohol abuse with intoxication, unspecified (principal); E11.9 Type 2 diabetes mellitus without complications; I10 Essential (primary) hypertension; J44.9 Chronic obstructive pulmonary disease, unspecified; F20.9 Schizophrenia, unspecified; Z72.0 Tobacco use

== ENCOUNTER 2018-06-11 11:02 | Emergency (ER) | payer MEDICAID ==
[2018-06-11 11:04] VITALS: BMI 29.8
[2018-06-11 11:26] VITALS: RESP 16
--- NOTE | 2018-06-11 11:36 | C.PDOC ---
History Of Present Illness 58 year old male is brought to the ED by ambulance for evaluation of acute alcohol intoxication. Patient admits to drinking earlier today and offers no physical complaints at this time. Time Seen by Provider: 06/11/18 11:21 Chief Complaint (Nursing): Substance Abuse History Per: Patient, EMS History/Exam Limitations: intoxication Onset/Duration Of Symptoms: Hrs Current Symptoms Are (Timing): Still Present Suicide/Self Injury Attempted (Context): None Modifying Factor(s): Alcohol Associated Symptoms: denies: Suicidal Thoughts, Suicidal Plan Involuntary Hold By: None Recent travel outside of the [place]: No Additional History Per: Patient, EMS Past Medical History Reviewed: Historical Data, Nursing Documentation, Vital Signs Vital Signs: Last Vital Signs Temp 97.7 F 06/11/18 11:25 Pulse 84 06/11/18 11:25 Resp 16 06/11/18 11:25 BP 109/69 06/11/18 11:25 Pulse Ox 95 06/11/18 11:25 - Medical History PMH: Anxiety, COPD, Depression, Diabetes, Fractures (R HIP x2), HTN, Pulmonary Embolism, Schizophrenia, Seizures (ETOH related) Denies: Hepatitis, HIV, Chronic Kidney Disease, Sexually Transmitted Disease Surgical History: No Surg Hx - [facility] Procedures ALCOHOL DETOXIFICATION (02/24/13) DETOXIFICATION SERVICES FOR SUBSTANCE ABUSE TREATMENT (02/17/18) GROUP FIRMWARE MANAGER FOR SUBSTANCE ABUSE TREATMENT, PSYCHOEDUCATION (02/17/18) GROUP FIRMWARE MANAGER FOR SUBSTANCE ABUSE, COGNITIVE BEHAVIORAL (02/17/18) GROUP PSYCHOTHERAPY (02/17/18) INDIV PSYCHOTHERAPY FOR SUBSTANCE ABUSE TREATMENT, SUPPORT (02/17/18) INDIV PSYCHOTHERAPY FOR SUBSTANCE ABUSE, COGNITIV BEHAVIORAL (02/17/18) INDIV PSYCHOTHERAPY FOR SUBSTANCE ABUSE, PSYCHOEDUCATION (02/17/18) INDIVIDUAL PSYCHOTHERAPY, COGNITIVE-BEHAVIORAL (02/17/18) INDIVIDUAL PSYCHOTHERAPY, SUPPORTIVE (02/17/18) INJECT/INFUSE ELECTROLYT (02/20/13) INJECT/INFUSE NEC (05/02/13) MEDICATION MANAGEMENT (10/07/16) MEDS MGMT FOR SUBSTANCE ABUSE TREATMENT, METHADONE MAINT (07/27/16) MEDS MGMT FOR SUBSTANCE ABUSE TREATMENT, OTH REPL MED (09/18/16) Family History: States: Unknown Family Hx - Social History Hx Tobacco Use: Yes Hx Alcohol Use: Yes Hx Substance Use: No - Immunization History Hx Tetanus Toxoid Vaccination: No Hx Influenza Vaccination: No Hx Pneumococcal Vaccination: No Review Of Systems Psych: Positive for: Other (alcohol intoxication ). Negative for: Suicidal ideation Physical Exam - Physical Exam Appears: Non-toxic, No Acute Distress, Other (visibly intoxicated ) Skin: Normal Color, Warm, Dry Head: Normacephalic Oral Mucosa: Moist, Other (alcohol on breath ) Neck: Supple Chest: Symmetrical, No Deformity Respiratory: No Accessory Muscle Use Extremity: Normal ROM Neurological/Psych: Other (arousable to touch and verbal stimuli ) ED Course And Treatment O2 Sat by Pulse Oximetry: 95 (on RA) Pulse Ox Interpretation: Normal Disposition - Disposition Disposition: ELOPEMENT - ER ONLY Disposition Time: 15:25 Condition: UNKNOWN Forms: [facility] (Wolof) - Clinical Impression Clinical Impression: Alcohol intoxication - PA / CUSTOMER SERVICE SECURITY OFFICER / Resident Statement MD/DO has reviewed & agrees with the documentation as recorded. - Scribe Statement The provider has reviewed the documentation as recorded by the Scribe (Claire Partida) All medical record entries made by the Scribe were at my direction and personally dictated by me. I have reviewed the chart and agree that the record accurately reflects my personal performance of the history, physical exam, medical decision making, and the department course for this patient. I have also personally directed, reviewed, and agree with the discharge instructions and disposition.
[2018-06-11 14:33] VITALS: BP 114/74; PULSE 77; TEMP 98.5
[2018-06-11 19:31] VITALS: O2SAT 95
== END 2018-06-11 14:05 | disposition left against medical advice (07) ==
LOC: C.ER 11:02
DX: F10.129 Alcohol abuse with intoxication, unspecified (principal); Y90.9 Presence of alcohol in blood, level not specified

== ENCOUNTER 2018-06-12 17:56 | Emergency (ER) | payer MEDICAID ==
[2018-06-12 17:56] VITALS: BMI 29.8
--- NOTE | 2018-06-12 20:09 | C.PDOC ---
History Of Present Illness Patient is a 58 year old male who presents to the ED for public intoxication. Patient is a chronic alcoholic who has had many previous visits to the ED for the same complaint, including 1 day ago. He denies any injuries, SI/HI, or hallucinations. Time Seen by Provider: 06/12/18 18:54 Chief Complaint (Nursing): Substance Abuse History Per: Patient Onset/Duration Of Symptoms: Hrs Modifying Factor(s): Alcohol Associated Symptoms: denies: Suicidal Thoughts, Suicidal Plan Involuntary Hold By: None Recent travel outside of the [place]: No Additional History Per: Patient Past Medical History Reviewed: Historical Data, Nursing Documentation, Vital Signs - Medical History PMH: Anxiety, COPD, Depression, Diabetes, Fractures (R HIP x2), HTN, Pulmonary Embolism, Schizophrenia, Seizures (ETOH related) Denies: Hepatitis, HIV, Chronic Kidney Disease, Sexually Transmitted Disease Surgical History: No Surg Hx - [facility] Procedures ALCOHOL DETOXIFICATION (02/24/13) DETOXIFICATION SERVICES FOR SUBSTANCE ABUSE TREATMENT (02/17/18) GROUP AIRPORT UTILITY WORKER FOR SUBSTANCE ABUSE TREATMENT, PSYCHOEDUCATION (02/17/18) GROUP AIRPORT UTILITY WORKER FOR SUBSTANCE ABUSE, COGNITIVE BEHAVIORAL (02/17/18) GROUP PSYCHOTHERAPY (02/17/18) INDIV PSYCHOTHERAPY FOR SUBSTANCE ABUSE TREATMENT, SUPPORT (02/17/18) INDIV PSYCHOTHERAPY FOR SUBSTANCE ABUSE, COGNITIV BEHAVIORAL (02/17/18) INDIV PSYCHOTHERAPY FOR SUBSTANCE ABUSE, PSYCHOEDUCATION (02/17/18) INDIVIDUAL PSYCHOTHERAPY, COGNITIVE-BEHAVIORAL (02/17/18) INDIVIDUAL PSYCHOTHERAPY, SUPPORTIVE (02/17/18) INJECT/INFUSE ELECTROLYT (02/20/13) INJECT/INFUSE NEC (05/02/13) MEDICATION MANAGEMENT (10/07/16) MEDS MGMT FOR SUBSTANCE ABUSE TREATMENT, METHADONE MAINT (07/27/16) MEDS MGMT FOR SUBSTANCE ABUSE TREATMENT, OTH REPL MED (09/18/16) Family History: States: Unknown Family Hx - Social History Hx Tobacco Use: Yes Hx Alcohol Use: Yes Hx Substance Use: No - Immunization History Hx Tetanus Toxoid Vaccination: No Hx Influenza Vaccination: No Hx Pneumococcal Vaccination: No Review Of Systems Psych: Negative for: Suicidal ideation, Other (Homicidal ideation or hallucinations ) Physical Exam - Physical Exam Appears: Non-toxic, No Acute Distress, Other (alcohol on breath, covered in feces) Skin: Normal Color, Warm, Dry Head: Atraumatic, Normacephalic Chest: Symmetrical, No Deformity Cardiovascular: Rhythm Regular, No Murmur Respiratory: Normal Breath Sounds, No Rales, No Rhonchi, No Wheezing Neurological/Psych: Oriented x3 Gait: Unsteady ED Course And Treatment Reevaluation Time: 21:23 Reassessment Condition: Improved Medical Decision Making Medical Decision Making: persistent alcohol abuse Disposition Doctor Will See Patient In The: Office Counseled Patient/Family Regarding: Studies Performed, Diagnosis - Disposition Disposition: HOME/ ROUTINE Disposition Time: 21:23 Condition: GOOD Forms: [facility] (Uzbek) - Clinical Impression Clinical Impression: Alcohol abuse - Scribe Statement The provider has reviewed the documentation as recorded by the Kaiseribmanolo Small All medical record entries made by the Lan were at my direction and personally dictated by me. I have reviewed the chart and agree that the record accurately reflects my personal performance of the history, physical exam, medical decision making, and the department course for this patient. I have also personally directed, reviewed, and agree with the discharge instructions and disposition.
[2018-06-12 21:52] VITALS: BP 110/70; PULSE 72; RESP 18; TEMP 98.2; O2SAT 95
== END 2018-06-12 21:52 | disposition home or self-care (01) ==
LOC: C.ER 17:56
DX: F10.10 Alcohol abuse, uncomplicated (principal)

== ENCOUNTER 2018-06-13 17:14 | Emergency (ER) | payer MEDICAID ==
[2018-06-13 17:14] VITALS: BMI 29.8
[2018-06-13] MEDS ORDERED: Folic Acid 1 MG, Thiamine 100 MG, Multivitamin (MVI) 10 ML in Dextrose 5% In Water 1,00... IV SCH (18:00)
--- NOTE | 2018-06-13 18:03 | C.PDOC ---
History Of Present Illness 58 y/o male hx of alcohol abuse brought to the ER by EMS for public intoxication. Pt states he has a "a bad heart" . Pt denies any trauma and is able to answer question. Pt is intoxicated with slurred speech. Pt denies headache, nausea, vomiting, fever and chills. Time Seen by Provider: 06/13/18 17:31 Chief Complaint (Nursing): Substance Abuse History Per: Patient History/Exam Limitations: no limitations Onset/Duration Of Symptoms: Hrs Current Symptoms Are (Timing): Still Present Suicide/Self Injury Attempted (Context): None Modifying Factor(s): Alcohol Past Medical History Reviewed: Historical Data, Nursing Documentation, Vital Signs Vital Signs: Last Vital Signs Temp 97.1 F L 06/13/18 17:31 Pulse 92 H 06/13/18 17:31 Resp 16 06/13/18 17:31 BP 107/69 06/13/18 17:31 Pulse Ox 95 06/13/18 17:31 - Medical History PMH: Anxiety, COPD, Depression, Diabetes, Fractures (R HIP x2), HTN, Pulmonary Embolism, Schizophrenia, Seizures (ETOH related) - [facility] Procedures ALCOHOL DETOXIFICATION (02/24/13) DETOXIFICATION SERVICES FOR SUBSTANCE ABUSE TREATMENT (02/17/18) GROUP DELIVERY LEAD FOR SUBSTANCE ABUSE TREATMENT, PSYCHOEDUCATION (02/17/18) GROUP DELIVERY LEAD FOR SUBSTANCE ABUSE, COGNITIVE BEHAVIORAL (02/17/18) GROUP PSYCHOTHERAPY (02/17/18) INDIV PSYCHOTHERAPY FOR SUBSTANCE ABUSE TREATMENT, SUPPORT (02/17/18) INDIV PSYCHOTHERAPY FOR SUBSTANCE ABUSE, COGNITIV BEHAVIORAL (02/17/18) INDIV PSYCHOTHERAPY FOR SUBSTANCE ABUSE, PSYCHOEDUCATION (02/17/18) INDIVIDUAL PSYCHOTHERAPY, COGNITIVE-BEHAVIORAL (02/17/18) INDIVIDUAL PSYCHOTHERAPY, SUPPORTIVE (02/17/18) INJECT/INFUSE ELECTROLYT (02/20/13) INJECT/INFUSE NEC (05/02/13) MEDICATION MANAGEMENT (10/07/16) MEDS MGMT FOR SUBSTANCE ABUSE TREATMENT, METHADONE MAINT (07/27/16) MEDS MGMT FOR SUBSTANCE ABUSE TREATMENT, OTH REPL MED (09/18/16) Family History: States: Unknown Family Hx - Social History Hx Tobacco Use: Yes Hx Alcohol Use: Yes Hx Substance Use: No - Immunization History Hx Tetanus Toxoid Vaccination: No Hx Influenza Vaccination: No Hx Pneumococcal Vaccination: No Review Of Systems Except As Marked, All Systems Reviewed And Found Negative. Constitutional: Positive for: Other (public intoxication; no trauma ). Negative for: Fever, Chills Gastrointestinal: Negative for: Vomiting Genitourinary: Positive for: Incontinence Neurological: Negative for: Headache Physical Exam - Physical Exam Appears: Unkempt, Other (malodorous ) Skin: Warm, Dry Head: Atraumatic, Normacephalic, No Tenderness, No Swelling, No Abrasion, No Laceration, Other (no evidence of trauma to head or face) Eye(s): bilateral: Normal Inspection Oral Mucosa: Moist Throat: Normal Neck: Normal ROM, Supple Cardiovascular: Rhythm Regular Respiratory: Normal Breath Sounds, No Rales, No Rhonchi, No Wheezing Gastrointestinal/Abdominal: Soft, No Tenderness Extremity: Other (healing scab abrasion on right knee; bleeding around nail bed on right great toe) Neurological/Psych: Oriented x3, No Normal Speech (slurred speech) ED Course And Treatment - Laboratory Results Result Diagrams: 06/13/18 18:22 06/13/18 18:22 O2 Sat by Pulse Oximetry: 95 (RA) Pulse Ox Interpretation: Normal Medical Decision Making Medical Decision Making: plans: -- chem labs -- blood work -- EKG -- CXR -- dextrose IV Disposition - Disposition Disposition: HOME/ ROUTINE Disposition Time: 18:47 Condition: GUARDED Forms: [facility] (Dutch) - Clinical Impression Clinical Impression: Alcohol use disorder, severe, dependence - Scribe Statement The provider has reviewed the documentation as recorded by the Scribe Moncada Do Provider Attestation: All medical record entries made by the Scribe were at my direction and personally dictated by me. I have reviewed the chart and agree that the record accurately reflects my personal performance of the history, physical exam, medical decision making, and the department course for this patient. I have also personally directed, reviewed, and agree with the discharge instructions and disposition. Physician Patient Turnover Patient Signed Over To: Blessing Young Handoff Comments: ETOH abuse, c/o bad heart. Labs sent. Pending sobriety and final dispo.
[2018-06-13 18:26] LABS: BASO # 0.1 K/uL (0.0-0.2); BASO % 1.2 % (0.0-2.0); EOS # 0.1 K/uL (0.0-0.7); EOS % 1.2 % (0.0-4.0); HEMOGLOBIN 13.9 g/dL (12.0-18.0); LYMPH # 1.3 K/uL (1.0-4.3); LYMPH % 21.1 % (20.0-40.0); MEAN CORPUSCULAR HEMOGLOBIN 32.9 pg (27.0-31.0); MEAN CORPUSCULAR HGB CONC 33.5 g/dL (33.0-37.0); MEAN PLATELET VOLUME 8.1 fL (7.2-11.7); MONO # 0.9 K/uL (0.0-0.8); MONO % 14.6 % (0.0-10.0); NEUT # 3.9 K/uL (1.8-7.0); NEUT % 61.9 % (50.0-75.0); NRBC % 0.1 % (0.0-2.0); RBC 4.22 Mil/uL (4.40-5.90); RED CELL DISTRIBUTION WIDTH 15.3 % (11.5-14.5); WHITE BLOOD COUNT 6.3 K/uL (4.8-10.8)
[2018-06-13 18:33] LABS: MEAN CELL VOLUME 98.4 fL (80.0-94.0)
[2018-06-13 18:44] LABS: ALB/GLOB RATIO 1.2 (1.0-2.1); ALBUMIN 4.3 g/dL (3.5-5.0); ALT/SGPT 18 U/L (21-72); AST/SGOT 157 U/L (17-59); BLOOD UREA NITROGEN 5 mg/dL (9-20); CALCIUM 8.2 mg/dl (8.6-10.4); GFR NON-AFRICAN AMERICAN > 60
[2018-06-13 18:50] LABS: B-TYPE NATRIURETIC PEPTIDE 21.6 pg/mL (0-900)
[2018-06-14 04:04] VITALS: RESP 16
[2018-06-14 05:37] VITALS: BP 123/92; PULSE 74; TEMP 98.3; O2SAT 99
--- NOTE | 2018-06-14 15:03 | RAD ---
Date of service: 06/13/2018 HISTORY: chest pain COMPARISON: Comparison chest 06/01/2018 TECHNIQUE: 1 view obtained. FINDINGS: LUNGS: No active pulmonary disease. PLEURA: No significant pleural effusion identified, no pneumothorax apparent. CARDIOVASCULAR: No aortic atherosclerotic calcification present. Aorta slightly ectatic and uncoiled likely due to patient rotation to the right. Normal cardiac size. No pulmonary vascular congestion. OSSEOUS STRUCTURES: No significant abnormalities. VISUALIZED UPPER ABDOMEN: Normal. OTHER FINDINGS: None. IMPRESSION: No active disease.
--- NOTE | 2018-06-16 01:35 | CARD ---
APPROVED REPORT Date of service: 06/13/2018 EKG Measurement Heart [id number] <Conclusion> Normal sinus rhythm Prolonged QT Abnormal ECG
== END 2018-06-14 05:57 | disposition home or self-care (01) ==
LOC: C.ER 17:14
DX: F10.20 Alcohol dependence, uncomplicated (principal); Y90.8 Blood alcohol level of 240 mg/100 ml or more
CPT/HCPCS: 71045; 80053; 80320; 83880; 84484; 85025; 93005; 96360; 96361; 99285; J3411; J7070

== ENCOUNTER 2018-06-14 19:59 | Emergency (ER) | payer MEDICAID ==
[2018-06-14 20:00] VITALS: BMI 29.8
--- NOTE | 2018-06-15 00:15 | C.PDOC ---
History Of Present Illness 58 year old male presents to the ED with acute alcohol intoxication. Patient is familiar to this ED and has had many prior presentations with the same. Patient also complains of right knee pain after sustaining an abrasion to the area. Patient denies head injury, LOC. Chief Complaint (Nursing): Lower Extremity Problem/Injury History Per: Patient History/Exam Limitations: no limitations Onset/Duration Of Symptoms: Hrs Current Symptoms Are (Timing): Still Present Additional History Per: Patient - Knee Description Of Injury: Fell Past Medical History Reviewed: Historical Data, Nursing Documentation, Vital Signs Vital Signs: Last Vital Signs Temp 98.2 F 06/14/18 22:16 Pulse 89 06/14/18 22:16 Resp 22 06/14/18 22:16 BP 123/79 06/14/18 22:16 Pulse Ox 100 06/14/18 22:16 - Medical History PMH: Anxiety, COPD, Depression, Diabetes, Fractures (R HIP x2), HTN, Pulmonary Embolism, Schizophrenia, Seizures (ETOH related) Denies: HIV, Chronic Kidney Disease, Sexually Transmitted Disease Surgical History: No Surg Hx - [facility] Procedures ALCOHOL DETOXIFICATION (02/24/13) DETOXIFICATION SERVICES FOR SUBSTANCE ABUSE TREATMENT (02/17/18) GROUP SCHEDULE PLANNING MANAGER FOR SUBSTANCE ABUSE TREATMENT, PSYCHOEDUCATION (02/17/18) GROUP SCHEDULE PLANNING MANAGER FOR SUBSTANCE ABUSE, COGNITIVE BEHAVIORAL (02/17/18) GROUP PSYCHOTHERAPY (02/17/18) INDIV PSYCHOTHERAPY FOR SUBSTANCE ABUSE TREATMENT, SUPPORT (02/17/18) INDIV PSYCHOTHERAPY FOR SUBSTANCE ABUSE, COGNITIV BEHAVIORAL (02/17/18) INDIV PSYCHOTHERAPY FOR SUBSTANCE ABUSE, PSYCHOEDUCATION (02/17/18) INDIVIDUAL PSYCHOTHERAPY, COGNITIVE-BEHAVIORAL (02/17/18) INDIVIDUAL PSYCHOTHERAPY, SUPPORTIVE (02/17/18) INJECT/INFUSE ELECTROLYT (02/20/13) INJECT/INFUSE NEC (05/02/13) MEDICATION MANAGEMENT (10/07/16) MEDS MGMT FOR SUBSTANCE ABUSE TREATMENT, METHADONE MAINT (07/27/16) MEDS MGMT FOR SUBSTANCE ABUSE TREATMENT, OTH REPL MED (09/18/16) Family History: States: Unknown Family Hx - Social History Hx Tobacco Use: Yes Hx Alcohol Use: Yes Hx Substance Use: No - Immunization History Hx Tetanus Toxoid Vaccination: No Hx Influenza Vaccination: No Hx Pneumococcal Vaccination: No Review Of Systems Skin: Positive for: Other (injury to right knee ) Neurological: Negative for: Other (head injury, LOC ) Psych: Positive for: Other (alcohol intoxication ) Physical Exam - Physical Exam Appears: Non-toxic, No Acute Distress, Other (visibly intoxicated ) Skin: Warm, Dry, Other (abrasion to right knee, no active bleeding ) Head: Normacephalic Oral Mucosa: Moist, Other (alcohol on breath ) Neck: Supple Chest: Symmetrical, No Deformity Respiratory: No Accessory Muscle Use Extremity: Normal ROM, No Tenderness, No Deformity, No Swelling Neurological/Psych: Other (arousable to touch and verbal stimuli ) ED Course And Treatment O2 Sat by Pulse Oximetry: 100 (on RA ) Pulse Ox Interpretation: Normal - Other Rad right knee XR X-Ray: Interpreted by Me Interpretation: negative Medical Decision Making Medical Decision Making: Progress: Right knee XR ordered and reviewed. Disposition Counseled Patient/Family Regarding: Diagnosis, Need For Followup - Disposition Referrals: [facility] [Outside] [facility] [Outside] Disposition: HOME/ ROUTINE Disposition Time: 05:31 Condition: STABLE Additional Instructions: JOANNA RIVERA, thank you for letting us take care of you today. Your provider was Blessing Young MD and you were treated for SUBSTANCE ABUSE. The emergency medical care you received today was directed at your acute symptoms. If you were prescribed any medication, please fill it and take as directed. It may take several days for your symptoms to resolve. Return to the Emergency Department if your symptoms worsen, do not improve, or if you have any other problems. Please contact your doctor or call one of the physicians/clinics you have been referred to that are listed on the Patient Visit Information form that is included in your discharge packet. Bring any paperwork you were given at discharge with you along with any medications you are taking to your follow up visit. Our treatment cannot replace ongoing medical care by a primary care provider outside of the emergency department. Thank you for allowing the [facility] team to be part of your care today. Instructions: Alcohol Abuse and Alcoholism (DC), Skin Abrasions Forms: [facility] (Occitan) - Clinical Impression Clinical Impression: Alcohol intoxication, Abrasion of knee, right - Scribe Statement The provider has reviewed the documentation as recorded by the Scribe (Claire Partida) Provider Attestation: All medical record entries made by the Scribe were at my direction and personally dictated by me. I have reviewed the chart and agree that the record accurately reflects my personal performance of the history, physical exam, medical decision making, and the department course for this patient. I have also personally directed, reviewed, and agree with the discharge instructions and disposition.
[2018-06-15 05:24] VITALS: BP 118/73; PULSE 79; RESP 16; TEMP 98.1
[2018-06-15 05:32] VITALS: O2SAT 100
--- NOTE | 2018-06-15 09:14 | RAD ---
Date of service: 06/15/2018 PROCEDURE: Right Knee Radiographs. HISTORY: Injury COMPARISON: None. FINDINGS: BONES: No evidence of acute displaced fracture nor dislocation. The osseous structures appear intact. Note is made distal aspect of a intramedullary fixation nail femur fixed in place by a transversely oriented threaded screw the within the distal femoral shaft. JOINTS: Joint space preserved. No significant osteoarthritis. JOINT EFFUSION: None. OTHER FINDINGS: None. IMPRESSION: No evidence of acute displaced fracture nor dislocation.
== END 2018-06-15 05:41 | disposition home or self-care (01) ==
LOC: C.ER 19:59
DX: S80.211A Abrasion, right knee, initial encounter (principal); W19.XXXA Unspecified fall, initial encounter; F10.129 Alcohol abuse with intoxication, unspecified; E11.9 Type 2 diabetes mellitus without complications

== ENCOUNTER 2018-06-19 20:33 | Emergency (ER) | payer MEDICAID ==
[2018-06-19 20:33] VITALS: BMI 29.8
--- NOTE | 2018-06-19 21:57 | C.PDOC ---
History Of Present Illness 58 y/o male pt presents to the ER by EMS for alcohol use. Pt is a well known patient in the ER. He has no complaints or associated sx at this time. Time Seen by Provider: 06/19/18 20:48 Chief Complaint (Nursing): Substance Abuse History Per: Patient History/Exam Limitations: no limitations Onset/Duration Of Symptoms: Hrs Current Symptoms Are (Timing): Still Present Modifying Factor(s): Alcohol Past Medical History Reviewed: Historical Data, Nursing Documentation, Vital Signs Vital Signs: Last Vital Signs Temp 97.5 F L 06/19/18 20:48 Pulse 86 06/19/18 20:48 Resp 16 06/19/18 20:48 BP 151/94 H 06/19/18 20:48 Pulse Ox 96 06/19/18 20:48 - Medical History PMH: Anxiety, COPD, Depression, Diabetes, Fractures (R HIP x2), HTN, Schizophrenia, Seizures (ETOH related) - [facility] Procedures ALCOHOL DETOXIFICATION (02/24/13) DETOXIFICATION SERVICES FOR SUBSTANCE ABUSE TREATMENT (02/17/18) GROUP FINANCIAL SERVICES AUDITOR FOR SUBSTANCE ABUSE TREATMENT, PSYCHOEDUCATION (02/17/18) GROUP FINANCIAL SERVICES AUDITOR FOR SUBSTANCE ABUSE, COGNITIVE BEHAVIORAL (02/17/18) GROUP PSYCHOTHERAPY (02/17/18) INDIV PSYCHOTHERAPY FOR SUBSTANCE ABUSE TREATMENT, SUPPORT (02/17/18) INDIV PSYCHOTHERAPY FOR SUBSTANCE ABUSE, COGNITIV BEHAVIORAL (02/17/18) INDIV PSYCHOTHERAPY FOR SUBSTANCE ABUSE, PSYCHOEDUCATION (02/17/18) INDIVIDUAL PSYCHOTHERAPY, COGNITIVE-BEHAVIORAL (02/17/18) INDIVIDUAL PSYCHOTHERAPY, SUPPORTIVE (02/17/18) INJECT/INFUSE ELECTROLYT (02/20/13) INJECT/INFUSE NEC (05/02/13) MEDICATION MANAGEMENT (10/07/16) MEDS MGMT FOR SUBSTANCE ABUSE TREATMENT, METHADONE MAINT (07/27/16) MEDS MGMT FOR SUBSTANCE ABUSE TREATMENT, OTH REPL MED (09/18/16) Family History: States: Unknown Family Hx - Social History Hx Tobacco Use: Yes Hx Alcohol Use: Yes Hx Substance Use: No - Immunization History Hx Tetanus Toxoid Vaccination: No Hx Influenza Vaccination: No Hx Pneumococcal Vaccination: No Review Of Systems Except As Marked, All Systems Reviewed And Found Negative. Constitutional: Positive for: Other (alcohol use ) Physical Exam - Physical Exam Appears: Well, Non-toxic, No Acute Distress Skin: Normal Color, Warm, Dry Head: Atraumatic, Normacephalic Eye(s): bilateral: Normal Inspection, PERRL, EOMI Nose: Normal Oral Mucosa: Moist Chest: Symmetrical Cardiovascular: Rhythm Regular, No Murmur Respiratory: Normal Breath Sounds, No Rales, No Rhonchi, No Wheezing Gastrointestinal/Abdominal: Normal Exam, Soft, No Tenderness Extremity: Normal ROM Extremity: Bilateral: Atraumatic, Normal Color And Temperature Neurological/Psych: Oriented x3, Normal Speech ED Course And Treatment O2 Sat by Pulse Oximetry: 96 (RA) Pulse Ox Interpretation: Normal Medical Decision Making Medical Decision Making: Assessment: alcohol use Plans: -- glucose POC Disposition - Disposition Disposition Time: 01:00 Condition: STABLE Forms: [facility] (Serbian) - Clinical Impression Clinical Impression: Alcohol intoxication - Scribe Statement The provider has reviewed the documentation as recorded by the Scribe Coral Carroll Provider Attestation: All medical record entries made by the Scribe were at my direction and personally dictated by me. I have reviewed the chart and agree that the record accurately reflects my personal performance of the history, physical exam, medical decision making, and the department course for this patient. I have also personally directed, reviewed, and agree with the discharge instructions and disposition. Physician Patient Turnover Patient Signed Over To: Cruz Lomas Handoff Comments: pending sobriety, reevaluation and disposition
[2018-06-20 05:06] VITALS: BP 130/80; PULSE 84; RESP 14; TEMP 97.2; O2SAT 97
== END 2018-06-20 05:32 | disposition home or self-care (01) ==
LOC: C.ER 20:33
DX: F10.129 Alcohol abuse with intoxication, unspecified (principal); Y90.9 Presence of alcohol in blood, level not specified

== ENCOUNTER 2018-06-20 14:44 | Emergency (ER) | payer MEDICAID ==
[2018-06-20 14:44] VITALS: BMI 29.8
--- NOTE | 2018-06-20 16:43 | C.PDOC ---
History Of Present Illness 58 years old male presents to ED for public intoxication. Denies SI, HI, or any other physical complaints. Patient is awake, alert, and oriented x3 with steady gait. Time Seen by Provider: 06/20/18 14:44 History Per: Patient History/Exam Limitations: no limitations Onset/Duration Of Symptoms: Hrs Current Symptoms Are (Timing): Still Present Suicide/Self Injury Attempted (Context): None Modifying Factor(s): Alcohol Associated Symptoms: denies: Suicidal Thoughts, Suicidal Plan Involuntary Hold By: None Recent travel outside of the [place]: No Past Medical History Reviewed: Historical Data, Nursing Documentation, Vital Signs - Medical History PMH: Anxiety, COPD, Depression, Diabetes, Fractures (R HIP x2), HTN, Schizophrenia, Seizures (ETOH related) Denies: HIV, Pulmonary Embolism, Chronic Kidney Disease, Sexually Transmitted Disease - [facility] Procedures ALCOHOL DETOXIFICATION (02/24/13) DETOXIFICATION SERVICES FOR SUBSTANCE ABUSE TREATMENT (02/17/18) GROUP SENIOR SCRUM MASTER FOR SUBSTANCE ABUSE TREATMENT, PSYCHOEDUCATION (02/17/18) GROUP SENIOR SCRUM MASTER FOR SUBSTANCE ABUSE, COGNITIVE BEHAVIORAL (02/17/18) GROUP PSYCHOTHERAPY (02/17/18) INDIV PSYCHOTHERAPY FOR SUBSTANCE ABUSE TREATMENT, SUPPORT (02/17/18) INDIV PSYCHOTHERAPY FOR SUBSTANCE ABUSE, COGNITIV BEHAVIORAL (02/17/18) INDIV PSYCHOTHERAPY FOR SUBSTANCE ABUSE, PSYCHOEDUCATION (02/17/18) INDIVIDUAL PSYCHOTHERAPY, COGNITIVE-BEHAVIORAL (02/17/18) INDIVIDUAL PSYCHOTHERAPY, SUPPORTIVE (02/17/18) INJECT/INFUSE ELECTROLYT (02/20/13) INJECT/INFUSE NEC (05/02/13) MEDICATION MANAGEMENT (10/07/16) MEDS MGMT FOR SUBSTANCE ABUSE TREATMENT, METHADONE MAINT (07/27/16) MEDS MGMT FOR SUBSTANCE ABUSE TREATMENT, OTH REPL MED (09/18/16) Family History: States: Unknown Family Hx - Social History Hx Tobacco Use: Yes Hx Alcohol Use: Yes Hx Substance Use: No - Immunization History Hx Tetanus Toxoid Vaccination: No Hx Influenza Vaccination: No Hx Pneumococcal Vaccination: No Review Of Systems Except As Marked, All Systems Reviewed And Found Negative. Constitutional: Negative for: Fever, Chills Gastrointestinal: Negative for: Nausea, Vomiting, Abdominal Pain, Diarrhea Skin: Negative for: Rash Neurological: Negative for: Weakness, Numbness Psych: Negative for: Suicidal ideation Physical Exam - Physical Exam Appears: Non-toxic, No Acute Distress Skin: Normal Color, Warm, Dry, No Rash Head: Atraumatic, Normacephalic Eye(s): bilateral: Normal Inspection, PERRL, EOMI Oral Mucosa: Moist Neck: Normal ROM, Supple Chest: Symmetrical, No Tenderness Cardiovascular: Rhythm Regular, No Murmur Respiratory: Normal Breath Sounds, No Rales, No Rhonchi, No Wheezing Gastrointestinal/Abdominal: Soft, No Tenderness Extremity: Normal ROM Extremity: Bilateral: Atraumatic, Normal Color And Temperature, Normal ROM Pulses: Left Radial: Normal, Right Radial: Normal Neurological/Psych: Oriented x3, Normal Speech, Other (No focal deficits) Gait: Steady Medical Decision Making Medical Decision Making: well known to er - in nad observed in er 3 hours, no medical complaint steady gait. stalbe for dc. clincally sober Disposition - Disposition Disposition: HOME/ ROUTINE Disposition Time: 19:00 Condition: GOOD Instructions: Alcohol Abuse and Alcoholism (DC) Forms: [email or web address] (Latvian) - Clinical Impression Clinical Impression: Alcohol abuse - PA / RETAIL FIELD REPRESENTATIVE / Resident Statement MD/DO has reviewed & agrees with the documentation as recorded. - Scribe Statement Max Alejandre All medical record entries made by the Scribe were at my direction and personally dictated by me. I have reviewed the chart and agree that the record accurately reflects my personal performance of the history, physical exam, medical decision making, and the department course for this patient. I have also personally directed, reviewed, and agree with the discharge instructions and disposition.
[2018-06-20 19:02] VITALS: BP 159/78; PULSE 89; RESP 18; TEMP 97; O2SAT 96
== END 2018-06-20 19:01 | disposition home or self-care (01) ==
LOC: C.ER 14:44
DX: F10.10 Alcohol abuse, uncomplicated (principal); E11.9 Type 2 diabetes mellitus without complications; F20.9 Schizophrenia, unspecified; I10 Essential (primary) hypertension; J44.9 Chronic obstructive pulmonary disease, unspecified; Z87.891 Personal history of nicotine dependence

== ENCOUNTER 2018-06-22 03:37 | Emergency (ER) | payer MEDICAID ==
[2018-06-22 03:37] VITALS: BMI 29.8
--- NOTE | 2018-06-22 04:55 | C.PDOC ---
History Of Present Illness 58 year old male is brought to the ED by EMS for public intoxication. [place]. Patient is well known to the ED with multiple prior evaluations for same. Patient denies SI/HI, hallucinations, injury, fall, trauma. Time Seen by Provider: 06/22/18 03:49 Chief Complaint (Nursing): Substance Abuse History Per: Patient, EMS History/Exam Limitations: intoxication Onset/Duration Of Symptoms: Hrs Current Symptoms Are (Timing): Still Present Suicide/Self Injury Attempted (Context): None Modifying Factor(s): Alcohol Associated Symptoms: denies: Depression, Suicidal Thoughts, Suicidal Plan Additional History Per: Patient, EMS Past Medical History Reviewed: Historical Data, Nursing Documentation, Vital Signs Vital Signs: Last Vital Signs Temp 98.4 F 06/22/18 03:45 Pulse 95 H 06/22/18 03:45 Resp 16 06/22/18 03:45 BP 148/84 06/22/18 03:45 Pulse Ox 97 06/22/18 03:45 - Medical History PMH: Anxiety, COPD, Depression, Diabetes, Fractures (R HIP x2), HTN, Schizophrenia, Seizures (ETOH related) Denies: HIV, Pulmonary Embolism, Chronic Kidney Disease, Sexually Transmitted Disease Surgical History: No Surg Hx - [facility] Procedures ALCOHOL DETOXIFICATION (02/24/13) DETOXIFICATION SERVICES FOR SUBSTANCE ABUSE TREATMENT (02/17/18) GROUP QA TEST ANALYST FOR SUBSTANCE ABUSE TREATMENT, PSYCHOEDUCATION (02/17/18) GROUP QA TEST ANALYST FOR SUBSTANCE ABUSE, COGNITIVE BEHAVIORAL (02/17/18) GROUP PSYCHOTHERAPY (02/17/18) INDIV PSYCHOTHERAPY FOR SUBSTANCE ABUSE TREATMENT, SUPPORT (02/17/18) INDIV PSYCHOTHERAPY FOR SUBSTANCE ABUSE, COGNITIV BEHAVIORAL (02/17/18) INDIV PSYCHOTHERAPY FOR SUBSTANCE ABUSE, PSYCHOEDUCATION (02/17/18) INDIVIDUAL PSYCHOTHERAPY, COGNITIVE-BEHAVIORAL (02/17/18) INDIVIDUAL PSYCHOTHERAPY, SUPPORTIVE (02/17/18) INJECT/INFUSE ELECTROLYT (02/20/13) INJECT/INFUSE NEC (05/02/13) MEDICATION MANAGEMENT (10/07/16) MEDS MGMT FOR SUBSTANCE ABUSE TREATMENT, METHADONE MAINT (07/27/16) MEDS MGMT FOR SUBSTANCE ABUSE TREATMENT, OTH REPL MED (09/18/16) Family History: States: Unknown Family Hx - Social History Hx Tobacco Use: Yes Hx Alcohol Use: Yes Hx Substance Use: No - Immunization History Hx Tetanus Toxoid Vaccination: No Hx Influenza Vaccination: No Hx Pneumococcal Vaccination: No Review Of Systems Constitutional: Negative for: Fever, Chills Cardiovascular: Negative for: Chest Pain Respiratory: Negative for: Shortness of Breath Gastrointestinal: Negative for: Nausea, Vomiting, Abdominal Pain Skin: Negative for: Rash Psych: Negative for: Depression, Suicidal ideation Physical Exam - Physical Exam Appears: Non-toxic, No Acute Distress, Unkempt, Other (Disheveled, foul smelling) Skin: Normal Color, Warm, Dry Head: Atraumatic, Normacephalic Eye(s): bilateral: Normal Inspection Neck: Normal ROM, Supple Chest: Symmetrical Cardiovascular: Rhythm Regular Respiratory: Normal Breath Sounds, No Rales, No Rhonchi, No Wheezing Gastrointestinal/Abdominal: Soft, No Tenderness Extremity: Normal ROM, No Tenderness, No Swelling Neurological/Psych: Oriented x3, Normal Speech, Normal Cognition Gait: Steady ED Course And Treatment O2 Sat by Pulse Oximetry: 97 (ON RA) Pulse Ox Interpretation: Normal Medical Decision Making Medical Decision Making: persistent alcohol abuse/homeless stable for d/c. Disposition Doctor Will See Patient In The: Office Counseled Patient/Family Regarding: Studies Performed, Diagnosis - Disposition Disposition: HOME/ ROUTINE Disposition Time: 05:45 Condition: GOOD Forms: [facility] (Italian) - Clinical Impression Clinical Impression: Alcohol abuse - Scribe Statement The provider has reviewed the documentation as recorded by the Scribe Kenny Berrios All medical record entries made by the Scribe were at my direction and personally dictated by me. I have reviewed the chart and agree that the record accurately reflects my personal performance of the history, physical exam, medical decision making, and the department course for this patient. I have also personally directed, reviewed, and agree with the discharge instructions and disposition.
[2018-06-22 06:18] VITALS: BP 130/70; PULSE 90; RESP 14; TEMP 97; O2SAT 96
== END 2018-06-22 06:18 | disposition home or self-care (01) ==
LOC: C.ER 03:37
DX: F10.10 Alcohol abuse, uncomplicated (principal); E11.9 Type 2 diabetes mellitus without complications; I10 Essential (primary) hypertension; J44.9 Chronic obstructive pulmonary disease, unspecified; F20.9 Schizophrenia, unspecified; Z72.0 Tobacco use

== ENCOUNTER 2018-06-22 13:52 | Emergency (ER) | payer MEDICAID ==
[2018-06-22 13:52] VITALS: BMI 29.8
--- NOTE | 2018-06-22 15:04 | C.PDOC ---
History Of Present Illness 58 y/o male brought into ed by ambulance. [place] and sitting on massage chair. pt has no complaints. requests detox. p[t well known to ed. Time Seen by Provider: 06/22/18 14:05 Chief Complaint (Nursing): Substance Abuse History Per: Patient History/Exam Limitations: no limitations Past Medical History Vital Signs: Last Vital Signs Temp 97.9 F 06/22/18 14:12 Pulse 78 06/22/18 14:12 Resp 16 06/22/18 14:12 BP 112/72 06/22/18 14:12 Pulse Ox 99 06/22/18 14:12 - Medical History PMH: Anxiety, COPD, Depression, Diabetes, Fractures (R HIP x2), HTN, Schizophrenia, Seizures (ETOH related) Denies: HIV, Pulmonary Embolism, Chronic Kidney Disease, Sexually Transmitted Disease - [facility] Procedures ALCOHOL DETOXIFICATION (02/24/13) DETOXIFICATION SERVICES FOR SUBSTANCE ABUSE TREATMENT (02/17/18) GROUP HAND MEXICAN FOOD MAKER FOR SUBSTANCE ABUSE TREATMENT, PSYCHOEDUCATION (02/17/18) GROUP HAND MEXICAN FOOD MAKER FOR SUBSTANCE ABUSE, COGNITIVE BEHAVIORAL (02/17/18) GROUP PSYCHOTHERAPY (02/17/18) INDIV PSYCHOTHERAPY FOR SUBSTANCE ABUSE TREATMENT, SUPPORT (02/17/18) INDIV PSYCHOTHERAPY FOR SUBSTANCE ABUSE, COGNITIV BEHAVIORAL (02/17/18) INDIV PSYCHOTHERAPY FOR SUBSTANCE ABUSE, PSYCHOEDUCATION (02/17/18) INDIVIDUAL PSYCHOTHERAPY, COGNITIVE-BEHAVIORAL (02/17/18) INDIVIDUAL PSYCHOTHERAPY, SUPPORTIVE (02/17/18) INJECT/INFUSE ELECTROLYT (02/20/13) INJECT/INFUSE NEC (05/02/13) MEDICATION MANAGEMENT (10/07/16) MEDS MGMT FOR SUBSTANCE ABUSE TREATMENT, METHADONE MAINT (07/27/16) MEDS MGMT FOR SUBSTANCE ABUSE TREATMENT, OTH REPL MED (09/18/16) Family History: States: Unknown Family Hx - Social History Hx Tobacco Use: Yes Hx Alcohol Use: Yes Hx Substance Use: No - Immunization History Hx Tetanus Toxoid Vaccination: No Hx Influenza Vaccination: No Hx Pneumococcal Vaccination: No Review Of Systems Constitutional: Negative for: Fever, Chills, Weakness Cardiovascular: Negative for: Chest Pain Respiratory: Negative for: Cough, Shortness of Breath Gastrointestinal: Negative for: Nausea, Vomiting, Abdominal Pain Neurological: Negative for: Weakness, Numbness, Dizziness Physical Exam - Physical Exam Appears: Well, Non-toxic, No Acute Distress Skin: Normal Color, Warm, Dry Head: Atraumatic, Normacephalic Neck: Normal ROM, Supple Chest: Symmetrical, No Deformity Cardiovascular: Rhythm Regular, No Murmur Respiratory: No Accessory Muscle Use, No Rales, No Rhonchi, No Wheezing Gastrointestinal/Abdominal: Bowel Sounds (normoactive), Soft, No Tenderness Extremity: Bilateral: Atraumatic, Normal Color And Temperature, Normal ROM Neurological/Psych: Oriented x3, Normal Speech, Normal Cognition ED Course And Treatment - Laboratory Results Result Diagrams: 06/22/18 16:04 06/22/18 16:04 O2 Sat by Pulse Oximetry: 99 (in RA) Medical Decision Making Medical Decision Making: Impression:58 year old male requesting detox. Plan: drug screen and UA ordered for patient pt requested detox earlier, however, stood up at 1850, walked with steady gait and stated he wanted to be cleared in clear speech. pt discharged. Disposition - Disposition Disposition: HOME/ ROUTINE Disposition Time: 18:55 Condition: GOOD Forms: [facility] (American), General Discharge Instructions - Clinical Impression Clinical Impression: Alcohol abuse - PA / RN CLINICAL QUALITY / Resident Statement MD/DO has reviewed & agrees with the documentation as recorded. (Gabriella Marcos) - Scribe Statement The provider has reviewed the documentation as recorded by the Scribe (Gabriella Marcos) All medical record entries made by the Scribe were at my direction and personally dictated by me. I have reviewed the chart and agree that the record accurately reflects my personal performance of the history, physical exam, medical decision making, and the department course for this patient. I have also personally directed, reviewed, and agree with the discharge instructions and disposition.
[2018-06-22 16:07] LABS: BASO # 0.1 K/uL (0.0-0.2); EOS % 0.6 % (0.0-4.0); HEMOGLOBIN 15.4 g/dL (12.0-18.0); LYMPH # 0.8 K/uL (1.0-4.3); LYMPH % 19.3 % (20.0-40.0); MEAN CELL VOLUME 100.2 fL (80.0-94.0); MEAN CORPUSCULAR HEMOGLOBIN 32.9 pg (27.0-31.0); MEAN CORPUSCULAR HGB CONC 32.8 g/dL (33.0-37.0); MEAN PLATELET VOLUME 9.7 fL (7.2-11.7); MONO # 0.4 K/uL (0.0-0.8); MONO % 8.2 % (0.0-10.0); NEUT % 69.9 % (50.0-75.0); NRBC % 0.1 % (0.0-2.0); RBC 4.68 Mil/uL (4.40-5.90); RED CELL DISTRIBUTION WIDTH 15.3 % (11.5-14.5); WHITE BLOOD COUNT 4.3 K/uL (4.8-10.8)
[2018-06-22 16:32] LABS: ALBUMIN 4.3 g/dL (3.5-5.0); ALT/SGPT 80 U/L (21-72); AST/SGOT 453 U/L (17-59); BLOOD UREA NITROGEN 7 mg/dL (9-20); CALCIUM 8.4 mg/dl (8.6-10.4); GFR NON-AFRICAN AMERICAN > 60
[2018-06-22 18:20] VITALS: BP 129/79; PULSE 79; RESP 18; TEMP 98.2
[2018-06-22 18:44] VITALS: O2SAT 99
== END 2018-06-22 18:57 | disposition home or self-care (01) ==
LOC: C.ER 13:52
DX: F10.10 Alcohol abuse, uncomplicated (principal); E11.9 Type 2 diabetes mellitus without complications; I10 Essential (primary) hypertension; F20.9 Schizophrenia, unspecified; J44.9 Chronic obstructive pulmonary disease, unspecified; Z72.0 Tobacco use

== ENCOUNTER 2018-06-23 04:08 | Emergency (ER) | payer MEDICAID ==
[2018-06-23 04:09] VITALS: BMI 29.8
--- NOTE | 2018-06-23 04:47 | C.PDOC ---
History Of Present Illness Patient discharged yesterday came back today with acute ETOH intoxication. Denies any physical complaints at this time. Time Seen by Provider: 06/23/18 04:46 Chief Complaint (Nursing): Substance Abuse History Per: Patient History/Exam Limitations: no limitations Onset/Duration Of Symptoms: Days Current Symptoms Are (Timing): Still Present Suicide/Self Injury Attempted (Context): None Modifying Factor(s): Alcohol Severity: None Pain Scale Rating Of: 0 Associated Symptoms: denies: Depression, Suicidal Thoughts Involuntary Hold By: None Recent travel outside of the [place]: No Past Medical History Reviewed: Historical Data, Nursing Documentation, Vital Signs Vital Signs: Last Vital Signs Temp 98.2 F 06/23/18 04:17 Pulse 100 H 06/23/18 04:17 Resp 20 06/23/18 04:17 BP 121/84 06/23/18 04:17 Pulse Ox 95 06/23/18 04:17 - Medical History PMH: Anxiety, COPD, Depression, Diabetes, Fractures (R HIP x2), HTN, Schizophrenia, Seizures (ETOH related) Denies: HIV, Pulmonary Embolism, Chronic Kidney Disease, Sexually Transmitted Disease - [facility] Procedures ALCOHOL DETOXIFICATION (02/24/13) DETOXIFICATION SERVICES FOR SUBSTANCE ABUSE TREATMENT (02/17/18) GROUP DRAFTER ELECTROMECHANICAL FOR SUBSTANCE ABUSE TREATMENT, PSYCHOEDUCATION (02/17/18) GROUP DRAFTER ELECTROMECHANICAL FOR SUBSTANCE ABUSE, COGNITIVE BEHAVIORAL (02/17/18) GROUP PSYCHOTHERAPY (02/17/18) INDIV PSYCHOTHERAPY FOR SUBSTANCE ABUSE TREATMENT, SUPPORT (02/17/18) INDIV PSYCHOTHERAPY FOR SUBSTANCE ABUSE, COGNITIV BEHAVIORAL (02/17/18) INDIV PSYCHOTHERAPY FOR SUBSTANCE ABUSE, PSYCHOEDUCATION (02/17/18) INDIVIDUAL PSYCHOTHERAPY, COGNITIVE-BEHAVIORAL (02/17/18) INDIVIDUAL PSYCHOTHERAPY, SUPPORTIVE (02/17/18) INJECT/INFUSE ELECTROLYT (02/20/13) INJECT/INFUSE NEC (05/02/13) MEDICATION MANAGEMENT (10/07/16) MEDS MGMT FOR SUBSTANCE ABUSE TREATMENT, METHADONE MAINT (07/27/16) MEDS MGMT FOR SUBSTANCE ABUSE TREATMENT, OTH REPL MED (09/18/16) Family History: States: No Known Family Hx - Social History Hx Tobacco Use: Yes Hx Alcohol Use: Yes Hx Substance Use: No - Immunization History Hx Tetanus Toxoid Vaccination: No Hx Influenza Vaccination: No Hx Pneumococcal Vaccination: No Review Of Systems Constitutional: Negative for: Fever, Chills Cardiovascular: Negative for: Chest Pain, Palpitations Respiratory: Negative for: Cough, Shortness of Breath Gastrointestinal: Negative for: Nausea, Vomiting Neurological: Negative for: Weakness, Numbness Physical Exam - Physical Exam Appears: Non-toxic, Other (ETOH on breath) Skin: Warm, Dry Head: Normacephalic Oral Mucosa: Moist Chest: Symmetrical, No Tenderness Cardiovascular: Rhythm Regular Respiratory: No Rales, No Rhonchi, No Wheezing Gastrointestinal/Abdominal: Soft, No Tenderness Neurological/Psych: Oriented x3 ED Course And Treatment O2 Sat by Pulse Oximetry: 95 (Room air) Pulse Ox Interpretation: Normal Disposition Counseled Patient/Family Regarding: Studies Performed, Diagnosis, Need For Followup - Disposition Referrals: [facility] [Outside] Disposition Time: 04:46 Condition: FAIR Instructions: Alcohol Abuse and Alcoholism (DC) Forms: [facility] (Danish) - Clinical Impression Clinical Impression: Alcohol intoxication - Scribe Statement The provider has reviewed the documentation as recorded by the Scribe Lucien Duncan All medical record entries made by the Scribe were at my direction and personally dictated by me. I have reviewed the chart and agree that the record accurately reflects my personal performance of the history, physical exam, m edical decision making, and the department course for this patient. I have also personally directed, reviewed, and agree with the discharge instructions and disposition. Physician Patient Turnover Patient Signed Over To: Barbara Vasquez Handoff Comments: pending sobriety, re-eval and dispostion
[2018-06-23 11:16] VITALS: BP 138/70; PULSE 91; RESP 18; TEMP 98; O2SAT 100
== END 2018-06-23 11:17 | disposition home or self-care (01) ==
LOC: C.ER 04:08
DX: F10.129 Alcohol abuse with intoxication, unspecified (principal); Y90.9 Presence of alcohol in blood, level not specified

== ENCOUNTER 2018-06-23 21:21 | Emergency (ER) | payer MEDICAID ==
[2018-06-23 21:21] VITALS: BMI 29.8
--- NOTE | 2018-06-23 22:00 | C.PDOC ---
History Of Present Illness 58 year old male brought to the ED by EMS for public intoxication. Patient admits to drinking alcohol today, has multiple prior visits to the ED for same. Hisotry is limited due to intoxication. Time Seen by Provider: 06/23/18 21:35 History Per: Patient, EMS History/Exam Limitations: intoxication Current Symptoms Are (Timing): Still Present Suicide/Self Injury Attempted (Context): None Modifying Factor(s): Alcohol Severity: Moderate Associated Symptoms: denies: Depression, Suicidal Thoughts, Suicidal Plan Involuntary Hold By: Emergency Physician Additional History Per: Patient, EMS Past Medical History Reviewed: Historical Data, Nursing Documentation, Vital Signs - Medical History PMH: Anxiety, COPD, Depression, Diabetes, Fractures (R HIP x2), HTN, Schizophrenia, Seizures (ETOH related) Surgical History: No Surg Hx - [facility] Procedures ALCOHOL DETOXIFICATION (02/24/13) DETOXIFICATION SERVICES FOR SUBSTANCE ABUSE TREATMENT (02/17/18) GROUP ARCHEOLOGY PROFESSOR FOR SUBSTANCE ABUSE TREATMENT, PSYCHOEDUCATION (02/17/18) GROUP ARCHEOLOGY PROFESSOR FOR SUBSTANCE ABUSE, COGNITIVE BEHAVIORAL (02/17/18) GROUP PSYCHOTHERAPY (02/17/18) INDIV PSYCHOTHERAPY FOR SUBSTANCE ABUSE TREATMENT, SUPPORT (02/17/18) INDIV PSYCHOTHERAPY FOR SUBSTANCE ABUSE, COGNITIV BEHAVIORAL (02/17/18) INDIV PSYCHOTHERAPY FOR SUBSTANCE ABUSE, PSYCHOEDUCATION (02/17/18) INDIVIDUAL PSYCHOTHERAPY, COGNITIVE-BEHAVIORAL (02/17/18) INDIVIDUAL PSYCHOTHERAPY, SUPPORTIVE (02/17/18) INJECT/INFUSE ELECTROLYT (02/20/13) INJECT/INFUSE NEC (05/02/13) MEDICATION MANAGEMENT (10/07/16) MEDS MGMT FOR SUBSTANCE ABUSE TREATMENT, METHADONE MAINT (07/27/16) MEDS MGMT FOR SUBSTANCE ABUSE TREATMENT, OTH REPL MED (09/18/16) Family History: States: No Known Family Hx - Social History Hx Tobacco Use: Yes Hx Alcohol Use: Yes Hx Substance Use: No - Immunization History Hx Tetanus Toxoid Vaccination: No Hx Influenza Vaccination: No Hx Pneumococcal Vaccination: No Review Of Systems Constitutional: Negative for: Fever, Chills Cardiovascular: Negative for: Chest Pain Respiratory: Negative for: Shortness of Breath Gastrointestinal: Negative for: Nausea, Vomiting, Abdominal Pain Skin: Negative for: Rash Psych: Negative for: Depression, Suicidal ideation Physical Exam - Physical Exam Appears: Non-toxic, No Acute Distress, Unkempt, Other (malodorous, intoxicated) Skin: Normal Color, Warm, Dry Head: Atraumatic, Normacephalic Eye(s): bilateral: Normal Inspection, PERRL, EOMI Oral Mucosa: Moist Neck: Normal ROM, No Midline Cervical Tenderness, No Paracervical Tenderness, No Step Off Deformity, Supple Cardiovascular: Rhythm Regular Respiratory: Normal Breath Sounds, No Rales, No Rhonchi, No Wheezing Gastrointestinal/Abdominal: Normal Exam, Bowel Sounds, Soft, No Tenderness Extremity: Normal ROM, No Tenderness, No Swelling Neurological/Psych: Other (intoxicated, arousable to verbal stimuli, able to follow commands) Gait: Steady ED Course And Treatment Pulse Ox Interpretation: Normal Progress Note: Patient pending sobriety. Disposition - Disposition Disposition Time: 01:00 Condition: STABLE - Clinical Impression Clinical Impression: Alcohol abuse - Scribe Statement The provider has reviewed the documentation as recorded by the Scribe Kenny Berrios All medical record entries made by the Scribe were at my direction and personally dictated by me. I have reviewed the chart and agree that the record accurately reflects my personal performance of the history, physical exam, medical decision making, and the department course for this patient. I have also personally directed, reviewed, and agree with the discharge instructions and disposition. Physician Patient Turnover Patient Signed Over To: Tina Abad Handoff Comments: pending sobriety
[2018-06-24 06:12] VITALS: BP 120/70; PULSE 78; RESP 20; TEMP 98; O2SAT 98
== END 2018-06-24 06:10 | disposition home or self-care (01) ==
LOC: C.ER 21:21
DX: F10.129 Alcohol abuse with intoxication, unspecified (principal); Y90.9 Presence of alcohol in blood, level not specified

== ENCOUNTER 2018-06-24 19:59 | Emergency (ER) | payer MEDICAID ==
[2018-06-24 20:00] VITALS: BMI 29.8
--- NOTE | 2018-06-24 23:31 | C.PDOC ---
History Of Present Illness 58 year old male is brought to the ED by ambulance for evaluation of acute alcohol intoxication. Patient admits to drinking earlier today. Per EMS, patient with no obvious signs of injuries. Patient offers no physical complaints at this time. <Polo Alexander - Last Filed: 06/25/18 00:53> History Per: Patient, EMS History/Exam Limitations: no limitations Onset/Duration Of Symptoms: Hrs Current Symptoms Are (Timing): Still Present Modifying Factor(s): Alcohol Additional History Per: Patient, EMS <Polo Alexander - Last Filed: 06/25/18 00:53> <Tina Abad - Last Filed: 06/25/18 05:30> Time Seen by Provider: 06/24/18 20:10 Chief Complaint (Nursing): Substance Abuse Past Medical History Reviewed: Historical Data, Nursing Documentation, Vital Signs Vital Signs: Last Vital Signs Temp 97.8 F 06/24/18 23:08 Pulse 88 06/24/18 23:08 Resp 20 06/24/18 23:08 BP 118/76 06/24/18 23:08 Pulse Ox 95 06/24/18 23:08 - Medical History PMH: Anxiety, COPD, Depression, Diabetes, Fractures (R HIP x2), HTN, Schizophrenia, Seizures (ETOH related) Denies: HIV, Pulmonary Embolism, Chronic Kidney Disease, Sexually Transmitted Disease Surgical History: No Surg Hx - [facility] Procedures ALCOHOL DETOXIFICATION (02/24/13) DETOXIFICATION SERVICES FOR SUBSTANCE ABUSE TREATMENT (02/17/18) GROUP MILL TURNER FOR SUBSTANCE ABUSE TREATMENT, PSYCHOEDUCATION (02/17/18) GROUP MILL TURNER FOR SUBSTANCE ABUSE, COGNITIVE BEHAVIORAL (02/17/18) GROUP PSYCHOTHERAPY (02/17/18) INDIV PSYCHOTHERAPY FOR SUBSTANCE ABUSE TREATMENT, SUPPORT (02/17/18) INDIV PSYCHOTHERAPY FOR SUBSTANCE ABUSE, COGNITIV BEHAVIORAL (02/17/18) INDIV PSYCHOTHERAPY FOR SUBSTANCE ABUSE, PSYCHOEDUCATION (02/17/18) INDIVIDUAL PSYCHOTHERAPY, COGNITIVE-BEHAVIORAL (02/17/18) INDIVIDUAL PSYCHOTHERAPY, SUPPORTIVE (02/17/18) INJECT/INFUSE ELECTROLYT (02/20/13) INJECT/INFUSE NEC (05/02/13) MEDICATION MANAGEMENT (10/07/16) MEDS MGMT FOR SUBSTANCE ABUSE TREATMENT, METHADONE MAINT (07/27/16) MEDS MGMT FOR SUBSTANCE ABUSE TREATMENT, OTH REPL MED (09/18/16) Family History: States: Unknown Family Hx - Social History Hx Tobacco Use: Yes Hx Alcohol Use: Yes Hx Substance Use: No - Immunization History Hx Tetanus Toxoid Vaccination: No Hx Influenza Vaccination: No Hx Pneumococcal Vaccination: No <Polo Alexander E - Last Filed: 06/25/18 00:53> Vital Signs: Last Vital Signs Temp 97.7 F 06/25/18 05:20 Pulse 75 06/25/18 05:20 Resp 18 06/25/18 05:20 BP 130/81 06/25/18 05:20 Pulse Ox 96 06/25/18 05:20 - [facility] Procedures ALCOHOL DETOXIFICATION (02/24/13) DETOXIFICATION SERVICES FOR SUBSTANCE ABUSE TREATMENT (02/17/18) GROUP MILL TURNER FOR SUBSTANCE ABUSE TREATMENT, PSYCHOEDUCATION (02/17/18) GROUP MILL TURNER FOR SUBSTANCE ABUSE, COGNITIVE BEHAVIORAL (02/17/18) GROUP PSYCHOTHERAPY (02/17/18) INDIV PSYCHOTHERAPY FOR SUBSTANCE ABUSE TREATMENT, SUPPORT (02/17/18) INDIV PSYCHOTHERAPY FOR SUBSTANCE ABUSE, COGNITIV BEHAVIORAL (02/17/18) INDIV PSYCHOTHERAPY FOR SUBSTANCE ABUSE, PSYCHOEDUCATION (02/17/18) INDIVIDUAL PSYCHOTHERAPY, COGNITIVE-BEHAVIORAL (02/17/18) INDIVIDUAL PSYCHOTHERAPY, SUPPORTIVE (02/17/18) INJECT/INFUSE ELECTROLYT (02/20/13) INJECT/INFUSE NEC (05/02/13) MEDICATION MANAGEMENT (10/07/16) MEDS MGMT FOR SUBSTANCE ABUSE TREATMENT, METHADONE MAINT (07/27/16) MEDS MGMT FOR SUBSTANCE ABUSE TREATMENT, OTH REPL MED (09/18/16) <Tina Abad - Last Filed: 06/25/18 05:30> Review Of Systems Psych: Positive for: Other (alcohol intoxication ) <Polo Alexander - Last Filed: 06/25/18 00:53> Physical Exam - Physical Exam Appears: Non-toxic, No Acute Distress, Other (visibly intoxicated, foul- smelling, disheveled, stuperous ) Skin: Normal Color, Warm, Dry, No Other (obvious signs of injury ) Head: Atraumatic, Normacephalic Oral Mucosa: Moist, Other (alcohol on breath ) Neck: Supple Chest: Symmetrical, No Deformity Respiratory: No Accessory Muscle Use Extremity: Normal ROM Neurological/Psych: Other (arousable to touch and verbal stimuli ) <Polo Alexander - Last Filed: 06/25/18 00:53> ED Course And Treatment O2 Sat by Pulse Oximetry: 95 (on RA) Pulse Ox Interpretation: Normal Reevaluation Time: 00:53 Reassessment Condition: Improved <Polo Alexander - Last Filed: 06/25/18 00:53> Pulse Ox Interpretation: Normal Reevaluation Time: 05:30 Reassessment Condition: Improved <Tina Abad - Last Filed: 06/25/18 05:30> Medical Decision Making Medical Decision Making: persistent regular alcohol abuse and intoxication 0100: signed over to overnight MD <oPlo Alexander - Last Filed: 06/25/18 00:53> Disposition - Disposition Disposition Time: 01:00 <Polo Alexander - Last Filed: 06/25/18 00:53> Counseled Patient/Family Regarding: Studies Performed, Diagnosis, Need For Followup <Tina Abad - Last Filed: 06/25/18 05:30> - Disposition Referrals: [facility] [Outside] Disposition: HOME/ ROUTINE Condition: FAIR Instructions: Alcohol Abuse and Alcoholism (DC) Forms: [email or web address] (Kinyarwanda) - Clinical Impression Clinical Impression: Alcohol intoxication - Scribe Statement The provider has reviewed the documentation as recorded by the Scribe (Claire Partida) Provider Attestation: All medical record entries made by the Scribe were at my direction and personally dictated by me. I have reviewed the chart and agree that the record accurately reflects my personal performance of the history, physical exam, medical decision making, and the department course for this patient. I have also personally directed, reviewed, and agree with the discharge instructions and disposition. <Polo Alexander - Last Filed: 06/25/18 00:53> Physician Patient Turnover Patient Signed Over To: Tina Abad Handoff Comments: dispo in AM when sober <Polo Alexander - Last Filed: 06/25/18 00:53>
[2018-06-25 02:46] VITALS: PULSE 75
[2018-06-25 05:22] VITALS: BP 130/81; RESP 18; TEMP 97.7; O2SAT 96
== END 2018-06-25 05:33 | disposition home or self-care (01) ==
LOC: C.ER 19:59
DX: F10.129 Alcohol abuse with intoxication, unspecified (principal); E11.9 Type 2 diabetes mellitus without complications; F20.9 Schizophrenia, unspecified; I10 Essential (primary) hypertension; J44.9 Chronic obstructive pulmonary disease, unspecified; Z72.0 Tobacco use

== ENCOUNTER 2018-06-25 20:01 | Emergency (ER) | payer MEDICAID ==
[2018-06-25 20:03] VITALS: BMI 29.8
[2018-06-25 20:17] VITALS: BP 139/92; PULSE 112; RESP 20; TEMP 98.2; O2SAT 96
--- NOTE | 2018-06-25 20:28 | C.PDOC ---
History Of Present Illness 58 year old male brought in via EMS for public intoxication. Patient has had many prior visits for same, most recent was last night. Patient is awake, alert, demanding sandwich and bed, argumentative with staff. Time Seen by Provider: 06/25/18 20:22 Chief Complaint (Nursing): Substance Abuse History Per: Patient, EMS History/Exam Limitations: no limitations Onset/Duration Of Symptoms: Hrs Current Symptoms Are (Timing): Still Present Modifying Factor(s): Alcohol Recent travel outside of the [place]: No Past Medical History Reviewed: Historical Data, Nursing Documentation, Vital Signs Vital Signs: Last Vital Signs Temp 98.2 F 06/25/18 20:08 Pulse 112 H 06/25/18 20:08 Resp 20 06/25/18 20:08 BP 139/92 H 06/25/18 20:08 Pulse Ox 96 06/25/18 20:08 - Medical History PMH: Anxiety, COPD, Depression, Diabetes, Fractures (R HIP x2), HTN, Schizophrenia, Seizures (ETOH related) Denies: HIV, Pulmonary Embolism, Chronic Kidney Disease, Sexually Transmitted Disease - [facility] Procedures ALCOHOL DETOXIFICATION (02/24/13) DETOXIFICATION SERVICES FOR SUBSTANCE ABUSE TREATMENT (02/17/18) GROUP FIXTURE FABRICATOR REPAIRER FOR SUBSTANCE ABUSE TREATMENT, PSYCHOEDUCATION (02/17/18) GROUP FIXTURE FABRICATOR REPAIRER FOR SUBSTANCE ABUSE, COGNITIVE BEHAVIORAL (02/17/18) GROUP PSYCHOTHERAPY (02/17/18) INDIV PSYCHOTHERAPY FOR SUBSTANCE ABUSE TREATMENT, SUPPORT (02/17/18) INDIV PSYCHOTHERAPY FOR SUBSTANCE ABUSE, COGNITIV BEHAVIORAL (02/17/18) INDIV PSYCHOTHERAPY FOR SUBSTANCE ABUSE, PSYCHOEDUCATION (02/17/18) INDIVIDUAL PSYCHOTHERAPY, COGNITIVE-BEHAVIORAL (02/17/18) INDIVIDUAL PSYCHOTHERAPY, SUPPORTIVE (02/17/18) INJECT/INFUSE ELECTROLYT (02/20/13) INJECT/INFUSE NEC (05/02/13) MEDICATION MANAGEMENT (10/07/16) MEDS MGMT FOR SUBSTANCE ABUSE TREATMENT, METHADONE MAINT (07/27/16) MEDS MGMT FOR SUBSTANCE ABUSE TREATMENT, OTH REPL MED (09/18/16) Family History: States: Unknown Family Hx - Social History Hx Tobacco Use: Yes Hx Alcohol Use: Yes Hx Substance Use: No - Immunization History Hx Tetanus Toxoid Vaccination: No Hx Influenza Vaccination: No Hx Pneumococcal Vaccination: No Review Of Systems Constitutional: Negative for: Fever, Chills Cardiovascular: Negative for: Chest Pain, Palpitations Respiratory: Negative for: Cough, Shortness of Breath Gastrointestinal: Negative for: Nausea, Vomiting Neurological: Negative for: Weakness, Numbness Physical Exam - Physical Exam Appears: Non-toxic, Other (No sign of injury) Skin: Normal Color, Warm Head: Atraumatic, Normacephalic Eye(s): bilateral: Normal Inspection Oral Mucosa: Moist Neck: Normal, Supple Chest: Symmetrical, No Tenderness Cardiovascular: Rhythm Regular Respiratory: Normal Breath Sounds, No Rales, No Rhonchi, No Wheezing Gastrointestinal/Abdominal: Soft, No Tenderness Neurological/Psych: Oriented x3, Normal Speech Gait: Steady ED Course And Treatment O2 Sat by Pulse Oximetry: 96 (Room air) Pulse Ox Interpretation: Normal Medical Decision Making Medical Decision Making: clinically sober, argumentative Wants a place to stay the night stayed in ED last night Disposition Doctor Will See Patient In The: Office Counseled Patient/Family Regarding: Studies Performed, Diagnosis - Disposition Referrals: Alcoholics Anonymous [Outside] [facility] [Outside] [employer] [facility] [Outside] [facility] [employer] [place] [Outside] [facility] [Outside] [facility] [Outside] Disposition: HOME/ ROUTINE Disposition Time: 20:28 Condition: GOOD Additional Instructions: seek nightly penitentiary placement seek AA Seek alcohol abuse therapy Instructions: Alcohol Use - When Is Drinking a Problem? Forms: [employer] (Chinese) - Clinical Impression Clinical Impression: Alcohol abuse, Malingering - Scribe Statement The provider has reviewed the documentation as recorded by the Scribe Lucien Duncan All medical record entries made by the Scribe were at my direction and personally dictated by me. I have reviewed the chart and agree that the record accurately reflects my personal performance of the history, physical exam, medical decision making, and the department course for this patient. I have also personally directed, reviewed, and agree with the discharge instructions and disposition.
== END 2018-06-25 20:34 | disposition home or self-care (01) ==
LOC: C.ER 20:01
DX: F10.10 Alcohol abuse, uncomplicated (principal); Y90.9 Presence of alcohol in blood, level not specified; Z76.5 Malingerer [conscious simulation]

== ENCOUNTER 2018-06-26 15:56 | Emergency (ER) | payer MEDICAID ==
[2018-06-26 15:57] VITALS: BMI 29.8
--- NOTE | 2018-06-26 17:16 | C.PDOC ---
History Of Present Illness 58 year old male is brought to the ED by ambulance for evaluation of acute alcohol intoxication. Patient admits to drinking earlier today. Per EMS, patient with no obvious signs of injuries. Patient offers no physical complaints at this time. <Mely Tadeo - Last Filed: 06/26/18 23:53> History Per: Patient History/Exam Limitations: intoxication Onset/Duration Of Symptoms: Hrs Current Symptoms Are (Timing): Still Present Suicide/Self Injury Attempted (Context): None Modifying Factor(s): Alcohol Associated Symptoms: denies: Suicidal Thoughts, Suicidal Plan Involuntary Hold By: None Recent travel outside of the [place]: No Additional History Per: Patient <Mely Tadeo - Last Filed: 06/26/18 23:53> <Jack Middleton - Last Filed: 06/27/18 05:52> Time Seen by Provider: 06/26/18 17:15 Chief Complaint (Nursing): Substance Abuse Past Medical History Reviewed: Historical Data, Nursing Documentation, Vital Signs Vital Signs: Last Vital Signs Temp 98.3 F 06/26/18 16:10 Pulse 88 06/26/18 16:10 Resp 20 06/26/18 16:10 BP 146/82 06/26/18 16:10 Pulse Ox 99 06/26/18 16:10 - Medical History PMH: Anxiety, COPD, Depression, Diabetes, Fractures (R HIP x2), HTN, Schizophrenia, Seizures (ETOH related) Denies: HIV, Pulmonary Embolism, Chronic Kidney Disease, Sexually Transmitted Disease Surgical History: No Surg Hx - [facility] Procedures ALCOHOL DETOXIFICATION (02/24/13) DETOXIFICATION SERVICES FOR SUBSTANCE ABUSE TREATMENT (02/17/18) GROUP HOME DEPOT REP FOR SUBSTANCE ABUSE TREATMENT, PSYCHOEDUCATION (02/17/18) GROUP HOME DEPOT REP FOR SUBSTANCE ABUSE, COGNITIVE BEHAVIORAL (02/17/18) GROUP PSYCHOTHERAPY (02/17/18) INDIV PSYCHOTHERAPY FOR SUBSTANCE ABUSE TREATMENT, SUPPORT (02/17/18) INDIV PSYCHOTHERAPY FOR SUBSTANCE ABUSE, COGNITIV BEHAVIORAL (02/17/18) INDIV PSYCHOTHERAPY FOR SUBSTANCE ABUSE, PSYCHOEDUCATION (02/17/18) INDIVIDUAL PSYCHOTHERAPY, COGNITIVE-BEHAVIORAL (02/17/18) INDIVIDUAL PSYCHOTHERAPY, SUPPORTIVE (02/17/18) INJECT/INFUSE ELECTROLYT (02/20/13) INJECT/INFUSE NEC (05/02/13) MEDICATION MANAGEMENT (10/07/16) MEDS MGMT FOR SUBSTANCE ABUSE TREATMENT, METHADONE MAINT (07/27/16) MEDS MGMT FOR SUBSTANCE ABUSE TREATMENT, OTH REPL MED (09/18/16) Family History: States: Unknown Family Hx - Social History Hx Tobacco Use: Yes Hx Alcohol Use: Yes Hx Substance Use: No - Immunization History Hx Tetanus Toxoid Vaccination: No Hx Influenza Vaccination: No Hx Pneumococcal Vaccination: No <CarlyleMely - Last Filed: 06/26/18 23:53> Vital Signs: Last Vital Signs Temp 97.9 F 06/27/18 05:41 Pulse 101 H 06/27/18 05:41 Resp 16 06/27/18 05:41 BP 114/69 06/27/18 05:41 Pulse Ox 98 06/27/18 05:41 - [facility] Procedures ALCOHOL DETOXIFICATION (02/24/13) DETOXIFICATION SERVICES FOR SUBSTANCE ABUSE TREATMENT (02/17/18) GROUP HOME DEPOT REP FOR SUBSTANCE ABUSE TREATMENT, PSYCHOEDUCATION (02/17/18) GROUP HOME DEPOT REP FOR SUBSTANCE ABUSE, COGNITIVE BEHAVIORAL (02/17/18) GROUP PSYCHOTHERAPY (02/17/18) INDIV PSYCHOTHERAPY FOR SUBSTANCE ABUSE TREATMENT, SUPPORT (02/17/18) INDIV PSYCHOTHERAPY FOR SUBSTANCE ABUSE, COGNITIV BEHAVIORAL (02/17/18) INDIV PSYCHOTHERAPY FOR SUBSTANCE ABUSE, PSYCHOEDUCATION (02/17/18) INDIVIDUAL PSYCHOTHERAPY, COGNITIVE-BEHAVIORAL (02/17/18) INDIVIDUAL PSYCHOTHERAPY, SUPPORTIVE (02/17/18) INJECT/INFUSE ELECTROLYT (02/20/13) INJECT/INFUSE NEC (05/02/13) MEDICATION MANAGEMENT (10/07/16) MEDS MGMT FOR SUBSTANCE ABUSE TREATMENT, METHADONE MAINT (07/27/16) MEDS MGMT FOR SUBSTANCE ABUSE TREATMENT, OTH REPL MED (09/18/16) <Jack Middleton - Last Filed: 06/27/18 05:52> Review Of Systems Psych: Positive for: Other (alcohol intoxication ) <Mely Tadeo - Last Filed: 06/26/18 23:53> Physical Exam - Physical Exam Appears: Non-toxic, No Acute Distress, Other (visibly intoxicated ) Skin: Warm, Dry Head: Normacephalic Eye(s): bilateral: Normal Inspection Oral Mucosa: Moist, Other (alcohol on breath ) Neck: Supple Chest: Symmetrical, No Deformity, No Tenderness Cardiovascular: Rhythm Regular Respiratory: No Accessory Muscle Use Extremity: Normal ROM Neurological/Psych: Other (arousable to touch and verbal stimuli ) <Mely Tadeo - Last Filed: 06/26/18 23:53> ED Course And Treatment O2 Sat by Pulse Oximetry: 99 (on RA) Pulse Ox Interpretation: Normal <Mely Tadeo Last Filed: 06/26/18 23:53> Progress - Re-Evaluation Re-evaluation Note: 06/26/18 23:53 PERSIST INTOX. SLEEPING AROUSE TO DEEP STIM - Data Reviewed Data Reviewed: Old records <Mely Tadeo - Last Filed: 06/26/18 23:53> Disposition - Disposition Disposition Time: 23:54 <Mely Tadeo Last Filed: 06/26/18 23:53> Comment: Awoke, steady gait. <Jack Middleton - Last Filed: 06/27/18 05:52> - Disposition Disposition: HOME/ ROUTINE Condition: STABLE Instructions: Effects of Alcohol on Your Health Forms: [employer] (Persian) - Clinical Impression Clinical Impression: Alcohol intoxication - Scribe Statement The provider has reviewed the documentation as recorded by the Scribe (Claire Partida) Provider Attestation: All medical record entries made by the Scribe were at my direction and personally dictated by me. I have reviewed the chart and agree that the record accurately reflects my personal performance of the history, physical exam, medical decision making, and the department course for this patient. I have also personally directed, reviewed, and agree with the discharge instructions and disposition. <Mely Tadeo - Last Filed: 06/26/18 23:53> Physician Patient Turnover Patient Signed Over To: Jack Middleton Handoff Comments: FU SOBRIETY, DISPO <Mely Tadeo - Last Filed: 06/26/18 23:53>
[2018-06-27 05:42] VITALS: BP 114/69; PULSE 101; RESP 16; TEMP 97.9; O2SAT 98
== END 2018-06-27 06:03 | disposition home or self-care (01) ==
LOC: C.ER 15:56
DX: F10.129 Alcohol abuse with intoxication, unspecified (principal)

== ENCOUNTER 2018-06-27 12:13 | Emergency (ER) | payer MEDICAID ==
[2018-06-27 12:13] VITALS: BMI 29.8
== END 2018-06-27 12:27 | disposition left against medical advice (07) ==
LOC: C.ER 12:13
DX: Z02.89 Encounter for other administrative examinations (principal)

== ENCOUNTER 2018-06-29 12:18 | Emergency (ER) | payer MEDICAID ==
[2018-06-29 12:19] VITALS: BMI 29.8
--- NOTE | 2018-06-29 14:35 | C.PDOC ---
History Of Present Illness Patient is a 58 year old male, heydi, who presents in the ED after being found intoxicated by bystanders on [address] who called EMS. Patient is awake and appears intoxicated. He admits to drinking a pint this morning. Patient denies any SI/HI, hallucinations, CP, SOB, fever, or other medical complaints at the present moment. Time Seen by Provider: 06/29/18 13:06 Chief Complaint (Nursing): Substance Abuse History Per: Patient, EMS History/Exam Limitations: no limitations Suicide/Self Injury Attempted (Context): None Modifying Factor(s): Alcohol Associated Symptoms: denies: Suicidal Thoughts, Suicidal Plan Recent travel outside of the [place]: No Additional History Per: Patient, EMS Past Medical History Reviewed: Historical Data, Nursing Documentation, Vital Signs Vital Signs: Last Vital Signs Temp 97.6 F 06/29/18 12:27 Pulse 89 06/29/18 12:27 Resp 17 06/29/18 12:27 BP 111/80 06/29/18 12:27 Pulse Ox 99 06/29/18 12:27 - Medical History PMH: Anxiety, COPD, Depression, Diabetes, Fractures (R HIP x2), HTN, Schizophrenia, Seizures (ETOH related) Denies: HIV, Pulmonary Embolism, Chronic Kidney Disease, Sexually Transmitted Disease Surgical History: No Surg Hx - [facility] Procedures ALCOHOL DETOXIFICATION (02/24/13) DETOXIFICATION SERVICES FOR SUBSTANCE ABUSE TREATMENT (02/17/18) GROUP GAS LINE INSTALLER SUPERVISOR FOR SUBSTANCE ABUSE TREATMENT, PSYCHOEDUCATION (02/17/18) GROUP GAS LINE INSTALLER SUPERVISOR FOR SUBSTANCE ABUSE, COGNITIVE BEHAVIORAL (02/17/18) GROUP PSYCHOTHERAPY (02/17/18) INDIV PSYCHOTHERAPY FOR SUBSTANCE ABUSE TREATMENT, SUPPORT (02/17/18) INDIV PSYCHOTHERAPY FOR SUBSTANCE ABUSE, COGNITIV BEHAVIORAL (02/17/18) INDIV PSYCHOTHERAPY FOR SUBSTANCE ABUSE, PSYCHOEDUCATION (02/17/18) INDIVIDUAL PSYCHOTHERAPY, COGNITIVE-BEHAVIORAL (02/17/18) INDIVIDUAL PSYCHOTHERAPY, SUPPORTIVE (02/17/18) INJECT/INFUSE ELECTROLYT (02/20/13) INJECT/INFUSE NEC (05/02/13) MEDICATION MANAGEMENT (10/07/16) MEDS MGMT FOR SUBSTANCE ABUSE TREATMENT, METHADONE MAINT (07/27/16) MEDS MGMT FOR SUBSTANCE ABUSE TREATMENT, OTH REPL MED (06/28/17) Family History: States: Unknown Family Hx - Social History Hx Tobacco Use: Yes Hx Alcohol Use: Yes Hx Substance Use: No - Immunization History Hx Tetanus Toxoid Vaccination: No Hx Influenza Vaccination: No Hx Pneumococcal Vaccination: No Review Of Systems Constitutional: Negative for: Fever Cardiovascular: Negative for: Chest Pain Respiratory: Negative for: Shortness of Breath Psych: Negative for: Suicidal ideation, Other (homicidal ideation, hallucinations ) Physical Exam - Physical Exam Appears: Non-toxic, No Acute Distress, Other (dishevled, odor of alcohol on breath ) Skin: Normal Color, Warm, Dry Head: Atraumatic, Normacephalic Chest: Symmetrical, No Deformity Cardiovascular: Rhythm Regular, No Murmur Respiratory: Normal Breath Sounds, No Rales, No Rhonchi, No Wheezing Gastrointestinal/Abdominal: Soft Neurological/Psych: Oriented x3, Other (appears intoxicated) ED Course And Treatment O2 Sat by Pulse Oximetry: 99 (on RA) Pulse Ox Interpretation: Normal Medical Decision Making Medical Decision Making: Patient observed in the emergency department and became progressively more alert. Was eventually AAOx3 and able to ambulate without difficulty. Stable for discharge. Disposition - Disposition Disposition: HOME/ ROUTINE Disposition Time: 23:00 Condition: STABLE Additional Instructions: JOANNA RIVERA, thank you for letting us take care of you today. Your provider was Nikkie Marquez MD and you were treated for SUBSTANCE ABUSE. The emergency medical care you received today was directed at your acute symptoms. If you were prescribed any medication, please fill it and take as directed. It may take several days for your symptoms to resolve. Return to the Emergency Department if your symptoms worsen, do not improve, or if you have any other problems. Please contact your doctor or call one of the physicians/clinics you have been referred to that are listed on the Patient Visit Information form that is included in your discharge packet. Bring any paperwork you were given at discharge with you along with any medications you are taking to your follow up visit. Our treatment cannot replace ongoing medical care by a primary care provider outside of the emergency department. Thank you for allowing the [facility] team to be part of your care today. If you had an X-Ray or CT scan: A Radiologist will review the ED reading if any change in treatment is needed we will contact you. If you had a blood, urine, or wound culture: It will take several days for the results, if any change in treatment is needed we will contact you. If you had an STI test: It will take 48 hours for the results. Please call after 1 week if you have not heard back. Instructions: Alcohol Abuse and Alcoholism (DC) Forms: [employer] (Nepali) - Clinical Impression Clinical Impression: Alcohol intoxication, Alcohol abuse - Scribe Statement The provider has reviewed the documentation as recorded by the Lan Small All medical record entries made by the Kaiseribmanolo were at my direction and personally dictated by me. I have reviewed the chart and agree that the record accurately reflects my personal performance of the history, physical exam, medical decision making, and the department course for this patient. I have also personally directed, reviewed, and agree with the discharge instructions and disposition.
[2018-06-29 23:52] VITALS: BP 125/79; PULSE 100; RESP 16; TEMP 98.1
[2018-06-30 00:52] VITALS: O2SAT 99
== END 2018-06-29 23:51 | disposition home or self-care (01) ==
LOC: C.ER 12:18
DX: F10.129 Alcohol abuse with intoxication, unspecified (principal); Y90.9 Presence of alcohol in blood, level not specified

== ENCOUNTER 2018-07-02 12:48 | Emergency (ER) | payer MEDICAID ==
[2018-07-02 12:51] VITALS: BMI 22.9
--- NOTE | 2018-07-02 13:46 | C.PDOC ---
History Of Present Illness 58 year old male brought to ED for public intoxication. Patient denies any injuries. Patient denies suicidal ideation and homicidal ideation. Time Seen by Provider: 07/02/18 13:05 Chief Complaint (Nursing): Substance Abuse History Per: Patient, EMS History/Exam Limitations: intoxication Onset/Duration Of Symptoms: Hrs Current Symptoms Are (Timing): Still Present Suicide/Self Injury Attempted (Context): None Modifying Factor(s): Alcohol Associated Symptoms: denies: Suicidal Thoughts, Suicidal Plan, Other (homicidal ideation) Past Medical History Reviewed: Historical Data, Nursing Documentation, Vital Signs Vital Signs: Last Vital Signs Temp 98.5 F 07/02/18 13:04 Pulse 79 07/02/18 13:04 Resp 16 07/02/18 13:04 BP 123/84 07/02/18 13:04 Pulse Ox 98 07/02/18 13:04 - Medical History PMH: Anxiety, COPD, Depression, Diabetes, Fractures (R HIP x2), HTN, Schizophrenia, Seizures (ETOH related) Denies: HIV, Pulmonary Embolism, Chronic Kidney Disease, Sexually Transmitted Disease Surgical History: No Surg Hx - [facility] Procedures ALCOHOL DETOXIFICATION (02/24/13) DETOXIFICATION SERVICES FOR SUBSTANCE ABUSE TREATMENT (02/17/18) GROUP SPORTSPERSONS FOR SUBSTANCE ABUSE TREATMENT, PSYCHOEDUCATION (02/17/18) GROUP SPORTSPERSONS FOR SUBSTANCE ABUSE, COGNITIVE BEHAVIORAL (02/17/18) GROUP PSYCHOTHERAPY (02/17/18) INDIV PSYCHOTHERAPY FOR SUBSTANCE ABUSE TREATMENT, SUPPORT (02/17/18) INDIV PSYCHOTHERAPY FOR SUBSTANCE ABUSE, COGNITIV BEHAVIORAL (02/17/18) INDIV PSYCHOTHERAPY FOR SUBSTANCE ABUSE, PSYCHOEDUCATION (02/17/18) INDIVIDUAL PSYCHOTHERAPY, COGNITIVE-BEHAVIORAL (02/17/18) INDIVIDUAL PSYCHOTHERAPY, SUPPORTIVE (02/17/18) INJECT/INFUSE ELECTROLYT (02/20/13) INJECT/INFUSE NEC (05/02/13) MEDICATION MANAGEMENT (10/07/16) MEDS MGMT FOR SUBSTANCE ABUSE TREATMENT, METHADONE MAINT (07/27/16) MEDS MGMT FOR SUBSTANCE ABUSE TREATMENT, OTH REPL MED (09/18/16) Family History: States: Unknown Family Hx - Social History Hx Tobacco Use: Yes Hx Alcohol Use: Yes Hx Substance Use: No - Immunization History Hx Tetanus Toxoid Vaccination: No Hx Influenza Vaccination: No Hx Pneumococcal Vaccination: No Review Of Systems Constitutional: Negative for: Fever, Chills, Weakness Neurological: Negative for: Weakness, Numbness, Dizziness Psych: Negative for: Suicidal ideation, Other (homicidal ideation) Physical Exam - Physical Exam Appears: No Acute Distress, Other (obese, disheveled, alcohol on breath) Skin: Normal Color, Warm, Dry Head: Atraumatic, Normacephalic Neck: Normal ROM, Supple Chest: Symmetrical, No Deformity Cardiovascular: Rhythm Regular, No Murmur Respiratory: No Accessory Muscle Use, No Rales, No Rhonchi, No Wheezing Gastrointestinal/Abdominal: Soft, No Tenderness Extremity: Capillary Refill (<2 seconds) ED Course And Treatment O2 Sat by Pulse Oximetry: 98 (in RA) Progress Note: Pending sobriety. Reevaluation Time: 18:05 Reassessment Condition: Improved Medical Decision Making Medical Decision Making: clinical alcohol abuse Disposition Doctor Will See Patient In The: Office Counseled Patient/Family Regarding: Studies Performed, Diagnosis - Disposition Disposition: HOME/ ROUTINE Disposition Time: 18:06 Condition: GOOD Forms: [facility] (Maltese) - Clinical Impression Clinical Impression: Alcohol abuse - Scribe Statement The provider has reviewed the documentation as recorded by the Scribe (Gabriella Marcos) All medical record entries made by the Scribe were at my direction and personally dictated by me. I have reviewed the chart and agree that the record accurately reflects my personal performance of the history, physical exam, medical decision making, and the department course for this patient. I have also personally directed, reviewed, and agree with the discharge instructions and disposition.
[2018-07-02 15:58] VITALS: BP 121/71; PULSE 77; TEMP 97.9
[2018-07-02 18:06] VITALS: O2SAT 98
[2018-07-02 19:49] VITALS: RESP 18
== END 2018-07-02 19:49 | disposition home or self-care (01) ==
LOC: C.ER 12:48
DX: F10.10 Alcohol abuse, uncomplicated (principal); E11.9 Type 2 diabetes mellitus without complications; F20.9 Schizophrenia, unspecified; I10 Essential (primary) hypertension; J44.9 Chronic obstructive pulmonary disease, unspecified; Z72.0 Tobacco use

== ENCOUNTER 2018-07-15 20:27 | Observation (INO) | payer MEDICAID ==
[2018-07-15 20:27] VITALS: BMI 22.9
[2018-07-15] MEDS ORDERED: Bacitracin Ointment 30 GM TUBE TOP STA (20:41)
--- NOTE | 2018-07-15 20:43 | C.PDOC ---
History Of Present Illness 58 year old male presents to the ED complaining of fall last week. Reports he has an abrasion on the right lower leg and left forearm. Denies any LOC, head injury, or any other trauma. Patients admits to alcohol use today. Denies any SI/HI. Chief Complaint (Nursing): Substance Abuse History Per: Patient History/Exam Limitations: no limitations Onset/Duration Of Symptoms: Days Current Symptoms Are (Timing): Still Present Suicide/Self Injury Attempted (Context): None Modifying Factor(s): Alcohol Associated Symptoms: denies: Suicidal Thoughts, Suicidal Plan Past Medical History Reviewed: Historical Data, Nursing Documentation, Vital Signs Vital Signs: Last Vital Signs Temp Pulse 72 07/15/18 20:32 Resp 18 07/15/18 20:32 BP 146/99 H 07/15/18 20:32 Pulse Ox 98 07/15/18 20:32 - Medical History PMH: Anxiety, COPD, Depression, Diabetes, Fractures (R HIP x2), HTN, Sc hizophrenia, Seizures (ETOH related) Denies: HIV, Pulmonary Embolism, Chronic Kidney Disease, Sexually Transmitted Disease Other Surgeries: Hx of surgeries - [facility] Procedures ALCOHOL DETOXIFICATION (02/24/13) DETOXIFICATION SERVICES FOR SUBSTANCE ABUSE TREATMENT (02/17/18) GROUP SWIMMING COACH OR INSTRUCTOR FOR SUBSTANCE ABUSE TREATMENT, PSYCHOEDUCATION (02/17/18) GROUP SWIMMING COACH OR INSTRUCTOR FOR SUBSTANCE ABUSE, COGNITIVE BEHAVIORAL (02/17/18) GROUP PSYCHOTHERAPY (02/17/18) INDIV PSYCHOTHERAPY FOR SUBSTANCE ABUSE TREATMENT, SUPPORT (02/17/18) INDIV PSYCHOTHERAPY FOR SUBSTANCE ABUSE, COGNITIV BEHAVIORAL (02/17/18) INDIV PSYCHOTHERAPY FOR SUBSTANCE ABUSE, PSYCHOEDUCATION (02/17/18) INDIVIDUAL PSYCHOTHERAPY, COGNITIVE-BEHAVIORAL (02/17/18) INDIVIDUAL PSYCHOTHERAPY, SUPPORTIVE (02/17/18) INJECT/INFUSE ELECTROLYT (02/20/13) INJECT/INFUSE NEC (05/02/13) MEDICATION MANAGEMENT (10/07/16) MEDS MGMT FOR SUBSTANCE ABUSE TREATMENT, METHADONE MAINT (07/27/16) MEDS MGMT FOR SUBSTANCE ABUSE TREATMENT, OTH REPL MED (09/18/16) Family History: States: No Known Family Hx - Social History Hx Tobacco Use: Yes Hx Alcohol Use: Yes Hx Substance Use: No - Immunization History Hx Tetanus Toxoid Vaccination: No Hx Influenza Vaccination: No Hx Pneumococcal Vaccination: No Review Of Systems Constitutional: Negative for: Fever, Chills Respiratory: Negative for: Shortness of Breath Gastrointestinal: Negative for: Nausea, Vomiting, Abdominal Pain, Diarrhea Skin: Positive for: Other (abrasion to left forearm and right lower leg) Neurological: Negative for: Weakness, Numbness, Headache Psych: Negative for: Suicidal ideation Physical Exam - Physical Exam Appears: Non-toxic, No Acute Distress, Other (clinically inebriated) Skin: Warm, Dry, Other (abrasion to left forearm proximally and right lower leg dorsally ) Head: Atraumatic, Normacephalic Eye(s): bilateral: Normal Inspection Nose: Normal Oral Mucosa: Moist Neck: Supple Chest: Symmetrical Cardiovascular: Rhythm Regular Respiratory: Normal Breath Sounds, No Rales, No Rhonchi, No Wheezing Gastrointestinal/Abdominal: Soft, No Tenderness Extremity: Normal ROM, No Deformity, No Swelling Neurological/Psych: Oriented x3, Normal Speech Gait: Steady ED Course And Treatment - Laboratory Results Result Diagrams: 07/15/18 21:32 07/15/18 22:17 O2 Sat by Pulse Oximetry: 98 (RA) Pulse Ox Interpretation: Normal Medical Decision Making Medical Decision Making: Plan - Bacitracin Ointment 1mg Top - Bloodwork Disposition Discussed With Dr.: Janene Dobbins Doctor Will See Patient In The: Hospital Counseled Patient/Family Regarding: Diagnosis - Disposition Disposition: HOSPITALIZED Disposition Time: 00:55 Condition: STABLE Forms: [facility] ([place]) - POA Present On Arrival: None - Clinical Impression Clinical Impression: Alcohol abuse, Hepatic insufficiency, Jaundice due to hepatitis - Scribe Statement The provider has reviewed the documentation as recorded by the Kaiseribmanolo Wong All medical record entries made by the Kaiseribmanolo were at my direction and personally dictated by me. I have reviewed the chart and agree that the record accurately reflects my personal performance of the history, physical exam, medical decision making, and the department course for this patient. I have also personally directed, reviewed, and agree with the discharge instructions and di sposition.
[2018-07-15 21:38] LABS: BASO # 0.1 K/uL (0.0-0.2)
[2018-07-15 21:46] LABS: INR 1.6
[2018-07-15 21:52] LABS: BASO % 1.2 % (0.0-2.0); EOS # 0.1 K/uL (0.0-0.7); EOS % 0.8 % (0.0-4.0); HEMOGLOBIN 14.9 g/dL (12.0-18.0); LYMPH # 0.9 K/uL (1.0-4.3); LYMPH % 10.3 % (20.0-40.0); MEAN CELL VOLUME 103.3 fL (80.0-94.0); MEAN CORPUSCULAR HEMOGLOBIN 34.8 pg (27.0-31.0); MEAN CORPUSCULAR HGB CONC 33.7 g/dL (33.0-37.0); MEAN PLATELET VOLUME 9.5 fL (7.2-11.7); MONO # 0.6 K/uL (0.0-0.8); MONO % 7.2 % (0.0-10.0); NEUT # 6.7 K/uL (1.8-7.0); NEUT % 80.5 % (50.0-75.0); NRBC % 0.1 % (0.0-2.0); RBC 4.27 Mil/uL (4.40-5.90); RED CELL DISTRIBUTION WIDTH 18.8 % (11.5-14.5); WHITE BLOOD COUNT 8.3 K/uL (4.8-10.8)
[2018-07-15 21:59] LABS: ALB/GLOB RATIO 0.8 (1.0-2.1); ALBUMIN 3.7 g/dL (3.5-5.0); ALT/SGPT 98 U/L (21-72); AST/SGOT 378 U/L (17-59); BLOOD UREA NITROGEN 9 mg/dL (9-20); CALCIUM 7.9 mg/dl (8.6-10.4); GFR NON-AFRICAN AMERICAN > 60
[2018-07-15 22:36] LABS: ALB/GLOB RATIO 0.8 (1.0-2.1); ALT/SGPT 109 U/L (21-72); AST/SGOT 299 U/L (17-59); BLOOD UREA NITROGEN 9 mg/dL (9-20); CALCIUM 7.8 mg/dl (8.6-10.4); GFR NON-AFRICAN AMERICAN > 60
[2018-07-16] MEDS ORDERED: Sodium Chloride 0.9% 1,000 ML IV ONE ×2 (00:30→01:54)
[2018-07-16] MEDS ORDERED: Multivitamin (MVI) 10 ML, Thiamine 100 MG, Folic Acid 1 MG in Sodium Chloride 0.9% 1,00... IV ONE (00:48)
[2018-07-16 06:57] VITALS: RESP 20
[2018-07-16 11:25] LABS: BASO # 0.1 K/uL (0.0-0.2); BASO % 1.4 % (0.0-2.0); EOS # 0.1 K/uL (0.0-0.7); EOS % 0.6 % (0.0-4.0); LYMPH # 0.6 K/uL (1.0-4.3); LYMPH % 6.4 % (20.0-40.0); MEAN CELL VOLUME 102.9 fL (80.0-94.0); MEAN CORPUSCULAR HEMOGLOBIN 35.1 pg (27.0-31.0); MEAN CORPUSCULAR HGB CONC 34.1 g/dL (33.0-37.0); MEAN PLATELET VOLUME 9.2 fL (7.2-11.7); MONO # 0.9 K/uL (0.0-0.8); MONO % 9.7 % (0.0-10.0); NEUT % 81.9 % (50.0-75.0); PLATELET COUNT 276 K/uL (130-400); RBC 3.55 Mil/uL (4.40-5.90); RED CELL DISTRIBUTION WIDTH 19.3 % (11.5-14.5); WHITE BLOOD COUNT 9.8 K/uL (4.8-10.8)
[2018-07-16 11:28] LABS: HEMOGLOBIN 12.5 g/dL (12.0-18.0)
[2018-07-16 11:37] LABS: ALB/GLOB RATIO 0.8 (1.0-2.1); ALBUMIN 2.6 g/dL (3.5-5.0); ALT/SGPT 113 U/L (21-72); AST/SGOT 309 U/L (17-59); BLOOD UREA NITROGEN 7 mg/dL (9-20); CALCIUM 6.9 mg/dl (8.6-10.4); GFR NON-AFRICAN AMERICAN > 60
[2018-07-16 13:05] LABS: BANDS 5 % (0-2); BASOPHIL 1 % (0-2); EOSINOPHIL 2 % (0-4); LYMPHOCYTE 7 % (20-40); MONOCYTE 11 % (0-10); TOTAL CELLS COUNTED 100
[2018-07-16 13:06] LABS: HYPOCHROMIC SLIGHT; LARGE PLATELETS PRESENT; NEUTROPHIL 74 % (50-75); PLATELET ESTIMATE NORMAL (NORMAL)
[2018-07-16] MEDS ORDERED: Folic Acid 1 MG, Thiamine 100 MG, Multivitamin (MVI) 10 ML in Dextrose 5% In Water 1,00... IV SCH (14:00)
--- NOTE | 2018-07-16 14:40 | PCM.PSYCH ---
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 Patient also reports a history of schizophrenia with both auditory and visual hallucinations, treated with Seroquel. He reports he lost his medications for schizophrenia, anti-epileptic, and COPD 2 [place] on a train, and has not taken anything since. Patient reports 1 failed detox attempt in the past, and reports inpatient hospitalization for schizophrenia for several months in the past, with associated period of sobriety. Patient reports he attempts to stop drinking but is unable to secondary to withdrawal seizures and withdrawal symptoms. Patient reports last drink was yesterday prior to arrival, and currently reports withdrawal symptoms of feeling shaky and has nausea. Presently patient denies hallucinations, paranoia, depression, anxiety, SI/HI, substance use. PsychHx: Schizophrenia, on Seroquel PMHx: Pancreatitis, Liver disease, withdrawal seizures on unknown medication FamPsychHx: Father alcoholic, denies hx of psychiatric illness Current Medications: Active Medications Generic Name Dose Route Start Last Admin Trade Name Freq PRN Reason Stop Dose Admin Folic Acid 1 mg/ Thiamine HCl 1,011.2 mls @ 80 mls/hr 07/16/18 14:00 07/16/18 14:05 100 mg/ Multivitamins/Vitamin IV 80 mls/hr C 10 ml/ Dextrose DAILY RAHEEM Administration Lorazepam 1 mg 07/16/18 12:43 07/16/18 14:01 Ativan IVP 1 mg Q6H PRN Administration Anxiety Pneumococcal Polyvalent Vaccine 0.5 ml 07/18/18 10:00 Pneumovax 23 Vaccine IM 07/18/18 10:01 .ONCE ONE Quetiapine Fumarate 100 mg 07/16/18 22:00 Seroquel PO HS RAHEEM Past Psychiatric History - Past Psychiatric History Previous Treatment History: Inpatient Pertinent Medical Hx (Current Medical&Sleep Prob, Allergies): Allergies Allergy/AdvReac Type Severity Reaction Status Date / Time No Known Allergies Allergy Verified 07/02/18 12:50 No Known Home Med 06/04/18 Review of Systems - Gastrointestinal Gastrointestinal: Nausea. absent: Diarrhea, Vomiting - Neurological Neurological: Convulsions, Frequent Falls, Tremor - Psychiatric Psychiatric: Auditory Hallucinations, Visual Hallucinations. absent: Anxiety, Depression, Paranoia Mental Status Examination - Personal Presentation Personal Presentation: Looks older than stated age - Affect Affect: Constricted - Motor Activity Motor Activity: Psychomotor Agitation (tremulous) - Reliability in Providing Information Reliability in Providing Information: Fair - Speech Speech: Organized, Incoherent (at times) - Mood Mood: Neutral - Formal Thought Process Formal Thought Process: No Impairment - Cognitive Functions Orientation: Person, Place, Situation, Time Sensorium: Alert Attention/Concentration: Attentive Estimate of Intelligence: Below average Judgement: Intact, as evidence by: Insight regarding need for hospitalization Memory: Recent impaired, as evidence by: Inability to recall events of the day, Remote impaired as evidenced by: Inability to recall sig life events - Risk Risk: Seizure, Withdrawal, Falls, Diminished functioning - Strength & Assets Inventory Strength & Assets Inventory: Cooperative DSM 5 DX - DSM 5 DSM 5 Diagnosis: Alcohol withdrawal Alcohol use disorder, severe Schizophrenia - Recommended/Plan of Treatment Treatment Recommendations and Plan of Treatment: Taper with Ativan PRN medications ativan Resume home Seroquel HS Medical care per primary All risks, benefits and treatment alternatives discussed with patient; he understands and agrees Supportive therapy and psycho-education provided Discussed plan for sobriety following discharge, patient wants to return to sister's home and continue with AA meetings Teach healthy lifestyle methods(diet, exercise, meditation) Discussed with Dr. Brianne Parrish, PGY-1 32 min - Smoking Cessation Smoking Cessation Initiated: No Reason for not providing: not indicated, former smoker
--- NOTE | 2018-07-16 18:57 | CP.PCM.CON ---
History of Present Illness - History of Present Illness History of Present Illness: 58 yo ,ananya h/o alcohol abuse with mult ER visits, now came to ER after falls. I am asked to See pt for GI serviced consult for jaundice. Pt reportts N/V x many months. Denies RB, melena. Review of Systems - Constitutional Constitutional: Fatigue, Weakness - Cardiovascular Cardiovascular: Diaphoresis. absent: Chest Pain - Respiratory Respiratory: absent: Dyspnea, Hemoptysis, Wheezing - Gastrointestinal Gastrointestinal: Nausea, Vomiting. absent: Abdominal Pain, Diarrhea, Dysphagia, Hematemesis, Hematochezia, Loose Stools, Melena - Genitourinary Genitourinary: absent: Hematuria - Integumentary Integumentary: Jaundice. absent: Rash - Neurological Neurological: Dizziness, Tremor - Psychiatric Psychiatric: Hallucinations Past Patient History - Infectious Disease Hx of Infectious Diseases: None - Tetanus Immunizations Tetanus Immunization: Unknown - Past Medical History & Family History Past Medical History?: Yes - Past Social History Smoking Status: Former Smoker - CARDIAC Hx Hypertension: Yes - PULMONARY Hx Chronic Obstructive Pulmonary Disease (COPD): Yes Hx Pulmonary Embolism: No - NEUROLOGICAL Hx Seizures: Yes (ETOH related) - HEENT Hx HEENT Problems: No - RENAL Hx Chronic Kidney Disease: No - ENDOCRINE/METABOLIC Hx Endocrine Disorders: Yes Hx Diabetes Mellitus Type 2: Yes - HEMATOLOGICAL/ONCOLOGICAL Hx Human Immunodeficiency Virus (HIV): No - INTEGUMENTARY Hx Dermatological Problems: No - MUSCULOSKELETAL/RHEUMATOLOGICAL Hx Fractures: Yes (R HIP x2) - GASTROINTESTINAL Hx Gastrointestinal Disorders: No - GENITOURINARY/GYNECOLOGICAL Hx Sexually Transmitted Disorders: No - PSYCHIATRIC Hx Anxiety: Yes Hx Depression: Yes Hx Schizophrenia: Yes Hx Substance Use: No - SURGICAL HISTORY Hx Surgeries: Yes Hx Orthopedic Surgery: Yes (R HIP x2) - ANESTHESIA Hx Anesthesia: Yes Hx Anesthesia Reactions: No Hx Malignant Hyperthermia: No Meds Allergies/Adverse Reactions: Allergies Allergy/AdvReac Type Severity Reaction Status Date / Time No Known Allergies Allergy Verified 07/02/18 12:50 - Medications Medications: Current Medications Folic Acid 1 mg/ Thiamine HCl 100 mg/ Multivitamins/Vitamin C 10 ml/ Dextrose 1,011.2 mls @ 80 mls/hr IV DAILY RAHEEM Last Admin: 07/16/18 14:05 Dose: 80 mls/hr Folic Acid 1 mg/ Thiamine HCl 100 mg/ Multivitamins/Vitamin C 10 ml/ Dextrose 1,011.2 mls @ 0 mls/hr IV .Q0M RAHEEM Potassium Chloride (Potassium Chloride 20 Meq/100 Ml) 20 meq in 100 mls @ 50 mls/hr IVPB ONCE ONE Stop: 07/16/18 20:10 Lorazepam (Ativan) 1 mg IVP Q6H PRN PRN Reason: Anxiety Last Admin: 07/16/18 14:01 Dose: 1 mg Methylprednisolone (Solu-Medrol) 32 mg IV DAILY [facility] Pneumococcal Polyvalent Vaccine (Pneumovax 23 Vaccine) 0.5 ml IM .ONCE ONE Stop: 07/18/18 10:01 Quetiapine Fumarate (Seroquel) 100 mg PO HS RAHEEM Physical Exam - Constitutional Appears: Non-toxic - Respiratory Exam Respiratory Exam: Clear to Auscultation Bilateral - Cardiovascular Exam Cardiovascular Exam: RRR - GI/Abdominal Exam GI & Abdominal Exam: Normal Bowel Sounds, Soft. absent: Guarding, Mass, Rebound, Tenderness - Neurological Exam Neurological exam: Alert - Skin Skin Exam: Abrasion Results - Vital Signs Recent Vital Signs: Last Vital Signs Temp 98.2 F 07/16/18 16:51 Pulse 77 07/16/18 16:51 Resp 20 07/16/18 16:51 BP 108/68 07/16/18 16:51 Pulse Ox 100 07/16/18 16:51 - Labs Result Diagrams: 07/16/18 11:07 07/16/18 11:07 Labs: Laboratory Results - last 24 hr 07/15/18 07/15/18 07/15/18 20:46 21:32 21:32 WBC 8.3 D RBC 4.27 L Hgb 14.9 Hct 44.1 MCV 103.3 H D MCH 34.8 H MCHC 33.7 RDW 18.8 H Plt Count 293 D MPV 9.5 Neut % (Auto) 80.5 H Lymph % (Auto) 10.3 L [place] % (Auto) 7.2 Eos % (Auto) 0.8 Baso % (Auto) 1.2 Neut # (Auto) 6.7 Lymph # (Auto) 0.9 L [place] # (Auto) 0.6 Eos # (Auto) 0.1 Baso # (Auto) 0.1 Neutrophils % (Manual) Band Neutrophils % Lymphocytes % (Manual) Monocytes % (Manual) Eosinophils % (Manual) Basophils % (Manual) Platelet Estimate Large Platelets Hypochromasia (manual) PT 17.0 H INR 1.6 APTT 35.0 H Sodium Potassium Chloride Carbon Dioxide Anion Gap BUN Creatinine Est GFR ( Amer) Est GFR (Non-Af Amer) POC Glucose (mg/dL) 118 H Random Glucose Calcium Phosphorus Magnesium Total Bilirubin AST ALT Alkaline Phosphatase Ammonia Total Protein Albumin Globulin Albumin/Globulin Ratio Alcohol, Quantitative 07/15/18 07/15/18 07/15/18 21:32 21:32 22:17 WBC RBC Hgb Hct MCV MCH MCHC RDW Plt Count MPV Neut % (Auto) Lymph % (Auto) [place] % (Auto) Eos % (Auto) Baso % (Auto) Neut # (Auto) Lymph # (Auto) [place] # (Auto) Eos # (Auto) Baso # (Auto) Neutrophils % (Manual) Band Neutrophils % Lymphocytes % (Manual) Monocytes % (Manual) Eosinophils % (Manual) Basophils % (Manual) Platelet Estimate Large Platelets Hypochromasia (manual) PT INR APTT Sodium 135 136 Potassium 6.3 H* D 3.4 L Chloride 105 104 Carbon Dioxide 19 L 23 Anion Gap 17 13 BUN 9 9 Creatinine 0.8 0.8 Est GFR ( Amer) > 60 > 60 Est GFR (Non-Af Amer) > 60 > 60 POC Glucose (mg/dL) Random Glucose 104 103 Calcium 7.9 L 7.8 L Phosphorus 3.0 Magnesium 2.1 Total Bilirubin 23.8 H 21.6 H AST 378 H 299 H D ALT 98 H D 109 H Alkaline Phosphatase 223 H D 197 H Ammonia 15 Total Protein 8.0 6.6 Albumin 3.7 3.0 L Globulin 4.3 H 3.6 Albumin/Globulin Ratio 0.8 L 0.8 L Alcohol, Quantitative 265 H 07/16/18 07/16/18 11:07 11:07 WBC 9.8 RBC 3.55 L Hgb 12.5 D Hct 36.5 MCV 102.9 H MCH 35.1 H MCHC 34.1 RDW 19.3 H Plt Count 276 MPV 9.2 Neut % (Auto) 81.9 H Lymph % (Auto) 6.4 L [place] % (Auto) 9.7 Eos % (Auto) 0.6 Baso % (Auto) 1.4 Neut # (Auto) 8.0 H Lymph # (Auto) 0.6 L [place] # (Auto) 0.9 H Eos # (Auto) 0.1 Baso # (Auto) 0.1 Neutrophils % (Manual) 74 Band Neutrophils % 5 H Lymphocytes % (Manual) 7 L Monocytes % (Manual) 11 H Eosinophils % (Manual) 2 Basophils % (Manual) 1 Platelet Estimate Normal Large Platelets Present Hypochromasia (manual) Slight PT INR APTT Sodium 135 Potassium 3.4 L Chloride 109 H Carbon Dioxide 18 L Anion Gap 12 BUN 7 L Creatinine 0.6 L Est GFR ( Amer) > 60 Est GFR (Non-Af Amer) > 60 POC Glucose (mg/dL) Random Glucose 97 Calcium 6.9 L Phosphorus Magnesium Total Bilirubin 17.8 H AST 309 H ALT 113 H Alkaline Phosphatase 179 H Ammonia Total Protein 5.8 L Albumin 2.6 L Globulin 3.2 Albumin/Globulin Ratio 0.8 L Alcohol, Quantitative Assessment & Plan (1) Nausea Status: Acute (2) Alcohol abuse Assessment and Plan: treat withdrawal Status: Acute (3) Hepatic insufficiency Status: Acute (4) Jaundice due to hepatitis Assessment and Plan: severe elev TB. alcohoolic hepatitis, Maddrey Disc function=40. Poor prognosis. Start methylpred. Check sono. Check DB Status: Acute
[2018-07-16 21:55] LABS: BARBITURATES, UR NEGATIVE (NEGATIVE); OPIATES, UR NEGATIVE (NEGATIVE); PHENCYCLIDINE, UR NEGATIVE (NEGATIVE)
[2018-07-16 22:02] LABS: BENZODIAZEPINES, UR POSITIVE (NEGATIVE)
--- NOTE | 2018-07-17 02:34 | HP ---
HISTORY OF PRESENT ILLNESS: The patient is a 58-year-old male. The patient has abnormal liver function test but trending down. Alcohol level is 265, came for detoxification and history of anxiety, COPD, depression, diabetes mellitus, fracture of right hip x2, hypertension, schizophrenia, seizures that is not related, came in [facility] Emergency Room post seizure. Required psychiatry consult and GI consult for alcoholic hepatitis. PLAN: Ativan given, folic acid given, Seroquel given. The patient is getting NS. GI, DVT prophylaxis. We will start banana bag. Repeat labs. We will follow up. Janene Dobbins MD
--- NOTE | 2018-07-17 07:28 | HP ---
The patient was seen and examined at the bedside on 07/16/2018. CHIEF COMPLAINT: Substance abuse. HISTORY OF PRESENT ILLNESS: A 58-year-old male came to the emergency department complaining of fall last week. Reports he has abrasions on the right lower leg and left forearm; and denies loss of consciousness. No head injury or any other trauma. The patient admits using alcohol, and he told me may be all his symptoms are due to alcohol, but we admitted the patient for Psychiatry consult. Denies suicidal or homicidal plans or thoughts. PAST MEDICAL HISTORY: Anxiety, history of major depression, diabetes, fracture of the right hip x2, hypertension, schizophrenia, seizures, ethanol related withdrawal seizures, history of multiple admissions. FAMILY HISTORY: Father and mother, noncontributory. HABITS: Tobacco, yes. Alcohol, yes. Substance abuse, no. REVIEW OF SYSTEMS: The patient was seen and examined at the bedside. Still looking comfortable. Sometimes getting confused. No fever. No headache. No dizziness, chest pain. No shortness of breath. No nausea, vomiting, abdominal pain, or diarrhea. Positive for abrasion on the left forearm and right lower leg. No weakness or numbness. PHYSICAL EXAMINATION: VITAL SIGNS: Temperature 98.2, pulse 77, blood pressure 120/ 80 , respiratory rate 20. HEENT: Head normocephalic, atraumatic. Eyes, PERRLA. Extraocular muscles intact. Conjunctivae clear. Nose patent. Mucous membrane moist. NECK: Supple. No carotid bruits, JVD, thyromegaly. CHEST WALL: Symmetrical. HEART: S1 and S2 positive. LUNGS: Clear to auscultation. ABDOMEN: Soft. Bowel sounds present. No organomegaly. EXTREMITIES: Trace abrasions of the left upper extremity and right lower extremity. No edema. No cyanosis. NEUROLOGIC: The patient is awake, alert. Follows simple commands. LABORATORY DATA: White blood cell is 9.8, hemoglobin 12.5, hematocrit 36.5, platelets 276. Sodium 135, potassium 3.5, BUN 7, creatinine 0.6. Glucose 97. The patient has abnormal liver function test but trending down. Alcohol level is 265, came for detoxification and history of anxiety, COPD, depression, diabetes mellitus, fracture of right hip x2, hypertension, schizophrenia, seizures that is not related, came in [facility] Emergency Room post seizure. Required psychiatry consult and GI consult for alcoholic hepatitis. ASSESSMENT AND PLAN: Mr. Esa Mosqueda is a 58-year-old male with history of hyperkalemia, improved; hyperchloremia; hypocalcemia. Ativan given, folic acid given, Seroquel given. The patient is getting NS. GI, DVT prophylaxis. We will start banana bag. Repeat labs. We will follow up. Janene Dobbins MD MTDEsthela
[2018-07-17 08:18] LABS: ALT/SGPT 99 U/L (21-72); AST/SGOT 261 U/L (17-59); BILIRUBIN,DIRECT 12.6 mg/dL (0.0-0.4); BLOOD UREA NITROGEN 6 mg/dL (9-20); CALCIUM 7.3 mg/dl (8.6-10.4); GFR NON-AFRICAN AMERICAN > 60; LIPASE 28 U/L (23-300)
[2018-07-17 08:19] LABS: ALB/GLOB RATIO 0.8 (1.0-2.1); ALBUMIN 2.4 g/dL (3.5-5.0)
--- NOTE | 2018-07-17 09:39 | US ---
Date of service: 07/16/2018 HISTORY: alcoholic hepatitis COMPARISON: None. TECHNIQUE: Sonographic evaluation of the abdomen. FINDINGS: LIVER: Measures 23.6 cm. Diffusely increased echogenicity of the liver parenchyma. Consistent with fatty infiltration. Nodular contour consistent with hepatic cirrhosis. No biliary ductal dilatation. No focal mass. GALLBLADDER: Cholelithiasis. Diffusely thickened gallbladder wall common nonspecific. There is trace pericholecystic fluid, but in the setting of mild generalized ascites this is of uncertain significance. COMMON BILE DUCT: Measures 5 mm. No stones. No dilatation. PANCREAS: Unremarkable as visualized. No mass. No ductal dilatation. RIGHT KIDNEY: Measures 12.7cm. Normal cortical thickness and echogenicity. Nonobstructing 6 mm right upper pole renal calculus. No hydronephrosis. No mass. LEFT KIDNEY: Measures 12.5cm. Normal echogenicity. No calculus, mass, or hydronephrosis. SPLEEN: Normal in size and contour. No mass. AORTA: No aneurysmal dilatation. IVC: Unremarkable. OTHER FINDINGS: None. IMPRESSION: Hepatomegaly with diffuse increased echogenicity and nodular contour. Consistent with fatty infiltration and hepatic cirrhosis. No biliary obstruction. Cholelithiasis. Nonspecific mural thickening. Trace pericholecystic fluid in the setting of generalized mild ascites common nonspecific. Non obstructing 6 mm right upper pole renal calculus. The preliminary findings for this examination were reported by [facility] at 7:52 p.m. on 07/16/2018. There is concurrence of this report with the preliminary findings.
[2018-07-17] MEDS: Potassium Chloride 20 mEq ER Tab PO SCH ×2 (09:43→13:54)
[2018-07-17] MEDS: MethylPREDNISolone 40 mg Vial IV SCH (10:39)
--- NOTE | 2018-07-17 11:52 | PCM.PYCHPN ---
Psychiatric Progress Note - Psychiatric Progress Note Patient seen today, length of contact: 15 min Patient Chief Complaint: "Not good" Problems Identified/Issues Discussed: The pt is seen again, chart reviewed, and case is discussed with the team. The pt denies any side-effects from meds. Not ready for discharge due to ongoing symptoms and high relapse risk. After care discussed again. Medication Change: Yes (detox changes daily) Medical Record Reviewed: Yes Mental Status Examination - Cognitive Function Orientation: Person, Place, Situation, Time Memory: Impaired Attention: Poor Concentration: Poor Association: WNL Fund of Knowledge: WNL - Mood Mood: Anxious - Affect Affect: Constricted - Speech Speech: Appropriate - Formal Thought Process Formal Thought Process: No Impairment - Suicidal Ideation Suicidal Ideation: No - Homicidal Ideation Homicidal Ideation: No Goal/Treatment Plan - Goal/Treatment Plan Need for Continued Stay: Discharge may exacerbated symptoms, Other (medical) Progress Toward Problem(s) and Goals/Treatment Plan: Continue detox Support and psychoed Transfer to detox when medically cleared, likely tomorrow. Call sales administration specialist psych first.
[2018-07-17] MEDS: Folic Acid 1 MG, Thiamine 100 MG, Multivitamin (MVI) 10 ML in Dextrose 5% In Water 1,00... IV SCH (13:51)
--- NOTE | 2018-07-17 15:14 | PN ---
DATE: 07/17/2018 SUBJECTIVE: The patient is a 58-year-old male. The patient is seen and examined at the bedside and looking comfortable. No fever. No chills. No hematuria. No hematochezia. No headache. No dizziness. No chest pain. No palpitations. PHYSICAL EXAMINATION: VITAL SIGNS: Blood pressure 160/65, respiratory rate 20, pulse 78, and temperature 98.7. HEENT: Head is normocephalic, atraumatic. Eyes, PERRLA. Extraocular muscles intact. Conjunctivae clear. Nose patent. Mucous membranes moist. NECK: Supple. No carotid bruits. No JVD or thyromegaly. CHEST: Bilaterally symmetrical. HEART: S1 and S2 positive. LUNGS: Clear to auscultation. ABDOMEN: Soft. Bowel sounds present. No organomegaly. EXTREMITIES: No edema. No cyanosis. NEUROLOGICAL: The patient is awake, alert. Moving all 4 extremities. MEDICATIONS: Ativan, Catapres, trazodone, lactulose, multivitamins, potassium, Seroquel, methylprednisolone, and Solu-Medrol. LABORATORY DATA: White blood cells 9.8, hemoglobin 12.5, hematocrit 36.5, and platelets 276. Sodium 131, potassium 2.9, BUN 6, creatinine 0.6, and calcium 7.3. ASSESSMENT AND PLAN: Mr. Panda See is a 58-year-old male with hyponatremia, low potassium, hypocalcemia, hyperkalemia, abnormal liver function test trending down, ammonia level is high increased at least from 15 to 42. Drug screen is positive Hepatic insufficiency, jaundice due to hepatitis, alcohol abuse, nauseous, elevated total bilirubin, poor prognosis, started on methylprednisolone by Gastroenterology. Meanwhile continue present treatment, gastrointestinal prophylaxis. Repeat labs. We will follow up. Janene Dobbins MD MTDD
--- NOTE | 2018-07-17 15:32 | CP.PCM.PN ---
Subjective - Date & Time of Evaluation Date of Evaluation: 07/17/18 Time of Evaluation: 14:15 - Subjective Subjective: f/u jaundice. Denies RB, melena, abd pain, fever, chills, SANDY, cough, hematuria Objective - Vital Signs/Intake and Output Vital Signs (last 24 hours): Temp Pulse Resp BP Pulse Ox 98.7 F 78 20 160/65 H 96 07/17/18 08:00 07/17/18 08:00 07/17/18 08:00 07/17/18 08:00 07/17/18 08:00 Intake and Output: 07/17/18 07/17/18 06:59 18:59 Intake Total 200 740 Output Total 450 Balance -250 740 - Medications Medications: Current Medications Clonidine HCl (Catapres) 0.1 mg PO Q4H PRN PRN Reason: Symptoms of alcohol withdrawl Folic Acid 1 mg/ Thiamine HCl 100 mg/ Multivitamins/Vitamin C 10 ml/ Dextrose 1,011.2 mls @ 42 mls/hr IV .Q24H RAHEEM Last Admin: 07/17/18 13:51 Dose: 42 mls/hr Lactulose (Enulose) 20 gm PO BID RAHEEM Last Admin: 07/17/18 12:23 Dose: 20 gm Lorazepam (Ativan) 1 mg IVP Q6H PRN PRN Reason: Anxiety Last Admin: 07/17/18 01:00 Dose: 1 mg Lorazepam (Ativan) 1 mg PO Q6H RAHEEM; Taper Stop: 07/20/18 19:59 Last Admin: 07/17/18 13:51 Dose: 1 mg Methylprednisolone (Solu-Medrol) 32 mg IV DAILY RAHEEM Last Admin: 07/17/18 10:39 Dose: 32 mg Pneumococcal Polyvalent Vaccine (Pneumovax 23 Vaccine) 0.5 ml IM .ONCE ONE Stop: 07/18/18 10:01 Quetiapine Fumarate (Seroquel) 100 mg PO HS RAHEEM Last Admin: 07/16/18 21:30 Dose: 100 mg Trazodone HCl (Desyrel) 50 mg PO HS PRN PRN Reason: Insomnia - Labs Labs: 07/16/18 11:07 07/17/18 07:51 PT 17.0 SECONDS (9.7-12.2) H 07/15/18 21:32 INR 1.6 07/15/18 21:32 APTT 35.0 SECONDS (21-34) H 07/15/18 21:32 - Constitutional Appears: Non-toxic - Neck Exam Neck Exam: absent: Tenderness - Respiratory Exam Respiratory Exam: Clear to Ausculation Bilateral - Cardiovascular Exam Cardiovascular Exam: RRR - GI/Abdominal Exam GI & Abdominal Exam: Soft, Normal Bowel Sounds, Organomegaly. absent: Tenderness - Neurological Exam Neurological Exam: Alert, Awake Assessment and Plan (1) Nausea Assessment & Plan: alcohol, alcohol gastritis.. P- PPI Status: Acute (2) Alcohol abuse Status: Acute (3) Hepatic insufficiency Assessment & Plan: severe jaundice. c/w alcoholic hepatitis. Madrey score= 40 REc- steroids. can switch to po prednisone. Avoid etoh. Detox. Status: Acute (4) Jaundice due to hepatitis Assessment & Plan: TB sl improving. Sono= HM Status: Acute
[2018-07-18 07:15] LABS: BLOOD UREA NITROGEN 8 mg/dL (9-20); GFR NON-AFRICAN AMERICAN > 60
[2018-07-18 07:16] LABS: ALB/GLOB RATIO 0.8 (1.0-2.1); ALBUMIN 2.7 g/dL (3.5-5.0); ALT/SGPT 103 U/L (21-72); AST/SGOT 226 U/L (17-59); CALCIUM 7.7 mg/dl (8.6-10.4)
[2018-07-18 07:49] LABS: BASO % 0.2 % (0.0-2.0); EOS % 0.1 % (0.0-4.0); HEMOGLOBIN 11.6 g/dL (12.0-18.0); LYMPH # 0.5 K/uL (1.0-4.3); LYMPH % 5.6 % (20.0-40.0); MEAN CELL VOLUME 104.1 fL (80.0-94.0); MEAN CORPUSCULAR HEMOGLOBIN 35.4 pg (27.0-31.0); MEAN PLATELET VOLUME 9.4 fL (7.2-11.7); MONO # 0.6 K/uL (0.0-0.8); MONO % 6.6 % (0.0-10.0); NEUT # 8.6 K/uL (1.8-7.0); NEUT % 87.5 % (50.0-75.0); PLATELET COUNT 276 K/uL (130-400); RBC 3.28 Mil/uL (4.40-5.90); RED CELL DISTRIBUTION WIDTH 19.6 % (11.5-14.5); WHITE BLOOD COUNT 9.8 K/uL (4.8-10.8)
--- NOTE | 2018-07-18 08:50 | CP.PCM.PN ---
Subjective - Date & Time of Evaluation Date of Evaluation: 07/18/18 Time of Evaluation: 08:15 - Subjective Subjective: f/u jaundice. confused Denies abd pain, fever, chills, SANDY, RB, melena, hematuria, dysuria Objective - Vital Signs/Intake and Output Vital Signs (last 24 hours): Temp Pulse Resp BP Pulse Ox 98.7 F 83 20 121/73 97 07/18/18 07:52 07/18/18 07:52 07/18/18 07:52 07/18/18 07:52 07/18/18 08:28 Intake and Output: 07/18/18 07/18/18 06:59 18:59 Intake Total 816 Output Total 1200 Balance -384 - Medications Medications: Current Medications Clonidine HCl (Catapres) 0.1 mg PO Q4H PRN PRN Reason: Symptoms of alcohol withdrawl Folic Acid 1 mg/ Thiamine HCl 100 mg/ Multivitamins/Vitamin C 10 ml/ Dextrose 1,011.2 mls @ 42 mls/hr IV .Q24H RAHEEM Last Admin: 07/17/18 13:51 Dose: 42 mls/hr Lactulose (Enulose) 20 gm PO BID RAHEEM Last Admin: 07/17/18 17:20 Dose: 20 gm Lorazepam (Ativan) 1 mg IVP Q6H PRN PRN Reason: Anxiety Last Admin: 07/17/18 01:00 Dose: 1 mg Lorazepam (Ativan) 1 mg PO Q8H RAHEEM; Taper Stop: 07/20/18 19:59 Last Admin: 07/18/18 03:52 Dose: 1 mg Methylprednisolone (Solu-Medrol) 32 mg IV DAILY RAHEEM Last Admin: 07/17/18 10:39 Dose: 32 mg Pneumococcal Polyvalent Vaccine (Pneumovax 23 Vaccine) 0.5 ml IM .ONCE ONE Stop: 07/18/18 10:01 Quetiapine Fumarate (Seroquel) 100 mg PO HS RAHEEM Last Admin: 07/17/18 21:03 Dose: 100 mg Trazodone HCl (Desyrel) 50 mg PO HS PRN PRN Reason: Insomnia Last Admin: 07/17/18 21:49 Dose: 50 mg - Labs Labs: 07/18/18 06:56 07/18/18 06:56 PT 17.0 SECONDS (9.7-12.2) H 07/15/18 21:32 INR 1.6 07/15/18 21:32 APTT 35.0 SECONDS (21-34) H 07/15/18 21:32 - Constitutional Appears: Non-toxic, Confused - Respiratory Exam Respiratory Exam: Clear to Ausculation Bilateral - Cardiovascular Exam Cardiovascular Exam: RRR - GI/Abdominal Exam GI & Abdominal Exam: Soft, Normal Bowel Sounds. absent: Guarding, Tenderness, Rebound - Extremities Exam Extremities Exam: absent: Calf Tenderness - Neurological Exam Neurological Exam: Alert, Awake. absent: Oriented x3 Assessment and Plan (1) Nausea Status: Acute (2) Alcohol abuse Status: Acute (3) Hepatic insufficiency Assessment & Plan: alcohol related. ALCOHOLIC HEPATITIS- steroids NH3- on enulose. Follow NH3. Status: Acute (4) Jaundice due to hepatitis Assessment & Plan: check hep profile Status: Acute
[2018-07-18] MEDS: MethylPREDNISolone 40 mg Vial IV SCH (09:18)
[2018-07-18] MEDS ORDERED: Pneumococcal 23-Valent Vaccine IM ONE (10:00)
[2018-07-18 11:24] LABS: ANISOCYTOSIS MODERATE; BANDS 3 % (0-2); LYMPHOCYTE 7 % (20-40); MONOCYTE 5 % (0-10); NEUTROPHIL 85 % (50-75); PLATELET ESTIMATE NORMAL (NORMAL); TOTAL CELLS COUNTED 100
[2018-07-18 11:25] LABS: POLYCHROMIC SLIGHT; TARGET CELLS MODERATE
[2018-07-18 11:26] LABS: LARGE PLATELETS PRESENT; TOXIC GRANULATION PRESENT
[2018-07-18] MEDS: Folic Acid 1 MG, Thiamine 100 MG, Multivitamin (MVI) 10 ML in Dextrose 5% In Water 1,00... IV SCH (13:13)
--- NOTE | 2018-07-18 22:53 | PCM.PYCHPN ---
Psychiatric Progress Note - Psychiatric Progress Note Patient seen today, length of contact: 17 Patient Chief Complaint: "I am still withdrawing" Problems Identified/Issues Discussed: The pt is seen, chart reviewed, case is discussed with staff. The pt is compliant with medications and reports no side-effects. Symptoms are improving but needs more time to stabilize and to avoid relapse. Support given, psycho-education provided. After care discussed. Medication Change: No Medical Record Reviewed: Yes Mental Status Examination - Cognitive Function Orientation: Person, Place, Situation, Time Memory: Confabulations Attention: Poor Concentration: Poor Association: WNL Fund of Knowledge: WNL - Mood Mood: Neutral - Affect Affect: Constricted - Speech Speech: Appropriate - Formal Thought Process Formal Thought Process: No Impairment - Suicidal Ideation Suicidal Ideation: No - Homicidal Ideation Homicidal Ideation: No Goal/Treatment Plan - Goal/Treatment Plan Progress Toward Problem(s) and Goals/Treatment Plan: Continue medications Support and psychoeducation daily Individual therapy After care planning by NAHOMY and the team
[2018-07-19 07:56] LABS: ALB/GLOB RATIO 0.8 (1.0-2.1); ALBUMIN 2.5 g/dL (3.5-5.0); ALT/SGPT 115 U/L (21-72); AST/SGOT 196 U/L (17-59); BLOOD UREA NITROGEN 9 mg/dL (9-20); CALCIUM 7.7 mg/dl (8.6-10.4); GFR NON-AFRICAN AMERICAN > 60
[2018-07-19] MEDS: MethylPREDNISolone 40 mg Vial IV SCH (09:53)
--- NOTE | 2018-07-19 13:19 | CP.PCM.PN ---
Subjective - Date & Time of Evaluation Date of Evaluation: 07/19/18 Time of Evaluation: 13:18 - Subjective Subjective: f/u jaundice. Confusion- improving Denies abd pain, RB, melena, fever, chills, CP, SOB, cough Objective - Vital Signs/Intake and Output Vital Signs (last 24 hours): Temp Pulse Resp BP Pulse Ox 97.5 F L 90 20 114/77 95 07/19/18 08:40 07/19/18 08:40 07/19/18 08:40 07/19/18 08:40 07/19/18 08:40 Intake and Output: 07/19/18 07/19/18 06:59 18:59 Intake Total 786 816 Output Total 1000 Balance 786 -184 - Medications Medications: Current Medications Clonidine HCl (Catapres) 0.1 mg PO Q4H PRN PRN Reason: Symptoms of alcohol withdrawl Lactulose (Enulose) 20 gm PO BID [facility] Last Admin: 07/19/18 09:53 Dose: 20 gm Lorazepam (Ativan) 1 mg IVP Q6H PRN PRN Reason: Anxiety Last Admin: 07/17/18 01:00 Dose: 1 mg Lorazepam (Ativan) 0.5 mg PO BID [facility] Prednisone (Prednisone Tab) 10 mg PO DAILY RAHEEM Quetiapine Fumarate (Seroquel) 100 mg PO HS RAHEEM Last Admin: 07/18/18 21:04 Dose: 100 mg Thiamine HCl (Vitamin B1 Tab) 100 mg PO DAILY RAHEEM Trazodone HCl (Desyrel) 50 mg PO HS PRN PRN Reason: Insomnia Last Admin: 07/17/18 21:49 Dose: 50 mg - Labs Labs: 07/18/18 06:56 07/19/18 07:35 PT 17.0 SECONDS (9.7-12.2) H 07/15/18 21:32 INR 1.6 07/15/18 21:32 APTT 35.0 SECONDS (21-34) H 07/15/18 21:32 - Constitutional Appears: Non-toxic - Respiratory Exam Respiratory Exam: Clear to Ausculation Bilateral - Cardiovascular Exam Cardiovascular Exam: RRR - GI/Abdominal Exam GI & Abdominal Exam: Soft, Normal Bowel Sounds. absent: Guarding, Tenderness, Mass, Rebound - Extremities Exam Extremities Exam: absent: Calf Tenderness - Neurological Exam Neurological Exam: Alert, Awake Assessment and Plan (1) Nausea Assessment & Plan: better Status: Acute (2) Alcohol abuse Status: Acute (3) Hepatic insufficiency Status: Acute (4) Jaundice due to hepatitis Assessment & Plan: alcoholic hepatitis. on steroids. LFTs and TB- improving. Status: Acute
[2018-07-19 21:26] LABS: FOLATE 12.3 ng/mL
--- NOTE | 2018-07-19 23:26 | PN ---
DATE: 07/19/2018 SUBJECTIVE: The patient is a 58-year-old male. The patient is seen and examined on the bedside. Looking comfortable but getting confusion. No fever. No chills. No hematuria or hematochezia. No headache. No dizziness. No chest pain. No palpitations. PHYSICAL EXAMINATION: VITAL SIGNS: Temperature 97.5, pulse 90, respiratory rate 20, blood pressure 114/77, pulse oximetry 95%. HEENT: Head: Normocephalic, atraumatic. Eyes: PERRLA. Extraocular muscles intact. Conjunctivae clear. Nose patent. NECK: Supple. No carotid bruits, JVD or thyromegaly. CHEST: Bilaterally symmetrical. HEART: S1, S2 positive. LUNGS: Clear to auscultation. ABDOMEN: Soft. Bowel sounds present. No organomegaly. EXTREMITIES: No edema. No cyanosis. NEUROLOGIC: The patient is awake, alert. Moving all extremities but is getting confused. MEDICATIONS: Clonidine, lactulose, Ativan, prednisone, Seroquel, thiamine. LABORATORY DATA: White blood cell 9.8, hemoglobin 11.6, hematocrit 34.1, platelets 276. Sodium 137, potassium 3.7, BUN 9, creatinine 0.6, glucose 99. ASSESSMENT AND PLAN: Mr. Esa Mosqueda is a 58-year-old male with anemia, nausea improved, alcohol abuse, got Ativan, banana bag, hepatic insufficiency, jaundice due to alcoholic hepatitis. Liver function tests improving. Appreciate Dr. Brain Khan's input. Seen by the psychiatrist. The patient should go for detoxification. Psychiatry is on the case, working on that but the patient refused. Change the patient's intravenous medicines to oral. Out of bed. Physical therapy. We will follow up. Janene Dobbins MD
--- NOTE | 2018-07-20 03:24 | PN ---
DATE: 07/18/2018 SUBJECTIVE: The patient is a 58-year-old male. The patient was seen and examined at the bedside on 07/18/2018. Looking comfortable, awake, alert, but confused. No fever. No chills. No hematuria or hematochezia. No headache or dizziness. No chest pain or palpitation. PHYSICAL EXAMINATION: VITAL SIGNS: Temperature 98.7, pulse 83, respiratory rate 20, and blood pressure 121/73. HEENT: Head: Normocephalic and atraumatic. Eyes: PERRLA. Extraocular muscles intact. Conjunctivae clear. Nose patent. NECK: Supple. No carotid bruit. No JVD or thyromegaly. CHEST: Bilaterally symmetrical. HEART: S1 and S2 positive. LUNGS: Clear to auscultation. ABDOMEN: Soft. Bowel sounds present. No organomegaly. EXTREMITIES: No edema. No cyanosis. NEUROLOGICAL: The patient is awake and alert. Follows simple commands. MEDICATIONS: Clonidine, lactulose, Ativan, and trazodone. LABORATORY DATA: White blood cells 9.8, hemoglobin 11.6, hematocrit 34.1, platelet count 276. Sodium 136, potassium 3.9, BUN 8, creatinine 0.3, and glucose 151. ASSESSMENT AND PLAN: Mr. Esa Mosqueda is a 58-year-old male with anemia, hyperglycemia came with nausea, alcohol abuse, hepatic insufficiency, jaundice due to hepatitis. Psychiatrist is on the case. Gastroenterology is on the case. Continue present treatment. Repeat labs. We will follow up. Janene Dobbins MD
[2018-07-20 08:23] LABS: MEAN CELL VOLUME 103.8 fL (80.0-94.0); MEAN CORPUSCULAR HEMOGLOBIN 35.5 pg (27.0-31.0); MEAN CORPUSCULAR HGB CONC 34.2 g/dL (33.0-37.0); MEAN PLATELET VOLUME 9.3 fL (7.2-11.7); RBC 3.39 Mil/uL (4.40-5.90); RED CELL DISTRIBUTION WIDTH 20.3 % (11.5-14.5); WHITE BLOOD COUNT 11.8 K/uL (4.8-10.8)
[2018-07-20 08:37] LABS: ALB/GLOB RATIO 0.8 (1.0-2.1); ALBUMIN 2.8 g/dL (3.5-5.0); ALT/SGPT 126 U/L (21-72); AST/SGOT 191 U/L (17-59); BLOOD UREA NITROGEN 10 mg/dL (9-20); CALCIUM 8.1 mg/dl (8.6-10.4); GFR NON-AFRICAN AMERICAN > 60
--- NOTE | 2018-07-20 16:56 | CP.PCM.PN ---
Subjective - Date & Time of Evaluation Date of Evaluation: 07/20/18 Time of Evaluation: 15:10 - Subjective Subjective: GI Service Feels better. Denies abdominal pain Objective - Vital Signs/Intake and Output Vital Signs (last 24 hours): Temp Pulse Resp BP Pulse Ox 97.7 F 76 20 105/66 95 07/20/18 16:45 07/20/18 16:45 07/20/18 16:45 07/20/18 16:45 07/20/18 16:45 Intake and Output: 07/20/18 07/20/18 06:59 18:59 Intake Total 500 720 Output Total 600 Balance 500 120 - Medications Medications: Current Medications Lactulose (Enulose) 20 gm PO TID [facility] Last Admin: 07/20/18 13:36 Dose: 20 gm Lorazepam (Ativan) 0.5 mg PO BID PRN PRN Reason: Agitation Prednisone (Prednisone Tab) 10 mg PO DAILY [facility] Last Admin: 07/20/18 09:57 Dose: 10 mg Quetiapine Fumarate (Seroquel) 100 mg PO HS [facility] Last Admin: 07/19/18 21:38 Dose: 100 mg Thiamine HCl (Vitamin B1 Tab) 100 mg PO DAILY [facility] Last Admin: 07/20/18 09:57 Dose: 100 mg Trazodone HCl (Desyrel) 50 mg PO HS PRN PRN Reason: Insomnia Last Admin: 07/19/18 21:31 Dose: 50 mg - Labs Labs: 07/20/18 08:18 07/20/18 08:00 PT 17.0 SECONDS (9.7-12.2) H 07/15/18 21:32 INR 1.6 07/15/18 21:32 APTT 35.0 SECONDS (21-34) H 07/15/18 21:32 - Eye Exam Eye Exam: Normal appearance - Respiratory Exam Respiratory Exam: NORMAL BREATHING PATTERN - Cardiovascular Exam Cardiovascular Exam: REGULAR RHYTHM - GI/Abdominal Exam GI & Abdominal Exam: Soft. absent: Tenderness, Organomegaly - Neurological Exam Neurological Exam: Alert, Oriented x3 Assessment and Plan (1) Jaundice due to hepatitis Assessment & Plan: Alcoholic Hepatitis clinically improving Conservative management and observation to continue Must abstain from alcohol drinking Status: Acute
--- NOTE | 2018-07-20 21:00 | PN ---
DATE: 07/20/2018 SUBJECTIVE: The patient is a 58-year-old male. The patient was seen and examined at the bedside on 07/20/2018. Looking comfortable. No fever. No chills. No nausea, vomiting, or diarrhea. Not much change in the status. detoxification was offered to the patient, he refused to go. We did try to convince the patient again. Psych is on the case. PHYSICAL EXAMINATION: VITAL SIGNS: Temperature 98.2, pulse 73, blood pressure 102/55, and respiratory rate 20. HEENT: Head; normocephalic and atraumatic. Eyes; PERRLA. Extraocular muscles intact. Conjunctivae clear. Nose patent. NECK: Supple. No carotid bruit. No JVD or thyromegaly. CHEST: Bilaterally symmetrical. HEART: S1 and S2 positive. LUNGS: Clear to auscultation. ABDOMEN: Soft. Bowel sounds present. No organomegaly. EXTREMITIES: No edema. No cyanosis. NEUROLOGICAL: The patient is awake and alert. Moving all four extremities. No focal deficits. MEDICATIONS: Ativan, trazodone, lactulose, prednisone, Seroquel, and vitamin B1. LABORATORY DATA: White blood cells 11.8, hemoglobin 12, hematocrit 35.2, and platelets 339. Sodium 137, potassium 3.9, BUN 10, creatinine 0.6, and calcium 8.1. ASSESSMENT AND PLAN: Mr. Esa Kohler is a 58-year-old male with leukocytosis, hypocalcemia, abnormal liver function test. He has ammonia level , but he is refusing his medications. Hypertriglyceridemia, rule out hypothyroidism. Alcohol level was high 265 on admission. Gastroenterology is on the case. Psychiatry is on the case. History of alcohol abuse, hepatic insufficiency, hepatitis. We will give some lactulose and TriCor. Urged the patient to go to Psychiatry. Repeat labs. We will follow up. Janene Dobbins MD MTDD
[2018-07-21 08:30] VITALS: BP 104/67; PULSE 62; TEMP 98.1; O2SAT 98
--- NOTE | 2018-07-21 17:40 | CP.PCM.PN ---
Subjective - Date & Time of Evaluation Date of Evaluation: 07/21/18 Time of Evaluation: 11:00 - Subjective Subjective: alert, oriented, no tremors or distress noted. Objective - Vital Signs/Intake and Output Vital Signs (last 24 hours): Temp Pulse Resp BP Pulse Ox 98.1 F 62 20 104/67 98 07/21/18 07:00 07/21/18 07:00 07/21/18 07:00 07/21/18 07:00 07/21/18 10:00 Intake and Output: 07/21/18 07/21/18 06:59 18:59 Intake Total 240 360 Output Total 400 Balance -160 360 - Labs Labs: 07/20/18 08:18 07/20/18 08:00 PT 17.0 SECONDS (9.7-12.2) H 07/15/18 21:32 INR 1.6 07/15/18 21:32 APTT 35.0 SECONDS (21-34) H 07/15/18 21:32 Assessment and Plan - Assessment and Plan (Free Text) Assessment: 58 year old male with alcoholic hepatitis, seen and examined. Alert and oriented x3, ambulatory, ammonia level decreased to [address] Dobbins, plan to discharge home today. Advised to follow up with PMD in 1 week, avoid alcohol intake.
== END 2018-07-21 10:10 | disposition home or self-care (01) ==
LOC: C.ER 20:27 → C.9E 07-16 00:58 → C.3T 07-16 01:12
PROVIDERS: ADMIT Internal Medicine; ATTEND Internal Medicine
DX: K70.10 Alcoholic hepatitis without ascites (principal); D72.829 Elevated white blood cell count, unspecified; E87.1 Hypo-osmolality and hyponatremia; E87.5 Hyperkalemia; I10 Essential (primary) hypertension; J44.9 Chronic obstructive pulmonary disease, unspecified; K29.20 Alcoholic gastritis without bleeding; R56.9 Unspecified convulsions; Z87.891 Personal history of nicotine dependence; F20.9 Schizophrenia, unspecified; E11.65 Type 2 diabetes mellitus with hyperglycemia; D64.9 Anemia, unspecified; E78.1 Pure hyperglyceridemia; F10.230 Alcohol dependence with withdrawal, uncomplicated; Y90.8 Blood alcohol level of 240 mg/100 ml or more; F16.10 Hallucinogen abuse, uncomplicated
CPT/HCPCS: 36415; 76700; 80053; 80061; 80320; 80324; 80345; 80346; 80349; 80353; 80358; 80361; 82140; 82248; 82607; 82746; 82948; 83036; 83540; 83690; 83735; 83992; 84100; 84443; 85025; 85027; 85610; 85730; 96360; 97162; 97530; 99285; G0378; G8978; G8979; J2060; J2920; J3411; J3480; J7030; J7070

== ENCOUNTER 2018-07-22 20:22 | Emergency (ER) | payer MEDICAID ==
[2018-07-22 20:22] VITALS: BMI 22.9
[2018-07-22 20:32] VITALS: PULSE 82
--- NOTE | 2018-07-22 20:50 | C.PDOC ---
History Of Present Illness Patient brought in after being found intoxicated in public. He was found sleeping in a [place]. Denies any physical complaints at this time. Time Seen by Provider: 07/22/18 20:50 Chief Complaint (Nursing): Substance Abuse History Per: Patient History/Exam Limitations: no limitations Onset/Duration Of Symptoms: Hrs Current Symptoms Are (Timing): Still Present Suicide/Self Injury Attempted (Context): None Modifying Factor(s): Alcohol Severity: None Pain Scale Rating Of: 0 Associated Symptoms: denies: Depression, Suicidal Thoughts Recent travel outside of the [place]: No Past Medical History Reviewed: Historical Data, Nursing Documentation, Vital Signs Vital Signs: Last Vital Signs Temp 97.6 F 07/22/18 20:31 Pulse 82 07/22/18 20:31 Resp 18 07/22/18 20:31 BP 100/65 07/22/18 20:31 Pulse Ox 100 07/22/18 20:31 Primary Care Provider: FAMILY PROVIDER,NO - Medical History PMH: Anxiety, COPD, Depression, Diabetes, Fractures (R HIP x2), HTN, Schizophrenia, Seizures (ETOH related) Denies: HIV, Pulmonary Embolism, Chronic Kidney Disease, Sexually Transmitted Disease - [facility] Procedures ALCOHOL DETOXIFICATION (02/24/13) DETOXIFICATION SERVICES FOR SUBSTANCE ABUSE TREATMENT (02/17/18) GROUP PULP PLANT SUPERVISOR FOR SUBSTANCE ABUSE TREATMENT, PSYCHOEDUCATION (02/17/18) GROUP PULP PLANT SUPERVISOR FOR SUBSTANCE ABUSE, COGNITIVE BEHAVIORAL (02/17/18) GROUP PSYCHOTHERAPY (02/17/18) INDIV PSYCHOTHERAPY FOR SUBSTANCE ABUSE TREATMENT, SUPPORT (02/17/18) INDIV PSYCHOTHERAPY FOR SUBSTANCE ABUSE, COGNITIV BEHAVIORAL (02/17/18) INDIV PSYCHOTHERAPY FOR SUBSTANCE ABUSE, PSYCHOEDUCATION (02/17/18) INDIVIDUAL PSYCHOTHERAPY, COGNITIVE-BEHAVIORAL (02/17/18) INDIVIDUAL PSYCHOTHERAPY, SUPPORTIVE (02/17/18) INJECT/INFUSE ELECTROLYT (02/20/13) INJECT/INFUSE NEC (05/02/13) MEDICATION MANAGEMENT (10/07/16) MEDS MGMT FOR SUBSTANCE ABUSE TREATMENT, METHADONE MAINT (07/27/16) MEDS MGMT FOR SUBSTANCE ABUSE TREATMENT, OTH REPL MED (09/18/16) Family History: States: No Known Family Hx - Social History Hx Tobacco Use: Yes Hx Alcohol Use: Yes Hx Substance Use: No - Immunization History Hx Tetanus Toxoid Vaccination: No Hx Influenza Vaccination: No Hx Pneumococcal Vaccination: No Review Of Systems Constitutional: Negative for: Fever, Chills Cardiovascular: Negative for: Chest Pain, Palpitations Respiratory: Negative for: Cough, Shortness of Breath Gastrointestinal: Negative for: Nausea, Vomiting Neurological: Negative for: Weakness, Numbness Physical Exam - Physical Exam Appears: Non-toxic, Other (ETOH on breath, no sign of injury) Skin: Warm, Dry Head: Normacephalic Oral Mucosa: Moist Chest: Symmetrical, No Tenderness Cardiovascular: Rhythm Regular Respiratory: No Rales, No Rhonchi, No Wheezing Gastrointestinal/Abdominal: Soft, No Tenderness Neurological/Psych: Oriented x3 ED Course And Treatment O2 Sat by Pulse Oximetry: 100 (room air) Pulse Ox Interpretation: Normal Reevaluation Time: 05:28 Reassessment Condition: Improved Medical Decision Making Medical Decision Making: Upon provider reevaluation patient is feeling better, is medically stable, and requires no further treatment in the ED at this time. Patient will be discharged home . Counseling was provided and all questions were answered regarding diagnosis and need for follow up with the referred clinic. There is agreement to discharge plan. Return if symptoms persist or worsen. Disposition Counseled Patient/Family Regarding: Studies Performed, Diagnosis, Need For Followup - Disposition Referrals: [facility] [Outside] Disposition: HOME/ ROUTINE Disposition Time: 20:50 Condition: FAIR Instructions: Alcohol Abuse and Alcoholism (DC) Forms: [facility] (Serbian) - Clinical Impression Clinical Impression: Alcohol intoxication, Alcohol abuse - Scribe Statement The provider has reviewed the documentation as recorded by the Scribe Lucien Duncan All medical record entries made by the Scribe were at my direction and personally dictated by me. I have reviewed the chart and agree that the record accurately reflects my personal performance of the history, physical exam, medical decision making, and the department course for this patient. I have also personally directed, reviewed, and agree with the discharge instructions and disposition.
[2018-07-23 02:00] VITALS: RESP 20; TEMP 98
[2018-07-23 06:09] VITALS: BP 130/84; O2SAT 96
== END 2018-07-23 06:07 | disposition home or self-care (01) ==
LOC: C.ER 20:22
DX: F10.129 Alcohol abuse with intoxication, unspecified (principal); Y90.9 Presence of alcohol in blood, level not specified

== ENCOUNTER 2018-07-24 16:25 | Emergency (ER) | payer MEDICAID | END 2018-07-24 21:30 | disposition home or self-care (01) | LOC: C.ER 16:25 ==

== ENCOUNTER 2018-07-25 17:48 | Emergency (ER) | payer MEDICAID ==
[2018-07-25 18:05] VITALS: BMI 25.8
[2018-07-25 18:14] VITALS: RESP 20
--- NOTE | 2018-07-25 18:21 | C.PDOC ---
History Of Present Illness 58 y/o male is brought in by ambulance with chief complaint of fall. Patient states he was drinking alcohol and fell, landing on his left shoulder and chest. He denies LOC or head injuries. Denies any other physical injuries. - HPI Time Seen by Provider: 07/25/18 18:00 Chief Complaint (Nursing): Trauma History Per: Patient History/Exam Limitations: no limitations Onset/Duration Of Symptoms: Hrs Past Medical History Reviewed: Historical Data, Nursing Documentation, Vital Signs Vital Signs: Last Vital Signs Temp 97.7 F 07/25/18 18:05 Pulse 87 07/25/18 18:05 Resp 20 07/25/18 18:05 BP 106/76 07/25/18 18:05 Pulse Ox 94 L 07/25/18 18:05 Primary Care Provider: Non [facility] Provider, - Medical History PMH: Anxiety, COPD, Depression, Diabetes, Fractures (R HIP x2), HTN, Schizophrenia, Seizures (ETOH related) Denies: HIV, Pulmonary Embolism, Chronic Kidney Disease, Sexually Transmitted Disease - [facility] Procedures ALCOHOL DETOXIFICATION (02/24/13) DETOXIFICATION SERVICES FOR SUBSTANCE ABUSE TREATMENT (02/17/18) GROUP FINISH SANDER FOR SUBSTANCE ABUSE TREATMENT, PSYCHOEDUCATION (02/17/18) GROUP FINISH SANDER FOR SUBSTANCE ABUSE, COGNITIVE BEHAVIORAL (02/17/18) GROUP PSYCHOTHERAPY (02/17/18) INDIV PSYCHOTHERAPY FOR SUBSTANCE ABUSE TREATMENT, SUPPORT (02/17/18) INDIV PSYCHOTHERAPY FOR SUBSTANCE ABUSE, COGNITIV BEHAVIORAL (02/17/18) INDIV PSYCHOTHERAPY FOR SUBSTANCE ABUSE, PSYCHOEDUCATION (02/17/18) INDIVIDUAL PSYCHOTHERAPY, COGNITIVE-BEHAVIORAL (02/17/18) INDIVIDUAL PSYCHOTHERAPY, SUPPORTIVE (02/17/18) INJECT/INFUSE ELECTROLYT (02/20/13) INJECT/INFUSE NEC (05/02/13) MEDICATION MANAGEMENT (10/07/16) MEDS MGMT FOR SUBSTANCE ABUSE TREATMENT, METHADONE MAINT (07/27/16) MEDS MGMT FOR SUBSTANCE ABUSE TREATMENT, OTH REPL MED (09/18/16) Family History: States: No Known Family Hx - Social History Hx Tobacco Use: Yes Hx Alcohol Use: Yes Hx Substance Use: No - Immunization History Hx Tetanus Toxoid Vaccination: No Hx Influenza Vaccination: No Hx Pneumococcal Vaccination: No Review Of Systems Except As Marked, All Systems Reviewed And Found Negative. Constitutional: Negative for: Fever, Chills Cardiovascular: Positive for: Chest Pain. Negative for: Palpitations Respiratory: Negative for: Cough, Shortness of Breath Musculoskeletal: Positive for: Shoulder Pain (left) Neurological: Negative for: Headache, Other (LOC) Physical Exam - Physical Exam Appears: Non-toxic, No Acute Distress Skin: Warm, Dry Head: Atraumatic, Normacephalic Eye(s): bilateral: Normal Inspection Oral Mucosa: Moist Neck: Supple Chest: Tenderness (reproducible left sided chest wall tenderness along the 5th and 6th ribs) Cardiovascular: Rhythm Regular, No Murmur Respiratory: Normal Breath Sounds Extremity: No Deformity Extremity: Bilateral: Atraumatic, Normal Color And Temperature, Normal ROM Neurological/Psych: Oriented x3, Normal Speech, Normal Motor, Normal Sensation ED Course And Treatment O2 Sat by Pulse Oximetry: 94 (RA) Pulse Ox Interpretation: Abnormal Medical Decision Making Medical Decision Making: Plan: --EKG --Rib XR --Tylenol PO Disposition - Disposition Disposition Time: 19:00 Condition: STABLE Forms: [facility] (Yakut) - Clinical Impression Clinical Impression: Alcohol intoxication, Alcohol intoxication, Contusion of rib on left side - Scribe Statement The provider has reviewed the documentation as recorded by the Lan Espinoza Provider Attestation: All medical record entries made by the Kaiseribmanolo were at my direction and personally dictated by me. I have reviewed the chart and agree that the record accurately reflects my personal performance of the history, physical exam, medical decision making, and the department course for this patient. I have also personally directed, reviewed, and agree with the discharge instructions and disposition. Physician Patient Turnover Patient Signed Over To: Polo Alexander Handoff Comments: follow up chest xray and sobriety
[2018-07-25 19:25] VITALS: BP 149/81; PULSE 83; TEMP 98.2; O2SAT 99
--- NOTE | 2018-07-26 10:38 | RAD ---
Date of service: 07/25/2018 PROCEDURE: Radiographs of the Chest and Left Ribs. HISTORY: fall COMPARISON: Comparison is made with 06/13/2018. TECHNIQUE: Frontal radiograph of the chest and multiple oblique radiographs of the left ribs were obtained. 4 views obtained. FINDINGS: LEFT RIBS: No fracture or focal lesion visualized. LUNGS: No evidence of new infiltrate or consolidation in the lungs. PLEURA: No pneumothorax or pleural fluid. CARDIOVASCULAR: Normal cardiac size. No pulmonary vascular congestion. No aortic atherosclerotic calcification present OTHER FINDINGS: None. IMPRESSION: No evidence of acute displaced fracture. No evidence of pleural effusion or pneumothorax.
--- NOTE | 2018-07-27 19:47 | CARD ---
APPROVED REPORT Date of service: 07/25/2018 EKG Measurement Heart [id number] <Conclusion> Normal sinus rhythm Normal ECG
== END 2018-07-25 20:16 | disposition home or self-care (01) ==
LOC: C.ER 17:48
DX: S20.212A Contusion of left front wall of thorax, initial encounter (principal); W18.30XA Fall on same level, unspecified, initial encounter; F10.129 Alcohol abuse with intoxication, unspecified; Y90.9 Presence of alcohol in blood, level not specified

== ENCOUNTER 2018-07-30 22:46 | Emergency (ER) | payer MEDICAID ==
[2018-07-30 22:46] VITALS: BMI 25.8
[2018-07-31 02:19] VITALS: O2SAT 99
--- NOTE | 2018-07-31 02:57 | C.PDOC ---
History Of Present Illness 58 year old male brought in via EMS after being found intoxicated in public. Patient is a known homeless alcoholic has many prior visits for the same. Denies any complaints at this time. Time Seen by Provider: 07/30/18 22:48 Chief Complaint (Nursing): Substance Abuse History Per: Patient, EMS History/Exam Limitations: no limitations Onset/Duration Of Symptoms: Hrs Current Symptoms Are (Timing): Still Present Modifying Factor(s): Alcohol Severity: Moderate Past Medical History Reviewed: Historical Data, Nursing Documentation, Vital Signs Vital Signs: Last Vital Signs Temp 97.7 F 07/31/18 02:18 Pulse 96 H 07/31/18 02:18 Resp 18 07/31/18 02:18 BP 138/99 H 07/31/18 02:18 Pulse Ox 99 07/31/18 02:18 Primary Care Provider: FAMILY PROVIDER,NO - Medical History PMH: Anxiety, COPD, Depression, Diabetes, Fractures (R HIP x2), HTN, Schizophrenia, Seizures (ETOH related) - [facility] Procedures ALCOHOL DETOXIFICATION (02/24/13) DETOXIFICATION SERVICES FOR SUBSTANCE ABUSE TREATMENT (02/17/18) GROUP TRENCH PIPE LAYER HELPER FOR SUBSTANCE ABUSE TREATMENT, PSYCHOEDUCATION (02/17/18) GROUP TRENCH PIPE LAYER HELPER FOR SUBSTANCE ABUSE, COGNITIVE BEHAVIORAL (02/17/18) GROUP PSYCHOTHERAPY (02/17/18) INDIV PSYCHOTHERAPY FOR SUBSTANCE ABUSE TREATMENT, SUPPORT (02/17/18) INDIV PSYCHOTHERAPY FOR SUBSTANCE ABUSE, COGNITIV BEHAVIORAL (02/17/18) INDIV PSYCHOTHERAPY FOR SUBSTANCE ABUSE, PSYCHOEDUCATION (02/17/18) INDIVIDUAL PSYCHOTHERAPY, COGNITIVE-BEHAVIORAL (02/17/18) INDIVIDUAL PSYCHOTHERAPY, SUPPORTIVE (02/17/18) INJECT/INFUSE ELECTROLYT (02/20/13) INJECT/INFUSE NEC (05/02/13) MEDICATION MANAGEMENT (10/07/16) MEDS MGMT FOR SUBSTANCE ABUSE TREATMENT, METHADONE MAINT (07/27/16) MEDS MGMT FOR SUBSTANCE ABUSE TREATMENT, OTH REPL MED (09/18/16) Family History: States: No Known Family Hx - Social History Hx Tobacco Use: Yes Hx Alcohol Use: Yes Hx Substance Use: No - Immunization History Hx Tetanus Toxoid Vaccination: No Hx Influenza Vaccination: No Hx Pneumococcal Vaccination: No Review Of Systems Constitutional: Negative for: Fever, Chills Cardiovascular: Negative for: Chest Pain, Palpitations Respiratory: Negative for: Cough, Shortness of Breath Gastrointestinal: Negative for: Nausea, Vomiting Neurological: Negative for: Weakness, Numbness Psych: Positive for: Other (ALCOHOL INTOXICATION) Physical Exam - Physical Exam Appears: Well, Non-toxic, Other (ETOH on breath, no signs of acute injury) Skin: Normal Color, Warm, No Rash Head: Atraumatic, Normacephalic Eye(s): bilateral: Normal Inspection Oral Mucosa: Moist Neck: No Midline Cervical Tenderness, No Paracervical Tenderness, No Step Off Deformity, Supple Cardiovascular: Rhythm Regular Respiratory: Normal Breath Sounds, No Rales, No Rhonchi, No Wheezing Gastrointestinal/Abdominal: Normal Exam, Bowel Sounds, Soft, No Tenderness Extremity: Normal ROM (x4) Neurological/Psych: Other (intoxicated, able to follow commands, moving all 4 extremities spontaneously) ED Course And Treatment O2 Sat by Pulse Oximetry: 99 (Room air) Pulse Ox Interpretation: Normal Progress Note: Accucheck ordered and reviewed. Reevaluation Time: 06:00 Reassessment Condition: Improved (Patient is aAAOx3, ambulating normally in the ED. Patient is clinically sober at this time, will discharge.) Disposition - Disposition Referrals: [facility] [Outside] Disposition: HOME/ ROUTINE Disposition Time: 06:00 Condition: STABLE Instructions: Alcohol Abuse and Alcoholism (DC) Forms: [facility] (American) Print Language: AMHARIC - Clinical Impression Clinical Impression: Alcohol intoxication - Scribe Statement The provider has reviewed the documentation as recorded by the Scribmanolo Duncan All medical record entries made by the Scribe were at my direction and personally dictated by me. I have reviewed the chart and agree that the record accurately reflects my personal performance of the history, physical exam, medical decision making, and the department course for this patient. I have also personally directed, reviewed, and agree with the discharge instructions and disposition.
[2018-07-31 05:13] VITALS: BP 134/72; PULSE 94; RESP 16; TEMP 98
== END 2018-07-31 06:00 | disposition home or self-care (01) ==
LOC: C.ER 22:46
DX: F10.129 Alcohol abuse with intoxication, unspecified (principal)

== ENCOUNTER 2018-07-31 18:54 | Emergency (ER) | payer MEDICAID ==
[2018-07-31 18:55] VITALS: BMI 25.8
[2018-07-31 19:08] VITALS: BP 109/68; PULSE 90; RESP 20; TEMP 97.8; O2SAT 95
--- NOTE | 2018-07-31 20:22 | C.PDOC ---
History Of Present Illness 58 year old male is brought to the ED by EMS for public intoxication. As per EMS patient was picked up from [facility] intoxicated. Patient has multiple prior evaluation in the ED for same. Patient denies SI/HI, hallucinations, other complaints at this time. Time Seen by Provider: 07/31/18 19:10 Chief Complaint (Nursing): Substance Abuse History Per: Patient, EMS History/Exam Limitations: intoxication Onset/Duration Of Symptoms: Hrs Current Symptoms Are (Timing): Still Present Suicide/Self Injury Attempted (Context): None Modifying Factor(s): Alcohol Associated Symptoms: denies: Depression, Suicidal Thoughts, Suicidal Plan Involuntary Hold By: Emergency Physician Additional History Per: Patient, EMS Past Medical History Reviewed: Historical Data, Nursing Documentation, Vital Signs Vital Signs: Last Vital Signs Temp 97.8 F 07/31/18 19:07 Pulse 90 07/31/18 19:07 Resp 20 07/31/18 19:07 BP 109/68 07/31/18 19:07 Pulse Ox 95 07/31/18 19:07 Primary Care Provider: FAMILY PROVIDER,NO - Medical History PMH: Anxiety, COPD, Depression, Diabetes, Fractures (R HIP x2), HTN, Schizophrenia, Seizures (ETOH related) Denies: Sexually Transmitted Disease Surgical History: No Surg Hx - [facility] Procedures ALCOHOL DETOXIFICATION (02/24/13) DETOXIFICATION SERVICES FOR SUBSTANCE ABUSE TREATMENT (02/17/18) GROUP ELDER ASSISTANT FOR SUBSTANCE ABUSE TREATMENT, PSYCHOEDUCATION (02/17/18) GROUP ELDER ASSISTANT FOR SUBSTANCE ABUSE, COGNITIVE BEHAVIORAL (02/17/18) GROUP PSYCHOTHERAPY (02/17/18) INDIV PSYCHOTHERAPY FOR SUBSTANCE ABUSE TREATMENT, SUPPORT (02/17/18) INDIV PSYCHOTHERAPY FOR SUBSTANCE ABUSE, COGNITIV BEHAVIORAL (02/17/18) INDIV PSYCHOTHERAPY FOR SUBSTANCE ABUSE, PSYCHOEDUCATION (02/17/18) INDIVIDUAL PSYCHOTHERAPY, COGNITIVE-BEHAVIORAL (02/17/18) INDIVIDUAL PSYCHOTHERAPY, SUPPORTIVE (02/17/18) INJECT/INFUSE ELECTROLYT (02/20/13) INJECT/INFUSE NEC (05/02/13) MEDICATION MANAGEMENT (10/07/16) MEDS MGMT FOR SUBSTANCE ABUSE TREATMENT, METHADONE MAINT (07/27/16) MEDS MGMT FOR SUBSTANCE ABUSE TREATMENT, OTH REPL MED (09/18/16) Family History: States: No Known Family Hx - Social History Hx Tobacco Use: Yes Hx Alcohol Use: Yes Hx Substance Use: No - Immunization History Hx Tetanus Toxoid Vaccination: No Hx Influenza Vaccination: No Hx Pneumococcal Vaccination: No Review Of Systems Constitutional: Negative for: Fever, Chills Cardiovascular: Negative for: Chest Pain Respiratory: Negative for: Shortness of Breath Gastrointestinal: Negative for: Vomiting, Abdominal Pain Skin: Negative for: Rash Neurological: Negative for: Weakness, Numbness Psych: Positive for: Other (ALCOHOL INTOXICATION). Negative for: Depression, Suicidal ideation Physical Exam - Physical Exam Appears: Well, Non-toxic, No Acute Distress, Unkempt Skin: Normal Color, Warm, Dry Head: Atraumatic, Normacephalic Eye(s): bilateral: Normal Inspection Oral Mucosa: Moist Neck: Normal ROM, No Midline Cervical Tenderness, No Paracervical Tenderness, No Step Off Deformity, Supple Chest: Symmetrical Cardiovascular: Rhythm Regular Respiratory: Normal Breath Sounds, No Rales, No Rhonchi, No Wheezing Extremity: Normal ROM, No Tenderness, No Swelling Neurological/Psych: Other (awake and lert, mildly inoxicated) Gait: Steady ED Course And Treatment O2 Sat by Pulse Oximetry: 95 (ON RA) Pulse Ox Interpretation: Normal Progress Note: Patient pending sobriety. Reevaluation Time: 22:40 Reassessment Condition: Improved (Patient is AAOx3, ambulating normally in the ED. Patient is clinically sober, will discharge.) Disposition Counseled Patient/Family Regarding: Diagnosis, Need For Followup - Disposition Disposition: HOME/ ROUTINE Disposition Time: 22:40 Condition: STABLE Forms: [facility] (Malagasy) Print Language: [place] ISLANDER - Clinical Impression Clinical Impression: Alcohol intoxication - Scribe Statement The provider has reviewed the documentation as recorded by the Scribe Kenny Berrios All medical record entries made by the Scribe were at my direction and personally dictated by me. I have reviewed the chart and agree that the record accurately reflects my personal performance of the history, physical exam, medical decision making, and the department course for this patient. I have also personally directed, reviewed, and agree with the discharge instructions and disposition.
== END 2018-07-31 22:40 | disposition home or self-care (01) ==
LOC: C.ER 18:54
DX: F10.129 Alcohol abuse with intoxication, unspecified (principal); Y90.9 Presence of alcohol in blood, level not specified

== ENCOUNTER 2018-08-06 15:37 | Emergency (ER) | payer MEDICAID ==
[2018-08-06 15:37] VITALS: BMI 25.8
--- NOTE | 2018-08-06 15:47 | C.PDOC ---
History Of Present Illness 58 year old male brought to ED by ambulance for public intoxication. Patient walked into ED. Patient has had many prior ED evaluations and is well known to this MD. Patient has no physical complaints. Time Seen by Provider: 08/06/18 15:44 History Per: Patient, EMS History/Exam Limitations: intoxication Onset/Duration Of Symptoms: Unknown Current Symptoms Are (Timing): Still Present Suicide/Self Injury Attempted (Context): None Modifying Factor(s): Alcohol Associated Symptoms: denies: Suicidal Thoughts, Suicidal Plan Past Medical History Reviewed: Historical Data, Nursing Documentation, Vital Signs - Medical History PMH: Anxiety, COPD, Depression, Diabetes, Fractures (R HIP x2), HTN, Schizophrenia, Seizures (ETOH related) Denies: HIV, Pulmonary Embolism, Chronic Kidney Disease, Sexually Transmitted Disease Surgical History: No Surg Hx - [facility] Procedures ALCOHOL DETOXIFICATION (02/24/13) DETOXIFICATION SERVICES FOR SUBSTANCE ABUSE TREATMENT (02/17/18) GROUP ORACLE WEBCENTER CONSULTANT FOR SUBSTANCE ABUSE TREATMENT, PSYCHOEDUCATION (02/17/18) GROUP ORACLE WEBCENTER CONSULTANT FOR SUBSTANCE ABUSE, COGNITIVE BEHAVIORAL (02/17/18) GROUP PSYCHOTHERAPY (02/17/18) INDIV PSYCHOTHERAPY FOR SUBSTANCE ABUSE TREATMENT, SUPPORT (02/17/18) INDIV PSYCHOTHERAPY FOR SUBSTANCE ABUSE, COGNITIV BEHAVIORAL (02/17/18) INDIV PSYCHOTHERAPY FOR SUBSTANCE ABUSE, PSYCHOEDUCATION (02/17/18) INDIVIDUAL PSYCHOTHERAPY, COGNITIVE-BEHAVIORAL (02/17/18) INDIVIDUAL PSYCHOTHERAPY, SUPPORTIVE (02/17/18) INJECT/INFUSE ELECTROLYT (02/20/13) INJECT/INFUSE NEC (05/02/13) MEDICATION MANAGEMENT (10/07/16) MEDS MGMT FOR SUBSTANCE ABUSE TREATMENT, METHADONE MAINT (07/27/16) MEDS MGMT FOR SUBSTANCE ABUSE TREATMENT, OTH REPL MED (09/18/16) Family History: States: Unknown Family Hx - Social History Hx Tobacco Use: Yes Hx Alcohol Use: Yes Hx Substance Use: No - Immunization History Hx Tetanus Toxoid Vaccination: No Hx Influenza Vaccination: No Hx Pneumococcal Vaccination: No Review Of Systems Review Of Systems: ROS cannot be obtained secondary to pt's inabilty to answer questions. Physical Exam - Physical Exam Appears: Non-toxic, No Acute Distress, Other (alcohol on breathe, foul smelling, disheveled, soaking in own urine) Skin: Normal Color, Warm, Dry Head: Atraumatic, Normacephalic Eye(s): bilateral: Normal Inspection Neck: Normal ROM, Supple Chest: Symmetrical, No Deformity Cardiovascular: Rhythm Regular, No Murmur Respiratory: No Accessory Muscle Use, No Rales, No Rhonchi, No Wheezing Gastrointestinal/Abdominal: Soft, No Tenderness Extremity: Capillary Refill (<2 seconds) Extremity: Bilateral: Atraumatic, Normal Color And Temperature, Normal ROM Neurological/Psych: Other (argumentative, poor insight) ED Course And Treatment Progress Note: Glucose POC ordered for patient. Medical Decision Making Medical Decision Making: typical alcohol abuse malingering Disposition Doctor Will See Patient In The: Office Counseled Patient/Family Regarding: Studies Performed, Diagnosis - Disposition Referrals: Alcoholics Anonymous [Outside] [facility] [Outside] [facility] [place] [Outside] [facility] [Outside] [facility] [Outside] Disposition: HOME/ ROUTINE Disposition Time: 15:47 Condition: GOOD Additional Instructions: seek nightly custodial placement seek AA seek psych counseling Instructions: Alcohol Abuse and Alcoholism (DC) - Clinical Impression Clinical Impression: Alcohol abuse - Scribe Statement The provider has reviewed the documentation as recorded by the Scribe (Gabriella Marcos) All medical record entries made by the Scribe were at my direction and personally dictated by me. I have reviewed the chart and agree that the record accurately reflects my personal performance of the history, physical exam, medical decision making, and the department course for this patient. I have also personally directed, reviewed, and agree with the discharge instructions and disposition.
[2018-08-06 16:02] VITALS: BP 133/73; PULSE 105; RESP 20; TEMP 98.4; O2SAT 96
== END 2018-08-06 16:30 | disposition home or self-care (01) ==
LOC: C.ER 15:37
DX: F10.10 Alcohol abuse, uncomplicated (principal); Y90.9 Presence of alcohol in blood, level not specified

== ENCOUNTER 2018-08-16 16:18 | Emergency (ER) | payer MEDICAID ==
[2018-08-16 16:19] VITALS: BMI 25.8
[2018-08-16 18:10] LABS: BASO # 0.1 K/uL (0.0-0.2); BASO % 1.3 % (0.0-2.0); EOS # 0.1 K/uL (0.0-0.7); EOS % 1.2 % (0.0-4.0); HEMOGLOBIN 11.8 g/dL (12.0-18.0); LYMPH # 0.8 K/uL (1.0-4.3); LYMPH % 14.6 % (20.0-40.0); MEAN CELL VOLUME 105.2 fL (80.0-94.0); MEAN CORPUSCULAR HEMOGLOBIN 35.5 pg (27.0-31.0); MEAN CORPUSCULAR HGB CONC 33.7 g/dL (33.0-37.0); MEAN PLATELET VOLUME 8.8 fL (7.2-11.7); MONO # 0.8 K/uL (0.0-0.8); MONO % 15.2 % (0.0-10.0); NEUT # 3.6 K/uL (1.8-7.0); NEUT % 67.7 % (50.0-75.0); NRBC % 0.1 % (0.0-2.0); RBC 3.33 Mil/uL (4.40-5.90); RED CELL DISTRIBUTION WIDTH 16.7 % (11.5-14.5); WHITE BLOOD COUNT 5.3 K/uL (4.8-10.8)
--- NOTE | 2018-08-16 18:18 | C.PDOC ---
History Of Present Illness 58-year-old male is brought to the ED by ambulance for evaluation. Patient reports SOB and pain and swelling to his bilateral lower extremities that began several weeks ago. He is familiar to his ED and has multiple prior evaluations for alcohol intoxication. Patient denies drinking alcohol today. He denies fever, chills, cough, chest pain, syncope. Patient has bruises on his back and states he does not know where they came from. Time Seen by Provider: 08/16/18 16:37 Chief Complaint (Nursing): Lower Extremity Problem/Injury History Per: Patient, EMS History/Exam Limitations: no limitations Onset/Duration Of Symptoms: Days Current Symptoms Are (Timing): Still Present Additional History Per: Patient Past Medical History Reviewed: Historical Data, Nursing Documentation, Vital Signs Vital Signs: Last Vital Signs Temp 99.8 F H 08/16/18 16:29 Pulse 98 H 08/16/18 17:24 Resp 12 08/16/18 17:24 BP 101/63 08/16/18 17:24 Pulse Ox 97 08/16/18 17:24 Primary Care Provider: Non [facility] Provider, - Medical History PMH: Anxiety, COPD, Depression, Diabetes, Fractures (R HIP x2), HTN, Schizophrenia, Seizures (ETOH related) Denies: HIV, Pulmonary Embolism, Chronic Kidney Disease, Sexually Transmitted Disease - [facility] Procedures ALCOHOL DETOXIFICATION (02/24/13) DETOXIFICATION SERVICES FOR SUBSTANCE ABUSE TREATMENT (02/17/18) GROUP TOURIST CABIN KEEPER FOR SUBSTANCE ABUSE TREATMENT, PSYCHOEDUCATION (02/17/18) GROUP TOURIST CABIN KEEPER FOR SUBSTANCE ABUSE, COGNITIVE BEHAVIORAL (02/17/18) GROUP PSYCHOTHERAPY (02/17/18) INDIV PSYCHOTHERAPY FOR SUBSTANCE ABUSE TREATMENT, SUPPORT (02/17/18) INDIV PSYCHOTHERAPY FOR SUBSTANCE ABUSE, COGNITIV BEHAVIORAL (02/17/18) INDIV PSYCHOTHERAPY FOR SUBSTANCE ABUSE, PSYCHOEDUCATION (02/17/18) INDIVIDUAL PSYCHOTHERAPY, COGNITIVE-BEHAVIORAL (02/17/18) INDIVIDUAL PSYCHOTHERAPY, SUPPORTIVE (02/17/18) INJECT/INFUSE ELECTROLYT (02/20/13) INJECT/INFUSE NEC (05/02/13) MEDICATION MANAGEMENT (10/07/16) MEDS MGMT FOR SUBSTANCE ABUSE TREATMENT, METHADONE MAINT (07/27/16) MEDS MGMT FOR SUBSTANCE ABUSE TREATMENT, OTH REPL MED (09/18/16) Family History: States: Unknown Family Hx - Social History Hx Tobacco Use: Yes Hx Alcohol Use: Yes Hx Substance Use: No - Immunization History Hx Tetanus Toxoid Vaccination: No Hx Influenza Vaccination: No Hx Pneumococcal Vaccination: No Review Of Systems Constitutional: Negative for: Fever, Chills Musculoskeletal: Positive for: Leg Pain (and swelling ) Physical Exam - Physical Exam Appears: Non-toxic, No Acute Distress, Unkempt, Other (malodorous ) Skin: Warm, Dry, Other (contusions to left flanks and mid-back region ) Head: Atraumatic, Normacephalic Eye(s): bilateral: Other (scleral injection ) Oral Mucosa: Dry (slight ) Neck: Supple Chest: Symmetrical, No Deformity, No Tenderness Cardiovascular: Rhythm Regular, No Murmur Respiratory: Normal Breath Sounds, No Rales, No Rhonchi, No Wheezing Gastrointestinal/Abdominal: Soft, No Tenderness, No Guarding, No Rebound Back: Other (left flank tenderness ) Extremity: Capillary Refill (less than 2 seconds ), Other (pitting edema to bilateral lower extremities ) Pulses: Left Dorsalis Pedis: Normal, Right Dorsalis Pedis: Normal Neurological/Psych: Oriented x3, Normal Speech, Normal Cognition ED Course And Treatment - Laboratory Results Result Diagrams: 08/16/18 18:01 08/16/18 18:01 ECG: Interpreted By Me, Viewed By Me ECG Rhythm: Sinus Tachycardia Rate From EC O2 Sat by Pulse Oximetry: 97 (on RA) Pulse Ox Interpretation: Normal Medical Decision Making Medical Decision Making: Bloodwork, urinalysis, CT Chest/Abd/Pelvis ordered and reviewed. Patient with blood alcohol level of 221. Disposition - Disposition Disposition Time: 19:00 Condition: STABLE Forms: [facility] (Congolese) - Clinical Impression Clinical Impression: Alcohol abuse, Alcohol intoxication, Contusion of back, Edema extremities, SOB (shortness of breath), Transaminitis, Total bilirubin, elevated - Scribe Statement The provider has reviewed the documentation as recorded by the Scribe (Claire Partida) Provider Attestation: All medical record entries made by the Scribe were at my direction and personally dictated by me. I have reviewed the chart and agree that the record accurately reflects my personal performance of the history, physical exam, medical decision making, and the department course for this patient. I have also personally directed, reviewed, and agree with the discharge instructions and disposition. Physician Patient Turnover Patient Signed Over To: Tina Abad Handoff Comments: pending CT, troponin and urine
[2018-08-16 18:20] LABS: INR 1.3; PARTIAL THROMBOPLASTIN TIME 36.4 SECONDS (21-34); PROTHROMBIN TIME 14.4 SECONDS (9.7-12.2)
[2018-08-16 18:27] LABS: ALB/GLOB RATIO 0.9 (1.0-2.1); ALBUMIN 3.3 g/dL (3.5-5.0); ALT/SGPT 65 U/L (21-72); AST/SGOT 195 U/L (17-59); BLOOD UREA NITROGEN 8 mg/dL (9-20); CALCIUM 8.1 mg/dl (8.6-10.4); GFR NON-AFRICAN AMERICAN > 60
[2018-08-16 18:41] LABS: B-TYPE NATRIURETIC PEPTIDE 102 pg/mL (0-900)
[2018-08-16] MEDS ORDERED: Iodixanol 320 MG/ML 100 ML BOTTLE IV ONE (19:03)
[2018-08-16 19:41] LABS: URINE BILIRUBIN NEGATIVE (NEGATIVE); URINE BLOOD 2+ (NEGATIVE); URINE CLARITY Clear (Clear); URINE COLOR Yellow (YELLOW); URINE GLUCOSE (UA) NORMAL (Normal); URINE LEUKOCYTE ESTERASE NEG Leu/uL (Negative); URINE PROTEIN NEGATIVE (NEGATIVE); URINE UROBILINOGEN NORMAL mg/dL (0.2-1.0)
[2018-08-16 20:01] LABS: BARBITURATES, UR NEGATIVE (NEGATIVE); OPIATES, UR NEGATIVE (NEGATIVE); PHENCYCLIDINE, UR NEGATIVE (NEGATIVE)
[2018-08-16 20:03] LABS: BENZODIAZEPINES, UR POSITIVE (NEGATIVE)
[2018-08-17 05:32] VITALS: BP 113/65; PULSE 75; RESP 20; TEMP 97.9; O2SAT 100
--- NOTE | 2018-08-17 08:43 | CT ---
Date of service: 08/16/2018 PROCEDURE: CT HEAD WITHOUT CONTRAST. HISTORY: ?fall COMPARISON: 07/30/2016 TECHNIQUE: Axial computed tomography images were obtained through the head/brain without intravenous contrast. Radiation dose: Total exam DLP = 946.84 mGy-cm. This CT exam was performed using one or more of the following dose reduction techniques: Automated exposure control, adjustment of the mA and/or kV according to patient size, and/or use of iterative reconstruction technique. FINDINGS: HEMORRHAGE: No intracranial hemorrhage. BRAIN: No mass effect or edema. Volume loss and chronic microvascular white matter ischemic changes are again noted. VENTRICLES: Unremarkable. No hydrocephalus. CALVARIUM: Unremarkable. PARANASAL SINUSES: Unremarkable as visualized. No significant inflammatory changes. MASTOID AIR CELLS: Unremarkable as visualized. No inflammatory changes. OTHER FINDINGS: None. IMPRESSION: No evidence of acute intracranial hemorrhage mass effect or midline shift. Volume loss and white matter chronic microvascular ischemic changes. Preliminary report was submitted by [facility] Radiology contains concordant findings
--- NOTE | 2018-08-17 09:36 | CT ---
Date of service: 08/16/2018 PROCEDURE: CT Chest, Abdomen and Pelvis with intravenous contrast HISTORY: trauma COMPARISON: Comparison is made to the previous CT of the chest dated 06/28/2017 TECHNIQUE: IV dose administered: 100 mL of Visipaque three hundred twenty intravenously. Radiation dose: Total exam DLP = 1034.05 mGy-cm. This CT exam was performed using one or more of the following dose reduction techniques: Automated exposure control, adjustment of the mA and/or kV according to patient size, and/or use of iterative reconstruction technique. FINDINGS: CT CHEST WITH CONTRAST: LUNGS: There is no evidence of lung contusion or consolidation. Minimal bibasilar atelectasis are again noted. MEDIASTINUM: Unremarkable. Normal caliber aorta and pulmonary arterial trunk. No aortic dissection. Normal size heart. LYMPH NODES: Unremarkable. PLEURA: Unremarkable. No pneumothorax. No pleural fluid. BONES: There are nondisplaced fracture associated with callus formation at the lateral aspect of the left 3rd to 5th ribs likely subacute or old. No evidence of acute displaced fracture otherwise. OTHER FINDINGS: None. CT ABDOMEN AND PELVIS: LIVER: Mild hepatomegaly and moderate hepatic steatosis are noted. Cirrhotic manifestation of the liver are also noted. GALLBLADDER AND BILE DUCTS: Mild gallbladder wall thickening is noted. PANCREAS: Unremarkable. No gross lesion or ductal dilatation. SPLEEN: Unremarkable. ADRENALS: Unremarkable. No mass. KIDNEYS AND URETERS: Unremarkable. No hydronephrosis. No solid mass. VASCULATURE: No aortic atherosclerotic calcification or mural plaque present. Unremarkable. No aortic aneurysm. BOWEL: Unremarkable. No obstruction. No gross mural thickening. APPENDIX: Normal appendix. PERITONEUM: Unremarkable. No evidence of free air. Trace free fluid and mesenteric edema noted. LYMPH NODES: Unremarkable. No enlarged lymph nodes. BLADDER: Unremarkable. REPRODUCTIVE: Unremarkable. BONES: No acute fracture. OTHER FINDINGS: None. IMPRESSION: No evidence of lung contusion or pneumothorax. Subacute or old left 3rd to 5th rib fracture. Liver cirrhosis and steatosis noted. No evidence of upper abdomen solid organs laceration or hematoma. Old fracture and internal fixation at proximal right femur and right hip. Preliminary report was submitted by [facility] [[email or web address]] Radiology contains concordant findings
--- NOTE | 2018-08-19 07:37 | CARD ---
APPROVED REPORT Date of service: 08/16/2018 EKG Measurement Heart [id number] <Conclusion> Sinus tachycardia Otherwise normal ECG
== END 2018-08-17 05:40 | disposition home or self-care (01) ==
LOC: C.ER 16:18
DX: R74.0 Nonspecific elevation of levels of transaminase and lactic acid dehydrogenase [LDH] (principal); R82.2 Biliuria; F10.129 Alcohol abuse with intoxication, unspecified; R06.02 Shortness of breath; R60.0 Localized edema; S20.229A Contusion of unspecified back wall of thorax, initial encounter; X58.XXXA Exposure to other specified factors, initial encounter; I10 Essential (primary) hypertension; F20.9 Schizophrenia, unspecified; E11.9 Type 2 diabetes mellitus without complications; J44.9 Chronic obstructive pulmonary disease, unspecified; Z72.0 Tobacco use
CPT/HCPCS: 70450; 71260; 74177; 80053; 80320; 80324; 80345; 80346; 80349; 80353; 80358; 80361; 81001; 82948; 83735; 83880; 83992; 84484; 85025; 85610; 85730; 86850; 86900; 99285; Q9967

== ENCOUNTER 2018-08-17 17:41 | Emergency (ER) | payer MEDICAID ==
[2018-08-17 17:41] VITALS: BMI 25.8
--- NOTE | 2018-08-17 18:03 | C.PDOC ---
History Of Present Illness 58 y/o male w/ hx of etoh abuse, well known to this ED is brought in by ambulance after being found intoxicated in public. Denies leg pain at this time. Also denies fever, chills, chest pain, SOB, or other physical complaints. Marlee shen is requesting a place to stay for a couple hours to sober up. Time Seen by Provider: 08/17/18 17:44 Chief Complaint (Nursing): Lower Extremity Problem/Injury History Per: Patient History/Exam Limitations: no limitations Past Medical History Reviewed: Historical Data, Nursing Documentation, Vital Signs - Medical History PMH: Anxiety, COPD, Depression, Diabetes, Fractures (R HIP x2), HTN, Schizophrenia, Seizures (ETOH related) Denies: HIV, Pulmonary Embolism, Chronic Kidney Disease, Sexually Transmitted Disease - [facility] Procedures ALCOHOL DETOXIFICATION (02/24/13) DETOXIFICATION SERVICES FOR SUBSTANCE ABUSE TREATMENT (02/17/18) GROUP CAN CONVEYOR FEEDER FOR SUBSTANCE ABUSE TREATMENT, PSYCHOEDUCATION (02/17/18) GROUP CAN CONVEYOR FEEDER FOR SUBSTANCE ABUSE, COGNITIVE BEHAVIORAL (02/17/18) GROUP PSYCHOTHERAPY (02/17/18) INDIV PSYCHOTHERAPY FOR SUBSTANCE ABUSE TREATMENT, SUPPORT (02/17/18) INDIV PSYCHOTHERAPY FOR SUBSTANCE ABUSE, COGNITIV BEHAVIORAL (02/17/18) INDIV PSYCHOTHERAPY FOR SUBSTANCE ABUSE, PSYCHOEDUCATION (02/17/18) INDIVIDUAL PSYCHOTHERAPY, COGNITIVE-BEHAVIORAL (02/17/18) INDIVIDUAL PSYCHOTHERAPY, SUPPORTIVE (02/17/18) INJECT/INFUSE ELECTROLYT (02/20/13) INJECT/INFUSE NEC (05/02/13) MEDICATION MANAGEMENT (10/07/16) MEDS MGMT FOR SUBSTANCE ABUSE TREATMENT, METHADONE MAINT (07/27/16) MEDS MGMT FOR SUBSTANCE ABUSE TREATMENT, OTH REPL MED (09/18/16) Family History: States: No Known Family Hx - Social History Hx Tobacco Use: Yes Hx Alcohol Use: Yes Hx Substance Use: No - Immunization History Hx Tetanus Toxoid Vaccination: No Hx Influenza Vaccination: No Hx Pneumococcal Vaccination: No Review Of Systems Constitutional: Negative for: Fever, Chills, Weakness, Malaise Eyes: Negative for: Pain, Vision Change, Redness ENT: Negative for: Ear Pain, Ear Discharge, Nose Pain, Nose Congestion, Mouth Pain, Throat Pain Cardiovascular: Negative for: Chest Pain, Palpitations, Orthopnea, Light Headedness Respiratory: Negative for: Cough, Shortness of Breath, SOB with Excertion, Pleuritic Pain, Sputum, Wheezing Gastrointestinal: Negative for: Nausea, Vomiting, Abdominal Pain, Diarrhea, Constipation Genitourinary: Negative for: Dysuria, Hematuria Musculoskeletal: Negative for: Neck Pain, Shoulder Pain, Arm Pain, Back Pain, Hand Pain, Leg Pain Skin: Negative for: Rash Neurological: Negative for: Weakness, Numbness, Headache, Dizziness Psych: Positive for: Other (alcohol intoxication). Negative for: Depression, Psychosis, Suicidal ideation, Withdrawal Physical Exam - Physical Exam Appears: Well, Non-toxic, No Acute Distress, Other (alcohol on breath) Skin: Warm, Dry Head: Normacephalic, No Tenderness, No Abrasion, No Laceration Eye(s): bilateral: Normal Inspection, PERRL, EOMI Nose: Normal Oral Mucosa: Moist Tongue: Normal Appearing Lips: Normal Appearing Teeth: Normal Dentition Gingiva: Normal Appearing Throat: Normal, No Erythema, No Exudate Neck: Normal, Normal ROM, Trachea Midline, No Midline Cervical Tenderness, Supple, Other (no meningeal signs) Lymphatic: No Adenopathy Chest: Symmetrical, No Tenderness Cardiovascular: Rhythm Regular, No Murmur, No JVD Respiratory: Normal Breath Sounds, No Rales, No Rhonchi, No Stridor, No Wheezing Gastrointestinal/Abdominal: Soft, No Tenderness, No Distention, No Guarding, No Rebound, No Hernia Back: Normal Inspection, No CVA Tenderness, No Vertebral Tenderness, No Paraspinal Tenderness Extremity: No Tenderness, No Pedal Edema, Capillary Refill (normal), No Deformity, No Swelling Extremity: Bilateral: Atraumatic, Normal Color And Temperature Pulses: Left Dorsalis Pedis: Normal, Right Dorsalis Pedis: Normal Neurological/Psych: Oriented x3, Normal Speech, Normal Motor, Normal Sensation Gait: Steady ED Course And Treatment - Laboratory Results Result Diagrams: 08/17/18 19:06 08/17/18 19:06 Medical Decision Making Medical Decision Makin58 y/o male is brought in by ambulance after being found intoxicated in public. Pt denies any physical complaints at this time. He denies any leg swelling. b/l Le mildly erythematous, likely chronic venous stasis changes. good n/v status in b/l LE. No crepitus pr streaking. He endorsed b/l pain to RN, given endorsement will seek labs, imaging and clinical sobreity. Plan: --EKG --Labs --Tibia Fibula XR --chest XR EKG: NSR, 85 bpm, no stemi 1947 no signs of withdrawal on exam. b/l LE w/ out edema. labs largely unremarkable, no leukocytosis, bnp unremarkable CXR unremarkable per my read abd non-ttp pending clinical sobreity. 2147 pt clinically sober, no signs of withdrawal will rx w/ possible light cellulitis w/ po clinda, 1st dose PO given here. RLE and B/L LE 2x2 cm area of redness b/l clear for d/c home with return indications and f/u, pt agreeable to plan Disposition - Disposition Referrals: [facility] [Outside] [facility] [Outside] [facility] [Outside] [facility] [Outside] Disposition: HOME/ ROUTINE Disposition Time: 21:52 Condition: STABLE Additional Instructions: JOANNA RIVERA, thank you for letting us take care of you today. Your provider was Cruz Lomas and you were treated for PAIN IN LEG. The emergency medical care you received today was directed at your acute symptoms. If you were prescribed any medication, please fill it and take as directed. It may take several days for your symptoms to resolve. Return to the Emergency Department if your symptoms worsen, do not improve, or if you have any other problems. Please contact your doctor or call one of the physicians/clinics you have been referred to that are listed on the Patient Visit Information form that is included in your discharge packet. Bring any paperwork you were given at discharge with you along with any medications you are taking to your follow up visit. Our treatment cannot replace ongoing medical care by a primary care provider outside of the emergency department. Thank you for allowing the [facility] team to be part of your care today. If you had an X-Ray or CT scan: A Radiologist will review the ED reading if any change in treatment is needed we will contact you. If you had a blood, urine, or wound culture: It will take several days for the results, if any change in treatment is needed we will contact you. If you had an STI test: It will take 48 hours for the results. Please call after 1 week if you have not heard back. Prescriptions: Clindamycin [Cleocin] 450 mg PO TID #42 cap Instructions: Cellulitis (Skin Infection), Adult (DC), Alcohol Abuse and Alcoholism (DC) Forms: [facility] (Pakistani) - Clinical Impression Clinical Impression: Alcohol abuse, Cellulitis - Scribe Statement The provider has reviewed the documentation as recorded by the Lan Espinoza Provider Attestation: All medical record entries made by the Lan were at my direction and perso ernestina dictated by me. I have reviewed the chart and agree that the record accurately reflects my personal performance of the history, physical exam, medical decision making, and the department course for this patient. I have also personally directed, reviewed, and agree with the discharge instructions and disposition.
[2018-08-17 19:17] LABS: BASO # 0.1 K/uL (0.0-0.2); BASO % 2.3 % (0.0-2.0); EOS % 0.8 % (0.0-4.0); HEMOGLOBIN 11.3 g/dL (12.0-18.0); LYMPH # 0.8 K/uL (1.0-4.3); LYMPH % 13.7 % (20.0-40.0); MEAN CELL VOLUME 105.2 fL (80.0-94.0); MEAN CORPUSCULAR HEMOGLOBIN 35.4 pg (27.0-31.0); MEAN CORPUSCULAR HGB CONC 33.6 g/dL (33.0-37.0); MONO # 0.9 K/uL (0.0-0.8); MONO % 15.1 % (0.0-10.0); NEUT # 4.1 K/uL (1.8-7.0); NEUT % 68.1 % (50.0-75.0); RBC 3.2 Mil/uL (4.40-5.90); RED CELL DISTRIBUTION WIDTH 16.5 % (11.5-14.5)
[2018-08-17 19:38] LABS: ALB/GLOB RATIO 0.9 (1.0-2.1); ALBUMIN 3.1 g/dL (3.5-5.0); ALT/SGPT 55 U/L (21-72); AST/SGOT 140 U/L (17-59); BLOOD UREA NITROGEN 7 mg/dL (9-20); CALCIUM 8.1 mg/dl (8.6-10.4); GFR NON-AFRICAN AMERICAN > 60
[2018-08-17 19:43] LABS: B-TYPE NATRIURETIC PEPTIDE 143 pg/mL (0-900)
[2018-08-17 21:15] VITALS: BP 100/46; PULSE 84; RESP 19; TEMP 98.1; O2SAT 97
--- NOTE | 2018-08-18 10:21 | RAD ---
Date of service: 08/17/2018 PROCEDURE: Radiographs of the bilateral Tibiae and Fibulae. HISTORY: swelling COMPARISON: None available. TECHNIQUE: Frontal and lateral views obtained. 4 views obtained. FINDINGS: BONES: RIGHT TIBIA: No acute displaced fracture or destructive lesion. Bone alignment is normal. There is mild periarticular bone demineralization. LEFT TIBIA: No acute displaced fracture or destructive lesion. Bone alignment is normal. There is mild periarticular bone demineralization. JOINT SPACES: RIGHT TIBIA: Normal. LEFT TIBIA: Normal. SOFT TISSUES: RIGHT TIBIA: There is mild diffuse subcutaneous edema. LEFT TIBIA: There is mild diffuse subcutaneous edema. OTHER FINDINGS: None. IMPRESSION: No acute displaced fracture or dislocation.
--- NOTE | 2018-08-18 20:37 | CARD ---
APPROVED REPORT Date of service: 08/17/2018 EKG Measurement Heart [id number] <Conclusion> Normal sinus rhythm Cannot rule out Anterior infarct, age undetermined Prolonged QT Abnormal ECG
== END 2018-08-17 22:27 | disposition home or self-care (01) ==
LOC: C.ER 17:41
DX: F10.129 Alcohol abuse with intoxication, unspecified (principal); Y90.9 Presence of alcohol in blood, level not specified; L03.116 Cellulitis of left lower limb; L03.115 Cellulitis of right lower limb